=== PATIENT | female | born 1985 | race American Indian/Alaskan Native ===

== ENCOUNTER 2017-05-20 23:56 | Emergency (ER) | payer SELFPAY ==
[2017-05-20] MEDS ORDERED: Lidocaine 1% 20 ML MDV INJECT ONE (23:58)
[2017-05-20] MEDS ORDERED: Bacitracin Oint 1 GM U/D Packet TOP ONE (23:59)
[2017-05-21] MEDS ORDERED: Diphtheria,Pertussis(Acell),Tetanus Vaccine 0.5 ML Syringe IM ONE (00:02)
[2017-05-21 00:08] VITALS: BP 134/100
--- NOTE | 2017-05-21 00:10 | EDM.PDOC ---
ED HPI GENERAL MEDICAL PROBLEM - General Chief Complaint: Laceration Stated Complaint: LACERATION LT FOOT Time Seen by Provider: 05/21/17 00:07 - History of Present Illness INITIAL COMMENTS - FREE TEXT/NARRATIVE: HISTORY AND PHYSICAL: History of present illness: Patient 31-year-old white female presents with a concern of injury to her right foot in form of laceration she states this occurred when it was struck on a metal door frame she denies of a tetanus Review of systems: As per history of present illness and below otherwise all systems reviewed and negative. Past medical history: As per history of present illness and as reviewed below otherwise noncontributory. Surgical history: As per history of present illness and as reviewed below otherwise noncontributory. Social history: No reported history of drug or alcohol abuse. Family history: As per history of present illness and as reviewed below otherwise noncontributory. Physical exam: HEENT: Atraumatic, normocephalic, pupils reactive, negative for conjunctival pallor or scleral icterus, mucous membranes moist, throat clear, neck supple, nontender, trachea midline. Lungs: Clear to auscultation, breath sounds equal bilaterally, chest nontender. Heart: S1S2, regular, negative for clicks, rubs, or JVD. Abdomen: Soft, nondistended, nontender. Negative for masses or hepatosplenomegaly. Negative for costovertebral tenderness. Pelvis: Stable nontender. Genitourinary: Deferred. Rectal: Deferred. Extremities: Patient has approximately a 2.5 cm moderate of laceration over dorsal aspect of the first digit of her right foot there's good hemostasis was noted tendon involvement CMS neurovascular exam is unremarkable Neuro: Awake, alert, oriented. Cranial nerves II through XII unremarkable. Cerebellum unremarkable. Motor and sensory unremarkable throughout. Exam nonfocal. Diagnostics: Refused by patient Therapeutics: Refused by patient Impression: #1 acute injury right foot #2 AMA Definitive disposition and diagnosis as appropriate pending reevaluation and review of above. Right 1-Hallux Pain Score (Numeric/FACES): 6 - Related Data Allergies Allergy/AdvReac Type Severity Reaction Status Date / Time amoxicillin trihydrate Allergy Hives Verified 08/21/16 21:53 [From Augmentin] potassium clavulanate Allergy Hives Verified 08/21/16 21:53 [From Augmentin] Home Meds: Home Meds Budesonide/Formoterol [Symbicort 160-4.5 Mcg Inhaler] 10.2 gm IH DAILY 08/21/16 [History] Past Medical History HEENT History: Reports: None Cardiovascular History: Reports: None Respiratory History: Reports: Pneumothorax Gastrointestinal History: Reports: None Genitourinary History: Reports: None 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 Musculoskeletal History: Reports: None Neurological History: Reports: None Psychiatric History: Reports: Depression Endocrine/Metabolic History: Reports: None Hematologic History: Reports: None Immunologic History: Reports: None Oncologic (Cancer) History: Reports: None Dermatologic History: Reports: None - Infectious Disease History Infectious Disease History: Reports: None - Past Surgical History Head Surgeries/Procedures: Reports: None HEENT Surgical History: Reports: Tonsillectomy GI Surgical History: Reports: None Social & Family History - Tobacco Use Smoking Status *Q: Current Every Day Smoker Years of Tobacco use: 15 Packs/Tins Daily: 0.5 - Alcohol Use Days Per Week of Alcohol Use: 0 - Recreational Drug Use Recreational Drug Use: No Drug Use in Last 12 Months: Yes Recreational Drug Type: Reports: Marijuana/Hashish Recreational Drug Use Frequency: Rarely ED ROS GENERAL - Review of Systems Review Of Systems: ROS reveals no pertinent complaints other than HPI. ED EXAM, SKIN/RASH Exam: See Below (See dictation) Course - Vital Signs Last Recorded V/S: Last Vital Signs Temp 36.7 C 05/21/17 00:04 Pulse 94 05/21/17 00:04 Resp 20 05/21/17 00:04 BP 134/100 H 05/21/17 00:04 Pulse Ox 100 05/21/17 00:04 - Orders/Labs/Meds Meds: Medications Discontinued Medications Generic Name Dose Route Start Last Admin Trade Name Freq PRN Reason Stop Dose Admin Bacitracin 1 dose 05/20/17 23:59 Bacitracin Oint 1 Gm TOP 05/21/17 00:00 ONETIME ONE Lidocaine HCl 20 ml 05/20/17 23:58 Xylocaine 1% INJECT 05/20/17 23:59 ONETIME ONE Departure - Departure Time of Disposition: 00:10 Disposition: Against Medical Advice 07 Condition: Undetermined Clinical Impression: Foot injury - Discharge Information Forms: ED Department Discharge Additional Instructions: The following information is given to patients seen in the emergency department who are being discharged to home. This information is to outline your options for follow-up care. We provide all patients seen in our emergency department with a follow-up referral. The need for follow-up, as well as the timing and circumstances, are variable depending upon the specifics of your emergency department visit. If you don't have a primary care physician on staff, we will provide you with a referral. We always advise you to contact your personal physician following an emergency department visit to inform them of the circumstance of the visit and for follow-up with them and/or the need for any referrals to a consulting specialist. The emergency department will also refer you to a specialist when appropriate. This referral assures that you have the opportunity for followup care with a specialist. All of these measure are taken in an effort to provide you with optimal care, which includes your followup. Under all circumstances we always encourage you to contact your private physician who remains a resource for coordinating your care. When calling for followup care, please make the office aware that this follow-up is from your recent emergency room visit. If for any reason you are refused follow-up, please contact the [facility] emergency department at and asked to speak to the emergency department charge nurse. Return immediately for any change in heart regarding evaluation treatment follow -up primary medical doctor on today's return as needed as discussed
== END 2017-05-21 00:07 | disposition left against medical advice (07) ==
LOC: MW.ED 23:56
DX: S91.111A Laceration without foreign body of right great toe without damage to nail, initial encounter (principal); F17.210 Nicotine dependence, cigarettes, uncomplicated; Z88.1 Allergy status to other antibiotic agents; Z88.8 Allergy status to other drugs, medicaments and biological substances; Z79.899 Other long term (current) drug therapy; Z98.890 Other specified postprocedural states; W22.8XXA Striking against or struck by other objects, initial encounter
CPT/HCPCS: 99282

== ENCOUNTER 2017-05-21 03:52 | Emergency (ER) | payer SELFPAY ==
[2017-05-21] MEDS ORDERED: Lidocaine 1% 20 ML MDV INJECT ONE (03:59)
[2017-05-21] MEDS ORDERED: Diphtheria,Pertussis(Acell),Tetanus Vaccine 0.5 ML Syringe IM ONE (03:59)
[2017-05-21] MEDS ORDERED: Bacitracin Oint 1 GM U/D Packet TOP ONE (04:00)
--- NOTE | 2017-05-21 04:56 | EDM.PDOC ---
ED HPI GENERAL MEDICAL PROBLEM - General Chief Complaint: Laceration Stated Complaint: RETURN Time Seen by Provider: 05/21/17 04:56 - History of Present Illness INITIAL COMMENTS - FREE TEXT/NARRATIVE: HISTORY AND PHYSICAL: History of present illness: Patient 31-year-old female presents with concern of acute injury to first digit right foot that occurred when she struck it on the base doorjamb she denies trauma or concern she denies up-to-date tetanus Review of systems: As per history of present illness and below otherwise all systems reviewed and negative. Past medical history: As per history of present illness and as reviewed below otherwise noncontributory. Surgical history: As per history of present illness and as reviewed below otherwise noncontributory. Social history: No reported history of drug or alcohol abuse. Family history: As per history of present illness and as reviewed below otherwise noncontributory. Physical exam: HEENT: Atraumatic, normocephalic, pupils reactive, negative for conjunctival pallor or scleral icterus, mucous membranes moist, throat clear, neck supple, nontender, trachea midline. Lungs: Clear to auscultation, breath sounds equal bilaterally, chest nontender. Heart: S1S2, regular, negative for clicks, rubs, or JVD. Abdomen: Soft, nondistended, nontender. Negative for masses or hepatosplenomegaly. Negative for costovertebral tenderness. Pelvis: Stable nontender. Genitourinary: Deferred. Rectal: Deferred. Extremities: Patient has approximately 3 cm moderate depth laceration over the dorsal aspect of first digit right foot there's no tendon involvement CMS neurovascular unremarkable Neuro: Awake, alert, oriented. Cranial nerves II through XII unremarkable. Cerebellum unremarkable. Motor and sensory unremarkable throughout. Exam nonfocal. Diagnostics: X-ray right foot Therapeutics: Patient was anesthetized 1% lidocaine without epinephrine irrigated Demetrius-Soft 0.9 normal saline prepped and draped in sterile manner closed with 4-0 nylon interrupted sutures bacitracin was applied Impression: #1 acute injury right foot (laceration) Definitive disposition and diagnosis as appropriate pending reevaluation and review of above. 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 Musculoskeletal History: Reports: None Neurological History: Reports: None Psychiatric History: Reports: Depression Endocrine/Metabolic History: Reports: None Hematologic History: Reports: None Immunologic History: Reports: None Oncologic (Cancer) History: Reports: None Dermatologic History: Reports: None - Infectious Disease History Infectious Disease History: Reports: None - Past Surgical History Head Surgeries/Procedures: Reports: None HEENT Surgical History: Reports: Tonsillectomy GI Surgical History: Reports: None Social & Family History - Tobacco Use Smoking Status *Q: Current Every Day Smoker Years of Tobacco use: 11 Packs/Tins Daily: 0.5 Used Tobacco, but Quit: No - Caffeine Use Caffeine Use: Reports: Coffee, Soda - Alcohol Use Days Per Week of Alcohol Use: 7 Number of Drinks Per Day: 4 Total Drinks Per Week: 28 - Recreational Drug Use Recreational Drug Use: No Drug Use in Last 12 Months: Yes Recreational Drug Type: Reports: Marijuana/Hashish Recreational Drug Use Frequency: Rarely ED ROS GENERAL - Review of Systems Review Of Systems: ROS reveals no pertinent complaints other than HPI. ED EXAM, SKIN/RASH Exam: See Below (See dictation) Course - Vital Signs Last Recorded V/S: Last Vital Signs Temp 35.9 C 05/21/17 04:04 Pulse 86 05/21/17 04:04 Resp 16 05/21/17 04:04 BP 130/97 H 05/21/17 04:04 Pulse Ox 98 05/21/17 04:04 - Orders/Labs/Meds Orders: Active Orders 24 hr Category Date Time Status Vaccines to be Administered [RC] PER UNIT ROUTINE Care 05/21/17 03:59 Active Foot 2V Lt [CR] Stat Exams 05/21/17 04:15 Taken Meds: Medications Discontinued Medications Generic Name Dose Route Start Last Admin Trade Name Freq PRN Reason Stop Dose Admin Bacitracin 1 dose 05/21/17 04:00 05/21/17 04:11 Bacitracin Oint 1 Gm TOP 05/21/17 04:01 1 dose ONETIME ONE Administration Diphtheria/Tetanus/Acell Pertussis 0.5 ml 05/21/17 03:59 05/21/17 04:10 Adacel IM 05/21/17 04:00 0.5 ml .ONCE ONE Administration Lidocaine HCl 20 ml 05/21/17 03:59 05/21/17 04:11 Xylocaine 1% INJECT 05/21/17 04:00 20 ml ONETIME ONE Administration Departure - Departure Time of Disposition: 04:55 Disposition: Home, Self-Care 01 Condition: Good Clinical Impression: Laceration - Discharge Information Instructions: Laceration Care, Adult, [id number] Referrals: PCP,None [Primary Care Provider] - Forms: ED Department Discharge Additional Instructions: The following information is given to patients seen in the emergency department who are being discharged to home. This information is to outline your options for follow-up care. We provide all patients seen in our emergency department with a follow-up referral. The need for follow-up, as well as the timing and circumstances, are variable depending upon the specifics of your emergency department visit. If you don't have a primary care physician on staff, we will provide you with a referral. We always advise you to contact your personal physician following an emergency department visit to inform them of the circumstance of the visit and for follow-up with them and/or the need for any referrals to a consulting specialist. The emergency department will also refer you to a specialist when appropriate. This referral assures that you have the opportunity for followup care with a specialist. All of these measure are taken in an effort to provide you with optimal care, which includes your followup. Under all circumstances we always encourage you to contact your private physician who remains a resource for coordinating your care. When calling for followup care, please make the office aware that this follow-up is from your recent emergency room visit. If for any reason you are refused follow-up, please contact the [facility] emergency department at and asked to speak to the emergency department charge nurse. Wound check PMB follow-up 48 hours suture removal 10-14 days return as needed as discussed - My Orders Last 24 Hours: My Active Orders 05/21/17 03:59 Vaccines to be Administered [RC] PER UNIT ROUTINE 05/21/17 04:15 Foot 2V Lt [CR] Stat - Assessment/Plan Last 24 Hours: My Active Orders 05/21/17 03:59 Vaccines to be Administered [RC] PER UNIT ROUTINE 05/21/17 04:15 Foot 2V Lt [CR] Stat
[2017-05-21 05:31] VITALS: BP 135/74
--- NOTE | 2017-05-21 14:02 | CR ---
EXAM DATE: 05/21/17 PATIENT'S AGE: 31 Patient: DORI CARVAJAL Facility: [place], [place] Site . Site : 1985 Study: XRay Extremity Left [id number]/10/2017 4:30:57 AM Ordering Physician: Scotty Herbert Final Report: INDICATION: INJURY LEFT FOOT No fracture, dislocation, or destructive lesion of bone is seen. No significant arthritic changes or soft tissue abnormalities are identified. IMPRESSION: Negative left foot radiographs. JONO HERNANDES MD [employer] Dictated by: Osmany Hernandes MD @ 05/21/2017 04:47:01 (Electronic Signature) Report Signed by Proxy. [facility]
== END 2017-05-21 05:01 | disposition home or self-care (01) ==
LOC: MW.ED 03:52
DX: S91.112A Laceration without foreign body of left great toe without damage to nail, initial encounter (principal); F17.210 Nicotine dependence, cigarettes, uncomplicated; Z88.1 Allergy status to other antibiotic agents; Z98.890 Other specified postprocedural states; W22.8XXA Striking against or struck by other objects, initial encounter
CPT/HCPCS: 12002; 73620-26-LT; 73620-LT; 90471; 90715; 96372; 99282; 99283-25

== ENCOUNTER 2018-01-10 14:20 | Emergency (ER) | payer SELFPAY | END 2018-01-10 15:13 | disposition left against medical advice (07) | LOC: MW.ED 14:20 | DX: Z53.21 Procedure and treatment not carried out due to patient leaving prior to being seen by health care provider (principal) ==

== ENCOUNTER 2018-01-26 06:55 | Emergency (ER) | payer SELFPAY ==
[2018-01-26] MEDS ORDERED: Albuterol/Ipratropium 3.0-0.5 MG/3 ML Neb Soln NEB ONE (07:11)
--- NOTE | 2018-01-26 07:12 | EDM.PDOC ---
ED HPI GENERAL MEDICAL PROBLEM - General Chief Complaint: General Stated Complaint: FEVER Time Seen by Provider: 01/26/18 07:12 Source of Information: Reports: Patient - History of Present Illness INITIAL COMMENTS - FREE TEXT/NARRATIVE: HISTORY AND PHYSICAL: History of present illness: [Patient has a history of half pack per day smoking and persistent cough is her main complaint She also complains of right flank discomfort and dysuria no current fever nausea vomiting chills sweats ] Review of systems: As per history of present illness and below otherwise all systems reviewed and negative. Past medical history: As per history of present illness and as reviewed below otherwise noncontributory. Surgical history: As per history of present illness and as reviewed below otherwise noncontributory. Social history: No reported history of drug or alcohol abuse. Family history: As per history of present illness and as reviewed below otherwise noncontributory. Physical exam: HEENT: Atraumatic, normocephalic, pupils reactive, negative for conjunctival pallor or scleral icterus, mucous membranes moist, throat clear, neck supple, nontender, trachea midline. Lungs: Clear to auscultation, breath sounds equal bilaterally, chest nontender. Heart: S1S2, regular, negative for clicks, rubs, or JVD. Abdomen: Soft, nondistended, nontender. Negative for masses or hepatosplenomegaly. Negative for costovertebral tenderness. Pelvis: Stable nontender. Genitourinary: Deferred. Rectal: Deferred. Extremities: Atraumatic, negative for cords or calf pain. Neurovascular unremarkable. Neuro: Awake, alert, oriented. Cranial nerves II through XII unremarkable. Cerebellum unremarkable. Motor and sensory unremarkable throughout. Exam nonfocal. Diagnostics: [Chest 2 views Influenza UA hCG ] Therapeutics: [DuoNeb ] Levaquin 500 by mouth now and daily #10 no refill HFA Impression: UTI Bronchitis [Cough] Definitive disposition and diagnosis as appropriate pending reevaluation and review of above. generalized all over Pain Score (Numeric/FACES): 8 - Related Data Allergies Allergy/AdvReac Type Severity Reaction Status Date / Time amoxicillin trihydrate Allergy Hives Verified 01/26/18 07:05 [From Augmentin] potassium clavulanate Allergy Hives Verified 01/26/18 07:05 [From Augmentin] Home Meds: Home Meds . [No Known Home Meds] 01/26/18 [History] Past Medical History HEENT History: Reports: None Cardiovascular History: Reports: None Respiratory History: Reports: COPD, Pneumothorax Gastrointestinal History: Reports: None Genitourinary History: Reports: None MOLDER HAND History: Reports: None Musculoskeletal History: Reports: None Neurological History: Reports: None Psychiatric History: Reports: Depression Endocrine/Metabolic History: Reports: None Hematologic History: Reports: None Immunologic History: Reports: None Oncologic (Cancer) History: Reports: None Dermatologic History: Reports: None - Infectious Disease History Infectious Disease History: Reports: None - Past Surgical History Head Surgeries/Procedures: Reports: None HEENT Surgical History: Reports: Tonsillectomy Respiratory Surgical History: Reports: Other (See Below) Other Respiratory Surgeries/Procedures: Part of R lung removed, GI Surgical History: Reports: None Social & Family History - Family History Family Medical History: Noncontributory - Tobacco Use Smoking Status *Q: Current Every Day Smoker Years of Tobacco use: 12 Packs/Tins Daily: 0.5 Used Tobacco, but Quit: No - Caffeine Use Caffeine Use: Reports: Coffee, Energy Drinks - Alcohol Use Days Per Week of Alcohol Use: 5 Number of Drinks Per Day: 4 Total Drinks Per Week: 20 - Recreational Drug Use Recreational Drug Use: No Drug Use in Last 12 Months: Yes Recreational Drug Type: Reports: Marijuana/Hashish Recreational Drug Use Frequency: Rarely ED ROS GENERAL - Review of Systems Review Of Systems: ROS reveals no pertinent complaints other than HPI. ED EXAM, GENERAL - Physical Exam Exam: See Below Course - Vital Signs Last Recorded V/S: Last Vital Signs Temp 97.8 F 01/26/18 07:02 Pulse 100 01/26/18 07:02 Resp 16 01/26/18 07:02 BP 133/91 H 01/26/18 07:02 Pulse Ox 95 01/26/18 07:02 - Orders/Labs/Meds Orders: Active Orders 24 hr Category Date Time Status RT Aerosol Therapy [RC] ASDIRECTED Care 01/26/18 07:11 Active Chest 2V [CR] Stat Exams 01/26/18 07:11 Taken CULTURE URINE [RM] Stat Lab 01/26/18 07:17 Received Levofloxacin [Levaquin] Med 01/26/18 08:11 Once 500 mg PO ONETIME ONE Labs: Laboratory Tests 01/26/18 01/26/18 Range/Units 07:17 07:17 Urine Color YELLOW Urine Appearance CLEAR Urine pH 6.0 (5.0-8.0) Ur Specific [place] <= 1.005 (1.001-1.035) Urine Protein 30 (NEGATIVE) mg/dL Urine Glucose (UA) NEGATIVE (NEGATIVE) mg/dL Urine Ketones NEGATIVE (NEGATIVE) mg/dL Urine Occult Blood TRACE-INTACT (NEGATIVE) Urine Nitrite NEGATIVE (NEGATIVE) Urine Bilirubin NEGATIVE (NEGATIVE) Urine Urobilinogen 0.2 (<2.0) EU/dL Ur Leukocyte Esterase MODERATE (NEGATIVE) Urine RBC 0-1 (0-2/HPF) Urine WBC 25-30 (0-5/HPF) Ur Epithelial Cells RARE (NONE-FEW) Urine Bacteria RARE (NEGATIVE) Urine HCG, Qual NEGATIVE (NEGATIVE) Meds: Medications Discontinued Medications Generic Name Dose Route Start Last Admin Trade Name Freq PRN Reason Stop Dose Admin Albuterol/Ipratropium 3 ml 01/26/18 07:11 01/26/18 07:18 Duoneb 3.0-0.5 Mg/3 Ml NEB 01/26/18 07:12 3 ml ONETIME ONE Administration Departure - Departure Time of Disposition: 08:12 Disposition: Home, Self-Care 01 Condition: Good Clinical Impression: UTI (urinary tract infection), Bronchitis - Discharge Information Referrals: Huy Duarte MD [Primary Care Provider] - Forms: ED Department Discharge Additional Instructions: Smoking cessation recommended Medication as prescribed Return if symptoms persist or worsen or new concerning symptoms develop Follow-up with primary care in 2 weeks sooner as needed [facility] [address] [place] [id number] The following information is given to patients seen in the emergency department who are being discharged to home. This information is to outline your options for follow-up care. We provide all patients seen in our emergency department with a follow-up referral. The need for follow-up, as well as the timing and circumstances, are variable depending upon the specifics of your emergency department visit. If you don't have a primary care physician on staff, we will provide you with a referral. We always advise you to contact your personal physician following an emergency department visit to inform them of the circumstance of the visit and for follow-up with them and/or the need for any referrals to a consulting specialist. The emergency department will also refer you to a specialist when appropriate. This referral assures that you have the opportunity for follow-up care with a specialist. All of these measure are taken in an effort to provide you with optimal care, which includes your follow-up. Under all circumstances we always encourage you to contact your private physician who remains a resource for coordinating your care. When calling for follow-up care, please make the office aware that this follow-up is from your recent emergency room visit. If for any reason you are refused follow-up, please contact the [facility] emergency department at and asked to speak to the emergency department charge nurse. - My Orders Last 24 Hours: My Active Orders 01/26/18 07:11 RT Aerosol Therapy [RC] ASDIRECTED Chest 2V [CR] Stat 01/26/18 07:17 CULTURE URINE [RM] Stat 01/26/18 08:11 Levofloxacin [Levaquin] 500 mg PO ONETIME ONE - Assessment/Plan Last 24 Hours: My Active Orders 01/26/18 07:11 RT Aerosol Therapy [RC] ASDIRECTED Chest 2V [CR] Stat 01/26/18 07:17 CULTURE URINE [RM] Stat 01/26/18 08:11 Levofloxacin [Levaquin] 500 mg PO ONETIME ONE
[2018-01-26] MEDS ORDERED: Levofloxacin 500 MG Tab PO ONE (08:11)
[2018-01-26 08:30] VITALS: BP 120/89
--- NOTE | 2018-01-28 15:27 | CR ---
EXAM DATE: 01/26/18 PATIENT'S AGE: 32 Patient: DORI CARVAAJL Facility: [place], [place] Site . Site : 1985 Study: XRay Chest [id number]/17/2018 7:33:51 AM Ordering Physician: Doctor Winn Final Report: INDICATION: pain in chest and back/ cough/ copd INDICATION: Chest pain. TECHNIQUE: Chest 2 views. COMPARISON: None FINDINGS: Cardiovascular and mediastinum: Heart size and vasculature are normal in caliber and appearance. Mediastinum is within normal limits. Lungs and pleural spaces: Linear scarring present above the minor fissure, which appears displaced superiorly. No sign of mass. Mild blunting of the right lateral costophrenic sulcus, with pleural thickening favored over fluid. No pneumothorax. Lucencies are present about the left lung apex, without a discrete pneumothorax. This could represent emphysematous changes. Bones and soft tissues: No significant findings. IMPRESSION: No acute airspace disease. Dictated by Amari Hamilton MD @ 01/26/2018 7:37:16 AM Dictated by: Amari Hamilton MD @ 01/26/2018 07:37:29 (Electronic Signature) Report Signed by Proxy. [facility]
== END 2018-01-26 08:25 | disposition home or self-care (01) ==
LOC: MW.ED 06:55
DX: J40 Bronchitis, not specified as acute or chronic (principal); N39.0 Urinary tract infection, site not specified; J44.9 Chronic obstructive pulmonary disease, unspecified; F17.210 Nicotine dependence, cigarettes, uncomplicated; Z88.1 Allergy status to other antibiotic agents; Z88.8 Allergy status to other drugs, medicaments and biological substances
CPT/HCPCS: 71046; 81001; 81025; 87086; 87804; 94640; 99284; A9270; 87088; 87186; 99283

== ENCOUNTER 2018-03-12 22:51 | Emergency (ER) | payer OTHER ==
[2018-03-12] MEDS ORDERED: Sodium Chloride 0.9% 1,000 ML IV ONE (23:12)
--- NOTE | 2018-03-12 23:14 | EDM.PDOC ---
ED HPI GENERAL MEDICAL PROBLEM - General Chief Complaint: General Stated Complaint: MEDICAL CLEARANCE Time Seen by Provider: 03/12/18 23:14 Source of Information: Reports: Patient - History of Present Illness INITIAL COMMENTS - FREE TEXT/NARRATIVE: HISTORY AND PHYSICAL: History of present illness: [Patient presents for medical clearance, she is currently under arrest for alcohol intoxication Patient denies any symptoms such as fever nausea vomiting diarrhea constipation chest pain shortness breath headache dizziness palpitation no bowel or urine symptoms Her initial vitals have elevated blood pressure as well as tachycardia up to 140 however manual exam blood pressure is 130s over 100 versus the automated machine, EKG confirms a heart rate in the low at 114 slides sinus tachycardia Otherwise patient is alert cooperative in no apparent distress ] Review of systems: As per history of present illness and below otherwise all systems reviewed and negative. Past medical history: As per history of present illness and as reviewed below otherwise noncontributory. Surgical history: As per history of present illness and as reviewed below otherwise noncontributory. Social history: No reported history of drug or alcohol abuse. Family history: As per history of present illness and as reviewed below otherwise noncontributory. Physical exam: HEENT: Atraumatic, normocephalic, pupils reactive, negative for conjunctival pallor or scleral icterus, mucous membranes moist, throat clear, neck supple, nontender, trachea midline. Lungs: Clear to auscultation, breath sounds equal bilaterally, chest nontender. Heart: S1S2, regular, negative for clicks, rubs, or JVD. Abdomen: Soft, nondistended, nontender. Negative for masses or hepatosplenomegaly. Negative for costovertebral tenderness. Pelvis: Stable nontender. Genitourinary: Deferred. Rectal: Deferred. Extremities: Atraumatic, negative for cords or calf pain. Neurovascular unremarkable. Neuro: Awake, alert, oriented. Cranial nerves II through XII unremarkable. Cerebellum unremarkable. Motor and sensory unremarkable throughout. Exam nonfocal. Diagnostics: [CBC CMP UA drug screen troponin EKG ] Therapeutics: [1 L normal saline bolus ]KCl 20 mEq by mouth now KCl 20 mEq by mouth daily #3 no rf Impression: [Sinus tachycardia hypertension dehydration Alcohol intoxication Hypokalemia Alcohol use abuse ] Definitive disposition and diagnosis as appropriate pending reevaluation and review of above. denies pain Pain Score (Numeric/FACES): 0 - Related Data Allergies Allergy/AdvReac Type Severity Reaction Status Date / Time amoxicillin trihydrate Allergy Hives Verified 03/12/18 22:58 [From Augmentin] potassium clavulanate Allergy Hives Verified 03/12/18 22:58 [From Augmentin] Home Meds: Home Meds . 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 Musculoskeletal History: Reports: None Neurological History: Reports: None Psychiatric History: Reports: Anxiety, Depression Endocrine/Metabolic History: Reports: None Hematologic History: Reports: None Immunologic History: Reports: None Oncologic (Cancer) History: Reports: None Dermatologic History: Reports: None - Infectious Disease History Infectious Disease History: Reports: None - Past Surgical History Head Surgeries/Procedures: Reports: None HEENT Surgical History: Reports: Tonsillectomy Respiratory Surgical History: Reports: Other (See Below) Other Respiratory Surgeries/Procedures: right lobectomy GI Surgical History: Reports: None Social & Family History - Family History Family Medical History: Noncontributory - Tobacco Use Smoking Status *Q: Current Every Day Smoker Years of Tobacco use: 10 Packs/Tins Daily: 0.5 Used Tobacco, but Quit: No - Caffeine Use Caffeine Use: Reports: Energy Drinks - Alcohol Use Days Per Week of Alcohol Use: 5 Number of Drinks Per Day: 4 Total Drinks Per Week: 20 - Recreational Drug Use Recreational Drug Use: No Drug Use in Last 12 Months: Yes Recreational Drug Type: Reports: Marijuana/Hashish Recreational Drug Use Frequency: Rarely ED ROS GENERAL - Review of Systems Review Of Systems: ROS reveals no pertinent complaints other than HPI. ED EXAM, GENERAL - Physical Exam Exam: See Below Course - Vital Signs Last Recorded V/S: Last Vital Signs Temp 97.6 F 03/12/18 22:58 Pulse 141 H 03/12/18 23:09 Resp 18 03/12/18 22:58 BP 153/116 H 03/12/18 23:09 Pulse Ox 98 03/12/18 22:58 - Orders/Labs/Meds Orders: Active Orders 24 hr Category Date Time Status EKG 12 Lead [EKG Documentation Completion] [RC] STAT Care 03/12/18 23:12 Active DRUG SCREEN, URINE [URCHEM] Stat Lab 03/12/18 23:12 Ordered HCG QUALITATIVE,URINE [URCHEM] Stat Lab 03/12/18 23:41 Ordered UA W/MICROSCOPIC [URIN] Stat Lab 03/12/18 23:12 Ordered Potassium Chloride [Klor-Con M20] Med 03/12/18 23:59 Once 20 meq PO ONETIME ONE Sodium Chloride 0.9% [Normal Saline] 1,000 ml Med 03/12/18 23:12 Active IV STAT Medication Orders Sodium Chloride (Normal Saline) 1,000 mls @ 999 mls/hr IV STAT ONE Stop: 03/13/18 00:12 Last Admin: 03/12/18 23:34 Dose: 999 mls/hr Labs: Laboratory Tests 03/12/18 03/12/18 Range/Units 23:25 23:25 WBC 5.67 (4.0-11.0) K/uL RBC 3.70 L (4.30-5.90) M/uL Hgb 13.7 (12.0-16.0) g/dL Hct 39.7 (36.0-46.0) % MCV 107.3 H (80.0-98.0) fL MCH 37.0 H (27.0-32.0) pg MCHC 34.5 (31.0-37.0) g/dL RDW Std Deviation 61.3 (28.0-62.0) fl RDW Coeff of Mayito 16 H (11.0-15.0) % Plt Count 211 (150-400) K/uL MPV 9.30 (7.40-12.00) fL Neut % (Auto) 60.1 (48.0-80.0) % Lymph % (Auto) 29.5 (16.0-40.0) % Gilchrist % (Auto) 7.4 (0.0-15.0) % Eos % (Auto) 1.9 (0.0-7.0) % Baso % (Auto) 1.1 (0.0-1.5) % Neut # (Auto) 3.4 (1.4-5.7) K/uL Lymph # (Auto) 1.7 (0.6-2.4) K/uL Gilchrist # (Auto) 0.4 (0.0-0.8) K/uL Eos # (Auto) 0.1 (0.0-0.7) K/uL Baso # (Auto) 0.1 (0.0-0.1) K/uL Nucleated RBC % 0.0 /100WBC Nucleated RBCs # 0 K/uL Sodium 144 (136-145) mmol/L Potassium 3.0 L (3.5-5.1) mmol/L Chloride 106 (98-107) mmol/L Carbon Dioxide 25.4 (21.0-32.0) mmol/L BUN 7 (7.0-18.0) mg/dL Creatinine 0.6 (0.6-1.0) mg/dL Est Cr Clr Drug Dosing 101.66 mL/min Estimated GFR (MDRD) > 60.0 ml/min Glucose 120 H (74-106) mg/dL Calcium 8.1 L (8.5-10.1) mg/dL Total Bilirubin 0.6 (0.2-1.0) mg/dL AST 191 H (15-37) IU/L ALT 64 H (14-63) IU/L Alkaline Phosphatase 167 H (46-116) U/L Troponin I < 0.050 (0.000-0.056) ng/mL Total Protein 7.1 (6.4-8.2) g/dL Albumin 3.2 L (3.4-5.0) g/dL Globulin 3.9 H (2.0-3.5) g/dL Albumin/Globulin Ratio 0.8 L (1.3-2.8) Meds: Medications Generic Name Dose Route Start Last Admin Trade Name Freq PRN Reason Stop Dose Admin Sodium Chloride 1,000 mls @ 999 mls/hr 03/12/18 23:12 03/12/18 23:34 Normal Saline IV 03/13/18 00:12 999 mls/hr STAT ONE Administration Departure - Departure Time of Disposition: 00:00 Disposition: Home, Self-Care 01 Condition: Good Clinical Impression: Alcohol intoxication, Sinus tachycardia, Hypokalemia - Discharge Information Referrals: PCP,None [Primary Care Provider] - Forms: ED Department Discharge Additional Instructions: The following information is given to patients seen in the emergency department who are being discharged to home. This information is to outline your options for follow-up care. We provide all patients seen in our emergency department with a follow-up referral. The need for follow-up, as well as the timing and circumstances, are variable depending upon the specifics of your emergency department visit. If you don't have a primary care physician on staff, we will provide you with a referral. We always advise you to contact your personal physician following an emergency department visit to inform them of the circumstance of the visit and for follow-up with them and/or the need for any referrals to a consulting specialist. The emergency department will also refer you to a specialist when appropriate. This referral assures that you have the opportunity for follow-up care with a specialist. All of these measure are taken in an effort to provide you with optimal care, which includes your follow-up. Under all circumstances we always encourage you to contact your private physician who remains a resource for coordinating your care. When calling for follow-up care, please make the office aware that this follow-up is from your recent emergency room visit. If for any reason you are refused follow-up, please contact the [facility] emergency department at and asked to speak to the emergency department charge nurse. - My Orders Last 24 Hours: My Active Orders 03/12/18 23:12 EKG 12 Lead [EKG Documentation Completion] [RC] STAT DRUG SCREEN, URINE [URCHEM] Stat UA W/MICROSCOPIC [URIN] Stat Sodium Chloride 0.9% [Normal Saline] 1,000 ml IV STAT 03/12/18 23:41 HCG QUALITATIVE,URINE [URCHEM] Stat 03/12/18 23:59 Potassium Chloride [Klor-Con M20] 20 meq PO ONETIME ONE - Assessment/Plan Last 24 Hours: My Active Orders 03/12/18 23:12 EKG 12 Lead [EKG Documentation Completion] [RC] STAT DRUG SCREEN, URINE [URCHEM] Stat UA W/MICROSCOPIC [URIN] Stat Sodium Chloride 0.9% [Normal Saline] 1,000 ml IV STAT 03/12/18 23:41 HCG QUALITATIVE,URINE [URCHEM] Stat 03/12/18 23:59 Potassium Chloride [Klor-Con M20] 20 meq PO ONETIME ONE
[2018-03-12 23:56] LABS: CHLORIDE,CL 106 mmol/L (98-107); SODIUM,NA 144 mmol/L (136-145)
[2018-03-12] MEDS ORDERED: Potassium Chloride 20 MEQ Tab.ER PO ONE (23:59)
[2018-03-13 00:35] VITALS: BP 137/102
== END 2018-03-13 00:22 | disposition home or self-care (01) ==
LOC: MW.ED 22:51
DX: F10.129 Alcohol abuse with intoxication, unspecified (principal); R00.0 Tachycardia, unspecified; I10 Essential (primary) hypertension; E86.0 Dehydration; F41.9 Anxiety disorder, unspecified; F32.9 Major depressive disorder, single episode, unspecified; J44.9 Chronic obstructive pulmonary disease, unspecified; F17.210 Nicotine dependence, cigarettes, uncomplicated; E87.6 Hypokalemia; Z88.0 Allergy status to penicillin; Z88.8 Allergy status to other drugs, medicaments and biological substances
CPT/HCPCS: 36415; 80053; 80305; 81001; 81025; 84484; 85025; 93005; 99283; A9270; J7040

== ENCOUNTER 2018-03-13 11:05 | Emergency (ER) | payer SELFPAY ==
[2018-03-13] MEDS ORDERED: Sodium Chloride 0.9% 1,000 ML IV ONE (11:12)
--- NOTE | 2018-03-13 11:12 | EDM.PDOC ---
ED HPI GENERAL MEDICAL PROBLEM - General Stated Complaint: AMBULANCE Time Seen by Provider: 03/13/18 11:07 Source of Information: Reports: Patient History Limitations: Reports: No Limitations - History of Present Illness INITIAL COMMENTS - FREE TEXT/NARRATIVE: HISTORY AND PHYSICAL: History of present illness: Patient is a 32-year-old female who presents to the emergency room from the local shelter with complaints of chest pain hyperventilation and cramping in both hands. Patient was evaluated last night through our emergency room and was released into law enforcement custody. She currently denies any fever, chills, cough, abdominal pain, nausea, vomiting or diarrhea/constipation. States she does have a history of COPD and is a smoker. Review of systems: As per history of present illness and below otherwise all systems reviewed and negative. Past medical history: As per history of present illness and as reviewed below otherwise noncontributory. Surgical history: As per history of present illness and as reviewed below otherwise noncontributory. Social history: No reported history of drug or alcohol abuse. Family history: As per history of present illness and as reviewed below otherwise noncontributory. Physical exam: General: Well-developed and well-nourished 32-year-old female. Alert and oriented. Nontoxic appearing and in no acute distress. HEENT: Atraumatic, normocephalic, pupils equal and reactive bilaterally, negative for conjunctival pallor or scleral icterus, mucous membranes moist, throat clear, neck supple, nontender, trachea midline. No drooling or trismus noted. No meningeal signs Lungs: Clear to auscultation, breath sounds equal bilaterally, chest nontender. Tachypnic Heart: S1S2, regular rate and rhythm, tachycardic without overt murmur Abdomen: Soft, nondistended, nontender. Negative for masses or hepatosplenomegaly. Negative for costovertebral tenderness. Pelvis: Stable nontender. Genitourinary: Deferred. Rectal: Deferred. Skin: Intact, warm, dry. No lesions or rashes noted. Extremities: Atraumatic, negative for cords or calf pain. Neurovascular unremarkable. Neuro: Awake, alert, oriented. Cranial nerves II through XII unremarkable. Cerebellum unremarkable. Motor and sensory unremarkable throughout. Exam nonfocal. Notes: 03/12 -03/13/2018: Patient was seen over midnight last night for medical clearance due to alcohol intoxication. Patient was discharged and released to return with law enforcement. She was diagnosed with hypokalemia, with a potassium of 3.0. AST (191) and ALT (64) are slightly elevated. She had a negative drug screen, urinalysis, and urine . Lab work is unremarkable. Potassium has increased into a normal range. Vital signs have improved. EKG shows normal sinus rhythm with a rate of 80. Patient states she is comfortable and has a ride for discharge to home. Supportive care measures were reviewed. Signs and symptoms that would prompt her to come back to the ER were reviewed. Patient voices understanding and is agreeable to plan of care. Diagnostics: CBC, CMP, troponin, EKG, one view chest Therapeutics: Normal saline, Ativan Impression: Hyperventilation Plan: 1. No driving for the rest of the day, due to the medications he received through the emergency room. 2. Please follow-up with your primary caregiver in the next 1-2 days. Return to the ED as needed and as discussed. Definitive disposition and diagnosis as appropriate pending reevaluation and review of above. Onset: Today Mid-Sternal Chest Pain Score (Numeric/FACES): 6 - Related Data Allergies Allergy/AdvReac Type Severity Reaction Status Date / Time amoxicillin trihydrate Allergy Hives Verified 03/12/18 22:58 [From Augmentin] potassium clavulanate Allergy Hives Verified 03/12/18 22:58 [From Augmentin] Home Meds: Home Meds . 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 Musculoskeletal History: Reports: None Neurological History: Reports: None Psychiatric History: Reports: Anxiety, Depression Endocrine/Metabolic History: Reports: None Hematologic History: Reports: None Immunologic History: Reports: None Oncologic (Cancer) History: Reports: None Dermatologic History: Reports: None - Infectious Disease History Infectious Disease History: Reports: None - Past Surgical History Head Surgeries/Procedures: Reports: None HEENT Surgical History: Reports: Tonsillectomy Respiratory Surgical History: Reports: Other (See Below) Other Respiratory Surgeries/Procedures: right lobectomy GI Surgical History: Reports: None Social & Family History - Family History Family Medical History: Noncontributory - Tobacco Use Smoking Status *Q: Current Every Day Smoker Years of Tobacco use: 10 Packs/Tins Daily: 0.5 Used Tobacco, but Quit: No - Caffeine Use Caffeine Use: Reports: Energy Drinks - Alcohol Use Days Per Week of Alcohol Use: 5 Number of Drinks Per Day: 4 Total Drinks Per Week: 20 - Recreational Drug Use Recreational Drug Use: No Drug Use in Last 12 Months: Yes Recreational Drug Type: Reports: Marijuana/Hashish Recreational Drug Use Frequency: Rarely ED ROS GENERAL - Review of Systems Review Of Systems: ROS reveals no pertinent complaints other than HPI. ED EXAM, GENERAL - Physical Exam Exam: See Below (See dictation) Course - Vital Signs Last Recorded V/S: Last Vital Signs Temp 97.9 F 03/13/18 11:06 Pulse 89 03/13/18 11:06 Resp 24 H 03/13/18 11:06 BP 180/93 H 03/13/18 11:06 Pulse Ox 100 03/13/18 11:06 - Orders/Labs/Meds Orders: Active Orders 24 hr Category Date Time Status EKG Documentation Completion [RC] STAT Care 03/13/18 11:12 Active Labs: Laboratory Tests 03/13/18 03/13/18 Range/Units 11:17 11:17 WBC 4.82 (4.0-11.0) K/uL RBC 3.44 L (4.30-5.90) M/uL Hgb 12.7 (12.0-16.0) g/dL Hct 36.8 (36.0-46.0) % MCV 107.0 H (80.0-98.0) fL MCH 36.9 H (27.0-32.0) pg MCHC 34.5 (31.0-37.0) g/dL RDW Std Deviation 61.6 (28.0-62.0) fl RDW Coeff of Mayito 16 H (11.0-15.0) % Plt Count 206 (150-400) K/uL MPV 9.30 (7.40-12.00) fL Neut % (Auto) 60.3 (48.0-80.0) % Lymph % (Auto) 28.8 (16.0-40.0) % Glades % (Auto) 7.7 (0.0-15.0) % Eos % (Auto) 1.7 (0.0-7.0) % Baso % (Auto) 1.5 (0.0-1.5) % Neut # (Auto) 2.9 (1.4-5.7) K/uL Lymph # (Auto) 1.4 (0.6-2.4) K/uL Glades # (Auto) 0.4 (0.0-0.8) K/uL Eos # (Auto) 0.1 (0.0-0.7) K/uL Baso # (Auto) 0.1 (0.0-0.1) K/uL Nucleated RBC % 0.0 /100WBC Nucleated RBCs # 0 K/uL Sodium 137 (136-145) mmol/L Potassium 3.6 (3.5-5.1) mmol/L Chloride 102 (98-107) mmol/L Carbon Dioxide 18.6 L (21.0-32.0) mmol/L BUN 7 (7.0-18.0) mg/dL Creatinine 0.7 (0.6-1.0) mg/dL Est Cr Clr Drug Dosing 82.55 mL/min Estimated GFR (MDRD) > 60.0 ml/min Glucose 88 (74-106) mg/dL Calcium 8.9 (8.5-10.1) mg/dL Total Bilirubin 0.9 (0.2-1.0) mg/dL AST 199 H (15-37) IU/L ALT 63 (14-63) IU/L Alkaline Phosphatase 165 H (46-116) U/L Troponin I < 0.050 (0.000-0.056) ng/mL Total Protein 7.1 (6.4-8.2) g/dL Albumin 3.6 (3.4-5.0) g/dL Globulin 3.5 (2.0-3.5) g/dL Albumin/Globulin Ratio 1.0 L (1.3-2.8) Meds: Medications Discontinued Medications Generic Name Dose Route Start Last Admin Trade Name Freq PRN Reason Stop Dose Admin Sodium Chloride 1,000 mls @ 999 mls/hr 03/13/18 11:12 03/13/18 11:31 Normal Saline IV 03/13/18 12:12 999 mls/hr STAT ONE Administration Lorazepam 0.5 mg 03/13/18 11:15 03/13/18 11:35 Ativan IVPUSH 03/13/18 11:16 0.5 mg ONETIME ONE Administration Departure - Departure Time of Disposition: 12:26 Disposition: Home, Self-Care 01 Clinical Impression: Nonspecific chest pain, Hyperventilation - Discharge Information Instructions: Hyperventilation, Nonspecific Chest Pain, [id number] Forms: ED Department Discharge Additional Instructions: The following information is given to patients seen in the emergency department who are being discharged to home. This information is to outline your options for follow-up care. We provide all patients seen in our emergency department with a follow-up referral. The need for follow-up, as well as the timing and circumstances, are variable depending upon the specifics of your emergency department visit. If you don't have a primary care physician on staff, we will provide you with a referral. We always advise you to contact your personal physician following an emergency department visit to inform them of the circumstance of the visit and for follow-up with them and/or the need for any referrals to a consulting specialist. The emergency department will also refer you to a specialist when appropriate. This referral assures that you have the opportunity for follow-up care with a specialist. All of these measure are taken in an effort to provide you with optimal care, which includes your follow-up. Under all circumstances we always encourage you to contact your private physician who remains a resource for coordinating your care. When calling for follow-up care, please make the office aware that this follow-up is from your recent emergency room visit. If for any reason you are refused follow-up, please contact the [facility] Emergency Department at and asked to speak to the emergency department charge nurse. [facility] Primary [facility] [address] [place], [place] [id number] 1. No driving for the rest of the day, due to the medications he received through the emergency room. 2. Please follow-up with your primary caregiver in the next 1-2 days. Return to the ED as needed and as discussed. - My Orders Last 24 Hours: My Active Orders 03/13/18 11:12 EKG Documentation Completion [RC] STAT - Assessment/Plan Last 24 Hours: My Active Orders 03/13/18 11:12 EKG Documentation Completion [RC] STAT
[2018-03-13] MEDS ORDERED: LORazepam 2 MG/ML SDV IVPUSH ONE (11:15)
[2018-03-13 12:09] LABS: CHLORIDE,CL 102 mmol/L (98-107); SODIUM,NA 137 mmol/L (136-145)
--- NOTE | 2018-03-13 12:09 | CR ---
EXAMINATION: Portable chest radiograph. HISTORY: Chest pain. Comparison: 01/27/2028, CT dated 12/12/2012. FINDINGS: The trachea is midline. The cardiomediastinal silhouette is within normal limits. There is biapical s carring consistent with bullous emphysema, left greater than right. Postsurgical changes noted within the right apex. No definite pneumothorax. Stable volume loss within the right hemithorax. No pleural effusion or focal consolidation. Osseous structures appear unremarkable. IMPRESSION: 1. No acute cardiopulmonary process. 2. Biapical scarring with bullous emphysema in the left apex.
[2018-03-13 13:15] VITALS: BP 152/104
== END 2018-03-13 12:50 | disposition home or self-care (01) ==
LOC: MW.ED 11:05
DX: R07.9 Chest pain, unspecified (principal); R06.4 Hyperventilation; J44.9 Chronic obstructive pulmonary disease, unspecified; F17.210 Nicotine dependence, cigarettes, uncomplicated; F41.9 Anxiety disorder, unspecified; F32.9 Major depressive disorder, single episode, unspecified; Z88.1 Allergy status to other antibiotic agents
CPT/HCPCS: 36415; 71045; 80053; 84484; 85025; 93005; 96361; 96374; 99285; J2060; J7040

== ENCOUNTER 2018-07-13 03:12 | Emergency (ER) | payer SELFPAY ==
--- NOTE | 2018-07-13 03:23 | EDM.PDOC ---
ED HPI GENERAL MEDICAL PROBLEM - General Chief Complaint: Chest Pain Stated Complaint: AMBULANCE Time Seen by Provider: 07/13/18 03:18 - History of Present Illness INITIAL COMMENTS - FREE TEXT/NARRATIVE: HISTORY AND PHYSICAL: History of present illness: Patient is a 33-year-old female presents with concern chest pain patient states she has had history of spontaneous pneumothorax in the past. She denies trauma fever chills nausea vomiting palpitations diaphoresis or other concern. Review of systems: As per history of present illness and below otherwise all systems reviewed and negative. Past medical history: As per history of present illness and as reviewed below otherwise noncontributory. Surgical history: As per history of present illness and as reviewed below otherwise noncontributory. Social history: No reported history of drug or alcohol abuse. Family history: As per history of present illness and as reviewed below otherwise noncontributory. Physical exam: HEENT: Atraumatic, normocephalic, pupils reactive, negative for conjunctival pallor or scleral icterus, mucous membranes moist, throat clear, neck supple, nontender, trachea midline. Lungs: Clear to auscultation, breath sounds equal bilaterally, chest nontender. Heart: S1S2, regular, negative for clicks, rubs, or JVD. Abdomen: Soft, nondistended, nontender. Negative for masses or hepatosplenomegaly. Negative for costovertebral tenderness. Pelvis: Stable nontender. Genitourinary: Deferred. Rectal: Deferred. Extremities: Atraumatic, negative for cords or calf pain. Neurovascular unremarkable. Neuro: Awake, alert, oriented. Cranial nerves II through XII unremarkable. Cerebellum unremarkable. Motor and sensory unremarkable throughout. Exam nonfocal. Diagnostics: Chest x-ray EKG Therapeutics: None Impression: 1 atypical chest pain Definitive disposition and diagnosis as appropriate pending reevaluation and review of above. - Related Data Allergies Allergy/AdvReac Type Severity Reaction Status Date / Time amoxicillin trihydrate Allergy Hives Verified 03/12/18 22:58 [From Augmentin] potassium clavulanate Allergy Hives Verified 03/12/18 22:58 [From Augmentin] Home Meds: Home Meds . 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 Musculoskeletal History: Reports: None Neurological History: Reports: None Psychiatric History: Reports: Anxiety, Depression Endocrine/Metabolic History: Reports: None Hematologic History: Reports: None Immunologic History: Reports: None Oncologic (Cancer) History: Reports: None Dermatologic History: Reports: None - Infectious Disease History Infectious Disease History: Reports: None - Past Surgical History Head Surgeries/Procedures: Reports: None HEENT Surgical History: Reports: Tonsillectomy Respiratory Surgical History: Reports: Other (See Below) Other Respiratory Surgeries/Procedures: right lobectomy GI Surgical History: Reports: None Social & Family History - Family History Family Medical History: Noncontributory - Caffeine Use Caffeine Use: Reports: Energy Drinks ED ROS GENERAL - Review of Systems Review Of Systems: ROS reveals no pertinent complaints other than HPI. ED EXAM, GENERAL - Physical Exam Exam: See Below (See dictation) Departure - Departure Time of Disposition: 03:22 Disposition: Home, Self-Care 01 Condition: Good Clinical Impression: Atypical chest pain - Discharge Information *PRESCRIPTION DRUG MONITORING PROGRAM REVIEWED*: Not Applicable *COPY OF PRESCRIPTION DRUG MONITORING REPORT IN PATIENT MELODY: Not Applicable Referrals: Huy Duarte MD [Primary Care Provider] - Additional Instructions: The following information is given to patients seen in the emergency department who are being discharged to home. This information is to outline your options for follow-up care. We provide all patients seen in our emergency department with a follow-up referral. The need for follow-up, as well as the timing and circumstances, are variable depending upon the specifics of your emergency department visit. If you don't have a primary care physician on staff, we will provide you with a referral. We always advise you to contact your personal physician following an emergency department visit to inform them of the circumstance of the visit and for follow-up with them and/or the need for any referrals to a consulting specialist. The emergency department will also refer you to a specialist when appropriate. This referral assures that you have the opportunity for followup care with a specialist. All of these measure are taken in an effort to provide you with optimal care, which includes your followup. Under all circumstances we always encourage you to contact your private physician who remains a resource for coordinating your care. When calling for followup care, please make the office aware that this follow-up is from your recent emergency room visit. If for any reason you are refused follow-up, please contact the [facility] emergency department at and asked to speak to the emergency department charge nurse. Follow-up primary medical doctor as needed as discussed Motrin/Tylenol as directed return as needed as discussed
[2018-07-13 03:26] VITALS: BP 144/109
--- NOTE | 2018-07-15 11:06 | CR ---
EXAM DATE: 07/13/18 PATIENT'S AGE: 33 Patient: DORI CARVAJAL Facility: [place], [place] Site . Site : 1985 Study: XRay Chest [id number]/1/2018 3:54:12 AM Ordering Physician: Scotty Herbert Final Report: Indication: Left-sided chest pain. Technique: 2 frontal views of the chest. Comparison: 03/13/2018. Findings/Impression: Cardiovascular and mediastinum: Heart size and vasculature are normal in caliber and appearance. Mediastinum is within normal limits. Lungs and pleural spaces: Bullous changes and scarring again seen in the left apex. Right upper lung scarring again seen. A very subtle ill-defined right lower lung opacity seen on the 1st expiratory image, not identified on the 2nd image, which could be related to mild transient compressive change. Correlate clinically and if indicated, followup. No definite pneumothorax seen. Bones and soft tissues: No significant change. Dictated by Scott Ceja MD @ 07/13/2018 4:27:46 AM Dictated by: Scott Ceja MD @ 07/13/2018 04:27:51 (Electronic Signature) Report Signed by Proxy. GLENROY
== END 2018-07-13 04:36 | disposition home or self-care (01) ==
LOC: MW.ED 03:12
DX: R07.89 Other chest pain (principal); Z88.1 Allergy status to other antibiotic agents
CPT/HCPCS: 36415; 71046; 71046-26; 84703; 93005; 99285-25

== ENCOUNTER 2018-11-22 17:41 | Emergency (ER) | payer SELFPAY ==
[2018-11-22] MEDS ORDERED: Sodium Chloride 0.9% 10 ML Syringe FLUSH PRN (17:53)
[2018-11-22] MEDS ORDERED: Sodium Chloride 0.9% 2.5 ML Syringe FLUSH PRN (17:53)
[2018-11-22] MEDS ORDERED: Ondansetron 4 MG/2 ML SDV IVPUSH ONE (17:53)
[2018-11-22] MEDS ORDERED: Sodium Chloride 0.9% 1,000 ML IV ONE (17:53)
--- NOTE | 2018-11-22 18:17 | EDM.PDOC ---
ED HPI GENERAL MEDICAL PROBLEM - General Chief Complaint: Gastrointestinal Problem Stated Complaint: BEEN THROWING UP FOR A FEW DAY Time Seen by Provider: 11/22/18 18:06 Source of Information: Reports: Patient History Limitations: Reports: No Limitations - History of Present Illness INITIAL COMMENTS - FREE TEXT/NARRATIVE: HISTORY AND PHYSICAL: History of present illness: Patient is a 33-year-old female here with complaint of vomiting x 4-5 days. She stats she is vomiting every 30 minutes and states she can't keep anything down. She states she is having a burning pain from her mid abdomen up her mid chest that started after the vomiting. She denies fevers, chills, chest pain, SOB, dysuria, hematuria, hematemsis, dark or bloody stools. Patient states she is a daily drinking, drinks a "few shots" of vodka daily. Review of systems: As per history of present illness and below otherwise all systems reviewed and negative. Past medical history: As per history of present illness and as reviewed below otherwise noncontributory. Surgical history: As per history of present illness and as reviewed below otherwise noncontributory. Social history: No reported history of drug or alcohol abuse. Family history: As per history of present illness and as reviewed below otherwise noncontributory. Physical exam: General: Patient sitting comfortably in no acute distress and nontoxic appearing HEENT: Atraumatic, normocephalic, pupils reactive, negative for conjunctival pallor or scleral icterus, mucous membranes moist, throat clear, neck supple, nontender, trachea midline. No meningeal signs. Lungs: Clear to auscultation, breath sounds equal bilaterally, chest nontender. Heart: S1S2, regular, negative for clicks, rubs, or overt murmur. Abdomen: Moderate diffuse abdominal tenderness to palpation. No rigidity or guarding. Negative murphys, mcburneys, rovsings. Soft, nondistended. Negative for masses or hepatosplenomegaly. Negative for costovertebral tenderness. Pelvis: Stable nontender. Genitourinary: Deferred. Rectal: Deferred. Extremities: Atraumatic, negative for cords or calf pain. Neurovascular unremarkable. Neuro: Awake, alert, oriented. Cranial nerves II through XII unremarkable. Cerebellum unremarkable. Motor and sensory unremarkable throughout. Exam nonfocal. Notes: Stressed importance of close follow up with her PCP and general surgery. Diagnostics: CBC, CMP, lipase, UA, CT abdomen/pelvis w/ contrast Therapeutics: 1L Normal saline IV 4mg Zofran IV Prescriptions: Prevpac Zofran Impression: UTI, h. pylori gastritis Plan: 1. Take medications as instructed 2. Follow up with general surgery as instructed 3. Return to ED as needed as discussed Definitive disposition and diagnosis as appropriate pending reevaluation and review of above. abdominal Pain Score (Numeric/FACES): 10 - Related Data Allergies Allergy/AdvReac Type Severity Reaction Status Date / Time amoxicillin trihydrate Allergy Hives Verified 11/22/18 17:51 [From Augmentin] potassium clavulanate Allergy Hives Verified 11/22/18 17:51 [From Augmentin] Home Meds: Home Meds Bismuth Subsalicylate [Bismuth] 262 mg PO QID #40 tablet 11/22/18 [Rx] Omeprazole 20 mg PO BID #20 cap.sr 11/22/18 [Rx] Ondansetron [Zofran ODT] 4 mg PO Q6H PRN #10 tab.dis 11/22/18 [Rx] Tetracycline HCl 500 mg PO QID #40 capsule 11/22/18 [Rx] metroNIDAZOLE [Flagyl] 500 mg PO TID #30 tablet 11/22/18 [Rx] Past Medical History HEENT History: Reports: None Cardiovascular History: Reports: Hypertension Respiratory History: Reports: COPD, Pneumothorax Gastrointestinal History: Reports: None Genitourinary History: Reports: None 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 Musculoskeletal History: Reports: None Neurological History: Reports: None Psychiatric History: Reports: Anxiety, Depression, Other (See Below) Other Psychiatric History: Major Depressive disorder Endocrine/Metabolic History: Reports: None Hematologic History: Reports: None Immunologic History: Reports: None Oncologic (Cancer) History: Reports: None Dermatologic History: Reports: None - Infectious Disease History Infectious Disease History: Reports: Chicken Pox, Measles - Past Surgical History Head Surgeries/Procedures: Reports: None HEENT Surgical History: Reports: Tonsillectomy Cardiovascular Surgical History: Reports: None Respiratory Surgical History: Reports: Other (See Below) Other Respiratory Surgeries/Procedures: chest tube to right lung; right lobectomy GI Surgical History: Reports: None Female Surgical History: Reports: None Endocrine Surgical History: Reports: None Neurological Surgical History: Reports: None Musculoskeletal Surgical History: Reports: None Oncologic Surgical History: Reports: None Dermatological Surgical History: Reports: None Social & Family History - Family History Family Medical History: Noncontributory - Tobacco Use Smoking Status *Q: Current Every Day Smoker Years of Tobacco use: 10 Packs/Tins Daily: 0.5 - Caffeine Use Caffeine Use: Reports: None - Recreational Drug Use Recreational Drug Use: No ED ROS GENERAL - Review of Systems Review Of Systems: ROS reveals no pertinent complaints other than HPI. ED EXAM, GI/ABD - Physical Exam Exam: See Below (see dictation) Course - Vital Signs Last Recorded V/S: Last Vital Signs Temp 97.1 F 11/22/18 17:50 Pulse 115 H 11/22/18 17:50 Resp 18 11/22/18 17:50 BP 124/94 H 11/22/18 17:50 Pulse Ox 96 11/22/18 17:50 - Orders/Labs/Meds Orders: Active Orders 24 hr Category Date Time Status Abdomen Pelvis w Cont [CT] Stat Exams 11/22/18 18:46 Taken Sodium Chloride 0.9% [Saline Flush] Med 11/22/18 17:53 Active 10 ml FLUSH ASDIRECTED PRN Sodium Chloride 0.9% [Saline Flush] Med 11/22/18 17:53 Active 2.5 ml FLUSH ASDIRECTED PRN Saline Lock Insert [OM.PC] Stat Oth 11/22/18 17:53 Ordered Medication Orders Sodium Chloride (Saline Flush) 10 ml FLUSH ASDIRECTED PRN PRN Reason: Keep Vein Open Last Admin: 11/22/18 18:05 Dose: 10 ml Sodium Chloride (Saline Flush) 2.5 ml FLUSH ASDIRECTED PRN PRN Reason: Keep Vein Open Last Admin: 11/22/18 18:05 Dose: 2.5 ml Labs: Laboratory Tests 11/22/18 11/22/18 11/22/18 Range/Units 17:58 17:58 17:58 WBC 9.20 (4.0-11.0) K/uL RBC 3.90 L (4.30-5.90) M/uL Hgb 14.0 (12.0-16.0) g/dL Hct 40.7 (36.0-46.0) % MCV 104.4 H (80.0-98.0) fL MCH 35.9 H (27.0-32.0) pg MCHC 34.4 (31.0-37.0) g/dL RDW Std Deviation 73.4 H (28.0-62.0) fl RDW Coeff of [place] 19 H (11.0-15.0) % Plt Count 243 (150-400) K/uL MPV 10.60 (7.40-12.00) fL Neut % (Auto) 68.3 (48.0-80.0) % Lymph % (Auto) 22.8 (16.0-40.0) % [place] % (Auto) 6.8 (0.0-15.0) % Eos % (Auto) 1.4 (0.0-7.0) % Baso % (Auto) 0.7 (0.0-1.5) % Neut # (Auto) 6.3 H (1.4-5.7) K/uL Lymph # (Auto) 2.1 (0.6-2.4) K/uL [place] # (Auto) 0.6 (0.0-0.8) K/uL Eos # (Auto) 0.1 (0.0-0.7) K/uL Baso # (Auto) 0.1 (0.0-0.1) K/uL Nucleated RBC % 0.0 /100WBC Nucleated RBCs # 0 K/uL Sodium 135 L (136-145) mmol/L Potassium 3.1 L (3.5-5.1) mmol/L Chloride 94 L (98-107) mmol/L Carbon Dioxide 27.7 (21.0-32.0) mmol/L BUN 5 L (7.0-18.0) mg/dL Creatinine 0.7 (0.6-1.0) mg/dL Est Cr Clr Drug Dosing 81.24 mL/min Estimated GFR (MDRD) > 60.0 ml/min Glucose 93 (74-106) mg/dL Calcium 9.9 (8.5-10.1) mg/dL Total Bilirubin 1.7 H (0.2-1.0) mg/dL AST 141 H (15-37) IU/L ALT 70 H (14-63) IU/L Alkaline Phosphatase 314 H (46-116) U/L Total Protein 7.8 (6.4-8.2) g/dL Albumin 3.1 L (3.4-5.0) g/dL Globulin 4.7 H (2.6-4.0) g/dL Albumin/Globulin Ratio 0.7 L (0.9-1.6) Lipase 160 (73-393) U/L Urine Color Urine Appearance Urine pH (5.0-8.0) Ur Specific [place] (1.001-1.035) Urine Protein (NEGATIVE) mg/dL Urine Glucose (UA) (NEGATIVE) mg/dL Urine Ketones (NEGATIVE) mg/dL Urine Occult Blood (NEGATIVE) Urine Nitrite (NEGATIVE) Urine Bilirubin (NEGATIVE) Urine Urobilinogen (<2.0) EU/dL Ur Leukocyte Esterase (NEGATIVE) Urine RBC (0-2/HPF) Urine WBC (0-5/HPF) Ur Epithelial Cells (NONE-FEW) Urine Bacteria (NEGATIVE) Urine HCG, Qual (NEGATIVE) H. pylori IgG Antibody POSITIVE H (NEG) 11/22/18 11/22/18 Range/Units 18:56 18:56 WBC (4.0-11.0) K/uL RBC (4.30-5.90) M/uL Hgb (12.0-16.0) g/dL Hct (36.0-46.0) % MCV (80.0-98.0) fL MCH (27.0-32.0) pg MCHC (31.0-37.0) g/dL RDW Std Deviation (28.0-62.0) fl RDW Coeff of [place] (11.0-15.0) % Plt Count (150-400) K/uL MPV (7.40-12.00) fL Neut % (Auto) (48.0-80.0) % Lymph % (Auto) (16.0-40.0) % [place] % (Auto) (0.0-15.0) % Eos % (Auto) (0.0-7.0) % Baso % (Auto) (0.0-1.5) % Neut # (Auto) (1.4-5.7) K/uL Lymph # (Auto) (0.6-2.4) K/uL [place] # (Auto) (0.0-0.8) K/uL Eos # (Auto) (0.0-0.7) K/uL Baso # (Auto) (0.0-0.1) K/uL Nucleated RBC % /100WBC Nucleated RBCs # K/uL Sodium (136-145) mmol/L Potassium (3.5-5.1) mmol/L Chloride (98-107) mmol/L Carbon Dioxide (21.0-32.0) mmol/L BUN (7.0-18.0) mg/dL Creatinine (0.6-1.0) mg/dL Est Cr Clr Drug Dosing mL/min Estimated GFR (MDRD) ml/min Glucose (74-106) mg/dL Calcium (8.5-10.1) mg/dL Total Bilirubin (0.2-1.0) mg/dL AST (15-37) IU/L ALT (14-63) IU/L Alkaline Phosphatase (46-116) U/L Total Protein (6.4-8.2) g/dL Albumin (3.4-5.0) g/dL Globulin (2.6-4.0) g/dL Albumin/Globulin Ratio (0.9-1.6) Lipase (73-393) U/L Urine Color YELLOW Urine Appearance CLEAR Urine pH 6.5 (5.0-8.0) Ur Specific [place] <= 1.005 (1.001-1.035) Urine Protein NEGATIVE (NEGATIVE) mg/dL Urine Glucose (UA) NEGATIVE (NEGATIVE) mg/dL Urine Ketones NEGATIVE (NEGATIVE) mg/dL Urine Occult Blood NEGATIVE (NEGATIVE) Urine Nitrite NEGATIVE (NEGATIVE) Urine Bilirubin NEGATIVE (NEGATIVE) Urine Urobilinogen 1.0 (<2.0) EU/dL Ur Leukocyte Esterase NEGATIVE (NEGATIVE) Urine RBC 0-2 (0-2/HPF) Urine WBC 0-4 (0-5/HPF) Ur Epithelial Cells FEW (NONE-FEW) Urine Bacteria 4+ H (NEGATIVE) Urine HCG, Qual NEGATIVE (NEGATIVE) H. pylori IgG Antibody (NEG) Meds: Medications Generic Name Dose Route Start Last Admin Trade Name Freq PRN Reason Stop Dose Admin Sodium Chloride 10 ml 11/22/18 17:53 11/22/18 18:05 Saline Flush FLUSH 10 ml ASDIRECTED PRN Administration Keep Vein Open Sodium Chloride 2.5 ml 11/22/18 17:53 11/22/18 18:05 Saline Flush FLUSH 2.5 ml ASDIRECTED PRN Administration Keep Vein Open Discontinued Medications Generic Name Dose Route Start Last Admin Trade Name Segundo PRN Reason Stop Dose Admin Sodium Chloride 1,000 mls @ 999 mls/hr 11/22/18 17:53 11/22/18 18:05 Normal Saline IV 11/22/18 18:53 999 mls/hr STAT ONE Administration Iopamidol 51 ml 11/22/18 19:32 11/22/18 19:33 Isovue Multipack-370 (76%) IVPUSH 11/22/18 19:33 51 ml ONETIME STA Administration Ondansetron HCl 4 mg 11/22/18 17:53 11/22/18 18:05 Zofran IVPUSH 11/22/18 17:54 4 mg ONETIME ONE Administration Potassium Chloride 40 meq 11/22/18 18:46 11/22/18 18:57 Klor-Con M20 PO 11/22/18 18:47 40 meq ONETIME ONE Administration Departure - Departure Time of Disposition: 20:23 Disposition: Home, Self-Care 01 Condition: Good Clinical Impression: H. pylori infection, UTI (urinary tract infection) - Discharge Information Referrals: PCP,None [Primary Care Provider] - Forms: ED Department Discharge Additional Instructions: The following information is given to patients seen in the emergency department who are being discharged to home. This information is to outline your options for follow-up care. We provide all patients seen in our emergency department with a follow-up referral. The need for follow-up, as well as the timing and circumstances, are variable depending upon the specifics of your emergency department visit. If you don't have a primary care physician on staff, we will provide you with a referral. We always advise you to contact your personal physician following an emergency department visit to inform them of the circumstance of the visit and for follow-up with them and/or the need for any referrals to a consulting specialist. The emergency department will also refer you to a specialist when appropriate. This referral assures that you have the opportunity for follow-up care with a specialist. All of these measure are taken in an effort to provide you with optimal care, which includes your follow-up. Under all circumstances we always encourage you to contact your private physician who remains a resource for coordinating your care. When calling for follow-up care, please make the office aware that this follow-up is from your recent emergency room visit. If for any reason you are refused follow-up, please contact the [facility] Emergency Department at and asked to speak to the emergency department charge nurse. [facility] - General Surgery Professional Building [address] [place] [address], [address] [place] [address] [address] 1. Take medications as instructed 2. Follow up with general surgery as instructed 3. Return to ED as needed as discussed - My Orders Last 24 Hours: My Active Orders 11/22/18 17:53 Sodium Chloride 0.9% [Saline Flush] 10 ml FLUSH ASDIRECTED PRN Sodium Chloride 0.9% [Saline Flush] 2.5 ml FLUSH ASDIRECTED PRN Saline Lock Insert [OM.PC] Stat 11/22/18 18:46 Abdomen Pelvis w Cont [CT] Stat - Assessment/Plan Last 24 Hours: My Active Orders 11/22/18 17:53 Sodium Chloride 0.9% [Saline Flush] 10 ml FLUSH ASDIRECTED PRN Sodium Chloride 0.9% [Saline Flush] 2.5 ml FLUSH ASDIRECTED PRN Saline Lock Insert [OM.PC] Stat 11/22/18 18:46 Abdomen Pelvis w Cont [CT] Stat
[2018-11-22 18:31] LABS: CHLORIDE,CL 94 mmol/L (98-107); SODIUM,NA 135 mmol/L (136-145)
[2018-11-22] MEDS ORDERED: Potassium Chloride 20 MEQ Tab.ER PO ONE (18:46)
[2018-11-22] MEDS ORDERED: Iopamidol 755 MG/ML 500 ML Multipack Bottle IVPUSH STA (19:32)
[2018-11-22 20:57] VITALS: BP 126/76
--- NOTE | 2018-11-25 14:40 | CT ---
EXAM DATE: 11/22/18 PATIENT'S AGE: 33 Patient: DORI CARVAJAL Facility: [place], [place] Site . Site : 1985 Study: CT Abdomen/Pelvis [id number]/11/2019 7:30:54 PM Ordering Physician: Doctor Winn Final Report: INDICATION: Abdominal pain TECHNIQUE: CT abdomen and pelvis with 51 cc Isovue 370 contrast. COMPARISON: None FINDINGS: Lower chest: Linear atelectasis or scarring in the right lower lobe. Liver: Severe hepatic steatosis. The liver measures 23 cm in length. Spleen: Unremarkable. Pancreas: Unremarkable. Gallbladder and bile ducts: Cholelithiasis. Adrenal glands: Unremarkable. Kidneys: Unremarkable. GI tract: Unremarkable. Appendix is normal. Vascular structures: Unremarkable. Lymph nodes: Unremarkable. Miscellaneous: Unremarkable. No free air or significant free fluid. Pelvic Organs: Unremarkable. Bones: Unremarkable for age. IMPRESSION: Severe hepatic steatosis and significant hepatomegaly. Correlate with clinical history and LFTs. Cholelithiasis. Please note that all CT scans at this facility use dose modulation, iterative reconstruction, and/or weight-based dosing when appropriate to reduce radiation dose to as low as reasonably achievable. Dictated by Makenna Davidson MD @ Nov 22 2018 8:06PM (Electronic Signature) Report Signed by Proxy. MTDD
== END 2018-11-22 20:57 | disposition home or self-care (01) ==
LOC: MW.ED 17:41
DX: K29.70 Gastritis, unspecified, without bleeding (principal); B96.81 Helicobacter pylori [H. pylori] as the cause of diseases classified elsewhere; N39.0 Urinary tract infection, site not specified; I10 Essential (primary) hypertension; F17.210 Nicotine dependence, cigarettes, uncomplicated; Z79.899 Other long term (current) drug therapy; Z88.1 Allergy status to other antibiotic agents
CPT/HCPCS: 74177; 80053; 81001; 81025; 83690; 85025; 86677; 96361; 96374; 99284; A9270; J2405; J7040; Q9967

== ENCOUNTER 2019-04-01 12:20 | Inpatient (IN) | payer MEDICAID ==
[2019-04-01] MEDS ORDERED: Ondansetron 4 MG/2 ML SDV IVPUSH ONE (12:27)
[2019-04-01] MEDS ORDERED: Sodium Chloride 0.9% 1,000 ML IV ONE (12:27)
[2019-04-01] MEDS ORDERED: LORazepam 2 MG/ML SDV IVPUSH ONE (12:27)
--- NOTE | 2019-04-01 12:29 | EDM.PDOC ---
ED HPI GENERAL MEDICAL PROBLEM - General Chief Complaint: Gastrointestinal Problem Stated Complaint: NUMBNESS IN ARMS Time Seen by Provider: 04/01/19 12:28 Source of Information: Reports: Patient - History of Present Illness INITIAL COMMENTS - FREE TEXT/NARRATIVE: HISTORY AND PHYSICAL: History of present illness: [Patient with history of alcohol abuse Z vomiting diarrhea over the last 2 days , last drink last night fever chills sweats no chest pain shortness breath headache dizziness palpitation no bowel or urine symptoms she does appear on over does smell of alcohol ] Review of systems: As per history of present illness and below otherwise all systems reviewed and negative. Past medical history: As per history of present illness and as reviewed below otherwise noncontributory. Surgical history: As per history of present illness and as reviewed below otherwise noncontributory. Social history: No reported history of drug or alcohol abuse. Family history: As per history of present illness and as reviewed below otherwise noncontributory. Physical exam: HEENT: Atraumatic, normocephalic, pupils reactive, negative for conjunctival pallor or scleral icterus, mucous membranes moist, throat clear, neck supple, nontender, trachea midline. Lungs: Clear to auscultation, breath sounds equal bilaterally, chest nontender. Heart: S1S2, regular, negative for clicks, rubs, or JVD. Abdomen: Soft, nondistended, nontender. Negative for masses or hepatosplenomegaly. Negative for costovertebral tenderness. Pelvis: Stable nontender. Genitourinary: Deferred. Rectal: Deferred. Extremities: Atraumatic, negative for cords or calf pain. Neurovascular unremarkable. Neuro: Awake, alert, oriented. Cranial nerves II through XII unremarkable. Cerebellum unremarkable. Motor and sensory unremarkable throughout. Exam nonfocal. Diagnostics: [CBC CMP UA hCG troponin alcohol level EKG Chest 1 view Right upper quadrant limited abdomen ultrasound ] Therapeutics: Normal saline Zofran Ativan ] baNana bag proton X D50 Levaquin 750 mg IV Patient admitted inpatient Dr. vick Impression: Systemic inflammatory response syndrome Alcohol use abuse and dependence Sinus tachycardia, episodic hypotension UTI Dehydration Hypokalemia/hypoglycemia Cholelithiasis Anxiety ] Nausea vomiting diarrhea Definitive disposition and diagnosis as appropriate pending reevaluation and review of above. Generalized Pain Score (Numeric/FACES): 9 - Related Data Allergies Allergy/AdvReac Type Severity Reaction Status Date / Time amoxicillin trihydrate Allergy Hives Verified 04/01/19 12:30 [From Augmentin] potassium clavulanate Allergy Hives Verified 04/01/19 12:30 [From Augmentin] Home Meds: Home Meds Esomeprazole Magnesium 40 mg PO DAILY 04/01/19 [History] Folic Acid 1 mg PO DAILY 04/01/19 [History] Past Medical History HEENT History: Reports: None Cardiovascular History: Reports: Hypertension Respiratory History: Reports: COPD, Pneumothorax Gastrointestinal History: Reports: None Genitourinary History: Reports: None HEEL PADDER History: Reports: None Musculoskeletal History: Reports: None Neurological History: Reports: None Psychiatric History: Reports: Anxiety, Depression, Other (See Below) Other Psychiatric History: Major Depressive disorder Endocrine/Metabolic History: Reports: None Hematologic History: Reports: None Immunologic History: Reports: None Oncologic (Cancer) History: Reports: None Dermatologic History: Reports: None - Infectious Disease History Infectious Disease History: Reports: Chicken Pox, Measles - Past Surgical History Head Surgeries/Procedures: Reports: None HEENT Surgical History: Reports: Tonsillectomy Cardiovascular Surgical History: Reports: None Respiratory Surgical History: Reports: Other (See Below) Other Respiratory Surgeries/Procedures: chest tube to right lung; right lobectomy GI Surgical History: Reports: None Female Surgical History: Reports: None Endocrine Surgical History: Reports: None Neurological Surgical History: Reports: None Musculoskeletal Surgical History: Reports: None Oncologic Surgical History: Reports: None Dermatological Surgical History: Reports: None Social & Family History - Family History Family Medical History: Noncontributory - Caffeine Use Caffeine Use: Reports: None ED ROS GENERAL - Review of Systems Review Of Systems: See Below ED EXAM, GENERAL - Physical Exam Exam: See Below Course - Vital Signs Last Recorded V/S: Last Vital Signs Temp 97.7 F 04/01/19 12:27 Pulse 118 H 04/01/19 15:05 Resp 18 04/01/19 15:05 BP 118/86 04/01/19 15:05 Pulse Ox 97 04/01/19 15:05 - Orders/Labs/Meds Orders: Active Orders 24 hr Category Date Time Status EKG Documentation Completion [RC] STAT Care 04/01/19 12:29 Active CULTURE BLOOD [BC] Stat Lab 04/01/19 14:25 Received CULTURE BLOOD [BC] Stat Lab 04/01/19 14:35 Received CULTURE URINE [RM] Stat Lab 04/01/19 14:45 Received Levofloxacin/Dextrose 5%-Water [Levaquin in D5W 750 MG/ Med 04/01/19 15:18 Active 150 ML] 750 mg Premix Bag 1 bag IV ONETIME Potassium Chloride [Klor-Con M20] Med 04/01/19 13:30 Active 40 meq PO DAILY Sodium Chloride 0.9% [Normal Saline] 1,000 ml Med 04/01/19 15:00 Active IV ASDIRECTED Blood Culture x2 Reflex Set [OM.PC] Stat Oth 04/01/19 14:04 Ordered Medication Orders Sodium Chloride (Normal Saline) 1,000 mls @ 125 mls/hr IV ASDIRECTED CHRISTIE Last Admin: 04/01/19 15:04 Dose: 125 mls/hr Levofloxacin/Dextrose 750 mg/ (Premix) 150 mls @ 100 mls/hr IV ONETIME ONE Stop: 04/01/19 16:47 Potassium Chloride (Klor-Con M20) 40 meq PO DAILY [facility] Last Admin: 04/01/19 14:00 Dose: 40 meq Labs: Laboratory Tests 04/01/19 04/01/19 04/01/19 Range/Units 12:35 12:35 12:35 WBC 9.60 (4.0-11.0) K/uL RBC 3.74 L (4.30-5.90) M/uL Hgb 12.9 (12.0-16.0) g/dL Hct 38.2 (36.0-46.0) % MCV 102.1 H (80.0-98.0) fL MCH 34.5 H (27.0-32.0) pg MCHC 33.8 (31.0-37.0) g/dL RDW Std Deviation 56.6 (28.0-62.0) fl RDW Coeff of Mayito 15 (11.0-15.0) % Plt Count 173 (150-400) K/uL MPV 10.80 (7.40-12.00) fL Add Manual Diff YES Neutrophils % (Manual) 61 (48.0-80.0) % Band Neutrophils % 1 % Lymphocytes % (Manual) 24 (16.0-40.0) % Monocytes % (Manual) 9 (0.0-15.0) % Eosinophils % (Manual) 3 (0.0-7.0) % Basophils % (Manual) 1 (0.0-1.5) % Metamyelocytes % 1 % Nucleated RBC % 0.0 /100WBC Absolute Seg Neuts 5.9 H (1.4-5.7) Band Neutrophils # 0.1 Lymphocytes # (Manual) 2.3 (0.6-2.4) Monocytes # (Manual) 0.9 H (0.0-0.8) Eosinophils # (Manual) 0.3 (0.0-0.7) Basophils # (Manual) 0.1 (0.0-0.1) Absolute Metamyelocyte 0.1 Nucleated RBCs # 0 K/uL Lactate (0.20-2.00) mmol/L Sodium 138 (136-145) mmol/L Potassium 2.4 L* (3.5-5.1) mmol/L Chloride 94 L (98-107) mmol/L Carbon Dioxide 17.1 L (21.0-32.0) mmol/L BUN 6 L (7.0-18.0) mg/dL Creatinine 0.8 (0.6-1.0) mg/dL Est Cr Clr Drug Dosing TNP Estimated GFR (MDRD) > 60.0 ml/min Glucose 53 L (74-106) mg/dL POC Glucose (60-110) mg/dL Calcium 9.0 (8.5-10.1) mg/dL Magnesium (1.8-2.4) mg/dL Total Bilirubin 2.3 H (0.2-1.0) mg/dL AST 191 H (15-37) IU/L ALT 57 (14-63) IU/L Alkaline Phosphatase 292 H (46-116) U/L Creatine Kinase 33 (26-308) U/L Troponin I < 0.050 (0.000-0.056) ng/mL Total Protein 7.7 (6.4-8.2) g/dL Albumin 3.1 L (3.4-5.0) g/dL Globulin 4.6 H (2.6-4.0) g/dL Albumin/Globulin Ratio 0.7 L (0.9-1.6) Urine Color Urine Appearance Urine pH (5.0-8.0) Ur Specific Lima (1.001-1.035) Urine Protein (NEGATIVE) mg/dL Urine Glucose (UA) (NEGATIVE) mg/dL Urine Ketones (NEGATIVE) mg/dL Urine Occult Blood (NEGATIVE) Urine Nitrite (NEGATIVE) Urine Bilirubin (NEGATIVE) Urine Urobilinogen (<2.0) EU/dL Ur Leukocyte Esterase (NEGATIVE) Urine RBC (0-2/HPF) Urine WBC (0-5/HPF) Ur Epithelial Cells (NONE-FEW) Amorphous Sediment (NEGATIVE) Urine Bacteria (NEGATIVE) Urine Mucus (NONE-MOD) Urine HCG, Qual (NEGATIVE) Ethyl Alcohol 177 mg/dL 04/01/19 04/01/19 04/01/19 Range/Units 12:35 13:35 13:56 WBC (4.0-11.0) K/uL RBC (4.30-5.90) M/uL Hgb (12.0-16.0) g/dL Hct (36.0-46.0) % MCV (80.0-98.0) fL MCH (27.0-32.0) pg MCHC (31.0-37.0) g/dL RDW Std Deviation (28.0-62.0) fl RDW Coeff of Mayito (11.0-15.0) % Plt Count (150-400) K/uL MPV (7.40-12.00) fL Add Manual Diff Neutrophils % (Manual) (48.0-80.0) % Band Neutrophils % % Lymphocytes % (Manual) (16.0-40.0) % Monocytes % (Manual) (0.0-15.0) % Eosinophils % (Manual) (0.0-7.0) % Basophils % (Manual) (0.0-1.5) % Metamyelocytes % % Nucleated RBC % /100WBC Absolute Seg Neuts (1.4-5.7) Band Neutrophils # Lymphocytes # (Manual) (0.6-2.4) Monocytes # (Manual) (0.0-0.8) Eosinophils # (Manual) (0.0-0.7) Basophils # (Manual) (0.0-0.1) Absolute Metamyelocyte Nucleated RBCs # K/uL Lactate (0.20-2.00) mmol/L Sodium (136-145) mmol/L Potassium (3.5-5.1) mmol/L Chloride (98-107) mmol/L Carbon Dioxide (21.0-32.0) mmol/L BUN (7.0-18.0) mg/dL Creatinine (0.6-1.0) mg/dL Est Cr Clr Drug Dosing Estimated GFR (MDRD) ml/min Glucose (74-106) mg/dL POC Glucose 36 L 166 H (60-110) mg/dL Calcium (8.5-10.1) mg/dL Magnesium 2.0 (1.8-2.4) mg/dL Total Bilirubin (0.2-1.0) mg/dL AST (15-37) IU/L ALT (14-63) IU/L Alkaline Phosphatase (46-116) U/L Creatine Kinase (26-308) U/L Troponin I (0.000-0.056) ng/mL Total Protein (6.4-8.2) g/dL Albumin (3.4-5.0) g/dL Globulin (2.6-4.0) g/dL Albumin/Globulin Ratio (0.9-1.6) Urine Color Urine Appearance Urine pH (5.0-8.0) Ur Specific Lima (1.001-1.035) Urine Protein (NEGATIVE) mg/dL Urine Glucose (UA) (NEGATIVE) mg/dL Urine Ketones (NEGATIVE) mg/dL Urine Occult Blood (NEGATIVE) Urine Nitrite (NEGATIVE) Urine Bilirubin (NEGATIVE) Urine Urobilinogen (<2.0) EU/dL Ur Leukocyte Esterase (NEGATIVE) Urine RBC (0-2/HPF) Urine WBC (0-5/HPF) Ur Epithelial Cells (NONE-FEW) Amorphous Sediment (NEGATIVE) Urine Bacteria (NEGATIVE) Urine Mucus (NONE-MOD) Urine HCG, Qual (NEGATIVE) Ethyl Alcohol mg/dL 04/01/19 04/01/19 04/01/19 Range/Units 14:35 14:45 14:45 WBC (4.0-11.0) K/uL RBC (4.30-5.90) M/uL Hgb (12.0-16.0) g/dL Hct (36.0-46.0) % MCV (80.0-98.0) fL MCH (27.0-32.0) pg MCHC (31.0-37.0) g/dL RDW Std Deviation (28.0-62.0) fl RDW Coeff of Mayito (11.0-15.0) % Plt Count (150-400) K/uL MPV (7.40-12.00) fL Add Manual Diff Neutrophils % (Manual) (48.0-80.0) % Band Neutrophils % % Lymphocytes % (Manual) (16.0-40.0) % Monocytes % (Manual) (0.0-15.0) % Eosinophils % (Manual) (0.0-7.0) % Basophils % (Manual) (0.0-1.5) % Metamyelocytes % % Nucleated RBC % /100WBC Absolute Seg Neuts (1.4-5.7) Band Neutrophils # Lymphocytes # (Manual) (0.6-2.4) Monocytes # (Manual) (0.0-0.8) Eosinophils # (Manual) (0.0-0.7) Basophils # (Manual) (0.0-0.1) Absolute Metamyelocyte Nucleated RBCs # K/uL Lactate 9.4 H (0.20-2.00) mmol/L Sodium (136-145) mmol/L Potassium (3.5-5.1) mmol/L Chloride (98-107) mmol/L Carbon Dioxide (21.0-32.0) mmol/L BUN (7.0-18.0) mg/dL Creatinine (0.6-1.0) mg/dL Est Cr Clr Drug Dosing Estimated GFR (MDRD) ml/min Glucose (74-106) mg/dL POC Glucose (60-110) mg/dL Calcium (8.5-10.1) mg/dL Magnesium (1.8-2.4) mg/dL Total Bilirubin (0.2-1.0) mg/dL AST (15-37) IU/L ALT (14-63) IU/L Alkaline Phosphatase (46-116) U/L Creatine Kinase (26-308) U/L Troponin I (0.000-0.056) ng/mL Total Protein (6.4-8.2) g/dL Albumin (3.4-5.0) g/dL Globulin (2.6-4.0) g/dL Albumin/Globulin Ratio (0.9-1.6) Urine Color YELLOW Urine Appearance CLEAR Urine pH 6.0 (5.0-8.0) Ur Specific Lima 1.020 (1.001-1.035) Urine Protein NEGATIVE (NEGATIVE) mg/dL Urine Glucose (UA) NEGATIVE (NEGATIVE) mg/dL Urine Ketones 15 H (NEGATIVE) mg/dL Urine Occult Blood TRACE-LYSED H (NEGATIVE) Urine Nitrite POSITIVE H (NEGATIVE) Urine Bilirubin NEGATIVE (NEGATIVE) Urine Urobilinogen 1.0 (<2.0) EU/dL Ur Leukocyte Esterase NEGATIVE (NEGATIVE) Urine RBC 0-2 (0-2/HPF) Urine WBC 1-3 (0-5/HPF) Ur Epithelial Cells OCCASIONAL (NONE-FEW) Amorphous Sediment FEW (NEGATIVE) Urine Bacteria 2+ H (NEGATIVE) Urine Mucus FEW (NONE-MOD) Urine HCG, Qual NEGATIVE (NEGATIVE) Ethyl Alcohol mg/dL 04/01/19 Range/Units 14:49 WBC (4.0-11.0) K/uL RBC (4.30-5.90) M/uL Hgb (12.0-16.0) g/dL Hct (36.0-46.0) % MCV (80.0-98.0) fL MCH (27.0-32.0) pg MCHC (31.0-37.0) g/dL RDW Std Deviation (28.0-62.0) fl RDW Coeff of Mayito (11.0-15.0) % Plt Count (150-400) K/uL MPV (7.40-12.00) fL Add Manual Diff Neutrophils % (Manual) (48.0-80.0) % Band Neutrophils % % Lymphocytes % (Manual) (16.0-40.0) % Monocytes % (Manual) (0.0-15.0) % Eosinophils % (Manual) (0.0-7.0) % Basophils % (Manual) (0.0-1.5) % Metamyelocytes % % Nucleated RBC % /100WBC Absolute Seg Neuts (1.4-5.7) Band Neutrophils # Lymphocytes # (Manual) (0.6-2.4) Monocytes # (Manual) (0.0-0.8) Eosinophils # (Manual) (0.0-0.7) Basophils # (Manual) (0.0-0.1) Absolute Metamyelocyte Nucleated RBCs # K/uL Lactate (0.20-2.00) mmol/L Sodium (136-145) mmol/L Potassium (3.5-5.1) mmol/L Chloride (98-107) mmol/L Carbon Dioxide (21.0-32.0) mmol/L BUN (7.0-18.0) mg/dL Creatinine (0.6-1.0) mg/dL Est Cr Clr Drug Dosing Estimated GFR (MDRD) ml/min Glucose (74-106) mg/dL POC Glucose 157 H (60-110) mg/dL Calcium (8.5-10.1) mg/dL Magnesium (1.8-2.4) mg/dL Total Bilirubin (0.2-1.0) mg/dL AST (15-37) IU/L ALT (14-63) IU/L Alkaline Phosphatase (46-116) U/L Creatine Kinase (26-308) U/L Troponin I (0.000-0.056) ng/mL Total Protein (6.4-8.2) g/dL Albumin (3.4-5.0) g/dL Globulin (2.6-4.0) g/dL Albumin/Globulin Ratio (0.9-1.6) Urine Color Urine Appearance Urine pH (5.0-8.0) Ur Specific Lima (1.001-1.035) Urine Protein (NEGATIVE) mg/dL Urine Glucose (UA) (NEGATIVE) mg/dL Urine Ketones (NEGATIVE) mg/dL Urine Occult Blood (NEGATIVE) Urine Nitrite (NEGATIVE) Urine Bilirubin (NEGATIVE) Urine Urobilinogen (<2.0) EU/dL Ur Leukocyte Esterase (NEGATIVE) Urine RBC (0-2/HPF) Urine WBC (0-5/HPF) Ur Epithelial Cells (NONE-FEW) Amorphous Sediment (NEGATIVE) Urine Bacteria (NEGATIVE) Urine Mucus (NONE-MOD) Urine HCG, Qual (NEGATIVE) Ethyl Alcohol mg/dL Meds: Medications Generic Name Dose Route Start Last Admin Trade Name Freq PRN Reason Stop Dose Admin Sodium Chloride 1,000 mls @ 125 mls/hr 04/01/19 15:00 04/01/19 15:04 Normal Saline IV 125 mls/hr ASDIRECTED CHRISTIE Administration Levofloxacin/Dextrose 750 mg/ 150 mls @ 100 mls/hr 04/01/19 15:18 Premix IV 04/01/19 16:47 ONETIME ONE Potassium Chloride 40 meq 04/01/19 13:30 04/01/19 14:00 Klor-Con M20 PO 40 meq DAILY CHRISTIE Administration Discontinued Medications Generic Name Dose Route Start Last Admin Trade Name Segundo PRN Reason Stop Dose Admin Dextrose/Water Confirm 04/01/19 13:37 Dextrose 50% In Water Administered 04/01/19 13:38 Dose 50 ml .ROUTE .STK-MED ONE Dextrose/Water 50 ml 04/01/19 13:43 04/01/19 13:44 Dextrose 50% In Water IVPUSH 04/01/19 13:44 50 ml ONETIME ONE Administration Sodium Chloride 1,000 mls @ 999 mls/hr 04/01/19 12:27 04/01/19 12:47 Normal Saline IV 04/01/19 13:27 999 mls/hr STAT ONE Administration Multivitamins/Minerals 10 ml/ 1,011.2 mls @ 999 mls/hr 04/01/19 12:33 12:48 Thiamine HCl 100 mg/ Folic IV 04/01/19 13:33 999 mls/hr Acid 1 mg/ Sodium Chloride ONETIME ONE Administration Sodium Chloride Confirm 04/01/19 12:40 Normal Saline Administered 04/01/19 12:41 Dose 20 mls @ as directed .ROUTE .STK-MED ONE Lorazepam 1 mg 04/01/19 12:27 04/01/19 12:48 Ativan IVPUSH 04/01/19 12:28 1 mg ONETIME ONE Administration Ondansetron HCl 8 mg 04/01/19 12:27 04/01/19 12:47 Zofran IVPUSH 04/01/19 12:28 8 mg ONETIME ONE Administration Pantoprazole Sodium 80 mg 04/01/19 12:34 04/01/19 12:48 Protonix Iv IVPUSH 04/01/19 12:35 80 mg .BOLUS ONE Administration Departure - Departure Time of Disposition: 15:21 Disposition: Admitted As Inpatient 67 Condition: Fair Clinical Impression: Systemic inflammatory response syndrome, Electrolyte abnormality, Dehydration - Discharge Information Referrals: PCP,Unknown [Primary Care Provider] - Forms: ED Department Discharge - My Orders Last 24 Hours: My Active Orders 04/01/19 12:29 EKG Documentation Completion [RC] STAT 04/01/19 13:30 Potassium Chloride [Klor-Con M20] 40 meq PO DAILY 04/01/19 14:04 Blood Culture x2 Reflex Set [OM.PC] Stat 04/01/19 14:25 CULTURE BLOOD [BC] Stat 04/01/19 14:35 CULTURE BLOOD [BC] Stat 04/01/19 14:45 CULTURE URINE [RM] Stat 04/01/19 15:00 Sodium Chloride 0.9% [Normal Saline] 1,000 ml IV ASDIRECTED 04/01/19 15:18 Levofloxacin/Dextrose 5%-Water [Levaquin in D5W 750 MG/150 ML] 750 mg Premix Bag 1 bag IV ONETIME - Assessment/Plan Last 24 Hours: My Active Orders 04/01/19 12:29 EKG Documentation Completion [RC] STAT 04/01/19 13:30 Potassium Chloride [Klor-Con M20] 40 meq PO DAILY 04/01/19 14:04 Blood Culture x2 Reflex Set [OM.PC] Stat 04/01/19 14:25 CULTURE BLOOD [BC] Stat 04/01/19 14:35 CULTURE BLOOD [BC] Stat 04/01/19 14:45 CULTURE URINE [RM] Stat 04/01/19 15:00 Sodium Chloride 0.9% [Normal Saline] 1,000 ml IV ASDIRECTED 04/01/19 15:18 Levofloxacin/Dextrose 5%-Water [Levaquin in D5W 750 MG/150 ML] 750 mg Premix Bag 1 bag IV ONETIME
[2019-04-01] MEDS ORDERED: MVI, Adult with Vitamin K 10 ML, Thiamine 100 MG, Folic Acid 1 MG in Sodium Chloride 0.... IV ONE ×4 (12:33)
[2019-04-01] MEDS ORDERED: Pantoprazole 40 MG Vial IVPUSH ONE (12:34)
[2019-04-01] MEDS ORDERED: Sodium Chloride 0.9% 20 ML ONE (12:40)
[2019-04-01 13:21] LABS: CHLORIDE,CL 94 mmol/L (98-107); SODIUM,NA 138 mmol/L (136-145)
[2019-04-01] MEDS ORDERED: 50% Dextrose in Water 50 ML Syringe ONE (13:37)
[2019-04-01] MEDS ORDERED: 50% Dextrose in Water 50 ML Syringe IVPUSH ONE (13:43)
[2019-04-01] MEDS: Potassium Chloride 20 MEQ Tab.ER PO SCH (14:00)
--- NOTE | 2019-04-01 14:50 | US ---
EXAMINATION: Right upper quadrant ultrasound HISTORY: Pain COMPARISON: None TECHNIQUE: Grayscale and color Doppler imaging obtained of the right upper quadrant. FINDINGS: The visualized pancreas appears normal. The liver is increased in generalized echotexture without a focal hepatic mass. Liver margin is slightly nodular. Gallbladder wall thickness is normal. No pericholecystic fluid. Multiple shadowing gallstones are noted. Common bile duct measures 3 mm. Right kidney measures 10.2 cm [id number] without evidence of hydronephrosis. IMPRESSION: 1. The liver appears slightly nodular and increased in echotexture. This may represent early hepatocellular disease/cirrhosis. The degree of a underlying fatty infiltration is likely as well. 2. Cholelithiasis without evidence of cholecystitis.
[2019-04-01] MEDS: Sodium Chloride 0.9% 1,000 ML IV SCH ×2 (15:04→23:34)
--- NOTE | 2019-04-01 15:08 | CR ---
EXAMINATION: Portable chest radiograph. HISTORY: Shortness of breath. Comparison: 07/13/2018. FINDINGS: The trachea is midline. The cardiomediastinal silhouette is within normal limits. No pulmonary infiltrates, effusions or pneumothorax. There are left apical bulla noted. Osseous structures appear unremarkable. IMPRESSION: 1. Left apical bulla without acute cardiopulmonary finding.
[2019-04-01] MEDS ORDERED: Levofloxacin/Dextrose 5%-Water 750 MG in Premix Bag 1 BAG IV ONE (15:18)
[2019-04-01] MEDS ORDERED: Acetaminophen 325 MG Tab PO PRN (17:09)
[2019-04-01] MEDS ORDERED: LORazepam 2 MG/ML SDV IM PRN (17:09)
[2019-04-01] MEDS ORDERED: Docusate Sodium 100 MG Cap PO PRN (17:09)
[2019-04-01] MEDS ORDERED: Temazepam 15 MG Cap PO PRN (17:09)
[2019-04-01] MEDS ORDERED: Sodium Chloride 0.9% 1,000 ML IV SCH (17:15)
--- NOTE | 2019-04-01 17:21 | PCM.HP ---
H&P History of Present Illness - General Date of Service: 04/01/19 Admit Problem/Dx: Admission Diagnosis/Problem Admission Diagnosis/Problem Systemic inflammatory response syndrome (SIRS) Source of Information: Patient, Family History Limitations: Reports: No Limitations - History of Present Illness Initial Comments - Free Text/Narative: The patient is a 39-year-old lady who is presented to the emergency department complaining of nausea and vomiting with diarrhea over the past several days. The patient has a history of chronic alcohol abuse and she says that she was heavily drinking last night. The patient has denied any hematochezia or hematemesis. No melena. The patient also said that she had some fever and chills before this. The patient has had abdominal pain in the right upper quadrant to mid gastric area this does not seem to radiate. The patient is also been noted to have multiple emergency room visits over the past year. The patient is also scheduled at the beginning of April to have her gallbladder removed. The patient also reports that she sometimes shake and she doesn't have access to alcohol. The patient does not take any medication chronically although she had most recently had a prescription for esomeprazole and folic acid. Onset of Symptoms: Reports: Gradual Duration of Symptoms: Reports: Day(s):, Getting Worse Location: Reports: Abdomen Quality: Reports: Ache, Stabbing, Throbbing Severity: Moderate Improves with: Reports: Medication, Rest Worsens with: Reports: None Context: Denies: Sick Contact Associated Symptoms: Reports: Diaphoresis, Fever/Chills, Loss of Appetite, Nausea/Vomiting Generalized Pain Score (Numeric/FACES): 9 - Related Data Allergies/Adverse Reactions: Allergies Allergy/AdvReac Type Severity Reaction Status Date / Time amoxicillin trihydrate Allergy Hives Verified 04/01/19 12:30 [From Augmentin] potassium clavulanate Allergy Hives Verified 04/01/19 12:30 [From Augmentin] Home Medications: Home Meds Bismuth Subsalicylate [Pepto-Bismol] 262 mg CHEW ASDIRECTED PRN 04/01/19 [ History] Doxycycline [Vibramycin] 100 mg .ROUTE BID 04/01/19 [History] Esomeprazole Magnesium 40 mg PO DAILY 04/01/19 [History] Folic Acid 1 mg PO DAILY 04/01/19 [History] Omeprazole 20 mg PO BIDAC 04/01/19 [History] Ondansetron [Zofran ODT] 4 mg BUCCAL Q6HR PRN 04/01/19 [History] Promethazine [Phenergan] 25 mg PO Q8H PRN 04/01/19 [History] metroNIDAZOLE [Flagyl] 500 mg PO TIDMEALS 04/01/19 [History] Past Medical History HEENT History: Reports: None Cardiovascular History: Reports: Hypertension Respiratory History: Reports: COPD, Pneumothorax Gastrointestinal History: Reports: Cholelithiasis Genitourinary History: Reports: None [employer]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 Musculoskeletal History: Reports: None Neurological History: Reports: None Psychiatric History: Reports: Anxiety, Depression, Other (See Below) Other Psychiatric History: Major Depressive disorder Endocrine/Metabolic History: Reports: None Hematologic History: Reports: None Immunologic History: Reports: None Oncologic (Cancer) History: Reports: None Dermatologic History: Reports: None - Infectious Disease History Infectious Disease History: Reports: Chicken Pox, Measles, Mumps - Past Surgical History Head Surgeries/Procedures: Reports: None HEENT Surgical History: Reports: Tonsillectomy Cardiovascular Surgical History: Reports: None Respiratory Surgical History: Reports: Other (See Below) Other Respiratory Surgeries/Procedures: chest tube to right lung; right lobectomy GI Surgical History: Reports: None Female Surgical History: Reports: None Endocrine Surgical History: Reports: None Neurological Surgical History: Reports: None Musculoskeletal Surgical History: Reports: None Oncologic Surgical History: Reports: None Dermatological Surgical History: Reports: None Social & Family History - Family History Family Medical History: Noncontributory - Tobacco Use Smoking Status *Q: Current Every Day Smoker Years of Tobacco use: 16 Packs/Tins Daily: 0 Second Hand Smoke Exposure: No - Caffeine Use Caffeine Use: Reports: None - Alcohol Use Alcohol Use History: Yes Number of Drinks Per Day: 8 Date of Last Drink: 03/31/19 Alcohol Use in Last Twelve Months: Yes Alcohol Use Frequency: Daily - Recreational Drug Use Recreational Drug Use: Yes Drug Use in Last 12 Months: Yes Recreational Drug Type: Reports: Marijuana/Hashish Recreational Drug Use Frequency: Weekly Recreational Drug Last Use: yesterday - Living Situation & Occupation Living situation: Reports: with Family Occupation: Unemployed H&P Review of Systems - Review of Systems: Review Of Systems: See Below General: Reports: Fever, Chills HEENT: Reports: Vertigo Pulmonary: Reports: No Symptoms Cardiovascular: Reports: No Symptoms Gastrointestinal: Reports: Constipation, Diarrhea, Nausea, Vomiting. Denies: Hematemesis, Hematochezia, Melena Genitourinary: Reports: No Symptoms Musculoskeletal: Reports: Back Pain Skin: Reports: No Symptoms Psychiatric: Reports: Confusion Neurological: Reports: No Symptoms Hematologic/Lymphatic: Reports: No Symptoms Immunologic: Reports: No Symptoms Exam - Exam Exam: See Below - Vital Signs Vital Signs: Last Vital Signs Temp 37.6 C 04/01/19 16:37 Pulse 126 H 04/01/19 16:37 Resp 14 04/01/19 16:37 BP 121/79 04/01/19 16:37 Pulse Ox 98 04/01/19 16:37 Weight: 43.817 kg - Exam Quality Assessment: No: Supplemental Oxygen General: Alert, Oriented, Cooperative, Mild Distress HEENT: Conjunctiva Clear, EACs Clear, EOMI, Nares Patent, Pupils Equal, PERRLA. No: Mucosa Moist & [place] (Dry) Neck: Supple, Trachea Midline Lungs: Clear to Auscultation, Normal Respiratory Effort Cardiovascular: Regular Rhythm, Tachycardia (112 on monitor) GI/Abdominal Exam: Normal Bowel Sounds, Soft, Non-Tender, No Distention Back Exam: Normal Inspection, Full Range of Motion Extremities: Normal Inspection, No Pedal Edema Skin: Warm, Dry, Intact Neurological: Cranial Nerves Intact Neuro Extensive - Mental Status: Alert Neuro Extensive - Motor, Sensory, Reflexes: CN II-XII Intact Psychiatric: Alert. No: Normal Affect (Flat) - Patient Data Lab Results Last 24 hrs: Laboratory Results - last 24 hr 04/01/19 04/01/19 04/01/19 Range/Units 12:35 12:35 12:35 WBC 9.60 (4.0-11.0) K/uL RBC 3.74 L (4.30-5.90) M/uL Hgb 12.9 (12.0-16.0) g/dL Hct 38.2 (36.0-46.0) % MCV 102.1 H (80.0-98.0) fL MCH 34.5 H (27.0-32.0) pg MCHC 33.8 (31.0-37.0) g/dL RDW Std Deviation 56.6 (28.0-62.0) fl RDW Coeff of [place] 15 (11.0-15.0) % Plt Count 173 (150-400) K/uL MPV 10.80 (7.40-12.00) fL Add Manual Diff YES Neutrophils % (Manual) 61 (48.0-80.0) % Band Neutrophils % 1 % Lymphocytes % (Manual) 24 (16.0-40.0) % Monocytes % (Manual) 9 (0.0-15.0) % Eosinophils % (Manual) 3 (0.0-7.0) % Basophils % (Manual) 1 (0.0-1.5) % Metamyelocytes % 1 % Nucleated RBC % 0.0 /100WBC Absolute Seg Neuts 5.9 H (1.4-5.7) Band Neutrophils # 0.1 Lymphocytes # (Manual) 2.3 (0.6-2.4) Monocytes # (Manual) 0.9 H (0.0-0.8) Eosinophils # (Manual) 0.3 (0.0-0.7) Basophils # (Manual) 0.1 (0.0-0.1) Absolute Metamyelocyte 0.1 Nucleated RBCs # 0 K/uL Lactate (0.20-2.00) mmol/L Sodium 138 (136-145) mmol/L Potassium 2.4 L* (3.5-5.1) mmol/L Chloride 94 L (98-107) mmol/L Carbon Dioxide 17.1 L (21.0-32.0) mmol/L BUN 6 L (7.0-18.0) mg/dL Creatinine 0.8 (0.6-1.0) mg/dL Est Cr Clr Drug Dosing TNP Estimated GFR (MDRD) > 60.0 ml/min Glucose 53 L (74-106) mg/dL POC Glucose (60-110) mg/dL Calcium 9.0 (8.5-10.1) mg/dL Magnesium (1.8-2.4) mg/dL Total Bilirubin 2.3 H (0.2-1.0) mg/dL AST 191 H (15-37) IU/L ALT 57 (14-63) IU/L Alkaline Phosphatase 292 H (46-116) U/L Creatine Kinase 33 (26-308) U/L Troponin I < 0.050 (0.000-0.056) ng/mL Total Protein 7.7 (6.4-8.2) g/dL Albumin 3.1 L (3.4-5.0) g/dL Globulin 4.6 H (2.6-4.0) g/dL Albumin/Globulin Ratio 0.7 L (0.9-1.6) Urine Color Urine Appearance Urine pH (5.0-8.0) Ur Specific [place] (1.001-1.035) Urine Protein (NEGATIVE) mg/dL Urine Glucose (UA) (NEGATIVE) mg/dL Urine Ketones (NEGATIVE) mg/dL Urine Occult Blood (NEGATIVE) Urine Nitrite (NEGATIVE) Urine Bilirubin (NEGATIVE) Urine Urobilinogen (<2.0) EU/dL Ur Leukocyte Esterase (NEGATIVE) Urine RBC (0-2/HPF) Urine WBC (0-5/HPF) Ur Epithelial Cells (NONE-FEW) Amorphous Sediment (NEGATIVE) Urine Bacteria (NEGATIVE) Urine Mucus (NONE-MOD) Urine HCG, Qual (NEGATIVE) Ethyl Alcohol 177 mg/dL 04/01/19 04/01/19 04/01/19 Range/Units 12:35 13:35 13:56 WBC (4.0-11.0) K/uL RBC (4.30-5.90) M/uL Hgb (12.0-16.0) g/dL Hct (36.0-46.0) % MCV (80.0-98.0) fL MCH (27.0-32.0) pg MCHC (31.0-37.0) g/dL RDW Std Deviation (28.0-62.0) fl RDW Coeff of [place] (11.0-15.0) % Plt Count (150-400) K/uL MPV (7.40-12.00) fL Add Manual Diff Neutrophils % (Manual) (48.0-80.0) % Band Neutrophils % % Lymphocytes % (Manual) (16.0-40.0) % Monocytes % (Manual) (0.0-15.0) % Eosinophils % (Manual) (0.0-7.0) % Basophils % (Manual) (0.0-1.5) % Metamyelocytes % % Nucleated RBC % /100WBC Absolute Seg Neuts (1.4-5.7) Band Neutrophils # Lymphocytes # (Manual) (0.6-2.4) Monocytes # (Manual) (0.0-0.8) Eosinophils # (Manual) (0.0-0.7) Basophils # (Manual) (0.0-0.1) Absolute Metamyelocyte Nucleated RBCs # K/uL Lactate (0.20-2.00) mmol/L Sodium (136-145) mmol/L Potassium (3.5-5.1) mmol/L Chloride (98-107) mmol/L Carbon Dioxide (21.0-32.0) mmol/L BUN (7.0-18.0) mg/dL Creatinine (0.6-1.0) mg/dL Est Cr Clr Drug Dosing Estimated GFR (MDRD) ml/min Glucose (74-106) mg/dL POC Glucose 36 L 166 H (60-110) mg/dL Calcium (8.5-10.1) mg/dL Magnesium 2.0 (1.8-2.4) mg/dL Total Bilirubin (0.2-1.0) mg/dL AST (15-37) IU/L ALT (14-63) IU/L Alkaline Phosphatase (46-116) U/L Creatine Kinase (26-308) U/L Troponin I (0.000-0.056) ng/mL Total Protein (6.4-8.2) g/dL Albumin (3.4-5.0) g/dL Globulin (2.6-4.0) g/dL Albumin/Globulin Ratio (0.9-1.6) Urine Color Urine Appearance Urine pH (5.0-8.0) Ur Specific [place] (1.001-1.035) Urine Protein (NEGATIVE) mg/dL Urine Glucose (UA) (NEGATIVE) mg/dL Urine Ketones (NEGATIVE) mg/dL Urine Occult Blood (NEGATIVE) Urine Nitrite (NEGATIVE) Urine Bilirubin (NEGATIVE) Urine Urobilinogen (<2.0) EU/dL Ur Leukocyte Esterase (NEGATIVE) Urine RBC (0-2/HPF) Urine WBC (0-5/HPF) Ur Epithelial Cells (NONE-FEW) Amorphous Sediment (NEGATIVE) Urine Bacteria (NEGATIVE) Urine Mucus (NONE-MOD) Urine HCG, Qual (NEGATIVE) Ethyl Alcohol mg/dL 04/01/19 04/01/19 04/01/19 Range/Units 14:35 14:45 14:45 WBC (4.0-11.0) K/uL RBC (4.30-5.90) M/uL Hgb (12.0-16.0) g/dL Hct (36.0-46.0) % MCV (80.0-98.0) fL MCH (27.0-32.0) pg MCHC (31.0-37.0) g/dL RDW Std Deviation (28.0-62.0) fl RDW Coeff of [place] (11.0-15.0) % Plt Count (150-400) K/uL MPV (7.40-12.00) fL Add Manual Diff Neutrophils % (Manual) (48.0-80.0) % Band Neutrophils % % Lymphocytes % (Manual) (16.0-40.0) % Monocytes % (Manual) (0.0-15.0) % Eosinophils % (Manual) (0.0-7.0) % Basophils % (Manual) (0.0-1.5) % Metamyelocytes % % Nucleated RBC % /100WBC Absolute Seg Neuts (1.4-5.7) Band Neutrophils # Lymphocytes # (Manual) (0.6-2.4) Monocytes # (Manual) (0.0-0.8) Eosinophils # (Manual) (0.0-0.7) Basophils # (Manual) (0.0-0.1) Absolute Metamyelocyte Nucleated RBCs # K/uL Lactate 9.4 H (0.20-2.00) mmol/L Sodium (136-145) mmol/L Potassium (3.5-5.1) mmol/L Chloride (98-107) mmol/L Carbon Dioxide (21.0-32.0) mmol/L BUN (7.0-18.0) mg/dL Creatinine (0.6-1.0) mg/dL Est Cr Clr Drug Dosing Estimated GFR (MDRD) ml/min Glucose (74-106) mg/dL POC Glucose (60-110) mg/dL Calcium (8.5-10.1) mg/dL Magnesium (1.8-2.4) mg/dL Total Bilirubin (0.2-1.0) mg/dL AST (15-37) IU/L ALT (14-63) IU/L Alkaline Phosphatase (46-116) U/L Creatine Kinase (26-308) U/L Troponin I (0.000-0.056) ng/mL Total Protein (6.4-8.2) g/dL Albumin (3.4-5.0) g/dL Globulin (2.6-4.0) g/dL Albumin/Globulin Ratio (0.9-1.6) Urine Color YELLOW Urine Appearance CLEAR Urine pH 6.0 (5.0-8.0) Ur Specific [place] 1.020 (1.001-1.035) Urine Protein NEGATIVE (NEGATIVE) mg/dL Urine Glucose (UA) NEGATIVE (NEGATIVE) mg/dL Urine Ketones 15 H (NEGATIVE) mg/dL Urine Occult Blood TRACE-LYSED H (NEGATIVE) Urine Nitrite POSITIVE H (NEGATIVE) Urine Bilirubin NEGATIVE (NEGATIVE) Urine Urobilinogen 1.0 (<2.0) EU/dL Ur Leukocyte Esterase NEGATIVE (NEGATIVE) Urine RBC 0-2 (0-2/HPF) Urine WBC 1-3 (0-5/HPF) Ur Epithelial Cells OCCASIONAL (NONE-FEW) Amorphous Sediment FEW (NEGATIVE) Urine Bacteria 2+ H (NEGATIVE) Urine Mucus FEW (NONE-MOD) Urine HCG, Qual NEGATIVE (NEGATIVE) Ethyl Alcohol mg/dL 04/01/19 04/01/19 Range/Units 14:49 16:07 WBC (4.0-11.0) K/uL RBC (4.30-5.90) M/uL Hgb (12.0-16.0) g/dL Hct (36.0-46.0) % MCV (80.0-98.0) fL MCH (27.0-32.0) pg MCHC (31.0-37.0) g/dL RDW Std Deviation (28.0-62.0) fl RDW Coeff of [place] (11.0-15.0) % Plt Count (150-400) K/uL MPV (7.40-12.00) fL Add Manual Diff Neutrophils % (Manual) (48.0-80.0) % Band Neutrophils % % Lymphocytes % (Manual) (16.0-40.0) % Monocytes % (Manual) (0.0-15.0) % Eosinophils % (Manual) (0.0-7.0) % Basophils % (Manual) (0.0-1.5) % Metamyelocytes % % Nucleated RBC % /100WBC Absolute Seg Neuts (1.4-5.7) Band Neutrophils # Lymphocytes # (Manual) (0.6-2.4) Monocytes # (Manual) (0.0-0.8) Eosinophils # (Manual) (0.0-0.7) Basophils # (Manual) (0.0-0.1) Absolute Metamyelocyte Nucleated RBCs # K/uL Lactate (0.20-2.00) mmol/L Sodium (136-145) mmol/L Potassium (3.5-5.1) mmol/L Chloride (98-107) mmol/L Carbon Dioxide (21.0-32.0) mmol/L BUN (7.0-18.0) mg/dL Creatinine (0.6-1.0) mg/dL Est Cr Clr Drug Dosing Estimated GFR (MDRD) ml/min Glucose (74-106) mg/dL POC Glucose 157 H 82 (60-110) mg/dL Calcium (8.5-10.1) mg/dL Magnesium (1.8-2.4) mg/dL Total Bilirubin (0.2-1.0) mg/dL AST (15-37) IU/L ALT (14-63) IU/L Alkaline Phosphatase (46-116) U/L Creatine Kinase (26-308) U/L Troponin I (0.000-0.056) ng/mL Total Protein (6.4-8.2) g/dL Albumin (3.4-5.0) g/dL Globulin (2.6-4.0) g/dL Albumin/Globulin Ratio (0.9-1.6) Urine Color Urine Appearance Urine pH (5.0-8.0) Ur Specific [place] (1.001-1.035) Urine Protein (NEGATIVE) mg/dL Urine Glucose (UA) (NEGATIVE) mg/dL Urine Ketones (NEGATIVE) mg/dL Urine Occult Blood (NEGATIVE) Urine Nitrite (NEGATIVE) Urine Bilirubin (NEGATIVE) Urine Urobilinogen (<2.0) EU/dL Ur Leukocyte Esterase (NEGATIVE) Urine RBC (0-2/HPF) Urine WBC (0-5/HPF) Ur Epithelial Cells (NONE-FEW) Amorphous Sediment (NEGATIVE) Urine Bacteria (NEGATIVE) Urine Mucus (NONE-MOD) Urine HCG, Qual (NEGATIVE) Ethyl Alcohol mg/dL Result Diagrams: 04/01/19 12:35 04/01/19 12:35 - Problem List (1) Systemic inflammatory response syndrome SNOMED Code(s): 045131720 ICD Code: R65.10 - SIRS OF NON-INFECTIOUS ORIGIN W/O ACUTE ORGAN DYSFUNCTION Status: Acute Priority: High Current Visit: Yes (2) UTI (urinary tract infection) SNOMED Code(s): 52324124 ICD Code: N39.0 - URINARY TRACT INFECTION, SITE NOT SPECIFIED Status: Acute Priority: High Current Visit: Yes Qualifiers: Urinary tract infection type: acute cystitis Hematuria presence: without hematuria Qualified Code(s): N30.00 - Acute cystitis without hematuria (3) Electrolyte abnormality SNOMED Code(s): 226777778 ICD Code: E87.8 - OTH DISORDERS OF ELECTROLYTE AND FLUID BALANCE, NEC Status: Acute Priority: High Current Visit: Yes (4) Alcohol intoxication SNOMED Code(s): 48092408 ICD Code: F10.929 - ALCOHOL USE, UNSPECIFIED WITH INTOXICATION, UNSPECIFIED Status: Chronic Priority: High Current Visit: Yes Qualifiers: Complication of substance-induced condition: uncomplicated Qualified Code(s ): F10.920 - Alcohol use, unspecified with intoxication, uncomplicated (5) Hypokalemia SNOMED Code(s): 86373416 ICD Code: E87.6 - HYPOKALEMIA Status: Acute Priority: High Current Visit: Yes Problem List Initiated/Reviewed/Updated: Yes Orders Last 24hrs: Active Orders 24 hr Category Date Time Status Admission Status [Patient Status] [ADT] Stat ADT 04/01/19 15:22 Active CIWAA Assessment [RC] Q4H Care 04/01/19 17:09 Ordered EKG Documentation Completion [RC] STAT Care 04/01/19 12:29 Active Oxygen Therapy [RC] PRN Care 04/01/19 17:08 Ordered Oxygen Therapy [RC] PRN Care 04/01/19 17:16 Ordered Telemetry Monitoring [Cardiac Monitoring] [RC] . Care 04/01/19 16:03 Active DIRECTED Up ad [place] [RC] ASDIRECTED Care 04/01/19 17:09 Ordered VTE/DVT Education [RC] PER UNIT ROUTINE Care 04/01/19 17:08 Ordered VTE/DVT Education [RC] PER UNIT ROUTINE Care 04/01/19 17:16 Ordered Vital Signs [RC] Q4H Care 04/01/19 17:08 Ordered Vital Signs [RC] Q4H Care 04/01/19 17:16 Ordered Regular Diet [DIET] Diet 04/01/19 Breakfast Ordered CBC WITH AUTO DIFF [HEME] AM Lab 04/02/19 05:11 Ordered COMPREHENSIVE METABOLIC PN,CMP [CHEM] AM Lab 04/02/19 05:11 Ordered CULTURE BLOOD [BC] Stat Lab 04/01/19 14:25 Received CULTURE BLOOD [BC] Stat Lab 04/01/19 14:35 Received CULTURE URINE [RM] Stat Lab 04/01/19 14:45 Received Acetaminophen [Tylenol] Med 04/01/19 17:09 Ordered 650 mg PO Q4H PRN Docusate Sodium [Colace] Med 04/01/19 17:09 Ordered 100 mg PO BID PRN Enoxaparin [Lovenox] Med 04/01/19 17:15 Ordered 40 mg SUBCUT Q24H Folic Acid Med 04/01/19 21:00 Ordered 1 mg PO BEDTIME LORazepam [Ativan] Med 04/01/19 17:09 Ordered 1 mg IM Q4H PRN Levofloxacin/Dextrose 5%-Water [Levaquin in D5W 500 MG/ Med 04/02/19 09:00 Ordered 100 ML] 500 mg Premix Bag 1 bag IV Q24H Nicotine [Habitrol] Med 04/02/19 09:00 Ordered 14 mg TRDERM DAILY Pantoprazole [ProTONIX IV] Med 04/01/19 21:00 Ordered 40 mg IV Q12HR Potassium Chloride [Klor-Con M20] Med 04/01/19 13:30 Active 40 meq PO DAILY Sodium Chloride 0.9% @ 125 MLS/HR (1000ml) Med 04/01/19 17:15 Ordered Sodium Chloride 0.9% [Normal Saline] 1,000 ml IV ASDIRECTED Sodium Chloride 0.9% [Normal Saline] 1,000 ml Med 04/01/19 15:00 Active IV ASDIRECTED Temazepam [Restoril] Med 04/01/19 17:09 Ordered 15 mg PO BEDTIME PRN Thiamine [Vitamin B-1] Med 04/01/19 21:00 Ordered 100 mg PO BEDTIME oxyCODONE Med 04/01/19 17:09 Ordered 5 mg PO Q4H PRN Blood Culture x2 Reflex Set [OM.PC] Stat Oth 04/01/19 14:04 Ordered Resuscitation Status Routine Resus Stat 04/01/19 17:08 Ordered Medication Orders Sodium Chloride (Normal Saline) 1,000 mls @ 125 mls/hr IV ASDIRECTED [facility] Last Admin: 04/01/19 15:04 Dose: 125 mls/hr Potassium Chloride (Klor-Con M20) 40 meq PO DAILY [facility] Last Admin: 04/01/19 14:00 Dose: 40 meq Assessment/Plan Comment:: The patient is a 33-year-old lady who has been admitted to inpatient due to systemic inflammatory disease. The patient's systemic inflammatory response syndrome was thought to be due to a urinary tract infection. She was a been obtained. The patient had been started on Levaquin 500 mg in the emergency room and this will be continued starting tomorrow. The patient will also be aggressively hydrated as the patient is showing a lactate level of 9.4 mmol per liter. I've ordered repeat lactate levels until the patient's lactate is normalize. The patient has been noted to have severe hypokalemia as well and this will be replaced and I've ordered a repeat basic metabolic panel. The patient also has history of chronic alcohol abuse and she will also be kept on thiamine 100 mg by mouth daily as well as folate 1 mg by mouth daily. The patient will also be kept on CIWAA protocol with Ativan 1 mg IV every 4 hours as needed for agitation. The patient also be kept on a regular diet as tolerated. I've ordered repeat laboratory studies for the morning. The patient has been encouraged to ambulate. She'll also have Lovenox for DVT prophylaxis 30 mg subcutaneous daily. The patient should be appropriate for discharge in 1- 2 days. I'm concerned about the patient's prospects for continued sobriety. Given her history I suspect that the patient's sobriety prospects are poor.
[2019-04-01] MEDS ORDERED: LORazepam 2 MG/ML SDV IVPUSH PRN (17:49)
[2019-04-01] MEDS: Enoxaparin 40 MG/0.4 ML Syringe SUBCUT SCH (18:06)
[2019-04-01] MEDS: Folic Acid 1 MG Tab PO SCH (20:00)
[2019-04-01] MEDS: Pantoprazole 40 MG Vial IV SCH (20:00)
[2019-04-01] MEDS: Thiamine 100 MG Tab PO SCH (20:00)
[2019-04-02 06:11] LABS: CHLORIDE,CL 104 mmol/L (98-107); SODIUM,NA 138 mmol/L (136-145)
[2019-04-02] MEDS: Sodium Chloride 0.9% 1,000 ML IV SCH ×2 (07:53→17:35)
--- NOTE | 2019-04-02 09:05 | PCM.PN ---
- General Info Date of Service: 04/02/19 Admission Dx/Problem (Free Text): Admission Diagnosis/Problem Admission Diagnosis/Problem Systemic inflammatory response syndrome (SIRS) Subjective Update: The patient was a 33-year-old lady who had been admitted to acute inpatient hospitalization secondary to systemic inflammatory response from her urinary tract infection. The patient had been noted yesterday to have a CIWAA score for alcohol withdrawal of 14. She also been given Ativan for agitation. The patient today has denied any pain. She also has had fever or chills. Functional Status: Reports: Pain Controlled - Review of Systems General: Reports: Fever, Fatigue, Chills HEENT: Reports: No Symptoms Pulmonary: Reports: No Symptoms Cardiovascular: Reports: No Symptoms Gastrointestinal: Reports: No Symptoms Genitourinary: Reports: No Symptoms Musculoskeletal: Reports: Back Pain Skin: Reports: No Symptoms Neurological: Reports: No Symptoms Psychiatric: Reports: No Symptoms - Patient Data Vitals - Most Recent: Last Vital Signs Temp 37.1 C 04/02/19 03:48 Pulse 91 04/02/19 03:48 Resp 16 04/02/19 03:48 BP 157/87 H 04/02/19 03:48 Pulse Ox 98 04/02/19 03:48 Weight - Most Recent: 43.817 kg I&O - Last 24 Hours: Intake & Output 04/01/19 04/02/19 04/02/19 22:59 06:59 14:59 Intake Total 1400 Output Total 500 Balance 900 Lab Results Last 24 Hours: Laboratory Results - last 24 hr 04/01/19 04/01/19 04/01/19 Range/Units 12:35 12:35 12:35 WBC 9.60 (4.0-11.0) K/uL RBC 3.74 L (4.30-5.90) M/uL Hgb 12.9 (12.0-16.0) g/dL Hct 38.2 (36.0-46.0) % MCV 102.1 H (80.0-98.0) fL MCH 34.5 H (27.0-32.0) pg MCHC 33.8 (31.0-37.0) g/dL RDW Std Deviation 56.6 (28.0-62.0) fl RDW Coeff of Mayito 15 (11.0-15.0) % Plt Count 173 (150-400) K/uL MPV 10.80 (7.40-12.00) fL Neut % (Auto) (48.0-80.0) % Lymph % (Auto) (16.0-40.0) % [place] % (Auto) (0.0-15.0) % Eos % (Auto) (0.0-7.0) % Baso % (Auto) (0.0-1.5) % Neut # (Auto) (1.4-5.7) K/uL Lymph # (Auto) (0.6-2.4) K/uL [place] # (Auto) (0.0-0.8) K/uL Eos # (Auto) (0.0-0.7) K/uL Baso # (Auto) (0.0-0.1) K/uL Add Manual Diff YES Neutrophils % (Manual) 61 (48.0-80.0) % Band Neutrophils % 1 % Lymphocytes % (Manual) 24 (16.0-40.0) % Monocytes % (Manual) 9 (0.0-15.0) % Eosinophils % (Manual) 3 (0.0-7.0) % Basophils % (Manual) 1 (0.0-1.5) % Metamyelocytes % 1 % Nucleated RBC % 0.0 /100WBC Absolute Seg Neuts 5.9 H (1.4-5.7) Band Neutrophils # 0.1 Lymphocytes # (Manual) 2.3 (0.6-2.4) Monocytes # (Manual) 0.9 H (0.0-0.8) Eosinophils # (Manual) 0.3 (0.0-0.7) Basophils # (Manual) 0.1 (0.0-0.1) Absolute Metamyelocyte 0.1 Nucleated RBCs # 0 K/uL Lactate (0.20-2.00) mmol/L Sodium 138 (136-145) mmol/L Potassium 2.4 L* (3.5-5.1) mmol/L Chloride 94 L (98-107) mmol/L Carbon Dioxide 17.1 L (21.0-32.0) mmol/L BUN 6 L (7.0-18.0) mg/dL Creatinine 0.8 (0.6-1.0) mg/dL Est Cr Clr Drug Dosing TNP Estimated GFR (MDRD) > 60.0 ml/min Glucose 53 L (74-106) mg/dL POC Glucose (60-110) mg/dL Calcium 9.0 (8.5-10.1) mg/dL Magnesium (1.8-2.4) mg/dL Total Bilirubin 2.3 H (0.2-1.0) mg/dL AST 191 H (15-37) IU/L ALT 57 (14-63) IU/L Alkaline Phosphatase 292 H (46-116) U/L Creatine Kinase 33 (26-308) U/L Troponin I < 0.050 (0.000-0.056) ng/mL Total Protein 7.7 (6.4-8.2) g/dL Albumin 3.1 L (3.4-5.0) g/dL Globulin 4.6 H (2.6-4.0) g/dL Albumin/Globulin Ratio 0.7 L (0.9-1.6) Urine Color Urine Appearance Urine pH (5.0-8.0) Ur Specific Ragan (1.001-1.035) Urine Protein (NEGATIVE) mg/dL Urine Glucose (UA) (NEGATIVE) mg/dL Urine Ketones (NEGATIVE) mg/dL Urine Occult Blood (NEGATIVE) Urine Nitrite (NEGATIVE) Urine Bilirubin (NEGATIVE) Urine Urobilinogen (<2.0) EU/dL Ur Leukocyte Esterase (NEGATIVE) Urine RBC (0-2/HPF) Urine WBC (0-5/HPF) Ur Epithelial Cells (NONE-FEW) Amorphous Sediment (NEGATIVE) Urine Bacteria (NEGATIVE) Urine Mucus (NONE-MOD) Urine HCG, Qual (NEGATIVE) Ethyl Alcohol 177 mg/dL 04/01/19 04/01/19 04/01/19 Range/Units 12:35 13:35 13:56 WBC (4.0-11.0) K/uL RBC (4.30-5.90) M/uL Hgb (12.0-16.0) g/dL Hct (36.0-46.0) % MCV (80.0-98.0) fL MCH (27.0-32.0) pg MCHC (31.0-37.0) g/dL RDW Std Deviation (28.0-62.0) fl RDW Coeff of Mayito (11.0-15.0) % Plt Count (150-400) K/uL MPV (7.40-12.00) fL Neut % (Auto) (48.0-80.0) % Lymph % (Auto) (16.0-40.0) % [place] % (Auto) (0.0-15.0) % Eos % (Auto) (0.0-7.0) % Baso % (Auto) (0.0-1.5) % Neut # (Auto) (1.4-5.7) K/uL Lymph # (Auto) (0.6-2.4) K/uL [place] # (Auto) (0.0-0.8) K/uL Eos # (Auto) (0.0-0.7) K/uL Baso # (Auto) (0.0-0.1) K/uL Add Manual Diff Neutrophils % (Manual) (48.0-80.0) % Band Neutrophils % % Lymphocytes % (Manual) (16.0-40.0) % Monocytes % (Manual) (0.0-15.0) % Eosinophils % (Manual) (0.0-7.0) % Basophils % (Manual) (0.0-1.5) % Metamyelocytes % % Nucleated RBC % /100WBC Absolute Seg Neuts (1.4-5.7) Band Neutrophils # Lymphocytes # (Manual) (0.6-2.4) Monocytes # (Manual) (0.0-0.8) Eosinophils # (Manual) (0.0-0.7) Basophils # (Manual) (0.0-0.1) Absolute Metamyelocyte Nucleated RBCs # K/uL Lactate (0.20-2.00) mmol/L Sodium (136-145) mmol/L Potassium (3.5-5.1) mmol/L Chloride (98-107) mmol/L Carbon Dioxide (21.0-32.0) mmol/L BUN (7.0-18.0) mg/dL Creatinine (0.6-1.0) mg/dL Est Cr Clr Drug Dosing Estimated GFR (MDRD) ml/min Glucose (74-106) mg/dL POC Glucose 36 L 166 H (60-110) mg/dL Calcium (8.5-10.1) mg/dL Magnesium 2.0 (1.8-2.4) mg/dL Total Bilirubin (0.2-1.0) mg/dL AST (15-37) IU/L ALT (14-63) IU/L Alkaline Phosphatase (46-116) U/L Creatine Kinase (26-308) U/L Troponin I (0.000-0.056) ng/mL Total Protein (6.4-8.2) g/dL Albumin (3.4-5.0) g/dL Globulin (2.6-4.0) g/dL Albumin/Globulin Ratio (0.9-1.6) Urine Color Urine Appearance Urine pH (5.0-8.0) Ur Specific Ragan (1.001-1.035) Urine Protein (NEGATIVE) mg/dL Urine Glucose (UA) (NEGATIVE) mg/dL Urine Ketones (NEGATIVE) mg/dL Urine Occult Blood (NEGATIVE) Urine Nitrite (NEGATIVE) Urine Bilirubin (NEGATIVE) Urine Urobilinogen (<2.0) EU/dL Ur Leukocyte Esterase (NEGATIVE) Urine RBC (0-2/HPF) Urine WBC (0-5/HPF) Ur Epithelial Cells (NONE-FEW) Amorphous Sediment (NEGATIVE) Urine Bacteria (NEGATIVE) Urine Mucus (NONE-MOD) Urine HCG, Qual (NEGATIVE) Ethyl Alcohol mg/dL 04/01/19 04/01/19 04/01/19 Range/Units 14:35 14:45 14:45 WBC (4.0-11.0) K/uL RBC (4.30-5.90) M/uL Hgb (12.0-16.0) g/dL Hct (36.0-46.0) % MCV (80.0-98.0) fL MCH (27.0-32.0) pg MCHC (31.0-37.0) g/dL RDW Std Deviation (28.0-62.0) fl RDW Coeff of Mayito (11.0-15.0) % Plt Count (150-400) K/uL MPV (7.40-12.00) fL Neut % (Auto) (48.0-80.0) % Lymph % (Auto) (16.0-40.0) % [place] % (Auto) (0.0-15.0) % Eos % (Auto) (0.0-7.0) % Baso % (Auto) (0.0-1.5) % Neut # (Auto) (1.4-5.7) K/uL Lymph # (Auto) (0.6-2.4) K/uL [place] # (Auto) (0.0-0.8) K/uL Eos # (Auto) (0.0-0.7) K/uL Baso # (Auto) (0.0-0.1) K/uL Add Manual Diff Neutrophils % (Manual) (48.0-80.0) % Band Neutrophils % % Lymphocytes % (Manual) (16.0-40.0) % Monocytes % (Manual) (0.0-15.0) % Eosinophils % (Manual) (0.0-7.0) % Basophils % (Manual) (0.0-1.5) % Metamyelocytes % % Nucleated RBC % /100WBC Absolute Seg Neuts (1.4-5.7) Band Neutrophils # Lymphocytes # (Manual) (0.6-2.4) Monocytes # (Manual) (0.0-0.8) Eosinophils # (Manual) (0.0-0.7) Basophils # (Manual) (0.0-0.1) Absolute Metamyelocyte Nucleated RBCs # K/uL Lactate 9.4 H (0.20-2.00) mmol/L Sodium (136-145) mmol/L Potassium (3.5-5.1) mmol/L Chloride (98-107) mmol/L Carbon Dioxide (21.0-32.0) mmol/L BUN (7.0-18.0) mg/dL Creatinine (0.6-1.0) mg/dL Est Cr Clr Drug Dosing Estimated GFR (MDRD) ml/min Glucose (74-106) mg/dL POC Glucose (60-110) mg/dL Calcium (8.5-10.1) mg/dL Magnesium (1.8-2.4) mg/dL Total Bilirubin (0.2-1.0) mg/dL AST (15-37) IU/L ALT (14-63) IU/L Alkaline Phosphatase (46-116) U/L Creatine Kinase (26-308) U/L Troponin I (0.000-0.056) ng/mL Total Protein (6.4-8.2) g/dL Albumin (3.4-5.0) g/dL Globulin (2.6-4.0) g/dL Albumin/Globulin Ratio (0.9-1.6) Urine Color YELLOW Urine Appearance CLEAR Urine pH 6.0 (5.0-8.0) Ur Specific [place] 1.020 (1.001-1.035) Urine Protein NEGATIVE (NEGATIVE) mg/dL Urine Glucose (UA) NEGATIVE (NEGATIVE) mg/dL Urine Ketones 15 H (NEGATIVE) mg/dL Urine Occult Blood TRACE-LYSED H (NEGATIVE) Urine Nitrite POSITIVE H (NEGATIVE) Urine Bilirubin NEGATIVE (NEGATIVE) Urine Urobilinogen 1.0 (<2.0) EU/dL Ur Leukocyte Esterase NEGATIVE (NEGATIVE) Urine RBC 0-2 (0-2/HPF) Urine WBC 1-3 (0-5/HPF) Ur Epithelial Cells OCCASIONAL (NONE-FEW) Amorphous Sediment FEW (NEGATIVE) Urine Bacteria 2+ H (NEGATIVE) Urine Mucus FEW (NONE-MOD) Urine HCG, Qual NEGATIVE (NEGATIVE) Ethyl Alcohol mg/dL 04/01/19 04/01/19 04/01/19 Range/Units 14:49 16:07 18:03 WBC (4.0-11.0) K/uL RBC (4.30-5.90) M/uL Hgb (12.0-16.0) g/dL Hct (36.0-46.0) % MCV (80.0-98.0) fL MCH (27.0-32.0) pg MCHC (31.0-37.0) g/dL RDW Std Deviation (28.0-62.0) fl RDW Coeff of May[place] (11.0-15.0) % Plt Count (150-400) K/uL MPV (7.40-12.00) fL Neut % (Auto) (48.0-80.0) % Lymph % (Auto) (16.0-40.0) % [place] % (Auto) (0.0-15.0) % Eos % (Auto) (0.0-7.0) % Baso % (Auto) (0.0-1.5) % Neut # (Auto) (1.4-5.7) K/uL Lymph # (Auto) (0.6-2.4) K/uL [place] # (Auto) (0.0-0.8) K/uL Eos # (Auto) (0.0-0.7) K/uL Baso # (Auto) (0.0-0.1) K/uL Add Manual Diff Neutrophils % (Manual) (48.0-80.0) % Band Neutrophils % % Lymphocytes % (Manual) (16.0-40.0) % Monocytes % (Manual) (0.0-15.0) % Eosinophils % (Manual) (0.0-7.0) % Basophils % (Manual) (0.0-1.5) % Metamyelocytes % % Nucleated RBC % /100WBC Absolute Seg Neuts (1.4-5.7) Band Neutrophils # Lymphocytes # (Manual) (0.6-2.4) Monocytes # (Manual) (0.0-0.8) Eosinophils # (Manual) (0.0-0.7) Basophils # (Manual) (0.0-0.1) Absolute Metamyelocyte Nucleated RBCs # K/uL Lactate 6.6 H (0.20-2.00) mmol/L Sodium (136-145) mmol/L Potassium (3.5-5.1) mmol/L Chloride (98-107) mmol/L Carbon Dioxide (21.0-32.0) mmol/L BUN (7.0-18.0) mg/dL Creatinine (0.6-1.0) mg/dL Est Cr Clr Drug Dosing Estimated GFR (MDRD) ml/min Glucose (74-106) mg/dL POC Glucose 157 H 82 (60-110) mg/dL Calcium (8.5-10.1) mg/dL Magnesium (1.8-2.4) mg/dL Total Bilirubin (0.2-1.0) mg/dL AST (15-37) IU/L ALT (14-63) IU/L Alkaline Phosphatase (46-116) U/L Creatine Kinase (26-308) U/L Troponin I (0.000-0.056) ng/mL Total Protein (6.4-8.2) g/dL Albumin (3.4-5.0) g/dL Globulin (2.6-4.0) g/dL Albumin/Globulin Ratio (0.9-1.6) Urine Color Urine Appearance Urine pH (5.0-8.0) Ur Specific [place] (1.001-1.035) Urine Protein (NEGATIVE) mg/dL Urine Glucose (UA) (NEGATIVE) mg/dL Urine Ketones (NEGATIVE) mg/dL Urine Occult Blood (NEGATIVE) Urine Nitrite (NEGATIVE) Urine Bilirubin (NEGATIVE) Urine Urobilinogen (<2.0) EU/dL Ur Leukocyte Esterase (NEGATIVE) Urine RBC (0-2/HPF) Urine WBC (0-5/HPF) Ur Epithelial Cells (NONE-FEW) Amorphous Sediment (NEGATIVE) Urine Bacteria (NEGATIVE) Urine Mucus (NONE-MOD) Urine HCG, Qual (NEGATIVE) Ethyl Alcohol mg/dL 04/01/19 04/02/19 04/02/19 Range/Units 23:53 05:45 05:45 WBC 4.80 (4.0-11.0) K/uL RBC 3.19 L (4.30-5.90) M/uL Hgb 10.6 L (12.0-16.0) g/dL Hct 32.4 L (36.0-46.0) % MCV 101.6 H (80.0-98.0) fL MCH 33.2 H (27.0-32.0) pg MCHC 32.7 (31.0-37.0) g/dL RDW Std Deviation 54.9 (28.0-62.0) fl RDW Coeff of [place] 15 (11.0-15.0) % Plt Count 112 L (150-400) K/uL MPV 10.90 (7.40-12.00) fL Neut % (Auto) 58.3 (48.0-80.0) % Lymph % (Auto) 28.8 (16.0-40.0) % [place] % (Auto) 10.0 (0.0-15.0) % Eos % (Auto) 2.1 (0.0-7.0) % Baso % (Auto) 0.8 (0.0-1.5) % Neut # (Auto) 2.8 (1.4-5.7) K/uL Lymph # (Auto) 1.4 (0.6-2.4) K/uL [place] # (Auto) 0.5 (0.0-0.8) K/uL Eos # (Auto) 0.1 (0.0-0.7) K/uL Baso # (Auto) 0.0 (0.0-0.1) K/uL Add Manual Diff Neutrophils % (Manual) (48.0-80.0) % Band Neutrophils % % Lymphocytes % (Manual) (16.0-40.0) % Monocytes % (Manual) (0.0-15.0) % Eosinophils % (Manual) (0.0-7.0) % Basophils % (Manual) (0.0-1.5) % Metamyelocytes % % Nucleated RBC % 0.0 /100WBC Absolute Seg Neuts (1.4-5.7) Band Neutrophils # Lymphocytes # (Manual) (0.6-2.4) Monocytes # (Manual) (0.0-0.8) Eosinophils # (Manual) (0.0-0.7) Basophils # (Manual) (0.0-0.1) Absolute Metamyelocyte Nucleated RBCs # 0 K/uL Lactate 2.1 H (0.20-2.00) mmol/L Sodium 138 (136-145) mmol/L Potassium 3.5 (3.5-5.1) mmol/L Chloride 104 (98-107) mmol/L Carbon Dioxide 23.0 (21.0-32.0) mmol/L BUN 4 L (7.0-18.0) mg/dL Creatinine 0.6 (0.6-1.0) mg/dL Est Cr Clr Drug Dosing 93.11 Estimated GFR (MDRD) > 60.0 ml/min Glucose 72 L (74-106) mg/dL POC Glucose (60-110) mg/dL Calcium 7.8 L (8.5-10.1) mg/dL Magnesium (1.8-2.4) mg/dL Total Bilirubin 3.4 H (0.2-1.0) mg/dL AST 120 H (15-37) IU/L ALT 39 (14-63) IU/L Alkaline Phosphatase 201 H (46-116) U/L Creatine Kinase (26-308) U/L Troponin I (0.000-0.056) ng/mL Total Protein 5.7 L (6.4-8.2) g/dL Albumin 2.2 L (3.4-5.0) g/dL Globulin 3.5 (2.6-4.0) g/dL Albumin/Globulin Ratio 0.6 L (0.9-1.6) Urine Color Urine Appearance Urine pH (5.0-8.0) Ur Specific [place] (1.001-1.035) Urine Protein (NEGATIVE) mg/dL Urine Glucose (UA) (NEGATIVE) mg/dL Urine Ketones (NEGATIVE) mg/dL Urine Occult Blood (NEGATIVE) Urine Nitrite (NEGATIVE) Urine Bilirubin (NEGATIVE) Urine Urobilinogen (<2.0) EU/dL Ur Leukocyte Esterase (NEGATIVE) Urine RBC (0-2/HPF) Urine WBC (0-5/HPF) Ur Epithelial Cells (NONE-FEW) Amorphous Sediment (NEGATIVE) Urine Bacteria (NEGATIVE) Urine Mucus (NONE-MOD) Urine HCG, Qual (NEGATIVE) Ethyl Alcohol mg/dL 04/02/19 Range/Units 05:45 WBC (4.0-11.0) K/uL RBC (4.30-5.90) M/uL Hgb (12.0-16.0) g/dL Hct (36.0-46.0) % MCV (80.0-98.0) fL MCH (27.0-32.0) pg MCHC (31.0-37.0) g/dL RDW Std Deviation (28.0-62.0) fl RDW Coeff of [place] (11.0-15.0) % Plt Count (150-400) K/uL MPV (7.40-12.00) fL Neut % (Auto) (48.0-80.0) % Lymph % (Auto) (16.0-40.0) % [place] % (Auto) (0.0-15.0) % Eos % (Auto) (0.0-7.0) % Baso % (Auto) (0.0-1.5) % Neut # (Auto) (1.4-5.7) K/uL Lymph # (Auto) (0.6-2.4) K/uL [place] # (Auto) (0.0-0.8) K/uL Eos # (Auto) (0.0-0.7) K/uL Baso # (Auto) (0.0-0.1) K/uL Add Manual Diff Neutrophils % (Manual) (48.0-80.0) % Band Neutrophils % % Lymphocytes % (Manual) (16.0-40.0) % Monocytes % (Manual) (0.0-15.0) % Eosinophils % (Manual) (0.0-7.0) % Basophils % (Manual) (0.0-1.5) % Metamyelocytes % % Nucleated RBC % /100WBC Absolute Seg Neuts (1.4-5.7) Band Neutrophils # Lymphocytes # (Manual) (0.6-2.4) Monocytes # (Manual) (0.0-0.8) Eosinophils # (Manual) (0.0-0.7) Basophils # (Manual) (0.0-0.1) Absolute Metamyelocyte Nucleated RBCs # K/uL Lactate 0.9 (0.20-2.00) mmol/L Sodium (136-145) mmol/L Potassium (3.5-5.1) mmol/L Chloride (98-107) mmol/L Carbon Dioxide (21.0-32.0) mmol/L BUN (7.0-18.0) mg/dL Creatinine (0.6-1.0) mg/dL Est Cr Clr Drug Dosing Estimated GFR (MDRD) ml/min Glucose (74-106) mg/dL POC Glucose (60-110) mg/dL Calcium (8.5-10.1) mg/dL Magnesium (1.8-2.4) mg/dL Total Bilirubin (0.2-1.0) mg/dL AST (15-37) IU/L ALT (14-63) IU/L Alkaline Phosphatase (46-116) U/L Creatine Kinase (26-308) U/L Troponin I (0.000-0.056) ng/mL Total Protein (6.4-8.2) g/dL Albumin (3.4-5.0) g/dL Globulin (2.6-4.0) g/dL Albumin/Globulin Ratio (0.9-1.6) Urine Color Urine Appearance Urine pH (5.0-8.0) Ur Specific Ragan (1.001-1.035) Urine Protein (NEGATIVE) mg/dL Urine Glucose (UA) (NEGATIVE) mg/dL Urine Ketones (NEGATIVE) mg/dL Urine Occult Blood (NEGATIVE) Urine Nitrite (NEGATIVE) Urine Bilirubin (NEGATIVE) Urine Urobilinogen (<2.0) EU/dL Ur Leukocyte Esterase (NEGATIVE) Urine RBC (0-2/HPF) Urine WBC (0-5/HPF) Ur Epithelial Cells (NONE-FEW) Amorphous Sediment (NEGATIVE) Urine Bacteria (NEGATIVE) Urine Mucus (NONE-MOD) Urine HCG, Qual (NEGATIVE) Ethyl Alcohol mg/dL Med Orders - Current: Current Medications Acetaminophen (Tylenol) 650 mg PO Q4H PRN PRN Reason: Pain (Mild 1-3)/fever Last Admin: 04/01/19 19:59 Dose: 650 mg Docusate Sodium (Colace) 100 mg PO BID PRN PRN Reason: Constipation Enoxaparin Sodium (Lovenox) 40 mg SUBCUT Q24H [facility] Last Admin: 04/01/19 18:06 Dose: 40 mg Folic Acid (Folic Acid) 1 mg PO BEDTIME [facility] Last Admin: 04/01/19 20:00 Dose: 1 mg Sodium Chloride (Normal Saline) 1,000 mls @ 125 mls/hr IV ASDIRECTED [facility] Last Admin: 04/02/19 07:53 Dose: 125 mls/hr Levofloxacin/Dextrose 500 mg/ (Premix) 100 mls @ 100 mls/hr IV Q24H [facility] Sodium Chloride (Normal Saline) 1,000 mls @ 125 mls/hr IV ASDIRECTED [facility] Lorazepam (Ativan) 1 mg IVPUSH Q4H PRN PRN Reason: Agitation Last Admin: 04/01/19 18:20 Dose: 1 mg Nicotine (Habitrol) 14 mg TRDERM DAILY [facility] Oxycodone HCl (Oxycodone) 5 mg PO Q4H PRN PRN Reason: Pain (moderate 4-6) Pantoprazole Sodium (Protonix Iv) 40 mg IV Q12HR [facility] Last Admin: 04/01/19 20:00 Dose: 40 mg Potassium Chloride (Klor-Con M20) 40 meq PO DAILY [facility] Last Admin: 04/01/19 14:00 Dose: 40 meq Temazepam (Restoril) 15 mg PO BEDTIME PRN PRN Reason: Sleep Thiamine HCl (Vitamin B-1) 100 mg PO BEDTIME [facility] Last Admin: 04/01/19 20:00 Dose: 100 mg Discontinued Medications Dextrose/Water (Dextrose 50% In Water) Confirm Administered Dose 50 ml .ROUTE .STK-MED ONE Stop: 04/01/19 13:38 Last Admin: 04/01/19 15:36 Dose: Not Given Dextrose/Water (Dextrose 50% In Water) 50 ml IVPUSH ONETIME ONE Stop: 04/01/19 13:44 Last Admin: 04/01/19 13:44 Dose: 50 ml Sodium Chloride (Normal Saline) 1,000 mls @ 999 mls/hr IV STAT ONE Stop: 04/01/19 13:27 Last Admin: 04/01/19 12:47 Dose: 999 mls/hr Multivitamins/Minerals 10 ml/Thiamine HCl 100 mg/ Folic Acid 1 mg/ Sodium Chloride 1,011.2 mls @ 999 mls/hr IV ONETIME ONE Stop: 04/01/19 13:33 Last Admin: 04/01/19 12:48 Dose: 999 mls/hr Sodium Chloride (Normal Saline) Confirm Administered Dose 20 mls @ as directed .ROUTE .STK-MED ONE Stop: 04/01/19 12:41 Last Admin: 04/01/19 18:14 Dose: Not Given Levofloxacin/Dextrose 750 mg/ (Premix) 150 mls @ 100 mls/hr IV ONETIME ONE Stop: 04/01/19 16:47 Last Admin: 04/01/19 15:34 Dose: 100 mls/hr Lorazepam (Ativan) 1 mg IVPUSH ONETIME ONE Stop: 04/01/19 12:28 Last Admin: 04/01/19 12:48 Dose: 1 mg Lorazepam (Ativan) 1 mg IM Q4H PRN PRN Reason: Agitation Ondansetron HCl (Zofran) 8 mg IVPUSH ONETIME ONE Stop: 04/01/19 12:28 Last Admin: 04/01/19 12:47 Dose: 8 mg Pantoprazole Sodium (Protonix Iv) 80 mg IVPUSH .BOLUS ONE Stop: 04/01/19 12:35 Last Admin: 04/01/19 12:48 Dose: 80 mg - Exam Quality Assessment: No: Supplemental Oxygen General: Alert (Underweight), Oriented, Cooperative, No Acute Distress HEENT: Pupils Equal, Pupils Reactive, EOMI. No: Mucous Membr. Moist/[place] (Dry) Neck: Supple, Trachea Midline Lungs: Clear to Auscultation, Normal Respiratory Effort Cardiovascular: Regular Rhythm, Tachycardia (114 on monitor) GI/Abdominal Exam: Normal Bowel Sounds, Soft, Non-Tender, No Distention Back Exam: Normal Inspection Extremities: Normal Inspection, No Pedal Edema Skin: Warm, Dry, Intact Neurological: No New Focal Deficit Psy/Mental Status: Alert. No: Normal Affect (Flat) - Problem List & Annotations (1) Systemic inflammatory response syndrome SNOMED Code(s): 331970166 Code(s): R65.10 - SIRS OF NON-INFECTIOUS ORIGIN W/O ACUTE ORGAN DYSFUNCTION Status: Acute Priority: High Current Visit: Yes (2) Protein-calorie malnutrition, severe SNOMED Code(s): 741575656, 083876497, 923508208 Code(s): E43 - UNSPECIFIED SEVERE PROTEIN-CALORIE MALNUTRITION Status: Chronic Priority: High Current Visit: Yes (3) UTI (urinary tract infection) SNOMED Code(s): 88400680 Code(s): N39.0 - URINARY TRACT INFECTION, SITE NOT SPECIFIED Status: Acute Priority: High Current Visit: Yes Qualifiers: Urinary tract infection type: acute cystitis Hematuria presence: without hematuria Qualified Code(s): N30.00 - Acute cystitis without hematuria (4) Electrolyte abnormality SNOMED Code(s): 708059182 Code(s): E87.8 - OTH DISORDERS OF ELECTROLYTE AND FLUID BALANCE, NEC Status : Resolved Priority: High Current Visit: Yes (5) Alcohol intoxication SNOMED Code(s): 62828217 Code(s): F10.929 - ALCOHOL USE, UNSPECIFIED WITH INTOXICATION, UNSPECIFIED Status: Chronic Priority: High Current Visit: Yes Qualifiers: Complication of substance-induced condition: uncomplicated Qualified Code(s ): F10.920 - Alcohol use, unspecified with intoxication, uncomplicated (6) Hypokalemia SNOMED Code(s): 19201233 Code(s): E87.6 - HYPOKALEMIA Status: Resolved Priority: High Current Visit: Yes - Problem List Review Problem List Initiated/Reviewed/Updated: Yes - My Orders Last 24 Hours: My Active Orders 04/01/19 16:03 Telemetry Monitoring [Cardiac Monitoring] [RC] Q8H 04/01/19 17:08 Vital Signs [RC] Q4H Resuscitation Status Routine 04/01/19 17:09 CIWAA Assessment [RC] Q4H Up ad [place] [RC] ASDIRECTED Acetaminophen [Tylenol] 650 mg PO Q4H PRN Docusate Sodium [Colace] 100 mg PO BID PRN Temazepam [Restoril] 15 mg PO BEDTIME PRN oxyCODONE 5 mg PO Q4H PRN 04/01/19 17:15 Enoxaparin [Lovenox] 40 mg SUBCUT Q24H Sodium Chloride 0.9% [Normal Saline] 1,000 ml IV ASDIRECTED 04/01/19 17:16 Oxygen Therapy [RC] PRN VTE/DVT Education [RC] PER UNIT ROUTINE 04/01/19 17:49 LORazepam [Ativan] 1 mg IVPUSH Q4H PRN 04/01/19 21:00 Folic Acid 1 mg PO BEDTIME Pantoprazole [ProTONIX IV] 40 mg IV Q12HR Thiamine [Vitamin B-1] 100 mg PO BEDTIME 04/02/19 09:00 Levofloxacin/Dextrose 5%-Water [Levaquin in D5W 500 MG/100 ML] 500 mg Premix Bag 1 bag IV Q24H Nicotine [Habitrol] 14 mg TRDERM DAILY - Plan Plan:: The patient is a 33-year-old lady who had been admitted as an inpatient due to systemic inflammatory response syndrome due to her urinary tract infection. She has been on Levaquin and this will be continued for now. Blood and urine cultures are currently pending. The patient is also continuing to be aggressively hydrated with the use of IV of normal saline at 125 mL per hour. The patient's previous lactic acidosis has resolved fluid hydration and antibiotics. I've ordered repeat laboratory studies to continue to evaluate the patient for acidosis including a metabolic panel. The patient also has a history of chronic alcohol abuse and she had a elevated CIWAA score and has had Ativan to help with her agitation. I suspect at this time of the patient's prospects for continued sobriety are poor. This will be continued. Patient also has been encouraged to ambulate. Also the patient's body habitus as well as her current BMI of 16.6 kg/m as well as her hypoalbuminemia with indicate severe protein calorie malnutrition. The patient has had very little appetite and she has been encouraged to keep on the regular diet as tolerated. Repeat laboratory studies have been ordered. The patient will also be continued on DVT prophylaxis at 30 mg subcutaneous daily.
[2019-04-02] MEDS: Pantoprazole 40 MG Vial IV SCH ×2 (09:23→21:30)
[2019-04-02] MEDS: Potassium Chloride 20 MEQ Tab.ER PO SCH (09:25)
[2019-04-02] MEDS: Levofloxacin/Dextrose 5%-Water 500 MG in Premix Bag 1 BAG IV SCH (09:28)
[2019-04-02] MEDS: oxyCODONE 5 MG Tab PO PRN ×3 (09:36→18:45)
[2019-04-02] MEDS: Nicotine 14 MG/24 Hr Patch TRDERM SCH ×2 (09:39→16:14)
[2019-04-02] MEDS: Enoxaparin 40 MG/0.4 ML Syringe SUBCUT SCH (17:36)
[2019-04-02] MEDS: Thiamine 100 MG Tab PO SCH (21:30)
[2019-04-02] MEDS: Folic Acid 1 MG Tab PO SCH (21:30)
[2019-04-03] MEDS: oxyCODONE 5 MG Tab PO PRN ×3 (00:08→10:27)
[2019-04-03] MEDS: Sodium Chloride 0.9% 1,000 ML IV SCH ×2 (00:26→09:20)
[2019-04-03 07:54] LABS: CHLORIDE,CL 103 mmol/L (98-107); SODIUM,NA 137 mmol/L (136-145)
[2019-04-03] MEDS: Potassium Chloride 20 MEQ Tab.ER PO SCH (08:23)
[2019-04-03] MEDS: Nicotine 14 MG/24 Hr Patch TRDERM SCH (08:24)
[2019-04-03] MEDS: Pantoprazole 40 MG Vial IV SCH (09:20)
[2019-04-03] MEDS: Levofloxacin/Dextrose 5%-Water 500 MG in Premix Bag 1 BAG IV SCH (09:20)
--- NOTE | 2019-04-03 09:41 | PCM.DCSUM1 ---
Discharge Summary - Hospital Course Diagnosis: Stroke: No - Discharge Data Discharge Date: 04/03/19 Discharge Disposition: Home, Self-Care 01 Condition: Good - Discharge Diagnosis/Problem(s) (1) Systemic inflammatory response syndrome SNOMED Code(s): 808768815 ICD Code: R65.10 - SIRS OF NON-INFECTIOUS ORIGIN W/O ACUTE ORGAN DYSFUNCTION Status: Resolved Priority: High Current Visit: Yes (2) Protein-calorie malnutrition, severe SNOMED Code(s): 907949105, 942730161, 136516045 ICD Code: E43 - UNSPECIFIED SEVERE PROTEIN-CALORIE MALNUTRITION Status: Chronic Priority: High Current Visit: Yes (3) UTI (urinary tract infection) SNOMED Code(s): 94400879 ICD Code: N39.0 - URINARY TRACT INFECTION, SITE NOT SPECIFIED Status: Resolved Priority: High Current Visit: Yes Qualifiers: Urinary tract infection type: acute cystitis Hematuria presence: without hematuria Qualified Code(s): N30.00 - Acute cystitis without hematuria (4) Electrolyte abnormality SNOMED Code(s): 735057594 ICD Code: E87.8 - OTH DISORDERS OF ELECTROLYTE AND FLUID BALANCE, NEC Status: Resolved Priority: High Current Visit: Yes (5) Alcohol intoxication SNOMED Code(s): 55819210 ICD Code: F10.929 - ALCOHOL USE, UNSPECIFIED WITH INTOXICATION, UNSPECIFIED Status: Chronic Priority: High Current Visit: Yes Qualifiers: Complication of substance-induced condition: uncomplicated Qualified Code(s ): F10.920 - Alcohol use, unspecified with intoxication, uncomplicated (6) Hypokalemia SNOMED Code(s): 00057417 ICD Code: E87.6 - HYPOKALEMIA Status: Resolved Priority: High Current Visit: Yes - Patient Summary/Data Hospital Course: The patient is a 39-year-old lady who is presented to the emergency department complaining of nausea and vomiting. The patient has a history of chronic alcohol abuse and she says that she was heavily drinking last night. Her blood alcohol level was 177. The patient has denied any hematochezia or hematemesis. No melena. The patient also said that she had some fever and chills before this. The patient was diagnosed with SIRS due to UTI. The patient is also continuing to be aggressively hydrated with the use of IV of normal saline at 125 mL per hour. The patient's previous lactic acidosis has resolved fluid hydration and antibiotics. I've ordered repeat laboratory studies to continue to evaluate the patient for acidosis including a metabolic panel. The patient has had abdominal pain in the right upper quadrant to mid gastric area this does not seem to radiate. The patient is also been noted to have multiple emergency room visits over the past year. The patient also has a history of chronic alcohol abuse and she had a elevated CIWAA score and has had Ativan to help with her agitation. I suspect at this time of the patient's prospects for continued sobriety are poor. This will be continued. Patient also has been encouraged to ambulate. Also the patient's body habitus as well as her current BMI of 16.6 kg/m as well as her hypoalbuminemia with indicate severe protein calorie malnutrition. The patient has had very little appetite and she has been encouraged to keep on the regular diet as tolerated. Repeat laboratory studies have been ordered. The patient will also be continued on DVT prophylaxis at 30 mg subcutaneous daily. The patient had urinary cultures which were obtained and subsequently grew Escherichia coli which was sensitive to ciprofloxacin. The patient had been given a prescription for ciprofloxacin 500 mg by mouth twice a day for 5 days. Because of the patient's use of alcohol she has also been given prescription for folate 1 mg by mouth daily and thiamine 100 mg by mouth daily. By day of discharge the patient had remained afebrile and hemodynamically stable. Her previously noted leukocytosis as well as systemic inflammatory response syndrome had resolved. The patient has been recommended to continue with her diet as tolerated to include nutritional supplements such as boost or ensure 3 times a day. The patient is to have activity as tolerated. She has been recommended to abstain from alcohol completely. The patient has been recommended to follow-up with Alcoholics Anonymous. She is to have activity as tolerated. The patient is hemodynamically stable and she has been discharged from acute hospitalization with recommendations above. - Patient Instructions Diet: Regular Diet as Tolerated Diet, Other: Boost or Ensure three times a day, abstain from alcohol Activity: As Tolerated Notify Provider of: Fever, Increased Pain - Discharge Plan *PRESCRIPTION DRUG MONITORING PROGRAM REVIEWED*: No *COPY OF PRESCRIPTION DRUG MONITORING REPORT IN PATIENT MELODY: No Prescriptions/Med Rec: Ciprofloxacin HCl [Cipro] 500 mg PO BID #10 tablet Folic Acid 1 mg PO BEDTIME #30 tablet Thiamine [Vitamin B-1] 100 mg PO BEDTIME #30 tablet Home Medications: Home Meds Bismuth Subsalicylate [Pepto-Bismol] 262 mg CHEW ASDIRECTED PRN 04/01/19 [ History] Esomeprazole Magnesium 40 mg PO DAILY 04/01/19 [History] Ciprofloxacin HCl [Cipro] 500 mg PO BID #10 tablet 04/03/19 [Rx] Folic Acid 1 mg PO BEDTIME #30 tablet 04/03/19 [Rx] Thiamine [Vitamin B-1] 100 mg PO BEDTIME #30 tablet 04/03/19 [Rx] Oxygen Therapy Mode: Room Air Patient Handouts: Alcohol Use Disorder, Thiamine, Vitamin B1 tablets, Dehydration, Adult, Lflz-da-Mepz, Ciprofloxacin tablets, Folic Acid, Vitamin B9 tablets Referrals: [facility] [Outside] Huy Duarte MD [Physician] - 04/09/19 10:45 am - Discharge Summary/Plan Comment DC Time >30 min.: Yes - General Info Date of Service: 04/03/19 Admission Dx/Problem (Free Text: Admission Diagnosis/Problem Admission Diagnosis/Problem Systemic inflammatory response syndrome (SIRS) Subjective Update: The patient is feeling better today. She has been tolerating diet. The patient has denied any pain. The patient says that she wants to go home. Functional Status: Reports: Pain Controlled - Review of Systems General: Reports: No Symptoms HEENT: Reports: No Symptoms Pulmonary: Reports: No Symptoms Cardiovascular: Reports: No Symptoms Gastrointestinal: Reports: No Symptoms Genitourinary: Reports: No Symptoms Musculoskeletal: Reports: No Symptoms Skin: Reports: No Symptoms Neurological: Reports: No Symptoms Psychiatric: Reports: No Symptoms - Patient Data Vitals - Most Recent: Last Vital Signs Temp 37.0 C 04/03/19 07:25 Pulse 97 04/03/19 07:25 Resp 16 04/03/19 07:25 BP 119/70 04/03/19 07:25 Pulse Ox 97 04/03/19 07:25 Weight - Most Recent: 43.817 kg I&O - Last 24 hours: Intake & Output 04/02/19 04/03/19 04/03/19 22:59 06:59 14:59 Intake Total 2800 52814 Output Total 0 Balance 2800 54055 Lab Results - Last 24 hrs: Laboratory Results - last 24 hr 04/03/19 04/03/19 Range/Units 07:10 07:10 WBC 3.81 L (4.0-11.0) K/uL RBC 3.28 L (4.30-5.90) M/uL Hgb 11.0 L (12.0-16.0) g/dL Hct 33.6 L (36.0-46.0) % MCV 102.4 H (80.0-98.0) fL MCH 33.5 H (27.0-32.0) pg MCHC 32.7 (31.0-37.0) g/dL RDW Std Deviation 55.6 (28.0-62.0) fl RDW Coeff of Mayito 15 (11.0-15.0) % Plt Count 111 L (150-400) K/uL MPV 11.20 (7.40-12.00) fL Neut % (Auto) 51.7 (48.0-80.0) % Lymph % (Auto) 31.8 (16.0-40.0) % [place] % (Auto) 10.5 (0.0-15.0) % Eos % (Auto) 4.7 (0.0-7.0) % Baso % (Auto) 1.3 (0.0-1.5) % Neut # (Auto) 2.0 (1.4-5.7) K/uL Lymph # (Auto) 1.2 (0.6-2.4) K/uL [place] # (Auto) 0.4 (0.0-0.8) K/uL Eos # (Auto) 0.2 (0.0-0.7) K/uL Baso # (Auto) 0.1 (0.0-0.1) K/uL Nucleated RBC % 0.0 /100WBC Nucleated RBCs # 0 K/uL Sodium 137 (136-145) mmol/L Potassium 3.7 (3.5-5.1) mmol/L Chloride 103 (98-107) mmol/L Carbon Dioxide 21.7 (21.0-32.0) mmol/L BUN 3 L (7.0-18.0) mg/dL Creatinine 0.5 L (0.6-1.0) mg/dL Est Cr Clr Drug Dosing 111.73 mL/min Estimated GFR (MDRD) > 60.0 ml/min Glucose 63 L (74-106) mg/dL Calcium 8.1 L (8.5-10.1) mg/dL Total Bilirubin 3.1 H (0.2-1.0) mg/dL AST 115 H (15-37) IU/L ALT 40 (14-63) IU/L Alkaline Phosphatase 213 H (46-116) U/L Total Protein 5.7 L (6.4-8.2) g/dL Albumin 2.4 L (3.4-5.0) g/dL Globulin 3.3 (2.6-4.0) g/dL Albumin/Globulin Ratio 0.7 L (0.9-1.6) DIMAS Results - Last 24 hrs: Microbiology 04/01/19 14:45 Urine Culture - Final Urine, Clean Catch Escherichia Coli 04/01/19 14:35 Aerobic Blood Culture - Preliminary Blood - Venous - Lab Draw NO GROWTH AFTER 1 DAY Anaerobic Blood Culture - Preliminary 04/01/19 14:25 Aerobic Blood Culture - Preliminary Blood - Venous NO GROWTH AFTER 1 DAY Anaerobic Blood Culture - Preliminary NO GROWTH AFTER 1 DAY Med Orders - Current: Current Medications Acetaminophen (Tylenol) 650 mg PO Q4H PRN PRN Reason: Pain (Mild 1-3)/fever Last Admin: 04/01/19 19:59 Dose: 650 mg Docusate Sodium (Colace) 100 mg PO BID PRN PRN Reason: Constipation Enoxaparin Sodium (Lovenox) 40 mg SUBCUT Q24H [facility] Last Admin: 04/02/19 17:36 Dose: 40 mg Folic Acid (Folic Acid) 1 mg PO BEDTIME [facility] Last Admin: 04/02/19 21:30 Dose: 1 mg Sodium Chloride (Normal Saline) 1,000 mls @ 125 mls/hr IV ASDIRECTED CHRISTIE Last Admin: 04/03/19 09:20 Dose: 125 mls/hr Levofloxacin/Dextrose 500 mg/ (Premix) 100 mls @ 100 mls/hr IV Q24H [facility] Last Admin: 04/03/19 09:20 Dose: 100 mls/hr Sodium Chloride (Normal Saline) 1,000 mls @ 125 mls/hr IV ASDIRECTED [facility] Lorazepam (Ativan) 1 mg IVPUSH Q4H PRN PRN Reason: Agitation Last Admin: 04/01/19 18:20 Dose: 1 mg Nicotine (Habitrol) 14 mg TRDERM DAILY [facility] Last Admin: 04/03/19 08:24 Dose: 14 mg Oxycodone HCl (Oxycodone) 5 mg PO Q4H PRN PRN Reason: Pain (moderate 4-6) Last Admin: 04/03/19 05:57 Dose: 5 mg Pantoprazole Sodium (Protonix Iv) 40 mg IV Q12HR [facility] Last Admin: 04/03/19 09:20 Dose: 40 mg Potassium Chloride (Klor-Con M20) 40 meq PO DAILY [facility] Last Admin: 04/03/19 08:23 Dose: 40 meq Temazepam (Restoril) 15 mg PO BEDTIME PRN PRN Reason: Sleep Thiamine HCl (Vitamin B-1) 100 mg PO BEDTIME [facility] Last Admin: 04/02/19 21:30 Dose: 100 mg Discontinued Medications Dextrose/Water (Dextrose 50% In Water) Confirm Administered Dose 50 ml .ROUTE .STK-MED ONE Stop: 04/01/19 13:38 Last Admin: 04/01/19 15:36 Dose: Not Given Dextrose/Water (Dextrose 50% In Water) 50 ml IVPUSH ONETIME ONE Stop: 04/01/19 13:44 Last Admin: 04/01/19 13:44 Dose: 50 ml Sodium Chloride (Normal Saline) 1,000 mls @ 999 mls/hr IV STAT ONE Stop: 04/01/19 13:27 Last Admin: 04/01/19 12:47 Dose: 999 mls/hr Multivitamins/Minerals 10 ml/Thiamine HCl 100 mg/ Folic Acid 1 mg/ Sodium Chloride 1,011.2 mls @ 999 mls/hr IV ONETIME ONE Stop: 04/01/19 13:33 Last Admin: 04/01/19 12:48 Dose: 999 mls/hr Sodium Chloride (Normal Saline) Confirm Administered Dose 20 mls @ as directed .ROUTE .STK-MED ONE Stop: 04/01/19 12:41 Last Admin: 04/01/19 18:14 Dose: Not Given Levofloxacin/Dextrose 750 mg/ (Premix) 150 mls @ 100 mls/hr IV ONETIME ONE Stop: 04/01/19 16:47 Last Admin: 04/01/19 15:34 Dose: 100 mls/hr Lorazepam (Ativan) 1 mg IVPUSH ONETIME ONE Stop: 04/01/19 12:28 Last Admin: 04/01/19 12:48 Dose: 1 mg Lorazepam (Ativan) 1 mg IM Q4H PRN PRN Reason: Agitation Ondansetron HCl (Zofran) 8 mg IVPUSH ONETIME ONE Stop: 04/01/19 12:28 Last Admin: 04/01/19 12:47 Dose: 8 mg Pantoprazole Sodium (Protonix Iv) 80 mg IVPUSH .BOLUS ONE Stop: 04/01/19 12:35 Last Admin: 04/01/19 12:48 Dose: 80 mg - Exam Quality Assessment: Denies: Supplemental Oxygen General: Reports: Alert (Cachectic), Oriented, Cooperative, No Acute Distress HEENT: Reports: Pupils Equal, Pupils Reactive, EOMI. Denies: Mucous Membr. Moist/[place] (Dry) Neck: Reports: Supple, Trachea Midline Lungs: Reports: Clear to Auscultation, Normal Respiratory Effort Cardiovascular: Reports: Regular Rate, Regular Rhythm, No Murmurs GI/Abdominal Exam: Normal Bowel Sounds, Soft, Non-Tender, No Distention Back Exam: Reports: Normal Inspection, Full Range of Motion Extremities: Normal Inspection, Normal Range of Motion, No Pedal Edema Skin: Reports: Warm, Dry, Intact Neurological: Reports: No New Focal Deficit, Normal Gait Psy/Mental Status: Reports: Alert, Normal Mood. Denies: Normal Affect (Flat)
[2019-04-03 11:36] VITALS: BP 121/81
== END 2019-04-03 11:45 | disposition home or self-care (01) | DRG 689 ==
LOC: MW.ED 12:20 → MW.MS 16:03
PROVIDERS: ADMIT Internal Medicine; ATTEND Internal Medicine
PROC: HZ2ZZZZ Detoxification Services for Substance Abuse Treatment (ICD-10-PCS; principal; 2019-04-01)
DX: N39.0 Urinary tract infection, site not specified (principal); E43 Unspecified severe protein-calorie malnutrition; Z68.1 Body mass index [BMI] 19.9 or less, adult; E87.8 Other disorders of electrolyte and fluid balance, not elsewhere classified; E87.6 Hypokalemia; F10.10 Alcohol abuse, uncomplicated; I10 Essential (primary) hypertension; J44.9 Chronic obstructive pulmonary disease, unspecified; F41.9 Anxiety disorder, unspecified; F32.9 Major depressive disorder, single episode, unspecified; F17.200 Nicotine dependence, unspecified, uncomplicated; E86.0 Dehydration; I95.9 Hypotension, unspecified; E16.2 Hypoglycemia, unspecified; K80.20 Calculus of gallbladder without cholecystitis without obstruction; R11.2 Nausea with vomiting, unspecified; R19.7 Diarrhea, unspecified; Z88.1 Allergy status to other antibiotic agents
CPT/HCPCS: 36415; 71045; 71045-26; 76705; 76705-26; 80053; 81001; 81025; 82550; 82962; 83605; 83735; 84484; 85025; 87040; 87077; 87086; 87088; 87186; 93005; 96361; 96365; 96367; 96375; 99285; 99285-25; A4217; A9270-GY; C9113; G0480; J1650; J1956; J2060; J2405; J3411; J7040; J7060

== ENCOUNTER 2019-04-22 17:06 | Emergency (ER) | payer MEDICAID ==
[2019-04-22] MEDS ORDERED: Sodium Chloride 0.9% 1,000 ML IV ONE (17:16)
[2019-04-22] MEDS ORDERED: Ketorolac 30 MG/ML SDV IVPUSH ONE (17:16)
[2019-04-22] MEDS ORDERED: Sodium Chloride 0.9% 10 ML Syringe FLUSH PRN (17:16)
[2019-04-22] MEDS ORDERED: Sodium Chloride 0.9% 2.5 ML Syringe FLUSH PRN (17:16)
[2019-04-22] MEDS ORDERED: Ondansetron 4 MG/2 ML SDV IVPUSH ONE (17:16)
--- NOTE | 2019-04-22 17:31 | EDM.PDOC ---
ED HPI GENERAL MEDICAL PROBLEM - General Chief Complaint: Gastrointestinal Problem Stated Complaint: STOMACH PAIN Time Seen by Provider: 04/22/19 17:12 Source of Information: Reports: Patient History Limitations: Reports: No Limitations - History of Present Illness INITIAL COMMENTS - FREE TEXT/NARRATIVE: History of present illness: []Patient has had profuse vomiting and diarrhea past 2 days with whole body aches and abdominal pain. Patient states that she has been running fevers but has not measured a temperature. Patient is a chronic alcoholic and states she took 2 shots last night which is a decrease in alcohol intake from her normal. Patient was admitted in March for the same complaints and found to have findings consistent with alcoholic liver disease on CT and ultrasound. Patient has an appointment with Dr. Duarte tomorrow and is scheduled for a cholecystectomy on May 12. Review of systems: As per history of present illness and below otherwise all systems reviewed and negative. Past medical history: As per history of present illness and as reviewed below otherwise noncontributory. Surgical history: As per history of present illness and as reviewed below otherwise noncontributory. Social history: No reported history of drug or alcohol abuse. Family history: As per history of present illness and as reviewed below otherwise noncontributory. Physical exam: General: Well developed, well nourished in NAD HEENT: Atraumatic, normocephalic, pupils reactive, negative for conjunctival pallor or scleral icterus, mucous membranes moist, throat clear, neck supple, nontender, trachea midline. Lungs: Clear to auscultation, breath sounds equal bilaterally, chest nontender. Heart: S1S2, regular, negative for clicks, rubs, or JVD. Abdomen: NABS, Soft, nondistended, nontender. Negative for masses or hepatosplenomegaly. Negative for costovertebral tenderness. Pelvis: Stable nontender. Genitourinary: Deferred. Rectal: Deferred. Extremities: Atraumatic, negative for cords or calf pain. Neurovascular unremarkable. Neuro: Awake, alert, oriented. Cranial nerves II through XII unremarkable. Cerebellum unremarkable. Motor and sensory unremarkable throughout. Exam nonfocal. Skin:warm and dry Diagnostics: CBC, chemistry, lipase, alcohol level, coags Therapeutics: Banana bag IV hydration 2 liters fluid, Zofran, Toradol, Reglan, potassium-80meq ED Course: Mild improvement with hydration Patient vomited after receiving potassium- there were no pills in the emesis discussed case with Dr. Suárez who knows this patient well and has admitted her in the past. He is willing to admit her for observation for continued hydration and potassium replacement, however, the patient is refusing admission. Impression: Chronic alcoholic liver disease, alcohol abuse, mild hypokalemia Prescriptions: Phenergan, Levsin Plan: She is being discharged AMA, Follow-up with Dr. Duarte tomorrow as scheduled Definitive disposition and diagnosis as appropriate pending reevaluation and review of above. Abdomen Pain Score (Numeric/FACES): 10 - Related Data Allergies Allergy/AdvReac Type Severity Reaction Status Date / Time amoxicillin trihydrate Allergy Hives Verified 04/22/19 17:12 [From Augmentin] latex Allergy Rash Verified 04/22/19 17:12 potassium clavulanate Allergy Hives Verified 04/22/19 17:12 [From Augmentin] Home Meds: Home Meds Bismuth Subsalicylate [Pepto-Bismol] 262 mg CHEW ASDIRECTED PRN 04/01/19 [ History] Esomeprazole Magnesium 40 mg PO DAILY 04/01/19 [History] Ciprofloxacin HCl [Cipro] 500 mg PO BID #10 tablet 04/03/19 [Rx] Folic Acid 1 mg PO BEDTIME #30 tablet 04/03/19 [Rx] Thiamine [Vitamin B-1] 100 mg PO BEDTIME #30 tablet 04/03/19 [Rx] Hyoscyamine [Hyomax-SL] 0.125 mg SL Q4H PRN #20 tab.sl 04/22/19 [Rx] Promethazine [Phenergan] 25 mg PO Q8H PRN #6 tab 04/22/19 [Rx] Past Medical History HEENT History: Reports: None Cardiovascular History: Reports: Hypertension Respiratory History: Reports: COPD, Pneumothorax Gastrointestinal History: Reports: Cholelithiasis Genitourinary History: Reports: None 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 Musculoskeletal History: Reports: None Neurological History: Reports: None Psychiatric History: Reports: Anxiety, Depression, Other (See Below) Other Psychiatric History: Major Depressive disorder Endocrine/Metabolic History: Reports: None Hematologic History: Reports: None Immunologic History: Reports: None Oncologic (Cancer) History: Reports: None Dermatologic History: Reports: None - Infectious Disease History Infectious Disease History: Reports: Chicken Pox, Measles, Mumps - Past Surgical History Head Surgeries/Procedures: Reports: None HEENT Surgical History: Reports: Tonsillectomy Cardiovascular Surgical History: Reports: None Respiratory Surgical History: Reports: Other (See Below) Other Respiratory Surgeries/Procedures: chest tube to right lung; right lobectomy GI Surgical History: Reports: None Female Surgical History: Reports: None Endocrine Surgical History: Reports: None Neurological Surgical History: Reports: None Musculoskeletal Surgical History: Reports: None Oncologic Surgical History: Reports: None Dermatological Surgical History: Reports: None Social & Family History - Family History Family Medical History: Noncontributory - Tobacco Use Smoking Status *Q: Current Every Day Smoker Years of Tobacco use: 33 Packs/Tins Daily: 0.5 - Caffeine Use Caffeine Use: Reports: None - Alcohol Use Days Per Week of Alcohol Use: 3 Number of Drinks Per Day: 3 Total Drinks Per Week: 9 - Recreational Drug Use Recreational Drug Use: No - Living Situation & Occupation Living situation: Reports: with Family Occupation: Unemployed ED ROS GENERAL - Review of Systems Review Of Systems: ROS reveals no pertinent complaints other than HPI. ED EXAM, GI/ABD - Physical Exam Exam: See Below Course - Vital Signs Last Recorded V/S: Last Vital Signs Temp 97.1 F 04/22/19 19:16 Pulse 87 04/22/19 19:16 Resp 17 04/22/19 19:16 BP 110/75 04/22/19 19:16 Pulse Ox 96 04/22/19 19:16 - Orders/Labs/Meds Orders: Active Orders 24 hr Category Date Time Status Saline Lock Insert [OM.PC] Stat Oth 04/22/19 17:16 Ordered Labs: Laboratory Tests 04/22/19 04/22/19 04/22/19 Range/Units 17:20 17:20 17:20 WBC 10.17 (4.0-11.0) K/uL RBC 3.69 L (4.30-5.90) M/uL Hgb 12.2 (12.0-16.0) g/dL Hct 35.5 L (36.0-46.0) % MCV 96.2 (80.0-98.0) fL MCH 33.1 H (27.0-32.0) pg MCHC 34.4 (31.0-37.0) g/dL RDW Std Deviation 62.8 H (28.0-62.0) fl RDW Coeff of Mayito 18 H (11.0-15.0) % Plt Count 144 L (150-400) K/uL MPV 10.40 (7.40-12.00) fL Neut % (Auto) 64.1 (48.0-80.0) % Lymph % (Auto) 27.6 (16.0-40.0) % [place] % (Auto) 6.3 (0.0-15.0) % Eos % (Auto) 1.3 (0.0-7.0) % Baso % (Auto) 0.7 (0.0-1.5) % Neut # (Auto) 6.5 H (1.4-5.7) K/uL Lymph # (Auto) 2.8 H (0.6-2.4) K/uL [place] # (Auto) 0.6 (0.0-0.8) K/uL Eos # (Auto) 0.1 (0.0-0.7) K/uL Baso # (Auto) 0.1 (0.0-0.1) K/uL Nucleated RBC % 0.0 /100WBC Nucleated RBCs # 0 K/uL INR 1.37 APTT 31.1 (18.6-31.3) SEC Sodium 136 (136-145) mmol/L Potassium 2.9 L (3.5-5.1) mmol/L Chloride 94 L (98-107) mmol/L Carbon Dioxide 32.0 (21.0-32.0) mmol/L BUN 3 L (7.0-18.0) mg/dL Creatinine 0.6 (0.6-1.0) mg/dL Est Cr Clr Drug Dosing 88.40 mL/min Estimated GFR (MDRD) > 60.0 ml/min Glucose 87 (74-106) mg/dL Calcium 8.5 (8.5-10.1) mg/dL Total Bilirubin 5.2 H (0.2-1.0) mg/dL AST 325 H (15-37) IU/L ALT 70 H (14-63) IU/L Alkaline Phosphatase 409 H (46-116) U/L Total Protein 7.6 (6.4-8.2) g/dL Albumin 2.6 L (3.4-5.0) g/dL Globulin 5.0 H (2.6-4.0) g/dL Albumin/Globulin Ratio 0.5 L (0.9-1.6) Lipase 185 (73-393) U/L Ethyl Alcohol 221 mg/dL Meds: Medications Discontinued Medications Generic Name Dose Route Start Last Admin Trade Name Freq PRN Reason Stop Dose Admin Sodium Chloride 1,000 mls @ 999 mls/hr 04/22/19 17:16 04/22/19 17:27 Normal Saline IV 04/22/19 18:16 999 mls/hr .Bolus ONE Administration Multivitamins/Minerals 10 ml/ 1,011.2 mls @ 999 mls/hr 04/22/19 17:32 17:56 Thiamine HCl 100 mg/ Folic IV 04/22/19 18:32 999 mls/hr Acid 1 mg/ Sodium Chloride ONETIME ONE Administration Ketorolac Tromethamine 30 mg 04/22/19 17:16 04/22/19 17:29 Toradol IVPUSH 04/22/19 17:17 30 mg ONETIME ONE Administration Metoclopramide HCl 10 mg 04/22/19 18:07 04/22/19 18:16 Reglan IV 04/22/19 18:08 10 mg ONETIME ONE Administration Ondansetron HCl 4 mg 04/22/19 17:16 04/22/19 17:28 Zofran IVPUSH 04/22/19 17:17 4 mg ONETIME ONE Administration Potassium Chloride 40 meq 04/22/19 18:08 04/22/19 18:14 Klor-Con M20 PO 04/22/19 18:09 40 meq ONETIME ONE Administration Promethazine HCl 25 mg 04/22/19 18:40 04/22/19 18:47 Phenergan IM 04/22/19 18:41 25 mg ONETIME ONE Administration Sodium Chloride 10 ml 04/22/19 17:16 Saline Flush FLUSH ASDIRECTED PRN Keep Vein Open Sodium Chloride 2.5 ml 04/22/19 17:16 Saline Flush FLUSH ASDIRECTED PRN Keep Vein Open Departure - Departure Time of Disposition: 19:15 Disposition: Against Medical Advice 07 Condition: Good, Fair Clinical Impression: Alcoholic liver disease, Hypokalemia, Alcoholism /alcohol abuse, Vomiting and diarrhea Cholelithiasis Qualifiers: Cholelithiasis location: other site - Discharge Information *PRESCRIPTION DRUG MONITORING PROGRAM REVIEWED*: No *COPY OF PRESCRIPTION DRUG MONITORING REPORT IN PATIENT MELODY: No Prescriptions: Hyoscyamine [Hyomax-SL] 0.125 mg SL Q4H PRN #20 tab.sl PRN Reason: Pain Promethazine [Phenergan] 25 mg PO Q8H PRN #6 tab PRN Reason: Nausea Instructions: Alcoholic Liver Disease, Hypokalemia, Cholelithiasis, Easy-to- Read Referrals: PCP,Unknown [Primary Care Provider] - Forms: ED Department Discharge Additional Instructions: The following information is given to patients seen in the emergency department who are being discharged to home. This information is to outline your options for follow-up care. We provide all patients seen in our emergency department with a follow-up referral. The need for follow-up, as well as the timing and circumstances, are variable depending upon the specifics of your emergency department visit. If you don't have a primary care physician on staff, we will provide you with a referral. We always advise you to contact your personal physician following an emergency department visit to inform them of the circumstance of the visit and for follow-up with them and/or the need for any referrals to a consulting specialist. The emergency department will also refer you to a specialist when appropriate. This referral assures that you have the opportunity for follow-up care with a specialist. All of these measure are taken in an effort to provide you with optimal care, which includes your follow-up. Under all circumstances we always encourage you to contact your private physician who remains a resource for coordinating your care. When calling for follow-up care, please make the office aware that this follow-up is from your recent emergency room visit. If for any reason you are refused follow-up, please contact the [facility] at and asked to speak to the emergency department charge nurse. Take meds as directed, follow up with your primary care physician, return to ER if symptoms worsen or change. [facility] [address] [place] [id number] - My Orders Last 24 Hours: My Active Orders 04/22/19 17:16 Saline Lock Insert [OM.PC] Stat - Assessment/Plan Last 24 Hours: My Active Orders 04/22/19 17:16 Saline Lock Insert [OM.PC] Stat
[2019-04-22] MEDS ORDERED: MVI, Adult with Vitamin K 10 ML, Thiamine 100 MG, Folic Acid 1 MG in Sodium Chloride 0.... IV ONE ×4 (17:32)
[2019-04-22 17:52] LABS: CHLORIDE,CL 94 mmol/L (98-107); SODIUM,NA 136 mmol/L (136-145)
[2019-04-22] MEDS ORDERED: Metoclopramide 10 MG/2 ML SDV IV ONE (18:07)
[2019-04-22] MEDS ORDERED: Potassium Chloride 20 MEQ Tab.ER PO ONE (18:08)
[2019-04-22] MEDS ORDERED: Promethazine 25 MG/ML SDV IM ONE (18:40)
[2019-04-22 19:20] VITALS: BP 110/75
== END 2019-04-22 19:17 | disposition left against medical advice (07) ==
LOC: MW.ED 17:06
DX: K70.9 Alcoholic liver disease, unspecified (principal); F10.20 Alcohol dependence, uncomplicated; K80.20 Calculus of gallbladder without cholecystitis without obstruction; E87.6 Hypokalemia; I10 Essential (primary) hypertension; J44.9 Chronic obstructive pulmonary disease, unspecified; F41.9 Anxiety disorder, unspecified; F32.9 Major depressive disorder, single episode, unspecified; F17.210 Nicotine dependence, cigarettes, uncomplicated; Z88.1 Allergy status to other antibiotic agents; Z88.8 Allergy status to other drugs, medicaments and biological substances; Z91.040 Latex allergy status; Z79.899 Other long term (current) drug therapy; Y90.7 Blood alcohol level of 200-239 mg/100 ml
CPT/HCPCS: 80053; 83690; 85025; 85610; 85730; 96365; 96372; 96375; 99284; A9270; G0480; J1885; J2405; J2550; J2765; J3411; J7040

== ENCOUNTER 2019-04-27 20:33 | Inpatient (IN) | payer MEDICAID ==
[2019-04-27] MEDS ORDERED: Ondansetron 4 MG/2 ML SDV IVPUSH ONE (20:44)
[2019-04-27] MEDS ORDERED: Sodium Chloride 0.9% 1,000 ML IV ONE (20:44)
[2019-04-27 21:33] LABS: CHLORIDE,CL 86 mmol/L (98-107); SODIUM,NA 124 mmol/L (136-145)
[2019-04-27] MEDS ORDERED: Iopamidol 755 Mg/ML 100 ML Bottle IVPUSH ONE (22:52)
--- NOTE | 2019-04-27 23:28 | CT ---
HISTORY: Abdominal pain. TECHNIQUE: Intravenous contrast enhanced CT of the abdomen and pelvis. 100 mL of Isovue-370 intravenous contrast administered. COMPARISON: 11/22/2018. FINDINGS: The liver is profoundly abnormal with areas of markedly decreased attenuation which may relate to profound fatty infiltration or severe hepatitis. Liver is enlarged. Given the severely abnormal appearance of liver, it is difficult to evaluate for mass. No biliary ductal dilatation. Gallbladder is mildly distended. There are gallstones within its lumen. Spleen size within limits. Adrenal glands are normal. No pancreatic mass or pancreatic ductal dilatation. Symmetric nephrograms. No renal mass or hydronephrosis. Urinary bladder does not appear excessively distended. - There is moderate volume abdominal and pelvic ascites. No localized collection seen. No free intraperitoneal air. - Stomach is nondistended which exaggerates its wall thickness. There is no small bowel obstruction. There appears to be focal thickening involving multiple small bowel loops. The proximal colonic wall may also be thickened though it is nondistended. These findings could relate to edema and portal hypertension. No abdominal aortic aneurysm. Periumbilical collateral lateral vessels are noted, a finding seen with portal hypertension. - Mild atelectasis or scarring within the lung bases. IMPRESSION: 1. Profoundly abnormal liver with markedly decreased attenuation which may relate to severe fatty infiltration or hepatitis. Liver is enlarged with findings of portal hypertension present. 2. Moderate volume abdominal and pelvic ascites. 3. Though not optimally distended, there does appear to be wall thickening involving the proximal colon and some small bowel loops. This may relate to edema from portal hypertension. Inflammatory changes are somewhat less likely. 4. Small gallstones within the gallbladder lumen. Dictated by Prosper Jaimes MD @ 04/27/2019 11:26:22 PM Please note that all CT scans at this facility use dose modulation, iterative reconstruction, and/or weight-based dosing when appropriate to reduce radiation dose to as low as reasonably achievable. Dictated by: Prosper Jaimes MD @ 04/27/2019 23:26:27 (Electronically Signed)
--- NOTE | 2019-04-28 01:10 | EDM.PDOC ---
ED HPI GENERAL MEDICAL PROBLEM - General Chief Complaint: Abdominal Pain Stated Complaint: BLOATED, STOMACH PAIN Time Seen by Provider: 04/28/19 01:09 Source of Information: Reports: Patient - History of Present Illness INITIAL COMMENTS - FREE TEXT/NARRATIVE: HISTORY AND PHYSICAL: History of present illness: [Patient with alcohol liver disease presents with abdominal bloating No fever nausea vomiting chills sweats] Review of systems: As per history of present illness and below otherwise all systems reviewed and negative. Past medical history: As per history of present illness and as reviewed below otherwise noncontributory. Surgical history: As per history of present illness and as reviewed below otherwise noncontributory. Social history: No reported history of drug or alcohol abuse. Family history: As per history of present illness and as reviewed below otherwise noncontributory. Physical exam: HEENT: Atraumatic, normocephalic, pupils reactive, negative for conjunctival pallor or scleral icterus, mucous membranes moist, throat clear, neck supple, nontender, trachea midline. Lungs: Clear to auscultation, breath sounds equal bilaterally, chest nontender. Heart: S1S2, regular, negative for clicks, rubs, or JVD. Abdomen: Soft, nondistended, nontender. Negative for masses or hepatosplenomegaly. Negative for costovertebral tenderness. Pelvis: Stable nontender. Genitourinary: Deferred. Rectal: Deferred. Extremities: Atraumatic, negative for cords or calf pain. Neurovascular unremarkable. Neuro: Awake, alert, oriented. Cranial nerves II through XII unremarkable. Cerebellum unremarkable. Motor and sensory unremarkable throughout. Exam nonfocal. Diagnostics: [CBC CMP UA troponin CT abdomen pelvis with contrast Ultrasound right upper quadrant limited ] Therapeutics: [Normal saline Patient admitted for observation ] Impression: hyponatremia [Acute on chronic liver failure Chronic history of baseline ] Definitive disposition and diagnosis as appropriate pending reevaluation and review of above. abdominal Pain Score (Numeric/FACES): 7 - Related Data Allergies Allergy/AdvReac Type Severity Reaction Status Date / Time amoxicillin trihydrate Allergy Hives Verified 04/27/19 20:48 [From Augmentin] latex Allergy Rash Verified 04/27/19 20:48 potassium clavulanate Allergy Hives Verified 04/27/19 20:48 [From Augmentin] Home Meds: Home Meds Bismuth Subsalicylate [Pepto-Bismol] 262 mg CHEW ASDIRECTED PRN 04/01/19 [ History] Esomeprazole Magnesium 40 mg PO DAILY 04/01/19 [History] Ciprofloxacin HCl [Cipro] 500 mg PO BID #10 tablet 04/03/19 [Rx] Folic Acid 1 mg PO BEDTIME #30 tablet 04/03/19 [Rx] Thiamine [Vitamin B-1] 100 mg PO BEDTIME #30 tablet 04/03/19 [Rx] Hyoscyamine [Hyomax-SL] 0.125 mg SL Q4H PRN #20 tab.sl 04/22/19 [Rx] Promethazine [Phenergan] 25 mg PO Q8H PRN #6 tab 04/22/19 [Rx] Past Medical History HEENT History: Reports: None Cardiovascular History: Reports: Hypertension Respiratory History: Reports: COPD, Pneumothorax Gastrointestinal History: Reports: Cholelithiasis, Other (See Below) Other Gastrointestinal History: alcoholic liver dse Genitourinary History: Reports: None 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: Musculoskeletal History: Reports: None Neurological History: Reports: None Psychiatric History: Reports: Anxiety, Depression, Other (See Below) Other Psychiatric History: Major Depressive disorder Endocrine/Metabolic History: Reports: None Hematologic History: Reports: None Immunologic History: Reports: None Oncologic (Cancer) History: Reports: None Dermatologic History: Reports: None - Infectious Disease History Infectious Disease History: Reports: Chicken Pox, Measles, Mumps - Past Surgical History Head Surgeries/Procedures: Reports: None HEENT Surgical History: Reports: Tonsillectomy Cardiovascular Surgical History: Reports: None Respiratory Surgical History: Reports: None, Other (See Below) Other Respiratory Surgeries/Procedures: chest tube to right lung; right lobectomy GI Surgical History: Reports: None Female Surgical History: Reports: None Endocrine Surgical History: Reports: None Neurological Surgical History: Reports: None Musculoskeletal Surgical History: Reports: None Oncologic Surgical History: Reports: None Dermatological Surgical History: Reports: None Social & Family History - Family History Family Medical History: Noncontributory - Tobacco Use Smoking Status *Q: Current Every Day Smoker Years of Tobacco use: 13 Packs/Tins Daily: 0.5 - Caffeine Use Caffeine Use: Reports: Coffee - Alcohol Use Days Per Week of Alcohol Use: 7 Number of Drinks Per Day: 5 Total Drinks Per Week: 35 - Recreational Drug Use Recreational Drug Use: Yes Recreational Drug Type: Reports: Marijuana/Hashish Recreational Drug Use Frequency: Weekly Recreational Drug Last Use: "yesterday" - Living Situation & Occupation Living situation: Reports: with Family Occupation: Unemployed ED ROS GENERAL - Review of Systems Review Of Systems: See Below ED EXAM, GENERAL - Physical Exam Exam: See Below Course - Vital Signs Last Recorded V/S: Last Vital Signs Temp 97.5 F 04/28/19 01:32 Pulse 106 H 04/28/19 01:32 Resp 16 04/28/19 01:32 BP 100/61 04/28/19 01:32 Pulse Ox 95 04/28/19 01:32 - Orders/Labs/Meds Orders: Active Orders 24 hr Category Date Time Status Sodium Chloride 0.9% [Normal Saline] 1,000 ml Med 04/28/19 01:15 Active IV STAT Medication Orders Sodium Chloride (Normal Saline) 1,000 mls @ 125 mls/hr IV STAT CHRISTIE Last Admin: 04/28/19 01:47 Dose: 125 mls/hr Labs: Laboratory Tests 04/27/19 04/27/19 04/27/19 Range/Units 20:49 20:49 21:00 WBC (4.0-11.0) K/uL RBC (4.30-5.90) M/uL Hgb (12.0-16.0) g/dL Hct (36.0-46.0) % MCV (80.0-98.0) fL MCH (27.0-32.0) pg MCHC (31.0-37.0) g/dL RDW Std Deviation (28.0-62.0) fl RDW Coeff of Mayito (11.0-15.0) % Plt Count (150-400) K/uL MPV (7.40-12.00) fL Neut % (Auto) (48.0-80.0) % Lymph % (Auto) (16.0-40.0) % Young % (Auto) (0.0-15.0) % Eos % (Auto) (0.0-7.0) % Baso % (Auto) (0.0-1.5) % Neut # (Auto) (1.4-5.7) K/uL Lymph # (Auto) (0.6-2.4) K/uL Young # (Auto) (0.0-0.8) K/uL Eos # (Auto) (0.0-0.7) K/uL Baso # (Auto) (0.0-0.1) K/uL Nucleated RBC % /100WBC Nucleated RBCs # K/uL Sodium 124 L (136-145) mmol/L Potassium 4.2 (3.5-5.1) mmol/L Chloride 86 L (98-107) mmol/L Carbon Dioxide 29.8 (21.0-32.0) mmol/L BUN 6 L (7.0-18.0) mg/dL Creatinine 0.4 L (0.6-1.0) mg/dL Est Cr Clr Drug Dosing 146.63 mL/min Estimated GFR (MDRD) > 60.0 ml/min Glucose 83 (74-106) mg/dL Calcium 8.1 L (8.5-10.1) mg/dL Total Bilirubin 10.7 H (0.2-1.0) mg/dL AST 475 H (15-37) IU/L ALT 89 H (14-63) IU/L Alkaline Phosphatase 276 H (46-116) U/L Total Protein 7.1 (6.4-8.2) g/dL Albumin 2.3 L (3.4-5.0) g/dL Globulin 4.8 H (2.6-4.0) g/dL Albumin/Globulin Ratio 0.5 L (0.9-1.6) Lipase 235 (73-393) U/L Urine Color YELLOW Urine Appearance HAZY Urine pH 7.0 (5.0-8.0) Ur Specific [place] <= 1.005 (1.001-1.035) Urine Protein NEGATIVE (NEGATIVE) mg/dL Urine Glucose (UA) NEGATIVE (NEGATIVE) mg/dL Urine Ketones NEGATIVE (NEGATIVE) mg/dL Urine Occult Blood TRACE-INTACT H (NEGATIVE) Urine Nitrite NEGATIVE (NEGATIVE) Urine Bilirubin SMALL H (NEGATIVE) Urine Ictotest NEGATIVE Urine Urobilinogen 0.2 (<2.0) EU/dL Ur Leukocyte Esterase NEGATIVE (NEGATIVE) Urine RBC 0-3 (0-2/HPF) Urine WBC 0-2 (0-5/HPF) Ur Epithelial Cells OCCASIONAL (NONE-FEW) Urine Bacteria FEW (NEGATIVE) Urine Mucus LIGHT (NONE-MOD) Urine HCG, Qual NEGATIVE (NEGATIVE) 04/27/19 Range/Units 21:00 WBC 11.71 H (4.0-11.0) K/uL RBC 3.10 L (4.30-5.90) M/uL Hgb 10.4 L (12.0-16.0) g/dL Hct 29.7 L (36.0-46.0) % MCV 95.8 (80.0-98.0) fL MCH 33.5 H (27.0-32.0) pg MCHC 35.0 (31.0-37.0) g/dL RDW Std Deviation 65.7 H (28.0-62.0) fl RDW Coeff of Mayito 20 H (11.0-15.0) % Plt Count 191 (150-400) K/uL MPV 12.10 H (7.40-12.00) fL Neut % (Auto) 68.2 (48.0-80.0) % Lymph % (Auto) 19.2 (16.0-40.0) % Young % (Auto) 10.8 (0.0-15.0) % Eos % (Auto) 1.3 (0.0-7.0) % Baso % (Auto) 0.5 (0.0-1.5) % Neut # (Auto) 8.0 H (1.4-5.7) K/uL Lymph # (Auto) 2.3 (0.6-2.4) K/uL Young # (Auto) 1.3 H (0.0-0.8) K/uL Eos # (Auto) 0.2 (0.0-0.7) K/uL Baso # (Auto) 0.1 (0.0-0.1) K/uL Nucleated RBC % 0.0 /100WBC Nucleated RBCs # 0 K/uL Sodium (136-145) mmol/L Potassium (3.5-5.1) mmol/L Chloride (98-107) mmol/L Carbon Dioxide (21.0-32.0) mmol/L BUN (7.0-18.0) mg/dL Creatinine (0.6-1.0) mg/dL Est Cr Clr Drug Dosing mL/min Estimated GFR (MDRD) ml/min Glucose (74-106) mg/dL Calcium (8.5-10.1) mg/dL Total Bilirubin (0.2-1.0) mg/dL AST (15-37) IU/L ALT (14-63) IU/L Alkaline Phosphatase (46-116) U/L Total Protein (6.4-8.2) g/dL Albumin (3.4-5.0) g/dL Globulin (2.6-4.0) g/dL Albumin/Globulin Ratio (0.9-1.6) Lipase (73-393) U/L Urine Color Urine Appearance Urine pH (5.0-8.0) Ur Specific [place] (1.001-1.035) Urine Protein (NEGATIVE) mg/dL Urine Glucose (UA) (NEGATIVE) mg/dL Urine Ketones (NEGATIVE) mg/dL Urine Occult Blood (NEGATIVE) Urine Nitrite (NEGATIVE) Urine Bilirubin (NEGATIVE) Urine Ictotest Urine Urobilinogen (<2.0) EU/dL Ur Leukocyte Esterase (NEGATIVE) Urine RBC (0-2/HPF) Urine WBC (0-5/HPF) Ur Epithelial Cells (NONE-FEW) Urine Bacteria (NEGATIVE) Urine Mucus (NONE-MOD) Urine HCG, Qual (NEGATIVE) Meds: Medications Generic Name Dose Route Start Last Admin Trade Name Freq PRN Reason Stop Dose Admin Sodium Chloride 1,000 mls @ 125 mls/hr 04/28/19 01:15 04/28/19 01:47 Normal Saline IV 125 mls/hr STAT CHRISTIE Administration Discontinued Medications Generic Name Dose Route Start Last Admin Trade Name Luisq PRN Reason Stop Dose Admin Sodium Chloride 1,000 mls @ 999 mls/hr 04/27/19 20:44 04/27/19 21:04 Normal Saline IV 04/27/19 21:44 999 mls/hr STAT ONE Administration Iopamidol 100 ml 04/27/19 22:52 04/27/19 23:10 Isovue-370 (76%) IVPUSH 04/27/19 22:53 100 ml ONETIME ONE Administration Ondansetron HCl 4 mg 04/27/19 20:44 04/27/19 21:05 Zofran IVPUSH 04/27/19 20:45 4 mg ONETIME ONE Administration Departure - Departure Time of Disposition: 02:07 Disposition: Refer to Observation Condition: Poor Clinical Impression: Liver failure, Hyponatremia - Discharge Information Referrals: Huy Duarte MD [Primary Care Provider] - Forms: ED Department Discharge - My Orders Last 24 Hours: My Active Orders 04/28/19 01:15 Sodium Chloride 0.9% [Normal Saline] 1,000 ml IV STAT - Assessment/Plan Last 24 Hours: My Active Orders 04/28/19 01:15 Sodium Chloride 0.9% [Normal Saline] 1,000 ml IV STAT
[2019-04-28] MEDS ORDERED: Sodium Chloride 0.9% 1,000 ML IV SCH (01:15)
--- NOTE | 2019-04-28 01:53 | US ---
INDICATION: Right upper quadrant pain TECHNIQUE: Ultrasound abdomen limited, gallbladder. Sonographic images of the gallbladder were obtained using hubbard-scale and color Doppler images. COMPARISON: [CT abdomen and pelvis 04/27/2019] FINDINGS: Liver: Limited assessment due to pain and fluid. Gallbladder: The gallbladder is nondistended. Multiple gallstones are seen. Negative for gallbladder wall thickening or pericholecystic fluid. Common bile duct: [Not visualized Pancreas: [Not visualized. Right kidney: [8.5] cm. [Normal echotexture and cortex.] [No masses, stones, or hydronephrosis.] moderate abdominal ascites. Vasculature: [Proximal abdominal aorta and IVC are not well assessed.] IMPRESSION: 1. Limited exam with essentially nondiagnostic evaluation of the liver and pancreas. 2. Cholelithiasis without sonographic evidence of acute cholecystitis. 3. Nonvisualization of the common bile duct. 4. Abdominal ascites. Dictated by: Joie Peters MD @ 04/28/2019 01:51:20 (Electronically Signed)
[2019-04-28] MEDS ORDERED: Morphine 2 MG/ML Syringe IVPUSH PRN (03:24)
[2019-04-28] MEDS ORDERED: Sodium Chloride 0.9% 2.5 ML Syringe FLUSH PRN (03:25)
[2019-04-28] MEDS ORDERED: Sodium Chloride 0.9% 10 ML Syringe FLUSH PRN (03:25)
[2019-04-28] MEDS ORDERED: Promethazine 25 MG Tab PO PRN (06:39)
[2019-04-28] MEDS ORDERED: Hyoscyamine 0.125 MG Tab.SL SL PRN (06:39)
[2019-04-28] MEDS ORDERED: Morphine 10 MG/ML Syringe IVPUSH PRN (06:46)
[2019-04-28 08:01] LABS: BILIRUBIN INDIRECT 3.09
[2019-04-28] MEDS: Heparin Sodium 5,000 Units/ML Vial SUBCUT SCH ×2 (08:14→16:13)
[2019-04-28] MEDS: Omeprazole 20 MG Cap.CR PO SCH (08:15)
[2019-04-28] MEDS: Morphine 2 MG/ML Syringe IVPUSH PRN ×3 (08:15→20:54)
[2019-04-28] MEDS ORDERED: LORazepam 2 MG/ML SDV IVPUSH PRN (08:43)
--- NOTE | 2019-04-28 09:01 | PCM.HP ---
<Praneeth Rose - Last Filed: 04/28/19 10:49> H&P History of Present Illness - General Date of Service: 04/28/19 Admit Problem/Dx: Admission Diagnosis/Problem Admission Diagnosis/Problem Liver failure - History of Present Illness Initial Comments - Free Text/Narative: 33 y/o female with history of alcohol abuse who presented to the ER complaining of abdominal pain, nausea and vomiting. States that her last drink was 2-3 days ago. She usually drinks half pint of vodka on a daily basis. Denies any IV drug use. No hematemesis or blood in her stool. Denies any fevers. Has noticed yellowing skin and distended abdomen. Smokes 1 ppd. In the ER, abdominal U/S showed some gallstones without signs of acute cholecystitis. T. bili 10.0. abdominal Pain Score (Numeric/FACES): 7 - Related Data Allergies/Adverse Reactions: Allergies Allergy/AdvReac Type Severity Reaction Status Date / Time amoxicillin trihydrate Allergy Hives Verified 04/28/19 08:22 [From Augmentin] latex Allergy Rash Verified 04/28/19 08:22 potassium clavulanate Allergy Hives Verified 04/28/19 08:22 [From Augmentin] Home Medications: Home Meds Esomeprazole Magnesium 40 mg PO DAILY 04/01/19 [History] Folic Acid 1 mg PO BEDTIME #30 tablet 04/03/19 [Rx] Thiamine [Vitamin B-1] 100 mg PO BEDTIME #30 tablet 04/03/19 [Rx] Hyoscyamine [Hyomax-SL] 0.125 mg SL Q4H PRN #20 tab.sl 04/22/19 [Rx] Promethazine [Phenergan] 25 mg PO Q8H PRN #6 tab 04/22/19 [Rx] Past Medical History HEENT History: Reports: None Cardiovascular History: Reports: Hypertension Respiratory History: Reports: COPD, Pneumothorax Gastrointestinal History: Reports: Cholelithiasis, Other (See Below) Other Gastrointestinal History: alcoholic liver dse Genitourinary History: Reports: None [employer] History: Reports: Musculoskeletal History: Reports: None Neurological History: Reports: None Psychiatric History: Reports: Anxiety, Depression, Other (See Below) Other Psychiatric History: Major Depressive disorder Endocrine/Metabolic History: Reports: None Hematologic History: Reports: None Immunologic History: Reports: None Oncologic (Cancer) History: Reports: None Dermatologic History: Reports: None - Infectious Disease History Infectious Disease History: Reports: Chicken Pox, Measles, Mumps - Past Surgical History Head Surgeries/Procedures: Reports: None HEENT Surgical History: Reports: Tonsillectomy Cardiovascular Surgical History: Reports: None Respiratory Surgical History: Reports: None, Other (See Below) Other Respiratory Surgeries/Procedures: chest tube to right lung; right lobectomy GI Surgical History: Reports: None Female Surgical History: Reports: None Endocrine Surgical History: Reports: None Neurological Surgical History: Reports: None Musculoskeletal Surgical History: Reports: None Oncologic Surgical History: Reports: None Dermatological Surgical History: Reports: None Social & Family History - Family History Family Medical History: Noncontributory - Tobacco Use Smoking Status *Q: Current Every Day Smoker Years of Tobacco use: 13 Packs/Tins Daily: 0.5 - Caffeine Use Caffeine Use: Reports: Coffee - Alcohol Use Days Per Week of Alcohol Use: 7 Number of Drinks Per Day: 5 Total Drinks Per Week: 35 - Recreational Drug Use Recreational Drug Use: Yes Recreational Drug Type: Reports: Marijuana/Hashish Recreational Drug Use Frequency: Weekly Recreational Drug Last Use: "yesterday" - Living Situation & Occupation Living situation: Reports: with Family Occupation: Unemployed H&P Review of Systems - Review of Systems: Review Of Systems: ROS reveals no pertinent complaints other than HPI. Exam - Exam Exam: See Below - Vital Signs Vital Signs: Last Vital Signs Temp 37.5 C 04/28/19 07:42 Pulse 95 04/28/19 07:42 Resp 14 04/28/19 07:42 BP 105/63 04/28/19 07:42 Pulse Ox 92 L 04/28/19 07:42 Weight: 46.13 kg - Exam General: Alert, Oriented, Cooperative HEENT: Scleral Icterus Lungs: Clear to Auscultation, Normal Respiratory Effort. No: Crackles, Wheezing Cardiovascular: Regular Rate, Regular Rhythm GI/Abdominal Exam: Soft, Non-Tender, Distended, Tender Extremities: Normal Inspection, No Pedal Edema Skin: Warm, Dry - Patient Data Lab Results Last 24 hrs: Laboratory Results - last 24 hr 04/27/19 04/27/19 04/27/19 Range/Units 20:49 20:49 21:00 WBC (4.0-11.0) K/uL RBC (4.30-5.90) M/uL Hgb (12.0-16.0) g/dL Hct (36.0-46.0) % MCV (80.0-98.0) fL MCH (27.0-32.0) pg MCHC (31.0-37.0) g/dL RDW Std Deviation (28.0-62.0) fl RDW Coeff of Mayito (11.0-15.0) % Plt Count (150-400) K/uL MPV (7.40-12.00) fL Neut % (Auto) (48.0-80.0) % Lymph % (Auto) (16.0-40.0) % [place] % (Auto) (0.0-15.0) % Eos % (Auto) (0.0-7.0) % Baso % (Auto) (0.0-1.5) % Neut # (Auto) (1.4-5.7) K/uL Lymph # (Auto) (0.6-2.4) K/uL [place] # (Auto) (0.0-0.8) K/uL Eos # (Auto) (0.0-0.7) K/uL Baso # (Auto) (0.0-0.1) K/uL Nucleated RBC % /100WBC Nucleated RBCs # K/uL Sodium 124 L (136-145) mmol/L Potassium 4.2 (3.5-5.1) mmol/L Chloride 86 L (98-107) mmol/L Carbon Dioxide 29.8 (21.0-32.0) mmol/L BUN 6 L (7.0-18.0) mg/dL Creatinine 0.4 L (0.6-1.0) mg/dL Est Cr Clr Drug Dosing 146.63 mL/min Estimated GFR (MDRD) > 60.0 ml/min Glucose 83 (74-106) mg/dL Calcium 8.1 L (8.5-10.1) mg/dL Total Bilirubin 10.7 H (0.2-1.0) mg/dL Direct Bilirubin (0.0-0.5) mg/dL Indirect Bilirubin AST 475 H (15-37) IU/L ALT 89 H (14-63) IU/L Alkaline Phosphatase 276 H (46-116) U/L Total Protein 7.1 (6.4-8.2) g/dL Albumin 2.3 L (3.4-5.0) g/dL Globulin 4.8 H (2.6-4.0) g/dL Albumin/Globulin Ratio 0.5 L (0.9-1.6) Lipase 235 (73-393) U/L Urine Color YELLOW Urine Appearance HAZY Urine pH 7.0 (5.0-8.0) Ur Specific [place] <= 1.005 (1.001-1.035) Urine Protein NEGATIVE (NEGATIVE) mg/dL Urine Glucose (UA) NEGATIVE (NEGATIVE) mg/dL Urine Ketones NEGATIVE (NEGATIVE) mg/dL Urine Occult Blood TRACE-INTACT H (NEGATIVE) Urine Nitrite NEGATIVE (NEGATIVE) Urine Bilirubin SMALL H (NEGATIVE) Urine Ictotest NEGATIVE Urine Urobilinogen 0.2 (<2.0) EU/dL Ur Leukocyte Esterase NEGATIVE (NEGATIVE) Urine RBC 0-3 (0-2/HPF) Urine WBC 0-2 (0-5/HPF) Ur Epithelial Cells OCCASIONAL (NONE-FEW) Urine Bacteria FEW (NEGATIVE) Urine Mucus LIGHT (NONE-MOD) Urine HCG, Qual NEGATIVE (NEGATIVE) 04/27/19 04/28/19 Range/Units 21:00 07:25 WBC 11.71 H (4.0-11.0) K/uL RBC 3.10 L (4.30-5.90) M/uL Hgb 10.4 L (12.0-16.0) g/dL Hct 29.7 L (36.0-46.0) % MCV 95.8 (80.0-98.0) fL MCH 33.5 H (27.0-32.0) pg MCHC 35.0 (31.0-37.0) g/dL RDW Std Deviation 65.7 H (28.0-62.0) fl RDW Coeff of Mayito 20 H (11.0-15.0) % Plt Count 191 (150-400) K/uL MPV 12.10 H (7.40-12.00) fL Neut % (Auto) 68.2 (48.0-80.0) % Lymph % (Auto) 19.2 (16.0-40.0) % [place] % (Auto) 10.8 (0.0-15.0) % Eos % (Auto) 1.3 (0.0-7.0) % Baso % (Auto) 0.5 (0.0-1.5) % Neut # (Auto) 8.0 H (1.4-5.7) K/uL Lymph # (Auto) 2.3 (0.6-2.4) K/uL [place] # (Auto) 1.3 H (0.0-0.8) K/uL Eos # (Auto) 0.2 (0.0-0.7) K/uL Baso # (Auto) 0.1 (0.0-0.1) K/uL Nucleated RBC % 0.0 /100WBC Nucleated RBCs # 0 K/uL Sodium (136-145) mmol/L Potassium (3.5-5.1) mmol/L Chloride (98-107) mmol/L Carbon Dioxide (21.0-32.0) mmol/L BUN (7.0-18.0) mg/dL Creatinine (0.6-1.0) mg/dL Est Cr Clr Drug Dosing mL/min Estimated GFR (MDRD) ml/min Glucose (74-106) mg/dL Calcium (8.5-10.1) mg/dL Total Bilirubin 10.8 H (0.2-1.0) mg/dL Direct Bilirubin 7.71 H (0.0-0.5) mg/dL Indirect Bilirubin 3.09 AST (15-37) IU/L ALT (14-63) IU/L Alkaline Phosphatase (46-116) U/L Total Protein (6.4-8.2) g/dL Albumin (3.4-5.0) g/dL Globulin (2.6-4.0) g/dL Albumin/Globulin Ratio (0.9-1.6) Lipase (73-393) U/L Urine Color Urine Appearance Urine pH (5.0-8.0) Ur Specific [place] (1.001-1.035) Urine Protein (NEGATIVE) mg/dL Urine Glucose (UA) (NEGATIVE) mg/dL Urine Ketones (NEGATIVE) mg/dL Urine Occult Blood (NEGATIVE) Urine Nitrite (NEGATIVE) Urine Bilirubin (NEGATIVE) Urine Ictotest Urine Urobilinogen (<2.0) EU/dL Ur Leukocyte Esterase (NEGATIVE) Urine RBC (0-2/HPF) Urine WBC (0-5/HPF) Ur Epithelial Cells (NONE-FEW) Urine Bacteria (NEGATIVE) Urine Mucus (NONE-MOD) Urine HCG, Qual (NEGATIVE) Result Diagrams: 04/27/19 21:00 04/27/19 21:00 Problem List Initiated/Reviewed/Updated: Yes Orders Last 24hrs: Active Orders 24 hr Category Date Time Status Admission Status [Patient Status] [ADT] Stat ADT 04/28/19 02:08 Active CIWAA Assessment [RC] Q4H Care 04/28/19 08:46 Active Oxygen Therapy [RC] PRN Care 04/28/19 06:46 Active Up ad Beverly [RC] ASDIRECTED Care 04/28/19 06:46 Active VTE/DVT Education [RC] PER UNIT ROUTINE Care 04/28/19 06:46 Active Vital Signs [RC] Q4H Care 04/28/19 06:46 Active High Protein Diet [DIET] Diet 04/28/19 Lunch Active Abdomen w Cont [MR] Routine Exams 04/28/19 08:48 Ordered Blood Alcohol [ETHANOL BLOOD MEDICAL] [CHEM] Routine Lab 04/28/19 07:25 Received INR,PT,PROTHROMBIN TIME [COAG] Routine Lab 04/28/19 08:52 Ordered Folic Acid Med 04/28/19 21:00 Active 1 mg PO BEDTIME Heparin Sodium Med 04/28/19 07:00 Active 5,000 units SUBCUT Q8H Hyoscyamine [Hyomax-SL] Med 04/28/19 06:39 Active 0.125 mg SL Q4H PRN Ibuprofen [Motrin] Med 04/28/19 06:46 Active 400 mg PO Q6H PRN LORazepam [Ativan] Med 04/28/19 08:43 Active See Protocol IVPUSH Q4H PRN Morphine Med 04/28/19 06:57 Active 2 mg IVPUSH Q2H PRN Omeprazole Med 04/28/19 07:30 Active 20 mg PO ACBREAKFAST Promethazine [Phenergan] Med 04/28/19 06:39 Active 25 mg PO Q8H PRN Sodium Chloride 0.9% [Saline Flush] Med 04/28/19 03:25 Active 10 ml FLUSH ASDIRECTED PRN Sodium Chloride 0.9% [Saline Flush] Med 04/28/19 03:25 Active 2.5 ml FLUSH ASDIRECTED PRN Thiamine [Vitamin B-1] Med 04/28/19 21:00 Active 100 mg PO BEDTIME Saline Lock Insert [OM.PC] Routine Oth 04/28/19 03:25 Ordered Resuscitation Status Routine Resus Stat 04/28/19 06:46 Ordered Medication Orders Folic Acid (Folic Acid) 1 mg PO BEDTIME CHRISTIE Heparin Sodium (Porcine) (Heparin Sodium) 5,000 units SUBCUT Q8H [facility] Last Admin: 04/28/19 08:14 Dose: 5,000 units Hyoscyamine (Hyomax-Sl) 0.125 mg SL Q4H PRN PRN Reason: Pain Ibuprofen (Motrin) 400 mg PO Q6H PRN PRN Reason: Pain (mild 1-3) Lorazepam (Ativan) 0 mg IVPUSH Q4H PRN; Protocol PRN Reason: Withdrawal Symptoms Morphine Sulfate (Morphine) 2 mg IVPUSH Q2H PRN PRN Reason: Pain (severe 7-10) Last Admin: 04/28/19 08:15 Dose: 2 mg Omeprazole (Omeprazole) 20 mg PO ACBREAKFAST [facility] Last Admin: 04/28/19 08:15 Dose: 20 mg Promethazine HCl (Phenergan) 25 mg PO Q8H PRN PRN Reason: Nausea Sodium Chloride (Saline Flush) 10 ml FLUSH ASDIRECTED PRN PRN Reason: Keep Vein Open Sodium Chloride (Saline Flush) 2.5 ml FLUSH ASDIRECTED PRN PRN Reason: Keep Vein Open Thiamine HCl (Vitamin B-1) 100 mg PO BEDTIME [facility] Assessment/Plan Comment:: A: 1. Acute alcoholic hepatitis 2. Hyperbilirubinemia 3. Elevated liver enzymes 4. Hyponatremia 5. Normocytic anemia 6. Alcohol abuse 7. Ascites P: 1. Acute alcoholic hepatitis- will trend liver enzymes. Will get MRCP to r/u biliary obstruction and therapeutic, diagnostic paracentesis. 2. Hyperbilirubinemia- continue to trend, pending MRCP later today. 3. Hyponatremia, 2/2 third spacing. Will hold IV fluids for now and monitor. 4. Normocytic anemia- will get iron studies and stool occult. 5. Alcohol abuse- CIWA monitoring, lorazepam PRN. Dispo: 2-3 days. <Raphael Suárez - Last Filed: 04/28/19 11:58> H&P History of Present Illness - General Admit Problem/Dx: Admission Diagnosis/Problem Admission Diagnosis/Problem Liver failure I have seen and examined to patient independently of medical operations supervisor, Praneeth Araujo MD. I have discussed the case for care of this patient with him. I have reviewed and approve of the plan of care as outlined by medical operations supervisor. Please see orders. Exam - Vital Signs Vital Signs: Last Vital Signs Temp 37.5 C 04/28/19 07:42 Pulse 95 04/28/19 07:42 Resp 14 04/28/19 07:42 BP 105/63 04/28/19 07:42 Pulse Ox 92 L 04/28/19 07:42 - Patient Data Lab Results Last 24 hrs: Laboratory Results - last 24 hr 04/27/19 04/27/19 04/27/19 Range/Units 20:49 20:49 21:00 WBC (4.0-11.0) K/uL RBC (4.30-5.90) M/uL Hgb (12.0-16.0) g/dL Hct (36.0-46.0) % MCV (80.0-98.0) fL MCH (27.0-32.0) pg MCHC (31.0-37.0) g/dL RDW Std Deviation (28.0-62.0) fl RDW Coeff of Mayito (11.0-15.0) % Plt Count (150-400) K/uL MPV (7.40-12.00) fL Neut % (Auto) (48.0-80.0) % Lymph % (Auto) (16.0-40.0) % [place] % (Auto) (0.0-15.0) % Eos % (Auto) (0.0-7.0) % Baso % (Auto) (0.0-1.5) % Neut # (Auto) (1.4-5.7) K/uL Lymph # (Auto) (0.6-2.4) K/uL [place] # (Auto) (0.0-0.8) K/uL Eos # (Auto) (0.0-0.7) K/uL Baso # (Auto) (0.0-0.1) K/uL Nucleated RBC % /100WBC Nucleated RBCs # K/uL INR APTT (18.6-31.3) SEC Sodium 124 L (136-145) mmol/L Potassium 4.2 (3.5-5.1) mmol/L Chloride 86 L (98-107) mmol/L Carbon Dioxide 29.8 (21.0-32.0) mmol/L BUN 6 L (7.0-18.0) mg/dL Creatinine 0.4 L (0.6-1.0) mg/dL Est Cr Clr Drug Dosing 146.63 mL/min Estimated GFR (MDRD) > 60.0 ml/min Glucose 83 (74-106) mg/dL Calcium 8.1 L (8.5-10.1) mg/dL Iron (50-175) ug/dL TIBC (250-450) ug/dL % Saturation (20-55) % Ferritin (8-252) ng/mL Total Bilirubin 10.7 H (0.2-1.0) mg/dL Direct Bilirubin (0.0-0.5) mg/dL Indirect Bilirubin AST 475 H (15-37) IU/L ALT 89 H (14-63) IU/L Alkaline Phosphatase 276 H (46-116) U/L Total Protein 7.1 (6.4-8.2) g/dL Albumin 2.3 L (3.4-5.0) g/dL Globulin 4.8 H (2.6-4.0) g/dL Albumin/Globulin Ratio 0.5 L (0.9-1.6) Lipase 235 (73-393) U/L Urine Color YELLOW Urine Appearance HAZY Urine pH 7.0 (5.0-8.0) Ur Specific [place] <= 1.005 (1.001-1.035) Urine Protein NEGATIVE (NEGATIVE) mg/dL Urine Glucose (UA) NEGATIVE (NEGATIVE) mg/dL Urine Ketones NEGATIVE (NEGATIVE) mg/dL Urine Occult Blood TRACE-INTACT H (NEGATIVE) Urine Nitrite NEGATIVE (NEGATIVE) Urine Bilirubin SMALL H (NEGATIVE) Urine Ictotest NEGATIVE Urine Urobilinogen 0.2 (<2.0) EU/dL Ur Leukocyte Esterase NEGATIVE (NEGATIVE) Urine RBC 0-3 (0-2/HPF) Urine WBC 0-2 (0-5/HPF) Ur Epithelial Cells OCCASIONAL (NONE-FEW) Urine Bacteria FEW (NEGATIVE) Urine Mucus LIGHT (NONE-MOD) Urine HCG, Qual NEGATIVE (NEGATIVE) Ethyl Alcohol mg/dL 04/27/19 04/28/19 04/28/19 Range/Units 21:00 07:25 07:25 WBC 11.71 H (4.0-11.0) K/uL RBC 3.10 L (4.30-5.90) M/uL Hgb 10.4 L (12.0-16.0) g/dL Hct 29.7 L (36.0-46.0) % MCV 95.8 (80.0-98.0) fL MCH 33.5 H (27.0-32.0) pg MCHC 35.0 (31.0-37.0) g/dL RDW Std Deviation 65.7 H (28.0-62.0) fl RDW Coeff of May[place] 20 H (11.0-15.0) % Plt Count 191 (150-400) K/uL MPV 12.10 H (7.40-12.00) fL Neut % (Auto) 68.2 (48.0-80.0) % Lymph % (Auto) 19.2 (16.0-40.0) % [place] % (Auto) 10.8 (0.0-15.0) % Eos % (Auto) 1.3 (0.0-7.0) % Baso % (Auto) 0.5 (0.0-1.5) % Neut # (Auto) 8.0 H (1.4-5.7) K/uL Lymph # (Auto) 2.3 (0.6-2.4) K/uL [place] # (Auto) 1.3 H (0.0-0.8) K/uL Eos # (Auto) 0.2 (0.0-0.7) K/uL Baso # (Auto) 0.1 (0.0-0.1) K/uL Nucleated RBC % 0.0 /100WBC Nucleated RBCs # 0 K/uL INR APTT (18.6-31.3) SEC Sodium (136-145) mmol/L Potassium (3.5-5.1) mmol/L Chloride (98-107) mmol/L Carbon Dioxide (21.0-32.0) mmol/L BUN (7.0-18.0) mg/dL Creatinine (0.6-1.0) mg/dL Est Cr Clr Drug Dosing mL/min Estimated GFR (MDRD) ml/min Glucose (74-106) mg/dL Calcium (8.5-10.1) mg/dL Iron (50-175) ug/dL TIBC (250-450) ug/dL % Saturation (20-55) % Ferritin (8-252) ng/mL Total Bilirubin 10.8 H (0.2-1.0) mg/dL Direct Bilirubin 7.71 H (0.0-0.5) mg/dL Indirect Bilirubin 3.09 AST (15-37) IU/L ALT (14-63) IU/L Alkaline Phosphatase (46-116) U/L Total Protein (6.4-8.2) g/dL Albumin (3.4-5.0) g/dL Globulin (2.6-4.0) g/dL Albumin/Globulin Ratio (0.9-1.6) Lipase (73-393) U/L Urine Color Urine Appearance Urine pH (5.0-8.0) Ur Specific [place] (1.001-1.035) Urine Protein (NEGATIVE) mg/dL Urine Glucose (UA) (NEGATIVE) mg/dL Urine Ketones (NEGATIVE) mg/dL Urine Occult Blood (NEGATIVE) Urine Nitrite (NEGATIVE) Urine Bilirubin (NEGATIVE) Urine Ictotest Urine Urobilinogen (<2.0) EU/dL Ur Leukocyte Esterase (NEGATIVE) Urine RBC (0-2/HPF) Urine WBC (0-5/HPF) Ur Epithelial Cells (NONE-FEW) Urine Bacteria (NEGATIVE) Urine Mucus (NONE-MOD) Urine HCG, Qual (NEGATIVE) Ethyl Alcohol <3 mg/dL 04/28/19 04/28/19 04/28/19 Range/Units 07:25 09:15 09:15 WBC (4.0-11.0) K/uL RBC (4.30-5.90) M/uL Hgb (12.0-16.0) g/dL Hct (36.0-46.0) % MCV (80.0-98.0) fL MCH (27.0-32.0) pg MCHC (31.0-37.0) g/dL RDW Std Deviation (28.0-62.0) fl RDW Coeff of Mayito (11.0-15.0) % Plt Count (150-400) K/uL MPV (7.40-12.00) fL Neut % (Auto) (48.0-80.0) % Lymph % (Auto) (16.0-40.0) % [place] % (Auto) (0.0-15.0) % Eos % (Auto) (0.0-7.0) % Baso % (Auto) (0.0-1.5) % Neut # (Auto) (1.4-5.7) K/uL Lymph # (Auto) (0.6-2.4) K/uL [place] # (Auto) (0.0-0.8) K/uL Eos # (Auto) (0.0-0.7) K/uL Baso # (Auto) (0.0-0.1) K/uL Nucleated RBC % /100WBC Nucleated RBCs # K/uL INR 1.79 APTT 37.4 H (18.6-31.3) SEC Sodium (136-145) mmol/L Potassium (3.5-5.1) mmol/L Chloride (98-107) mmol/L Carbon Dioxide (21.0-32.0) mmol/L BUN (7.0-18.0) mg/dL Creatinine (0.6-1.0) mg/dL Est Cr Clr Drug Dosing mL/min Estimated GFR (MDRD) ml/min Glucose (74-106) mg/dL Calcium (8.5-10.1) mg/dL Iron 149 (50-175) ug/dL TIBC 151 L (250-450) ug/dL % Saturation 98.68 H (20-55) % Ferritin 232 (8-252) ng/mL Total Bilirubin (0.2-1.0) mg/dL Direct Bilirubin (0.0-0.5) mg/dL Indirect Bilirubin AST (15-37) IU/L ALT (14-63) IU/L Alkaline Phosphatase (46-116) U/L Total Protein (6.4-8.2) g/dL Albumin (3.4-5.0) g/dL Globulin (2.6-4.0) g/dL Albumin/Globulin Ratio (0.9-1.6) Lipase (73-393) U/L Urine Color Urine Appearance Urine pH (5.0-8.0) Ur Specific [place] (1.001-1.035) Urine Protein (NEGATIVE) mg/dL Urine Glucose (UA) (NEGATIVE) mg/dL Urine Ketones (NEGATIVE) mg/dL Urine Occult Blood (NEGATIVE) Urine Nitrite (NEGATIVE) Urine Bilirubin (NEGATIVE) Urine Ictotest Urine Urobilinogen (<2.0) EU/dL Ur Leukocyte Esterase (NEGATIVE) Urine RBC (0-2/HPF) Urine WBC (0-5/HPF) Ur Epithelial Cells (NONE-FEW) Urine Bacteria (NEGATIVE) Urine Mucus (NONE-MOD) Urine HCG, Qual (NEGATIVE) Ethyl Alcohol mg/dL Result Diagrams: 04/27/19 21:00 04/27/19 21:00 Orders Last 24hrs: Active Orders 24 hr Category Date Time Status Admission Status [Patient Status] [ADT] Stat ADT 04/28/19 02:08 Active CIWAA Assessment [RC] Q4H Care 04/28/19 08:46 Active Oxygen Therapy [RC] PRN Care 04/28/19 06:46 Active Up ad Beverly [RC] ASDIRECTED Care 04/28/19 06:46 Active VTE/DVT Education [RC] PER UNIT ROUTINE Care 04/28/19 06:46 Active Vital Signs [RC] Q4H Care 04/28/19 06:46 Active High Protein Diet [DIET] Diet 04/28/19 Lunch Active Abdomen w Cont [MR] Routine Exams 04/28/19 08:48 Ordered Echo Comp wo Cont [US] Routine Exams 04/28/19 11:03 Ordered Guidance Paracentesis [US] Routine Exams 04/28/19 Ordered ALBUMIN,BODY FLUID [BF] Routine Lab 04/28/19 10:24 Ordered CBC W/O DIFF,HEMOGRAM [HEME] AM Lab 04/29/19 05:11 Ordered CELL COUNT,BODY FLUID [BF] Routine Lab 04/28/19 10:24 Ordered COMPREHENSIVE METABOLIC PN,CMP [CHEM] AM Lab 04/29/19 05:11 Ordered CULTURE BODY FLUID + SMEAR [RM] Routine Lab 04/28/19 10:24 Ordered HEPATITIS PANEL (4) [REF] Routine Lab 04/29/19 05:11 Ordered INR,PT,PROTHROMBIN TIME [COAG] AM Lab 04/29/19 05:11 Ordered OCCULT BLOOD DIAGNOSTIC [OP] Routine Lab 04/28/19 10:54 Ordered PROTEIN,BODY FLUID [BF] Routine Lab 04/28/19 10:24 Ordered Folic Acid Med 04/28/19 21:00 Active 1 mg PO BEDTIME Heparin Sodium Med 04/28/19 07:00 Active 5,000 units SUBCUT Q8H Hyoscyamine [Hyomax-SL] Med 04/28/19 06:39 Active 0.125 mg SL Q4H PRN Ibuprofen [Motrin] Med 04/28/19 06:46 Active 400 mg PO Q6H PRN LORazepam [Ativan] Med 04/28/19 08:43 Active See Protocol IVPUSH Q4H PRN Morphine Med 04/28/19 06:57 Active 2 mg IVPUSH Q2H PRN Omeprazole Med 04/28/19 07:30 Active 20 mg PO ACBREAKFAST Promethazine [Phenergan] Med 04/28/19 06:39 Active 25 mg PO Q8H PRN Sodium Chloride 0.9% [Saline Flush] Med 04/28/19 03:25 Active 10 ml FLUSH ASDIRECTED PRN Sodium Chloride 0.9% [Saline Flush] Med 04/28/19 03:25 Active 2.5 ml FLUSH ASDIRECTED PRN Thiamine [Vitamin B-1] Med 04/28/19 21:00 Active 100 mg PO BEDTIME Saline Lock Insert [OM.PC] Routine Oth 04/28/19 03:25 Ordered Resuscitation Status Routine Resus Stat 04/28/19 06:46 Ordered Medication Orders Folic Acid (Folic Acid) 1 mg PO BEDTIME CHRISTIE Heparin Sodium (Porcine) (Heparin Sodium) 5,000 units SUBCUT Q8H CHRISTIE Last Admin: 04/28/19 08:14 Dose: 5,000 units Hyoscyamine (Hyomax-Sl) 0.125 mg SL Q4H PRN PRN Reason: Pain Ibuprofen (Motrin) 400 mg PO Q6H PRN PRN Reason: Pain (mild 1-3) Lorazepam (Ativan) 0 mg IVPUSH Q4H PRN; Protocol PRN Reason: Withdrawal Symptoms Morphine Sulfate (Morphine) 2 mg IVPUSH Q2H PRN PRN Reason: Pain (severe 7-10) Last Admin: 04/28/19 08:15 Dose: 2 mg Omeprazole (Omeprazole) 20 mg PO ACBREAKFAST CHRISTIE Last Admin: 04/28/19 08:15 Dose: 20 mg Promethazine HCl (Phenergan) 25 mg PO Q8H PRN PRN Reason: Nausea Sodium Chloride (Saline Flush) 10 ml FLUSH ASDIRECTED PRN PRN Reason: Keep Vein Open Sodium Chloride (Saline Flush) 2.5 ml FLUSH ASDIRECTED PRN PRN Reason: Keep Vein Open Thiamine HCl (Vitamin B-1) 100 mg PO BEDTIME CHRISTIE
[2019-04-28] MEDS ORDERED: Gadobenate Dimeglumine 529 MG/ML 20 ML SDV IVPUSH STA (12:25)
--- NOTE | 2019-04-28 16:22 | US ---
EXAMINATION: Ultrasound guided paracentesis. HISTORY: Ascites. FINDINGS/TECHNIQUE: The procedure, risks, and benefits were discussed with the patient. Written informed consent was obtained. The left lower quadrant was sterilely prepped and draped. 1% lidocaine was administered for local anesthesia. Using ultrasound guidance a 5 [place] one-step needle was advanced. The catheter was left in place. 1.5 L of yellow fluid was collected. The patient tolerated the procedure well. IMPRESSION: Successful US guided paracentesis.
--- NOTE | 2019-04-28 16:56 | MR ---
EXAMINATION: MRI abdomen with and without contrast HISTORY: Pain COMPARISON: CT dated 04/27/2019 TECHNIQUE: Multiplanar and multisequence imaging obtained through the abdomen before and following the administration of unspecified amount of both hands. FINDINGS: The liver is notably heterogeneous in signal and nodular in contour with heterogeneous however extensive signal dropout on out of phase imaging. There is no defined hepatic mass or nodule. No focally abnormal enhancement. The spleen and adrenal glands appear normal. No bulky retroperitoneal lymphadenopathy. Abdominal ascites and pericholecystic fluid is noted. A few cholelithiasis are noted. The common bile duct is not dilated and no choledocholithiasis noted. The kidneys enhance and function symmetrically without evidence of obstructive uropathy. Visualized bone marrow signal is normal. IMPRESSION: 1. Heterogeneous hepatic parenchyma consistent with cirrhosis and fatty infiltration, given the CT appearance acute steatohepatitis is not excluded. 2. Cholelithiasis without evidence of choledocholithiasis. 3. Moderate abdominal ascites.
[2019-04-28] MEDS: Ibuprofen 400 MG Tab PO PRN (17:18)
[2019-04-28] MEDS: Folic Acid 1 MG Tab PO SCH (20:54)
[2019-04-28] MEDS: Thiamine 100 MG Tab PO SCH (20:54)
[2019-04-28] MEDS ORDERED: Enoxaparin 40 MG/0.4 ML Syringe SUBCUT SCH (21:00)
[2019-04-29 06:26] LABS: CHLORIDE,CL 93 mmol/L (98-107); SODIUM,NA 130 mmol/L (136-145)
[2019-04-29] MEDS: Omeprazole 20 MG Cap.CR PO SCH (06:44)
[2019-04-29] MEDS: Morphine 2 MG/ML Syringe IVPUSH PRN ×2 (06:47→16:23)
[2019-04-29] MEDS ORDERED: Furosemide 20 MG Tab PO ONE (08:25)
--- NOTE | 2019-04-29 08:55 | PCM.PN ---
<Praneeth Rose - Last Filed: 04/29/19 08:49> - General Info Date of Service: 04/29/19 Subjective Update: s/p therapeutic and diagnostic paracentesis with 1.5 L peritoneal fluid out. This morning patient states she feels better, abdominal pain is better. No chest pain, dyspnea, nausea, vomiting, dysuria or blood in stool. - Patient Data Vitals - Most Recent: Last Vital Signs Temp 36.8 C 04/29/19 04:00 Pulse 81 04/29/19 04:00 Resp 16 04/29/19 04:00 BP 97/56 L 04/29/19 04:00 Pulse Ox 93 L 04/29/19 04:00 Weight - Most Recent: 45.586 kg I&O - Last 24 Hours: Intake & Output 04/28/19 04/29/19 04/29/19 22:59 06:59 14:59 Intake Total 640 700 Output Total 250 300 Balance 390 400 Lab Results Last 24 Hours: Laboratory Results - last 24 hr 04/28/19 04/28/19 04/28/19 Range/Units 07:25 07:25 09:15 WBC (4.0-11.0) K/uL RBC (4.30-5.90) M/uL Hgb (12.0-16.0) g/dL Hct (36.0-46.0) % MCV (80.0-98.0) fL MCH (27.0-32.0) pg MCHC (31.0-37.0) g/dL RDW Std Deviation (28.0-62.0) fl RDW Coeff of Mayito (11.0-15.0) % Plt Count (150-400) K/uL MPV (7.40-12.00) fL Nucleated RBC % /100WBC Nucleated RBCs # K/uL INR 1.79 APTT (18.6-31.3) SEC Sodium (136-145) mmol/L Potassium (3.5-5.1) mmol/L Chloride (98-107) mmol/L Carbon Dioxide (21.0-32.0) mmol/L BUN (7.0-18.0) mg/dL Creatinine (0.6-1.0) mg/dL Est Cr Clr Drug Dosing mL/min Estimated GFR (MDRD) ml/min Glucose (74-106) mg/dL Calcium (8.5-10.1) mg/dL Iron 149 (50-175) ug/dL TIBC 151 L (250-450) ug/dL % Saturation 98.68 H (20-55) % Ferritin 232 (8-252) ng/mL Total Bilirubin (0.2-1.0) mg/dL AST (15-37) IU/L ALT (14-63) IU/L Alkaline Phosphatase (46-116) U/L Total Protein (6.4-8.2) g/dL Albumin (3.4-5.0) g/dL Globulin (2.6-4.0) g/dL Albumin/Globulin Ratio (0.9-1.6) Fluid Type Fluid Color Fluid Appearance Fluid WBC K/uL Fluid RBC M/uL Fluid Mononuclear Cell % Fl Polymorphonucl Cell % Fluid Total Protein g/dL Fluid Albumin g/dL Ethyl Alcohol <3 mg/dL 04/28/19 04/28/19 04/29/19 Range/Units 09:15 15:27 05:03 WBC 6.77 (4.0-11.0) K/uL RBC 2.57 L (4.30-5.90) M/uL Hgb 8.7 L (12.0-16.0) g/dL Hct 25.5 L (36.0-46.0) % MCV 99.2 H (80.0-98.0) fL MCH 33.9 H (27.0-32.0) pg MCHC 34.1 (31.0-37.0) g/dL RDW Std Deviation 70.3 H (28.0-62.0) fl RDW Coeff of Mayito 20 H (11.0-15.0) % Plt Count 126 L (150-400) K/uL MPV 10.80 (7.40-12.00) fL Nucleated RBC % 0.0 /100WBC Nucleated RBCs # 0 K/uL INR APTT 37.4 H (18.6-31.3) SEC Sodium (136-145) mmol/L Potassium (3.5-5.1) mmol/L Chloride (98-107) mmol/L Carbon Dioxide (21.0-32.0) mmol/L BUN (7.0-18.0) mg/dL Creatinine (0.6-1.0) mg/dL Est Cr Clr Drug Dosing mL/min Estimated GFR (MDRD) ml/min Glucose (74-106) mg/dL Calcium (8.5-10.1) mg/dL Iron (50-175) ug/dL TIBC (250-450) ug/dL % Saturation (20-55) % Ferritin (8-252) ng/mL Total Bilirubin (0.2-1.0) mg/dL AST (15-37) IU/L ALT (14-63) IU/L Alkaline Phosphatase (46-116) U/L Total Protein (6.4-8.2) g/dL Albumin (3.4-5.0) g/dL Globulin (2.6-4.0) g/dL Albumin/Globulin Ratio (0.9-1.6) Fluid Type PER Fluid Color YELLOW Fluid Appearance CLEAR Fluid WBC 0.06 K/uL Fluid RBC 0.00 M/uL Fluid Mononuclear Cell 82.1 % Fl Polymorphonucl Cell 17.9 % Fluid Total Protein 0.4 g/dL Fluid Albumin 0.0 g/dL Ethyl Alcohol mg/dL 04/29/19 04/29/19 Range/Units 05:03 05:03 WBC (4.0-11.0) K/uL RBC (4.30-5.90) M/uL Hgb (12.0-16.0) g/dL Hct (36.0-46.0) % MCV (80.0-98.0) fL MCH (27.0-32.0) pg MCHC (31.0-37.0) g/dL RDW Std Deviation (28.0-62.0) fl RDW Coeff of Mayito (11.0-15.0) % Plt Count (150-400) K/uL MPV (7.40-12.00) fL Nucleated RBC % /100WBC Nucleated RBCs # K/uL INR 1.95 APTT (18.6-31.3) SEC Sodium 130 L (136-145) mmol/L Potassium 3.0 L (3.5-5.1) mmol/L Chloride 93 L (98-107) mmol/L Carbon Dioxide 29.5 (21.0-32.0) mmol/L BUN 8 (7.0-18.0) mg/dL Creatinine 0.6 (0.6-1.0) mg/dL Est Cr Clr Drug Dosing 98.03 mL/min Estimated GFR (MDRD) > 60.0 ml/min Glucose 66 L (74-106) mg/dL Calcium 7.6 L (8.5-10.1) mg/dL Iron (50-175) ug/dL TIBC (250-450) ug/dL % Saturation (20-55) % Ferritin (8-252) ng/mL Total Bilirubin 10.5 H (0.2-1.0) mg/dL AST 303 H (15-37) IU/L ALT 71 H (14-63) IU/L Alkaline Phosphatase 227 H (46-116) U/L Total Protein 5.9 L (6.4-8.2) g/dL Albumin 1.9 L (3.4-5.0) g/dL Globulin 4.0 (2.6-4.0) g/dL Albumin/Globulin Ratio 0.5 L (0.9-1.6) Fluid Type Fluid Color Fluid Appearance Fluid WBC K/uL Fluid RBC M/uL Fluid Mononuclear Cell % Fl Polymorphonucl Cell % Fluid Total Protein g/dL Fluid Albumin g/dL Ethyl Alcohol mg/dL Peng Results Last 24 Hours: Microbiology 04/28/19 15:27 Gram Stain - Preliminary Ascities Fluid Med Orders - Current: Current Medications Enoxaparin Sodium (Lovenox) 40 mg SUBCUT Q24H REPLACED BY [facility] Last Admin: 04/28/19 20:54 Dose: 40 mg Folic Acid (Folic Acid) 1 mg PO BEDTIME REPLACED BY [facility] Last Admin: 04/28/19 20:54 Dose: 1 mg Hyoscyamine (Hyomax-Sl) 0.125 mg SL Q4H PRN PRN Reason: Pain Ibuprofen (Motrin) 400 mg PO Q6H PRN PRN Reason: Pain (mild 1-3) Last Admin: 04/28/19 17:18 Dose: 400 mg Lorazepam (Ativan) 0 mg IVPUSH Q4H PRN; Protocol PRN Reason: Withdrawal Symptoms Morphine Sulfate (Morphine) 2 mg IVPUSH Q2H PRN PRN Reason: Pain (severe 7-10) Last Admin: 04/29/19 06:47 Dose: 2 mg Omeprazole (Omeprazole) 20 mg PO ACBREAKFAST REPLACED BY [facility] Last Admin: 04/29/19 06:44 Dose: 20 mg Potassium Chloride (Klor-Con M20) 40 meq PO BID REPLACED BY [facility] Stop: 04/29/19 21:01 Promethazine HCl (Phenergan) 25 mg PO Q8H PRN PRN Reason: Nausea Sodium Chloride (Saline Flush) 10 ml FLUSH ASDIRECTED PRN PRN Reason: Keep Vein Open Sodium Chloride (Saline Flush) 2.5 ml FLUSH ASDIRECTED PRN PRN Reason: Keep Vein Open Thiamine HCl (Vitamin B-1) 100 mg PO BEDTIME REPLACED BY [facility] Last Admin: 04/28/19 20:54 Dose: 100 mg Discontinued Medications Furosemide (Lasix) 20 mg PO ONETIME ONE Stop: 04/29/19 08:26 Gadobenate Dimeglumine (Multihance) 8 ml IVPUSH ONETIME STA Stop: 04/28/19 12:26 Last Admin: 04/28/19 12:28 Dose: 8 ml Heparin Sodium (Porcine) (Heparin Sodium) 5,000 units SUBCUT Q8H REPLACED BY [facility] Last Admin: 04/28/19 16:13 Dose: Not Given Sodium Chloride (Normal Saline) 1,000 mls @ 999 mls/hr IV STAT ONE Stop: 04/27/19 21:44 Last Admin: 04/27/19 21:04 Dose: 999 mls/hr Sodium Chloride (Normal Saline) 1,000 mls @ 125 mls/hr IV STAT REPLACED BY [facility] Last Admin: 04/28/19 01:47 Dose: 125 mls/hr Iopamidol (Isovue-370 (76%)) 100 ml IVPUSH ONETIME ONE Stop: 04/27/19 22:53 Last Admin: 04/27/19 23:10 Dose: 100 ml Morphine Sulfate (Morphine) 2 mg IVPUSH Q4H PRN PRN Reason: Pain Last Admin: 04/28/19 03:41 Dose: 2 mg Ondansetron HCl (Zofran) 4 mg IVPUSH ONETIME ONE Stop: 04/27/19 20:45 Last Admin: 04/27/19 21:05 Dose: 4 mg - Exam General: Alert, Oriented, Cooperative, No Acute Distress HEENT: Scleral Icterus Lungs: Clear to Auscultation, Normal Respiratory Effort. No: Crackles, Wheezing Cardiovascular: Regular Rate, Regular Rhythm GI/Abdominal Exam: Distended, Tender. No: Rebound Extremities: Normal Inspection, Non-Tender Skin: Warm, Dry - Problem List Review Problem List Initiated/Reviewed/Updated: Yes - My Orders Last 24 Hours: My Active Orders 04/28/19 08:43 LORazepam [Ativan] See Protocol IVPUSH Q4H PRN 04/28/19 08:46 CIWAA Assessment [RC] Q4H 04/28/19 11:03 Echo Comp wo Cont [US] Routine 04/28/19 12:00 Height and Weight [RC] DAILY Intake and Output Strict [RC] Q12H 04/28/19 15:27 CULTURE BODY FLUID + SMEAR [RM] Routine 04/28/19 21:00 Enoxaparin [Lovenox] 40 mg SUBCUT Q24H 04/28/19 Dinner Fluid Restriction [DIET] 04/28/19 Lunch High Protein Diet [DIET] 04/29/19 05:03 HEPATITIS PANEL (4) [REF] Routine 04/29/19 08:20 OCCULT BLOOD DIAGNOSTIC [OP] Routine 04/29/19 09:00 Potassium Chloride [Klor-Con M20] 40 meq PO BID - Plan Plan:: A: 1. Acute alcoholic hepatitis 2. Hyperbilirubinemia, improving 3. Elevated liver enzymes, improving 4. Hyponatremia, improving 5. Normocytic anemia 6. Alcohol abuse 7. Ascites s/p paracentesis with 1.5 L removed. P: 1. Acute alcoholic hepatitis, stable. MRCP did not show any biliary obstruction. Continue to monitor liver enzymes. 2. Ascites- will give lasix 20 mg PO once and monitor output. 3. Hyperbilirubinemia, improving. Continue to monitor. 4. Hyponatremia, improving. Continue to monitor. Fluid restriction 2 L/day. 5. Alcohol abuse- CIWA monitoring, lorazepam PRN. Dispo: 1-2 days. <Raphael Suárez - Last Filed: 04/29/19 12:42> - General Info Admission Dx/Problem (Free Text): I have seen and examined to patient independently of medical staff director, Praneeth Araujo MD. I have discussed the case for care of this patient with him. I have reviewed and approve of the plan of care as outlined by medical staff director. Please see orders. - Patient Data Vitals - Most Recent: Last Vital Signs Temp 36 C 04/29/19 08:00 Pulse 85 04/29/19 08:00 Resp 14 04/29/19 08:00 BP 99/54 L 04/29/19 08:00 Pulse Ox 95 04/29/19 08:00 I&O - Last 24 Hours: Intake & Output 04/28/19 04/29/19 04/29/19 22:59 06:59 14:59 Intake Total 640 700 Output Total 250 300 Balance 390 400 Lab Results Last 24 Hours: Laboratory Results - last 24 hr 04/28/19 04/29/19 04/29/19 Range/Units 15:27 05:03 05:03 WBC 6.77 (4.0-11.0) K/uL RBC 2.57 L (4.30-5.90) M/uL Hgb 8.7 L (12.0-16.0) g/dL Hct 25.5 L (36.0-46.0) % MCV 99.2 H (80.0-98.0) fL MCH 33.9 H (27.0-32.0) pg MCHC 34.1 (31.0-37.0) g/dL RDW Std Deviation 70.3 H (28.0-62.0) fl RDW Coeff of Mayito 20 H (11.0-15.0) % Plt Count 126 L (150-400) K/uL MPV 10.80 (7.40-12.00) fL Nucleated RBC % 0.0 /100WBC Nucleated RBCs # 0 K/uL INR 1.95 Sodium (136-145) mmol/L Potassium (3.5-5.1) mmol/L Chloride (98-107) mmol/L Carbon Dioxide (21.0-32.0) mmol/L BUN (7.0-18.0) mg/dL Creatinine (0.6-1.0) mg/dL Est Cr Clr Drug Dosing mL/min Estimated GFR (MDRD) ml/min Glucose (74-106) mg/dL Calcium (8.5-10.1) mg/dL Total Bilirubin (0.2-1.0) mg/dL AST (15-37) IU/L ALT (14-63) IU/L Alkaline Phosphatase (46-116) U/L Total Protein (6.4-8.2) g/dL Albumin (3.4-5.0) g/dL Globulin (2.6-4.0) g/dL Albumin/Globulin Ratio (0.9-1.6) Fluid Type PER Fluid Color YELLOW Fluid Appearance CLEAR Fluid WBC 0.06 K/uL Fluid RBC 0.00 M/uL Fluid Mononuclear Cell 82.1 % Fl Polymorphonucl Cell 17.9 % Fluid Total Protein 0.4 g/dL Fluid Albumin 0.0 g/dL 04/29/19 Range/Units 05:03 WBC (4.0-11.0) K/uL RBC (4.30-5.90) M/uL Hgb (12.0-16.0) g/dL Hct (36.0-46.0) % MCV (80.0-98.0) fL MCH (27.0-32.0) pg MCHC (31.0-37.0) g/dL RDW Std Deviation (28.0-62.0) fl RDW Coeff of Mayito (11.0-15.0) % Plt Count (150-400) K/uL MPV (7.40-12.00) fL Nucleated RBC % /100WBC Nucleated RBCs # K/uL INR Sodium 130 L (136-145) mmol/L Potassium 3.0 L (3.5-5.1) mmol/L Chloride 93 L (98-107) mmol/L Carbon Dioxide 29.5 (21.0-32.0) mmol/L BUN 8 (7.0-18.0) mg/dL Creatinine 0.6 (0.6-1.0) mg/dL Est Cr Clr Drug Dosing 98.03 mL/min Estimated GFR (MDRD) > 60.0 ml/min Glucose 66 L (74-106) mg/dL Calcium 7.6 L (8.5-10.1) mg/dL Total Bilirubin 10.5 H (0.2-1.0) mg/dL AST 303 H (15-37) IU/L ALT 71 H (14-63) IU/L Alkaline Phosphatase 227 H (46-116) U/L Total Protein 5.9 L (6.4-8.2) g/dL Albumin 1.9 L (3.4-5.0) g/dL Globulin 4.0 (2.6-4.0) g/dL Albumin/Globulin Ratio 0.5 L (0.9-1.6) Fluid Type Fluid Color Fluid Appearance Fluid WBC K/uL Fluid RBC M/uL Fluid Mononuclear Cell % Fl Polymorphonucl Cell % Fluid Total Protein g/dL Fluid Albumin g/dL Peng Results Last 24 Hours: Microbiology 04/28/19 15:27 Gram Stain - Preliminary Ascities Fluid Med Orders - Current: Current Medications Enoxaparin Sodium (Lovenox) 40 mg SUBCUT Q24H REPLACED BY [facility] Last Admin: 04/28/19 20:54 Dose: 40 mg Folic Acid (Folic Acid) 1 mg PO BEDTIME [facility]STIE Last Admin: 04/28/19 20:54 Dose: 1 mg Hyoscyamine (Hyomax-Sl) 0.125 mg SL Q4H PRN PRN Reason: Pain Ibuprofen (Motrin) 400 mg PO Q6H PRN PRN Reason: Pain (mild 1-3) Last Admin: 04/28/19 17:18 Dose: 400 mg Lorazepam (Ativan) 0 mg IVPUSH Q4H PRN; Protocol PRN Reason: Withdrawal Symptoms Morphine Sulfate (Morphine) 2 mg IVPUSH Q2H PRN PRN Reason: Pain (severe 7-10) Last Admin: 04/29/19 06:47 Dose: 2 mg Omeprazole (Omeprazole) 20 mg PO ACBREAKFAST REPLACED BY [facility] Last Admin: 04/29/19 06:44 Dose: 20 mg Potassium Chloride (Klor-Con M20) 40 meq PO BID REPLACED BY [facility] Stop: 04/29/19 21:01 Last Admin: 04/29/19 10:09 Dose: 40 meq Promethazine HCl (Phenergan) 25 mg PO Q8H PRN PRN Reason: Nausea Sodium Chloride (Saline Flush) 10 ml FLUSH ASDIRECTED PRN PRN Reason: Keep Vein Open Sodium Chloride (Saline Flush) 2.5 ml FLUSH ASDIRECTED PRN PRN Reason: Keep Vein Open Thiamine HCl (Vitamin B-1) 100 mg PO BEDTIME REPLACED BY [facility] Last Admin: 04/28/19 20:54 Dose: 100 mg Discontinued Medications Furosemide (Lasix) 20 mg PO ONETIME ONE Stop: 04/29/19 08:26 Last Admin: 04/29/19 10:08 Dose: 20 mg Gadobenate Dimeglumine (Multihance) 8 ml IVPUSH ONETIME STA Stop: 04/28/19 12:26 Last Admin: 04/28/19 12:28 Dose: 8 ml Heparin Sodium (Porcine) (Heparin Sodium) 5,000 units SUBCUT Q8H [facility]ST[facility] Last Admin: 04/28/19 16:13 Dose: Not Given Sodium Chloride (Normal Saline) 1,000 mls @ 999 mls/hr IV STAT ONE Stop: 04/27/19 21:44 Last Admin: 04/27/19 21:04 Dose: 999 mls/hr Sodium Chloride (Normal Saline) 1,000 mls @ 125 mls/hr IV STAT [facility]STIE Last Admin: 04/28/19 01:47 Dose: 125 mls/hr Iopamidol (Isovue-370 (76%)) 100 ml IVPUSH ONETIME ONE Stop: 04/27/19 22:53 Last Admin: 04/27/19 23:10 Dose: 100 ml Morphine Sulfate (Morphine) 2 mg IVPUSH Q4H PRN PRN Reason: Pain Last Admin: 04/28/19 03:41 Dose: 2 mg Ondansetron HCl (Zofran) 4 mg IVPUSH ONETIME ONE Stop: 04/27/19 20:45 Last Admin: 04/27/19 21:05 Dose: 4 mg - My Orders Last 24 Hours: My Active Orders 04/28/19 21:00 Folic Acid 1 mg PO BEDTIME Thiamine [Vitamin B-1] 100 mg PO BEDTIME 04/29/19 07:26 Admission Status [Patient Status] [ADT] Routine
[2019-04-29] MEDS: Potassium Chloride 20 MEQ Tab.ER PO SCH ×2 (10:09→20:52)
[2019-04-29] MEDS: Ibuprofen 400 MG Tab PO PRN (14:27)
[2019-04-29] MEDS ORDERED: Pantoprazole 40 MG Vial IVPUSH ONE (17:05)
[2019-04-29] MEDS: Thiamine 100 MG Tab PO SCH (20:52)
[2019-04-29] MEDS: Folic Acid 1 MG Tab PO SCH (20:52)
[2019-04-29] MEDS: oxyCODONE 5 MG Tab PO PRN (22:10)
[2019-04-30] MEDS: Morphine 2 MG/ML Syringe IVPUSH PRN ×2 (03:27→22:34)
[2019-04-30] MEDS: Pantoprazole 40 MG Vial IV SCH ×2 (04:32→17:30)
[2019-04-30] MEDS: Omeprazole 20 MG Cap.CR PO SCH (06:34)
[2019-04-30] MEDS: oxyCODONE 5 MG Tab PO PRN ×3 (07:58→21:21)
[2019-04-30] MEDS ORDERED: Sodium Chloride 0.9% 1,000 ML IV ONE ×2 (08:13)
[2019-04-30] MEDS ORDERED: Pantoprazole 40 MG in Sodium Chloride 0.9% 100 ML IVPUSH SCH (09:00)
--- NOTE | 2019-04-30 10:27 | PCM.PN ---
<Praneeth Rose - Last Filed: 04/30/19 10:20> - General Info Date of Service: 04/30/19 Subjective Update: No acute events overnight. Diuresed 1 L overnight. Has been feeling better. No chest pain, dyspnea. Some mild diffuse abdominal pain. Denies hematemesis or blood in stool. - Patient Data Vitals - Most Recent: Last Vital Signs Temp 36.6 C 04/30/19 04:00 Pulse 82 04/30/19 04:00 Resp 15 04/30/19 04:00 BP 92/54 L 04/30/19 04:00 Pulse Ox 95 04/30/19 04:00 Weight - Most Recent: 46.085 kg I&O - Last 24 Hours: Intake & Output 04/29/19 04/30/19 04/30/19 22:59 06:59 14:59 Intake Total 800 600 Output Total 900 100 Balance -100 500 Lab Results Last 24 Hours: Laboratory Results - last 24 hr 04/29/19 04/30/19 04/30/19 Range/Units 17:20 04:30 04:30 WBC 6.69 (4.0-11.0) K/uL RBC 2.59 L (4.30-5.90) M/uL Hgb 8.7 L (12.0-16.0) g/dL Hct 25.9 L (36.0-46.0) % MCV 100.0 H (80.0-98.0) fL MCH 33.6 H (27.0-32.0) pg MCHC 33.6 (31.0-37.0) g/dL RDW Std Deviation 72.9 H (28.0-62.0) fl RDW Coeff of Mayito 21 H (11.0-15.0) % Plt Count 125 L (150-400) K/uL MPV 10.60 (7.40-12.00) fL Nucleated RBC % 0.0 /100WBC Nucleated RBCs # 0 K/uL INR 1.75 Sodium (136-145) mmol/L Potassium (3.5-5.1) mmol/L Chloride (98-107) mmol/L Carbon Dioxide (21.0-32.0) mmol/L BUN (7.0-18.0) mg/dL Creatinine (0.6-1.0) mg/dL Est Cr Clr Drug Dosing mL/min Estimated GFR (MDRD) ml/min Glucose (74-106) mg/dL Calcium (8.5-10.1) mg/dL Total Bilirubin (0.2-1.0) mg/dL AST (15-37) IU/L ALT (14-63) IU/L Alkaline Phosphatase (46-116) U/L Total Protein (6.4-8.2) g/dL Albumin (3.4-5.0) g/dL Globulin (2.6-4.0) g/dL Albumin/Globulin Ratio (0.9-1.6) Blood Type A NEGATIVE Antibody Screen NEGATIVE 04/30/19 Range/Units 04:30 WBC (4.0-11.0) K/uL RBC (4.30-5.90) M/uL Hgb (12.0-16.0) g/dL Hct (36.0-46.0) % MCV (80.0-98.0) fL MCH (27.0-32.0) pg MCHC (31.0-37.0) g/dL RDW Std Deviation (28.0-62.0) fl RDW Coeff of Mayito (11.0-15.0) % Plt Count (150-400) K/uL MPV (7.40-12.00) fL Nucleated RBC % /100WBC Nucleated RBCs # K/uL INR Sodium 128 L (136-145) mmol/L Potassium 4.0 (3.5-5.1) mmol/L Chloride 92 L (98-107) mmol/L Carbon Dioxide 30.1 (21.0-32.0) mmol/L BUN 10 (7.0-18.0) mg/dL Creatinine 1.2 H (0.6-1.0) mg/dL Est Cr Clr Drug Dosing 48.97 mL/min Estimated GFR (MDRD) 52.1 ml/min Glucose 85 (74-106) mg/dL Calcium 7.3 L (8.5-10.1) mg/dL Total Bilirubin 9.3 H (0.2-1.0) mg/dL AST 246 H (15-37) IU/L ALT 69 H (14-63) IU/L Alkaline Phosphatase 214 H (46-116) U/L Total Protein 5.9 L (6.4-8.2) g/dL Albumin 1.9 L (3.4-5.0) g/dL Globulin 4.0 (2.6-4.0) g/dL Albumin/Globulin Ratio 0.5 L (0.9-1.6) Blood Type Antibody Screen Peng Results Last 24 Hours: Microbiology 04/28/19 15:27 Gram Stain - Final Ascities Fluid 04/29/19 12:18 Stool Occult Blood (PENG) - Final Stool / Feces POSITIVE OCCULT BLOOD REFERENCE RANGE: NEGATIVE Med Orders - Current: Current Medications Folic Acid (Folic Acid) 1 mg PO BEDTIME [facility] Last Admin: 04/29/19 20:52 Dose: 1 mg Hyoscyamine (Hyomax-Sl) 0.125 mg SL Q4H PRN PRN Reason: Pain Sodium Chloride (Normal Saline) 1,000 mls @ 75 mls/hr IV ONETIME ONE Stop: 04/30/19 21:32 Last Admin: 04/30/19 09:11 Dose: 75 mls/hr Lorazepam (Ativan) 0 mg IVPUSH Q4H PRN; Protocol PRN Reason: Withdrawal Symptoms Morphine Sulfate (Morphine) 2 mg IVPUSH Q2H PRN PRN Reason: Pain (severe 7-10) Last Admin: 04/30/19 03:27 Dose: 2 mg Omeprazole (Omeprazole) 20 mg PO ACBREAKFAST [facility] Last Admin: 04/30/19 06:34 Dose: 20 mg Oxycodone HCl (Oxycodone) 5 mg PO Q6H PRN PRN Reason: Pain Last Admin: 04/30/19 07:58 Dose: 5 mg Pantoprazole Sodium (Protonix Iv) 40 mg IV Q12H [facility] Last Admin: 04/30/19 04:32 Dose: 40 mg Promethazine HCl (Phenergan) 25 mg PO Q8H PRN PRN Reason: Nausea Sodium Chloride (Saline Flush) 10 ml FLUSH ASDIRECTED PRN PRN Reason: Keep Vein Open Sodium Chloride (Saline Flush) 2.5 ml FLUSH ASDIRECTED PRN PRN Reason: Keep Vein Open Thiamine HCl (Vitamin B-1) 100 mg PO BEDTIME [facility] Last Admin: 04/29/19 20:52 Dose: 100 mg Discontinued Medications Enoxaparin Sodium (Lovenox) 40 mg SUBCUT Q24H [facility] Last Admin: 04/28/19 20:54 Dose: 40 mg Furosemide (Lasix) 20 mg PO ONETIME ONE Stop: 04/29/19 08:26 Last Admin: 04/29/19 10:08 Dose: 20 mg Gadobenate Dimeglumine (Multihance) 8 ml IVPUSH ONETIME STA Stop: 04/28/19 12:26 Last Admin: 04/28/19 12:28 Dose: 8 ml Heparin Sodium (Porcine) (Heparin Sodium) 5,000 units SUBCUT Q8H [facility] Last Admin: 04/28/19 16:13 Dose: Not Given Sodium Chloride (Normal Saline) 1,000 mls @ 999 mls/hr IV STAT ONE Stop: 04/27/19 21:44 Last Admin: 04/27/19 21:04 Dose: 999 mls/hr Sodium Chloride (Normal Saline) 1,000 mls @ 125 mls/hr IV STAT CHRISTIE Last Admin: 04/28/19 01:47 Dose: 125 mls/hr Sodium Chloride (Normal Saline) 1,000 mls @ 999 mls/hr IV STAT ONE Stop: 04/30/19 09:13 Last Admin: 04/30/19 09:44 Dose: Not Given Ibuprofen (Motrin) 400 mg PO Q6H PRN PRN Reason: Pain (mild 1-3) Last Admin: 04/29/19 14:27 Dose: 400 mg Iopamidol (Isovue-370 (76%)) 100 ml IVPUSH ONETIME ONE Stop: 04/27/19 22:53 Last Admin: 04/27/19 23:10 Dose: 100 ml Morphine Sulfate (Morphine) 2 mg IVPUSH Q4H PRN PRN Reason: Pain Last Admin: 04/28/19 03:41 Dose: 2 mg Ondansetron HCl (Zofran) 4 mg IVPUSH ONETIME ONE Stop: 04/27/19 20:45 Last Admin: 04/27/19 21:05 Dose: 4 mg Pantoprazole Sodium (Protonix Iv) 80 mg IVPUSH .BOLUS ONE Stop: 04/29/19 17:06 Last Admin: 04/29/19 18:03 Dose: 80 mg Potassium Chloride (Klor-Con M20) 40 meq PO BID CHRISTIE Stop: 04/29/19 21:01 Last Admin: 04/29/19 20:52 Dose: 40 meq - Exam General: Alert, Oriented, Cooperative, No Acute Distress HEENT: Scleral Icterus Lungs: Clear to Auscultation, Normal Respiratory Effort. No: Crackles, Wheezing Cardiovascular: Regular Rate, Regular Rhythm GI/Abdominal Exam: Other (distended, positive fluid wave. mild diffuse tenderness all throught out.) Extremities: Normal Inspection, No Pedal Edema Skin: Warm, Dry - Problem List Review Problem List Initiated/Reviewed/Updated: Yes - My Orders Last 24 Hours: My Active Orders 04/29/19 17:11 Antiembolic Devices [RC] PER UNIT ROUTINE SCD [Sequential Compression Device] [OM.PC] Routine 04/29/19 18:13 oxyCODONE 5 mg PO Q6H PRN 04/30/19 05:00 Pantoprazole [ProTONIX IV] 40 mg IV Q12H 04/30/19 08:13 Sodium Chloride 0.9% [Normal Saline] 1,000 ml IV ONETIME 05/01/19 05:11 CBC W/O DIFF,HEMOGRAM [HEME] AM COMPREHENSIVE METABOLIC PN,CMP [CHEM] AM INR,PT,PROTHROMBIN TIME [COAG] AM 05/02/19 05:11 CBC W/O DIFF,HEMOGRAM [HEME] AM COMPREHENSIVE METABOLIC PN,CMP [CHEM] AM INR,PT,PROTHROMBIN TIME [COAG] AM - Plan Plan:: A: 1. Acute alcoholic hepatitis 2. Acute kidney injury 3. Positive stool occult 4. Hyperbilirubinemia, improving 5. Elevated liver enzymes, improving 6. Hyponatremia, stable 7. Normocytic anemia 8. Alcohol abuse 9. Ascites s/p paracentesis with 1.5 L removed. P: 1. Acute alcoholic hepatitis, improving. T. bili and LFTs trending down. 2. Acute kidney injury. Started NS at 75 ml/hr for 1 liter. Will monitor. 3. Positive stool occult- Hg has remained stable. Will continue with Protonix 40 mg IV Q12H. Will recheck Hg tomorrow. 4. Alcohol abuse- CIWA monitoring, lorazepam PRN. Dispo: likely dc tomorrow. <Raphael Suárez - Last Filed: 04/30/19 10:32> - General Info Admission Dx/Problem (Free Text): I have seen and examined to patient independently of remote medical coder, Praneeth Araujo MD. I have discussed the case for care of this patient with him. I have reviewed and approve of the plan of care as outlined by remote medical coder. Please see orders. - Patient Data Vitals - Most Recent: Last Vital Signs Temp 36.6 C 04/30/19 04:00 Pulse 82 04/30/19 04:00 Resp 15 04/30/19 04:00 BP 92/54 L 04/30/19 04:00 Pulse Ox 95 04/30/19 04:00 I&O - Last 24 Hours: Intake & Output 04/29/19 04/30/19 04/30/19 22:59 06:59 14:59 Intake Total 800 600 Output Total 900 100 Balance -100 500 Lab Results Last 24 Hours: Laboratory Results - last 24 hr 04/29/19 04/30/19 04/30/19 Range/Units 17:20 04:30 04:30 WBC 6.69 (4.0-11.0) K/uL RBC 2.59 L (4.30-5.90) M/uL Hgb 8.7 L (12.0-16.0) g/dL Hct 25.9 L (36.0-46.0) % MCV 100.0 H (80.0-98.0) fL MCH 33.6 H (27.0-32.0) pg MCHC 33.6 (31.0-37.0) g/dL RDW Std Deviation 72.9 H (28.0-62.0) fl RDW Coeff of Mayito 21 H (11.0-15.0) % Plt Count 125 L (150-400) K/uL MPV 10.60 (7.40-12.00) fL Nucleated RBC % 0.0 /100WBC Nucleated RBCs # 0 K/uL INR 1.75 Sodium (136-145) mmol/L Potassium (3.5-5.1) mmol/L Chloride (98-107) mmol/L Carbon Dioxide (21.0-32.0) mmol/L BUN (7.0-18.0) mg/dL Creatinine (0.6-1.0) mg/dL Est Cr Clr Drug Dosing mL/min Estimated GFR (MDRD) ml/min Glucose (74-106) mg/dL Calcium (8.5-10.1) mg/dL Total Bilirubin (0.2-1.0) mg/dL AST (15-37) IU/L ALT (14-63) IU/L Alkaline Phosphatase (46-116) U/L Total Protein (6.4-8.2) g/dL Albumin (3.4-5.0) g/dL Globulin (2.6-4.0) g/dL Albumin/Globulin Ratio (0.9-1.6) Blood Type A NEGATIVE Antibody Screen NEGATIVE 04/30/19 Range/Units 04:30 WBC (4.0-11.0) K/uL RBC (4.30-5.90) M/uL Hgb (12.0-16.0) g/dL Hct (36.0-46.0) % MCV (80.0-98.0) fL MCH (27.0-32.0) pg MCHC (31.0-37.0) g/dL RDW Std Deviation (28.0-62.0) fl RDW Coeff of Mayito (11.0-15.0) % Plt Count (150-400) K/uL MPV (7.40-12.00) fL Nucleated RBC % /100WBC Nucleated RBCs # K/uL INR Sodium 128 L (136-145) mmol/L Potassium 4.0 (3.5-5.1) mmol/L Chloride 92 L (98-107) mmol/L Carbon Dioxide 30.1 (21.0-32.0) mmol/L BUN 10 (7.0-18.0) mg/dL Creatinine 1.2 H (0.6-1.0) mg/dL Est Cr Clr Drug Dosing 48.97 mL/min Estimated GFR (MDRD) 52.1 ml/min Glucose 85 (74-106) mg/dL Calcium 7.3 L (8.5-10.1) mg/dL Total Bilirubin 9.3 H (0.2-1.0) mg/dL AST 246 H (15-37) IU/L ALT 69 H (14-63) IU/L Alkaline Phosphatase 214 H (46-116) U/L Total Protein 5.9 L (6.4-8.2) g/dL Albumin 1.9 L (3.4-5.0) g/dL Globulin 4.0 (2.6-4.0) g/dL Albumin/Globulin Ratio 0.5 L (0.9-1.6) Blood Type Antibody Screen Peng Results Last 24 Hours: Microbiology 04/28/19 15:27 Gram Stain - Final Ascities Fluid 04/29/19 12:18 Stool Occult Blood (PENG) - Final Stool / Feces POSITIVE OCCULT BLOOD REFERENCE RANGE: NEGATIVE Med Orders - Current: Current Medications Folic Acid (Folic Acid) 1 mg PO BEDTIME [facility] Last Admin: 04/29/19 20:52 Dose: 1 mg Hyoscyamine (Hyomax-Sl) 0.125 mg SL Q4H PRN PRN Reason: Pain Sodium Chloride (Normal Saline) 1,000 mls @ 75 mls/hr IV ONETIME ONE Stop: 04/30/19 21:32 Last Admin: 04/30/19 09:11 Dose: 75 mls/hr Lorazepam (Ativan) 0 mg IVPUSH Q4H PRN; Protocol PRN Reason: Withdrawal Symptoms Morphine Sulfate (Morphine) 2 mg IVPUSH Q2H PRN PRN Reason: Pain (severe 7-10) Last Admin: 04/30/19 03:27 Dose: 2 mg Omeprazole (Omeprazole) 20 mg PO ACBREAKFAST [facility] Last Admin: 04/30/19 06:34 Dose: 20 mg Oxycodone HCl (Oxycodone) 5 mg PO Q6H PRN PRN Reason: Pain Last Admin: 04/30/19 07:58 Dose: 5 mg Pantoprazole Sodium (Protonix Iv) 40 mg IV Q12H [facility] Last Admin: 04/30/19 04:32 Dose: 40 mg Promethazine HCl (Phenergan) 25 mg PO Q8H PRN PRN Reason: Nausea Sodium Chloride (Saline Flush) 10 ml FLUSH ASDIRECTED PRN PRN Reason: Keep Vein Open Sodium Chloride (Saline Flush) 2.5 ml FLUSH ASDIRECTED PRN PRN Reason: Keep Vein Open Thiamine HCl (Vitamin B-1) 100 mg PO BEDTIME [facility] Last Admin: 04/29/19 20:52 Dose: 100 mg Discontinued Medications Enoxaparin Sodium (Lovenox) 40 mg SUBCUT Q24H [facility] Last Admin: 04/28/19 20:54 Dose: 40 mg Furosemide (Lasix) 20 mg PO ONETIME ONE Stop: 04/29/19 08:26 Last Admin: 04/29/19 10:08 Dose: 20 mg Gadobenate Dimeglumine (Multihance) 8 ml IVPUSH ONETIME STA Stop: 04/28/19 12:26 Last Admin: 04/28/19 12:28 Dose: 8 ml Heparin Sodium (Porcine) (Heparin Sodium) 5,000 units SUBCUT Q8H [facility] Last Admin: 04/28/19 16:13 Dose: Not Given Sodium Chloride (Normal Saline) 1,000 mls @ 999 mls/hr IV STAT ONE Stop: 04/27/19 21:44 Last Admin: 04/27/19 21:04 Dose: 999 mls/hr Sodium Chloride (Normal Saline) 1,000 mls @ 125 mls/hr IV STAT [facility]RISTIE Last Admin: 04/28/19 01:47 Dose: 125 mls/hr Sodium Chloride (Normal Saline) 1,000 mls @ 999 mls/hr IV STAT ONE Stop: 04/30/19 09:13 Last Admin: 04/30/19 09:44 Dose: Not Given Ibuprofen (Motrin) 400 mg PO Q6H PRN PRN Reason: Pain (mild 1-3) Last Admin: 04/29/19 14:27 Dose: 400 mg Iopamidol (Isovue-370 (76%)) 100 ml IVPUSH ONETIME ONE Stop: 04/27/19 22:53 Last Admin: 04/27/19 23:10 Dose: 100 ml Morphine Sulfate (Morphine) 2 mg IVPUSH Q4H PRN PRN Reason: Pain Last Admin: 04/28/19 03:41 Dose: 2 mg Ondansetron HCl (Zofran) 4 mg IVPUSH ONETIME ONE Stop: 04/27/19 20:45 Last Admin: 04/27/19 21:05 Dose: 4 mg Pantoprazole Sodium (Protonix Iv) 80 mg IVPUSH .BOLUS ONE Stop: 04/29/19 17:06 Last Admin: 04/29/19 18:03 Dose: 80 mg Potassium Chloride (Klor-Con M20) 40 meq PO BID CHRISTIE Stop: 04/29/19 21:01 Last Admin: 04/29/19 20:52 Dose: 40 meq
[2019-04-30] MEDS ORDERED: Albumin 25% 12.5 GM/50 ML BAG IV ONE (15:51)
[2019-04-30] MEDS ORDERED: Furosemide 20 MG/2 ML VIAL IVPUSH SCH (17:00)
[2019-04-30] MEDS: Thiamine 100 MG Tab PO SCH (21:21)
[2019-04-30] MEDS: Folic Acid 1 MG Tab PO SCH (21:21)
[2019-05-01] MEDS: Morphine 2 MG/ML Syringe IVPUSH PRN ×3 (01:25→08:59)
[2019-05-01] MEDS: Pantoprazole 40 MG Vial IV SCH (04:55)
[2019-05-01 06:26] LABS: CHLORIDE,CL 93 mmol/L (98-107); SODIUM,NA 129 mmol/L (136-145)
[2019-05-01] MEDS: Omeprazole 20 MG Cap.CR PO SCH (06:59)
[2019-05-01] MEDS: oxyCODONE 5 MG Tab PO PRN ×2 (07:02→13:19)
[2019-05-01] MEDS ORDERED: Potassium Chloride 20 MEQ Tab.ER PO SCH (09:00)
[2019-05-01] MEDS ORDERED: Furosemide 20 MG Tab PO SCH (09:00)
--- NOTE | 2019-05-01 11:28 | US ---
INDICATION: Evaluate ascites. TECHNIQUE: Sonographic images were obtained of all 4 quadrants. There is moderate ascites. The largest pocket is in the right lower quadrant and measures 5.4 cm in depth. IMPRESSION: Moderate ascites. Dictated by Harley Lopez MD @ May 01 2019 11:23AM Signed by Dr. Harley Lopez @ May 01 2019 11:27AM
--- NOTE | 2019-05-01 11:48 | PCM.DCSUM1 ---
<Praneeth Rose - Last Filed: 05/01/19 11:59> Discharge Summary - Hospital Course Free Text/Narrative:: 33 y/o female with history of alcohol abuse who presented with abdominal distention and pain. She was admitted for acute alcoholic hepatitis with T bili 10.8, elevated liver enzymes and hyponatremia. RUQ ultrasound showed suspected liver cirrhosis. A diagnostic and therapeutic paracentesis was done which removed 1.5 L ascitic fluid. Fluid analysis was consistent with portal hypertension. No infection. Occult stool was positive for blood and she was started on protonix and her Hg was monitored. Her Hg remained stable and she did not have any bleeding episodes. A repeat abdominal ultrasound showed recurrent ascites. An outpatient order for a therapeutic paracentesis was made prior to discharge. At time of discharge her bilirubin was trending down at 9 and other LFTs were trending down. She was discharged home on Lasix 20 mg PO daily and potassium 20 mEq PO daily while on Lasix. Patient will need outpatient follow-up with GI for an upper and lower endoscopy to assess for varices and GI bleed. Patient was strongly advised to abstain from alcohol and any mood altering substances. - Discharge Data Discharge Date: 05/01/19 Discharge Disposition: Home, Self-Care 01 Condition: Fair - Patient Instructions Diet: Regular Diet as Tolerated, No Alcoholic Beverages, Fluid Restriction Diet, Other: High protein diet Fluid Restriction: 2000 mL Activity: As Tolerated Notify Provider of: Fever, Increased Pain, Swelling and Redness, Nausea and/or Vomiting Other/Special Instructions: Follow-up with outpatient paracentesis. Please abstain from alcohol and any mind altering substances. - Discharge Plan *PRESCRIPTION DRUG MONITORING PROGRAM REVIEWED*: Not Applicable *COPY OF PRESCRIPTION DRUG MONITORING REPORT IN PATIENT MELODY: Not Applicable Prescriptions/Med Rec: Furosemide [Lasix] 20 mg PO DAILY 30 Days #30 tablet oxyCODONE 5 mg PO Q6H PRN #10 tab PRN Reason: Pain Potassium Chloride [Klor-Con M20] 20 meq PO DAILY 30 Days #30 tab.er Home Medications: Home Meds Esomeprazole Magnesium 40 mg PO DAILY 04/01/19 [History] Folic Acid 1 mg PO BEDTIME #30 tablet 04/03/19 [Rx] Thiamine [Vitamin B-1] 100 mg PO BEDTIME #30 tablet 04/03/19 [Rx] Hyoscyamine [Hyomax-SL] 0.125 mg SL Q4H PRN #20 tab.sl 04/22/19 [Rx] Promethazine [Phenergan] 25 mg PO Q8H PRN #6 tab 04/22/19 [Rx] Furosemide [Lasix] 20 mg PO DAILY 30 Days #30 tablet 05/01/19 [Rx] Potassium Chloride [Klor-Con M20] 20 meq PO DAILY 30 Days #30 tab.er 05/01/19 [ Rx] oxyCODONE 5 mg PO Q6H PRN #10 tab 05/01/19 [Rx] Patient Handouts: Furosemide tablets, Potassium chloride tablets, extended- release tablets or capsules, Oxycodone tablets or capsules, Liver Failure Referrals: [facility] [Outside] Huy Duarte MD [Primary Care Provider] - 05/06/19 12:30 pm - Discharge Summary/Plan Comment DC Time >30 min.: No - Patient Data Vitals - Most Recent: Last Vital Signs Temp 36.4 C 05/01/19 08:00 Pulse 89 05/01/19 08:00 Resp 16 05/01/19 08:00 BP 109/73 05/01/19 08:00 Pulse Ox 96 05/01/19 08:00 Weight - Most Recent: 50.984 kg I&O - Last 24 hours: Intake & Output 04/30/19 05/01/19 05/01/19 22:59 06:59 14:59 Intake Total 1360 750 Output Total 450 Balance 910 750 Lab Results - Last 24 hrs: Laboratory Results - last 24 hr 05/01/19 05/01/19 05/01/19 Range/Units 05:37 05:37 05:37 WBC 7.50 (4.0-11.0) K/uL RBC 2.64 L (4.30-5.90) M/uL Hgb 9.0 L (12.0-16.0) g/dL Hct 26.9 L (36.0-46.0) % MCV 101.9 H (80.0-98.0) fL MCH 34.1 H (27.0-32.0) pg MCHC 33.5 (31.0-37.0) g/dL RDW Std Deviation 79.5 H (28.0-62.0) fl RDW Coeff of Mayito 22 H (11.0-15.0) % Plt Count 117 L (150-400) K/uL MPV 10.40 (7.40-12.00) fL Nucleated RBC % 0.0 /100WBC Nucleated RBCs # 0 K/uL INR 1.55 Sodium 129 L (136-145) mmol/L Potassium 3.4 L (3.5-5.1) mmol/L Chloride 93 L (98-107) mmol/L Carbon Dioxide 32.0 (21.0-32.0) mmol/L BUN 9 (7.0-18.0) mg/dL Creatinine 0.7 (0.6-1.0) mg/dL Est Cr Clr Drug Dosing 83.94 mL/min Estimated GFR (MDRD) > 60.0 ml/min Glucose 80 (74-106) mg/dL Calcium 7.6 L (8.5-10.1) mg/dL Total Bilirubin 9.3 H (0.2-1.0) mg/dL AST 197 H (15-37) IU/L ALT 62 (14-63) IU/L Alkaline Phosphatase 218 H (46-116) U/L Total Protein 6.3 L (6.4-8.2) g/dL Albumin 2.2 L (3.4-5.0) g/dL Globulin 4.1 H (2.6-4.0) g/dL Albumin/Globulin Ratio 0.5 L (0.9-1.6) DIMAS Results - Last 24 hrs: Microbiology 04/28/19 15:27 Gram Stain - Final Ascities Fluid Body Fluid Culture - Final NO GROWTH AFTER 3 DAYS Med Orders - Current: Current Medications Folic Acid (Folic Acid) 1 mg PO BEDTIME CHRISTIE Last Admin: 04/30/19 21:21 Dose: 1 mg Furosemide (Lasix) 20 mg PO DAILY CHRISTIE Last Admin: 05/01/19 10:01 Dose: 20 mg Hyoscyamine (Hyomax-Sl) 0.125 mg SL Q4H PRN PRN Reason: Pain Lorazepam (Ativan) 0 mg IVPUSH Q4H PRN; Protocol PRN Reason: Withdrawal Symptoms Morphine Sulfate (Morphine) 2 mg IVPUSH Q2H PRN PRN Reason: Pain (severe 7-10) Last Admin: 05/01/19 08:59 Dose: 2 mg Omeprazole (Omeprazole) 20 mg PO ACBREAKFAST [facility] Last Admin: 05/01/19 06:59 Dose: 20 mg Oxycodone HCl (Oxycodone) 5 mg PO Q6H PRN PRN Reason: Pain Last Admin: 05/01/19 07:02 Dose: 5 mg Pantoprazole Sodium (Protonix Iv) 40 mg IV Q12H [facility] Last Admin: 05/01/19 04:55 Dose: 40 mg Potassium Chloride (Klor-Con M20) 20 meq PO DAILY [facility] Last Admin: 05/01/19 10:01 Dose: 20 meq Promethazine HCl (Phenergan) 25 mg PO Q8H PRN PRN Reason: Nausea Sodium Chloride (Saline Flush) 10 ml FLUSH ASDIRECTED PRN PRN Reason: Keep Vein Open Sodium Chloride (Saline Flush) 2.5 ml FLUSH ASDIRECTED PRN PRN Reason: Keep Vein Open Thiamine HCl (Vitamin B-1) 100 mg PO BEDTIME [facility] Last Admin: 04/30/19 21:21 Dose: 100 mg Discontinued Medications Enoxaparin Sodium (Lovenox) 40 mg SUBCUT Q24H [facility] Last Admin: 04/28/19 20:54 Dose: 40 mg Furosemide (Lasix) 20 mg PO ONETIME ONE Stop: 04/29/19 08:26 Last Admin: 04/29/19 10:08 Dose: 20 mg Furosemide (Lasix) 20 mg IVPUSH 04/30/19@1700 CHRISTIE Stop: 04/30/19 17:01 Last Admin: 04/30/19 18:00 Dose: 20 mg Gadobenate Dimeglumine (Multihance) 8 ml IVPUSH ONETIME STA Stop: 04/28/19 12:26 Last Admin: 04/28/19 12:28 Dose: 8 ml Heparin Sodium (Porcine) (Heparin Sodium) 5,000 units SUBCUT Q8H [facility] Last Admin: 04/28/19 16:13 Dose: Not Given Sodium Chloride (Normal Saline) 1,000 mls @ 999 mls/hr IV STAT ONE Stop: 04/27/19 21:44 Last Admin: 04/27/19 21:04 Dose: 999 mls/hr Sodium Chloride (Normal Saline) 1,000 mls @ 125 mls/hr IV STAT [facility] Last Admin: 04/28/19 01:47 Dose: 125 mls/hr Sodium Chloride (Normal Saline) 1,000 mls @ 999 mls/hr IV STAT ONE Stop: 04/30/19 09:13 Last Admin: 04/30/19 09:44 Dose: Not Given Sodium Chloride (Normal Saline) 1,000 mls @ 75 mls/hr IV ONETIME ONE Stop: 04/30/19 21:32 Last Admin: 04/30/19 09:11 Dose: 75 mls/hr Albumin Human (Flexbumin 25%) 12.5 gm in 50 mls @ 100 mls/hr IV ONETIME ONE Stop: 04/30/19 16:20 Last Admin: 04/30/19 16:12 Dose: 100 mls/hr Ibuprofen (Motrin) 400 mg PO Q6H PRN PRN Reason: Pain (mild 1-3) Last Admin: 04/29/19 14:27 Dose: 400 mg Iopamidol (Isovue-370 (76%)) 100 ml IVPUSH ONETIME ONE Stop: 04/27/19 22:53 Last Admin: 04/27/19 23:10 Dose: 100 ml Morphine Sulfate (Morphine) 2 mg IVPUSH Q4H PRN PRN Reason: Pain Last Admin: 04/28/19 03:41 Dose: 2 mg Ondansetron HCl (Zofran) 4 mg IVPUSH ONETIME ONE Stop: 04/27/19 20:45 Last Admin: 04/27/19 21:05 Dose: 4 mg Pantoprazole Sodium (Protonix Iv) 80 mg IVPUSH .BOLUS ONE Stop: 04/29/19 17:06 Last Admin: 04/29/19 18:03 Dose: 80 mg Potassium Chloride (Klor-Con M20) 40 meq PO BID CHRISTIE Stop: 04/29/19 21:01 Last Admin: 04/29/19 20:52 Dose: 40 meq <Raphael Suárez - Last Filed: 05/01/19 12:22> Discharge Summary - Hospital Course HPI Initial Comments: I have seen and examined to patient independently of medical laboratory technologist, Praneeth Araujo MD. I have discussed the case for care of this patient with him. I have reviewed and approve of the plan of care as outlined by medical laboratory technologist. Please see orders. - Patient Data Vitals - Most Recent: Last Vital Signs Temp 36.4 C 05/01/19 12:00 Pulse 93 05/01/19 12:00 Resp 18 05/01/19 12:00 BP 95/63 05/01/19 12:00 Pulse Ox 94 L 05/01/19 12:00 I&O - Last 24 hours: Intake & Output 04/30/19 05/01/19 05/01/19 22:59 06:59 14:59 Intake Total 1360 750 Output Total 450 Balance 910 750 Lab Results - Last 24 hrs: Laboratory Results - last 24 hr 05/01/19 05/01/19 05/01/19 Range/Units 05:37 05:37 05:37 WBC 7.50 (4.0-11.0) K/uL RBC 2.64 L (4.30-5.90) M/uL Hgb 9.0 L (12.0-16.0) g/dL Hct 26.9 L (36.0-46.0) % MCV 101.9 H (80.0-98.0) fL MCH 34.1 H (27.0-32.0) pg MCHC 33.5 (31.0-37.0) g/dL RDW Std Deviation 79.5 H (28.0-62.0) fl RDW Coeff of Mayito 22 H (11.0-15.0) % Plt Count 117 L (150-400) K/uL MPV 10.40 (7.40-12.00) fL Nucleated RBC % 0.0 /100WBC Nucleated RBCs # 0 K/uL INR 1.55 Sodium 129 L (136-145) mmol/L Potassium 3.4 L (3.5-5.1) mmol/L Chloride 93 L (98-107) mmol/L Carbon Dioxide 32.0 (21.0-32.0) mmol/L BUN 9 (7.0-18.0) mg/dL Creatinine 0.7 (0.6-1.0) mg/dL Est Cr Clr Drug Dosing 83.94 mL/min Estimated GFR (MDRD) > 60.0 ml/min Glucose 80 (74-106) mg/dL Calcium 7.6 L (8.5-10.1) mg/dL Total Bilirubin 9.3 H (0.2-1.0) mg/dL AST 197 H (15-37) IU/L ALT 62 (14-63) IU/L Alkaline Phosphatase 218 H (46-116) U/L Total Protein 6.3 L (6.4-8.2) g/dL Albumin 2.2 L (3.4-5.0) g/dL Globulin 4.1 H (2.6-4.0) g/dL Albumin/Globulin Ratio 0.5 L (0.9-1.6) DIMAS Results - Last 24 hrs: Microbiology 04/28/19 15:27 Gram Stain - Final Ascities Fluid Body Fluid Culture - Final NO GROWTH AFTER 3 DAYS Med Orders - Current: Current Medications Folic Acid (Folic Acid) 1 mg PO BEDTIME [facility] Last Admin: 04/30/19 21:21 Dose: 1 mg Furosemide (Lasix) 20 mg PO DAILY [facility] Last Admin: 05/01/19 10:01 Dose: 20 mg Hyoscyamine (Hyomax-Sl) 0.125 mg SL Q4H PRN PRN Reason: Pain Lorazepam (Ativan) 0 mg IVPUSH Q4H PRN; Protocol PRN Reason: Withdrawal Symptoms Morphine Sulfate (Morphine) 2 mg IVPUSH Q2H PRN PRN Reason: Pain (severe 7-10) Last Admin: 05/01/19 08:59 Dose: 2 mg Omeprazole (Omeprazole) 20 mg PO ACBREAKFAST [facility] Last Admin: 05/01/19 06:59 Dose: 20 mg Oxycodone HCl (Oxycodone) 5 mg PO Q6H PRN PRN Reason: Pain Last Admin: 05/01/19 07:02 Dose: 5 mg Pantoprazole Sodium (Protonix Iv) 40 mg IV Q12H [facility] Last Admin: 05/01/19 04:55 Dose: 40 mg Potassium Chloride (Klor-Con M20) 20 meq PO DAILY [facility] Last Admin: 05/01/19 10:01 Dose: 20 meq Promethazine HCl (Phenergan) 25 mg PO Q8H PRN PRN Reason: Nausea Sodium Chloride (Saline Flush) 10 ml FLUSH ASDIRECTED PRN PRN Reason: Keep Vein Open Sodium Chloride (Saline Flush) 2.5 ml FLUSH ASDIRECTED PRN PRN Reason: Keep Vein Open Thiamine HCl (Vitamin B-1) 100 mg PO BEDTIME [facility] Last Admin: 04/30/19 21:21 Dose: 100 mg Discontinued Medications Enoxaparin Sodium (Lovenox) 40 mg SUBCUT Q24H [facility] Last Admin: 04/28/19 20:54 Dose: 40 mg Furosemide (Lasix) 20 mg PO ONETIME ONE Stop: 04/29/19 08:26 Last Admin: 04/29/19 10:08 Dose: 20 mg Furosemide (Lasix) 20 mg IVPUSH 04/30/19@1700 CHRISTIE Stop: 04/30/19 17:01 Last Admin: 04/30/19 18:00 Dose: 20 mg Gadobenate Dimeglumine (Multihance) 8 ml IVPUSH ONETIME STA Stop: 04/28/19 12:26 Last Admin: 04/28/19 12:28 Dose: 8 ml Heparin Sodium (Porcine) (Heparin Sodium) 5,000 units SUBCUT Q8H [facility] Last Admin: 04/28/19 16:13 Dose: Not Given Sodium Chloride (Normal Saline) 1,000 mls @ 999 mls/hr IV STAT ONE Stop: 04/27/19 21:44 Last Admin: 04/27/19 21:04 Dose: 999 mls/hr Sodium Chloride (Normal Saline) 1,000 mls @ 125 mls/hr IV STAT CHRISTIE Last Admin: 04/28/19 01:47 Dose: 125 mls/hr Sodium Chloride (Normal Saline) 1,000 mls @ 999 mls/hr IV STAT ONE Stop: 04/30/19 09:13 Last Admin: 04/30/19 09:44 Dose: Not Given Sodium Chloride (Normal Saline) 1,000 mls @ 75 mls/hr IV ONETIME ONE Stop: 04/30/19 21:32 Last Admin: 04/30/19 09:11 Dose: 75 mls/hr Albumin Human (Flexbumin 25%) 12.5 gm in 50 mls @ 100 mls/hr IV ONETIME ONE Stop: 04/30/19 16:20 Last Admin: 04/30/19 16:12 Dose: 100 mls/hr Ibuprofen (Motrin) 400 mg PO Q6H PRN PRN Reason: Pain (mild 1-3) Last Admin: 04/29/19 14:27 Dose: 400 mg Iopamidol (Isovue-370 (76%)) 100 ml IVPUSH ONETIME ONE Stop: 04/27/19 22:53 Last Admin: 04/27/19 23:10 Dose: 100 ml Morphine Sulfate (Morphine) 2 mg IVPUSH Q4H PRN PRN Reason: Pain Last Admin: 04/28/19 03:41 Dose: 2 mg Ondansetron HCl (Zofran) 4 mg IVPUSH ONETIME ONE Stop: 04/27/19 20:45 Last Admin: 04/27/19 21:05 Dose: 4 mg Pantoprazole Sodium (Protonix Iv) 80 mg IVPUSH .BOLUS ONE Stop: 04/29/19 17:06 Last Admin: 04/29/19 18:03 Dose: 80 mg Potassium Chloride (Klor-Con M20) 40 meq PO BID CHRISTIE Stop: 04/29/19 21:01 Last Admin: 04/29/19 20:52 Dose: 40 meq
[2019-05-01 12:18] VITALS: BP 95/63
--- NOTE | 2019-05-01 14:30 | ECHO ---
EXAM DATE: 04/29/19 PATIENT'S AGE: 33 The echocardiogram report can be seen in this patient's EMR (Electronic Medical Record) in the Reports section. The report has also been scanned into PACs. GLENROY
== END 2019-05-01 13:30 | disposition home or self-care (01) | DRG 433 ==
LOC: MW.ED 20:33 → MW.MS 04-28 02:08 → OBSVTOIN 04-29 07:26
PROVIDERS: ADMIT Internal Medicine; ATTEND Internal Medicine
DX: K70.11 Alcoholic hepatitis with ascites (principal); E87.1 Hypo-osmolality and hyponatremia; N17.9 Acute kidney failure, unspecified; K76.6 Portal hypertension; F17.210 Nicotine dependence, cigarettes, uncomplicated; K70.40 Alcoholic hepatic failure without coma; E80.6 Other disorders of bilirubin metabolism; F41.9 Anxiety disorder, unspecified; F32.9 Major depressive disorder, single episode, unspecified; D64.9 Anemia, unspecified; F10.10 Alcohol abuse, uncomplicated; Y90.9 Presence of alcohol in blood, level not specified; Z88.1 Allergy status to other antibiotic agents; Z91.040 Latex allergy status; Z88.8 Allergy status to other drugs, medicaments and biological substances; Z91.048 Other nonmedicinal substance allergy status; Z79.899 Other long term (current) drug therapy; I10 Essential (primary) hypertension; J44.9 Chronic obstructive pulmonary disease, unspecified; F17.200 Nicotine dependence, unspecified, uncomplicated
CPT/HCPCS: 36415 ×3; 49083; 74177; 74183; 76705; 80053 ×2; 80074; 81001; 81025; 82247; 82248; 82728; 83550; 83690; 84157; 85025; 85027; 85610 ×2; 85730; 87070; 87205; 88104; 89050; 93306; 96361 ×2; 96372; 96374; 96375; 96376 ×2; 99285; A9270 ×5; A9577; C1729; G0378 ×2; G0480; J1644; J1650; J2270 ×5; J2405; J7040 ×2; Q9967; 82272; 86850; 86900; 86901; 99284; C9113; P9047

== ENCOUNTER 2019-05-05 13:25 | Observation (INO) | payer MEDICAID ==
[2019-05-05] MEDS ORDERED: Sodium Chloride 0.9% 1,000 ML IV ONE (13:45)
[2019-05-05] MEDS ORDERED: Ketorolac 30 MG/ML SDV IVPUSH ONE (13:45)
[2019-05-05] MEDS ORDERED: Ondansetron 4 MG/2 ML SDV IVPUSH ONE (13:45)
--- NOTE | 2019-05-05 13:52 | EDM.PDOC ---
ED HPI GENERAL MEDICAL PROBLEM - General Chief Complaint: Abdominal Pain Stated Complaint: STOMACH PAIN Time Seen by Provider: 05/05/19 13:51 Source of Information: Reports: Patient History Limitations: Reports: No Limitations - History of Present Illness INITIAL COMMENTS - FREE TEXT/NARRATIVE: HISTORY AND PHYSICAL: History of present illness: Patient is a 33-year-old female who presents to the emergency room with complaints of abdominal pain, nausea and vomiting. She does have a history of alcoholic liver disease. She was admitted to the hospital on 04/28/2019 for ascites and the abdominal pain. She did have an ultrasound and MRI at that time which did show gallstones without any signs of acute cholecystitis. MRI showed cirrhosis and fatty infiltration with moderate ascites. She did have fluid drained from the abdomen, although cannot recall how much Patient states she hasn't drank alcohol since her previous admission. She does have a appointment with Dr. Duarte tomorrow on 05/06/19. She states that the pain got worse this morning along with swelling of her abdomen. Patient denies any fever, chills, headache, change in vision, syncope or near syncope. Denies any chest pain, back pain, shortness of breath or cough. Denies any diarrhea, constipation or dysuria. Has not noted any blood in urine or stool. Patient has been eating and drinking appropriately. Review of systems: As per history of present illness and below otherwise all systems reviewed and negative. Past medical history: As per history of present illness and as reviewed below otherwise noncontributory. Surgical history: As per history of present illness and as reviewed below otherwise noncontributory. Social history: See social history for further information Family history: As per history of present illness and as reviewed below otherwise noncontributory. Physical exam: General: Chronically ill appearing 33-year-old female. Does appear jaundice and in mild discomfort due to her abdominal pain. She is alert and oriented. Vital signs are stable and have been reviewed by me. HEENT: Atraumatic, normocephalic, pupils equal and reactive bilaterally, negative for conjunctival pallor, bilateral scleral icterus, mucous membranes moist, TMs normal bilaterally, throat clear, neck supple, nontender, trachea midline. No drooling or trismus noted. No meningeal signs. No hot potato voice noted. Lungs: Clear to auscultation, breath sounds equal bilaterally, chest nontender. Heart: S1S2, regular rate and rhythm without overt murmur Abdomen: Firm to palpation, skin is taught due to distended, ascites, and tender with touch. Negative for costovertebral tenderness. Pelvis: Stable nontender. Skin: Jaundice, intact, warm, dry. No lesions or rashes noted. Extremities: Atraumatic, moves all extremities per self without difficulty or deficits, negative for cords or calf pain. Neurovascular unremarkable. Neuro: Awake, alert, oriented. Cranial nerves II through XII unremarkable. Cerebellum unremarkable. Motor and sensory unremarkable throughout. Exam nonfocal. Notes: Patient did recently have imaging of the abdomen, will not order any new imaging and tolerated talked to the hospitalist so she likely will need admission or transfer. We'll give her pain medication. She declines any nausea medication at this time. Patient does have abnormal lab values. Spoke with Dr. Suárez about admission and tapping as the abdomen. He is agreeable to observing this patient. Patient is aware and agreeable to plan of care. She states her pain is under control at this time. Vital signs are stable. Diagnostics: CBC, CMP, UA, lipase, EKG Therapeutics: IV fluids, Zofran (declines), Toradol, Morphine Impression: Alcoholic Liver Disease Ascites Hypokalemia Plan: Observation admission to [facility] Definitive disposition and diagnosis as appropriate pending reevaluation and review of above. abdomen, back Pain Score (Numeric/FACES): 10 - Related Data Allergies Allergy/AdvReac Type Severity Reaction Status Date / Time amoxicillin trihydrate Allergy Hives Verified 05/05/19 13:47 [From Augmentin] latex Allergy Rash Verified 05/05/19 13:47 potassium clavulanate Allergy Hives Verified 05/05/19 13:47 [From Augmentin] Home Meds: Home Meds Esomeprazole Magnesium 40 mg PO DAILY 04/01/19 [History] Folic Acid 1 mg PO BEDTIME #30 tablet 04/03/19 [Rx] Thiamine [Vitamin B-1] 100 mg PO BEDTIME #30 tablet 04/03/19 [Rx] Hyoscyamine [Hyomax-SL] 0.125 mg SL Q4H PRN #20 tab.sl 04/22/19 [Rx] Promethazine [Phenergan] 25 mg PO Q8H PRN #6 tab 04/22/19 [Rx] Furosemide [Lasix] 20 mg PO DAILY 30 Days #30 tablet 05/01/19 [Rx] Potassium Chloride [Klor-Con M20] 20 meq PO DAILY 30 Days #30 tab.er 05/01/19 [ Rx] oxyCODONE 5 mg PO Q6H PRN #10 tab 05/01/19 [Rx] Nystatin [Nyata] 15 gm TP DAILY PRN #1 bottle 05/05/19 [Rx] Past Medical History HEENT History: Reports: None Cardiovascular History: Reports: Hypertension Respiratory History: Reports: COPD, Pneumothorax Gastrointestinal History: Reports: Cholelithiasis, Other (See Below) Other Gastrointestinal History: alcoholic liver dse Genitourinary History: Reports: None 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: Musculoskeletal History: Reports: None Neurological History: Reports: None Psychiatric History: Reports: Anxiety, Depression, Other (See Below) Other Psychiatric History: Major Depressive disorder Endocrine/Metabolic History: Reports: None Hematologic History: Reports: None Immunologic History: Reports: None Oncologic (Cancer) History: Reports: None Dermatologic History: Reports: None - Infectious Disease History Infectious Disease History: Reports: Chicken Pox, Measles, Mumps - Past Surgical History Head Surgeries/Procedures: Reports: None HEENT Surgical History: Reports: Tonsillectomy Cardiovascular Surgical History: Reports: None Respiratory Surgical History: Reports: None, Other (See Below) Other Respiratory Surgeries/Procedures: chest tube to right lung; right lobectomy GI Surgical History: Reports: None Female Surgical History: Reports: None Endocrine Surgical History: Reports: None Neurological Surgical History: Reports: None Musculoskeletal Surgical History: Reports: None Oncologic Surgical History: Reports: None Dermatological Surgical History: Reports: None Social & Family History - Family History Family Medical History: Noncontributory - Caffeine Use Caffeine Use: Reports: Coffee - Living Situation & Occupation Living situation: Reports: with Family Occupation: Unemployed ED ROS GENERAL - Review of Systems Review Of Systems: ROS reveals no pertinent complaints other than HPI. ED EXAM, GI/ABD - Physical Exam Exam: See Below (See dictation) Course - Vital Signs Last Recorded V/S: Last Vital Signs Temp 97.6 F 05/05/19 13:43 Pulse 122 H 05/05/19 13:43 Resp 22 H 05/05/19 13:43 BP 119/83 05/05/19 13:43 Pulse Ox 95 05/05/19 13:43 - Orders/Labs/Meds Orders: Active Orders 24 hr Category Date Time Status Admission Status [Patient Status] [ADT] Stat ADT 05/05/19 15:11 Ordered EKG Documentation Completion [RC] STAT Care 05/05/19 15:11 Ordered UA RFX DIMAS AND CULT IF INDIC [URIN] Stat Lab 05/05/19 13:45 Ordered Morphine Med 05/05/19 15:12 Once 2 mg IVPUSH ONETIME ONE Sodium Chloride 0.9% [Normal Saline] 1,000 ml Med 05/05/19 13:45 Active IV STAT Medication Orders Sodium Chloride (Normal Saline) 1,000 mls @ 100 mls/hr IV STAT ONE Stop: 05/05/19 23:44 Last Admin: 05/05/19 14:22 Dose: 50 mls/hr Labs: Laboratory Tests 05/05/19 05/05/19 Range/Units 14:05 14:05 WBC 6.47 (4.0-11.0) K/uL RBC 3.11 L (4.30-5.90) M/uL Hgb 10.6 L (12.0-16.0) g/dL Hct 31.9 L (36.0-46.0) % MCV 102.6 H (80.0-98.0) fL MCH 34.1 H (27.0-32.0) pg MCHC 33.2 (31.0-37.0) g/dL RDW Std Deviation 79.5 H (28.0-62.0) fl RDW Coeff of Mayito 21 H (11.0-15.0) % Plt Count 200 (150-400) K/uL MPV 10.20 (7.40-12.00) fL Neut % (Auto) 62.3 (48.0-80.0) % Lymph % (Auto) 22.3 (16.0-40.0) % Gordon % (Auto) 12.1 (0.0-15.0) % Eos % (Auto) 1.9 (0.0-7.0) % Baso % (Auto) 1.4 (0.0-1.5) % Neut # (Auto) 4.0 (1.4-5.7) K/uL Lymph # (Auto) 1.4 (0.6-2.4) K/uL Gordon # (Auto) 0.8 (0.0-0.8) K/uL Eos # (Auto) 0.1 (0.0-0.7) K/uL Baso # (Auto) 0.1 (0.0-0.1) K/uL Nucleated RBC % 0.0 /100WBC Nucleated RBCs # 0 K/uL Sodium 133 L (136-145) mmol/L Potassium 2.8 L (3.5-5.1) mmol/L Chloride 93 L (98-107) mmol/L Carbon Dioxide 30.2 (21.0-32.0) mmol/L BUN 7 (7.0-18.0) mg/dL Creatinine 0.6 (0.6-1.0) mg/dL Est Cr Clr Drug Dosing 101.15 mL/min Estimated GFR (MDRD) > 60.0 ml/min Glucose 115 H (74-106) mg/dL Calcium 8.3 L (8.5-10.1) mg/dL Total Bilirubin 10.8 H (0.2-1.0) mg/dL AST 147 H (15-37) IU/L ALT 49 (14-63) IU/L Alkaline Phosphatase 202 H (46-116) U/L Total Protein 7.2 (6.4-8.2) g/dL Albumin 2.3 L (3.4-5.0) g/dL Globulin 4.9 H (2.6-4.0) g/dL Albumin/Globulin Ratio 0.5 L (0.9-1.6) Lipase 247 (73-393) U/L Meds: Medications Generic Name Dose Route Start Last Admin Trade Name Freq PRN Reason Stop Dose Admin Sodium Chloride 1,000 mls @ 100 mls/hr 05/05/19 13:45 05/05/19 14:22 Normal Saline IV 05/05/19 23:44 50 mls/hr STAT ONE Administration Discontinued Medications Generic Name Dose Route Start Last Admin Trade Name Freq PRN Reason Stop Dose Admin Ketorolac Tromethamine 30 mg 05/05/19 13:45 05/05/19 14:22 Toradol IVPUSH 05/05/19 13:46 Not Given ONETIME ONE Morphine Sulfate 2 mg 05/05/19 13:53 05/05/19 14:12 Morphine IVPUSH 05/05/19 13:54 2 mg ONETIME ONE Administration Ondansetron HCl 4 mg 05/05/19 13:45 05/05/19 14:22 Zofran IVPUSH 05/05/19 13:46 Not Given ONETIME ONE Departure - Departure Time of Disposition: 15:13 Disposition: Refer to Observation Clinical Impression: Alcoholic liver disease, Hypokalemia Ascites Qualifiers: Ascites type: due to alcoholic cirrhosis Qualified Code(s): K70.31 - Alcoholic cirrhosis of liver with ascites - Discharge Information Prescriptions: Nystatin [Nyata] 15 gm TP DAILY PRN #1 bottle PRN Reason: Other Referrals: Huy Duarte MD [Primary Care Provider] - Forms: ED Department Discharge - My Orders Last 24 Hours: My Active Orders 05/05/19 13:45 UA RFX DIMAS AND CULT IF INDIC [URIN] Stat Sodium Chloride 0.9% [Normal Saline] 1,000 ml IV STAT 05/05/19 15:11 Admission Status [Patient Status] [ADT] Stat EKG Documentation Completion [RC] STAT 05/05/19 15:12 Morphine 2 mg IVPUSH ONETIME ONE - Assessment/Plan Last 24 Hours: My Active Orders 05/05/19 13:45 UA RFX DIMAS AND CULT IF INDIC [URIN] Stat Sodium Chloride 0.9% [Normal Saline] 1,000 ml IV STAT 05/05/19 15:11 Admission Status [Patient Status] [ADT] Stat EKG Documentation Completion [RC] STAT 05/05/19 15:12 Morphine 2 mg IVPUSH ONETIME ONE
[2019-05-05] MEDS ORDERED: Morphine 2 MG/ML Syringe IVPUSH ONE ×2 (13:53→15:12)
[2019-05-05 15:02] LABS: CHLORIDE,CL 93 mmol/L (98-107); SODIUM,NA 133 mmol/L (136-145)
[2019-05-05] MEDS ORDERED: Ondansetron 4 MG Tab.DIS PO PRN (15:41)
[2019-05-05] MEDS ORDERED: Ondansetron 4 MG/2 ML SDV IVPUSH PRN (15:41)
[2019-05-05] MEDS ORDERED: Ketorolac 30 MG/ML SDV IM PRN (15:41)
[2019-05-05] MEDS ORDERED: Furosemide 40 MG/4 ML VIAL IVPUSH ONE (15:54)
--- NOTE | 2019-05-05 16:12 | PCM.HP ---
H&P History of Present Illness - General Date of Service: 05/05/19 Admit Problem/Dx: Admission Diagnosis/Problem Admission Diagnosis/Problem Ascites due to alcoholic cirrhosis - History of Present Illness Initial Comments - Free Text/Narative: 33 y/o female who was recently hospitalized for acute alcoholic hepatitis s/p 1.5 L paracentesis. Now, presenting with worsening abdominal pain and distention. She states she has been taking her medications as indicated. Denies any alcohol intake. Poor appetite. No vomiting or dark stools. Denies any dyspnea or chest pain. No lower extremity swelling. Rates pain 8/10. No fevers. In the ER, she was found to have elevated liver enzymes and hypokalemia. abdomen, back Pain Score (Numeric/FACES): 10 - Related Data Allergies/Adverse Reactions: Allergies Allergy/AdvReac Type Severity Reaction Status Date / Time amoxicillin trihydrate Allergy Hives Verified 05/05/19 13:47 [From Augmentin] latex Allergy Rash Verified 05/05/19 13:47 potassium clavulanate Allergy Hives Verified 05/05/19 13:47 [From Augmentin] Home Medications: Home Meds Esomeprazole Magnesium 40 mg PO DAILY 04/01/19 [History] Folic Acid 1 mg PO BEDTIME #30 tablet 04/03/19 [Rx] Thiamine [Vitamin B-1] 100 mg PO BEDTIME #30 tablet 04/03/19 [Rx] Hyoscyamine [Hyomax-SL] 0.125 mg SL Q4H PRN #20 tab.sl 04/22/19 [Rx] Promethazine [Phenergan] 25 mg PO Q8H PRN #6 tab 04/22/19 [Rx] Furosemide [Lasix] 20 mg PO DAILY 30 Days #30 tablet 05/01/19 [Rx] Potassium Chloride [Klor-Con M20] 20 meq PO DAILY 30 Days #30 tab.er 05/01/19 [ Rx] oxyCODONE 5 mg PO Q6H PRN #10 tab 05/01/19 [Rx] Nystatin [Nyata] 15 gm TP DAILY PRN #1 bottle 05/05/19 [Rx] Past Medical History HEENT History: Reports: None Cardiovascular History: Reports: Hypertension Respiratory History: Reports: COPD, Pneumothorax Gastrointestinal History: Reports: Cholelithiasis, Other (See Below) Other Gastrointestinal History: alcoholic liver dse Genitourinary History: Reports: None 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: Musculoskeletal History: Reports: None Neurological History: Reports: None Psychiatric History: Reports: Anxiety, Depression, Other (See Below) Other Psychiatric History: Major Depressive disorder Endocrine/Metabolic History: Reports: None Hematologic History: Reports: None Immunologic History: Reports: None Oncologic (Cancer) History: Reports: None Dermatologic History: Reports: None - Infectious Disease History Infectious Disease History: Reports: Chicken Pox, Measles, Mumps - Past Surgical History Head Surgeries/Procedures: Reports: None HEENT Surgical History: Reports: Tonsillectomy Cardiovascular Surgical History: Reports: None Respiratory Surgical History: Reports: None, Other (See Below) Other Respiratory Surgeries/Procedures: chest tube to right lung; right lobectomy GI Surgical History: Reports: None Female Surgical History: Reports: None Endocrine Surgical History: Reports: None Neurological Surgical History: Reports: None Musculoskeletal Surgical History: Reports: None Oncologic Surgical History: Reports: None Dermatological Surgical History: Reports: None Social & Family History - Family History Family Medical History: Noncontributory - Tobacco Use Smoking Status *Q: Current Every Day Smoker Years of Tobacco use: 19 Packs/Tins Daily: 0.5 - Caffeine Use Caffeine Use: Reports: Coffee - Recreational Drug Use Recreational Drug Use: Yes Drug Use in Last 12 Months: Yes Recreational Drug Type: Reports: Marijuana/Hashish Recreational Drug Use Frequency: Weekly - Living Situation & Occupation Living situation: Reports: with Family Occupation: Unemployed H&P Review of Systems - Review of Systems: Review Of Systems: ROS reveals no pertinent complaints other than HPI. Exam - Exam Exam: See Below - Vital Signs Vital Signs: Last Vital Signs Temp 36.4 C 05/05/19 13:43 Pulse 122 H 05/05/19 13:43 Resp 22 H 05/05/19 13:43 BP 120/86 05/05/19 15:00 Pulse Ox 95 05/05/19 13:43 Weight: 47.6 kg - Exam General: Alert, Oriented, Cooperative HEENT: Scleral Icterus Lungs: Clear to Auscultation, Normal Respiratory Effort. No: Crackles, Wheezing Cardiovascular: Regular Rate, Regular Rhythm GI/Abdominal Exam: Distended, Tender, Other (positie fluid wave). No: Rebound Extremities: Normal Inspection, No Pedal Edema Skin: Warm, Dry Neurological: Cranial Nerves Intact Neuro Extensive - Mental Status: Alert, Oriented x3 - Patient Data Lab Results Last 24 hrs: Laboratory Results - last 24 hr 05/05/19 05/05/19 05/05/19 Range/Units 14:05 14:05 14:05 WBC 6.47 (4.0-11.0) K/uL RBC 3.11 L (4.30-5.90) M/uL Hgb 10.6 L (12.0-16.0) g/dL Hct 31.9 L (36.0-46.0) % MCV 102.6 H (80.0-98.0) fL MCH 34.1 H (27.0-32.0) pg MCHC 33.2 (31.0-37.0) g/dL RDW Std Deviation 79.5 H (28.0-62.0) fl RDW Coeff of [place] 21 H (11.0-15.0) % Plt Count 200 (150-400) K/uL MPV 10.20 (7.40-12.00) fL Neut % (Auto) 62.3 (48.0-80.0) % Lymph % (Auto) 22.3 (16.0-40.0) % [place] % (Auto) 12.1 (0.0-15.0) % Eos % (Auto) 1.9 (0.0-7.0) % Baso % (Auto) 1.4 (0.0-1.5) % Neut # (Auto) 4.0 (1.4-5.7) K/uL Lymph # (Auto) 1.4 (0.6-2.4) K/uL [place] # (Auto) 0.8 (0.0-0.8) K/uL Eos # (Auto) 0.1 (0.0-0.7) K/uL Baso # (Auto) 0.1 (0.0-0.1) K/uL Nucleated RBC % 0.0 /100WBC Nucleated RBCs # 0 K/uL Sodium 133 L (136-145) mmol/L Potassium 2.8 L (3.5-5.1) mmol/L Chloride 93 L (98-107) mmol/L Carbon Dioxide 30.2 (21.0-32.0) mmol/L BUN 7 (7.0-18.0) mg/dL Creatinine 0.6 (0.6-1.0) mg/dL Est Cr Clr Drug Dosing 101.15 mL/min Estimated GFR (MDRD) > 60.0 ml/min Glucose 115 H (74-106) mg/dL Calcium 8.3 L (8.5-10.1) mg/dL Magnesium 1.6 L (1.8-2.4) mg/dL Total Bilirubin 10.8 H (0.2-1.0) mg/dL AST 147 H (15-37) IU/L ALT 49 (14-63) IU/L Alkaline Phosphatase 202 H (46-116) U/L Total Protein 7.2 (6.4-8.2) g/dL Albumin 2.3 L (3.4-5.0) g/dL Globulin 4.9 H (2.6-4.0) g/dL Albumin/Globulin Ratio 0.5 L (0.9-1.6) Lipase 247 (73-393) U/L Result Diagrams: 05/05/19 14:05 05/05/19 14:05 Problem List Initiated/Reviewed/Updated: Yes Orders Last 24hrs: Active Orders 24 hr Category Date Time Status Admission Status [Patient Status] [ADT] Stat ADT 05/05/19 15:11 Active Antiembolic Devices [RC] PER UNIT ROUTINE Care 05/05/19 15:44 Active Height and Weight [RC] DAILY Care 05/05/19 15:41 Active Intake and Output Strict [RC] ASDIRECTED Care 05/05/19 15:53 Active Intake and Output [RC] QSHIFT Care 05/05/19 15:42 Inactive Oxygen Therapy [RC] PRN Care 05/05/19 15:41 Active Up With Assistance [RC] ASDIRECTED Care 05/05/19 15:41 Active VTE/DVT Education [RC] PER UNIT ROUTINE Care 05/05/19 15:41 Active Vital Signs [RC] Q4H Care 05/05/19 15:41 Active Fluid Restriction [DIET] Diet 05/05/19 Dinner Active High Protein Diet [DIET] Diet 05/05/19 Dinner Active FOLIC ACID [CHEM] Routine Lab 05/05/19 16:01 Ordered INR,PT,PROTHROMBIN TIME [COAG] Routine Lab 05/05/19 14:05 Received PTT,PARTIAL THROMBOPLSTIN TIME [COAG] Routine Lab 05/05/19 14:05 Received UA RFX DIMAS AND CULT IF INDIC [URIN] Stat Lab 05/05/19 13:45 Ordered VITAMIN B12 [CHEM] Routine Lab 05/05/19 16:01 Ordered Enoxaparin [Lovenox] Med 05/05/19 16:00 Active 30 mg SUBCUT Q24H Folic Acid Med 05/05/19 16:15 Active 1 mg PO DAILY Ketorolac [Toradol] Med 05/05/19 15:41 Active 30 mg IM Q6H PRN Omeprazole Med 05/06/19 07:30 Active 20 mg PO ACBREAKFAST Ondansetron [Zofran ODT] Med 05/05/19 15:41 Active 4 mg PO Q4H PRN Ondansetron [Zofran] Med 05/05/19 15:41 Active 4 mg IVPUSH Q4H PRN Potassium Chloride [Klor-Con M20] Med 05/05/19 16:00 Active 40 meq PO DAILY Sodium Chloride 0.9% [Normal Saline] 1,000 ml Med 05/05/19 13:45 Active IV STAT Thiamine [Vitamin B-1] Med 05/05/19 21:00 Active 100 mg PO BEDTIME oxyCODONE Med 05/05/19 15:41 Active 5 mg PO Q4H PRN Sequential Compression Device [OM.PC] Per Unit Routine Oth 05/05/19 15:42 Ordered Resuscitation Status Routine Resus Stat 05/05/19 15:41 Ordered Medication Orders Enoxaparin Sodium (Lovenox) 30 mg SUBCUT Q24H [facility] Folic Acid (Folic Acid) 1 mg PO DAILY [facility]IE Sodium Chloride (Normal Saline) 1,000 mls @ 100 mls/hr IV STAT ONE Stop: 05/05/19 23:44 Last Admin: 05/05/19 14:22 Dose: 50 mls/hr Ketorolac Tromethamine (Toradol) 30 mg IM Q6H PRN PRN Reason: Pain (moderate 4-6) Omeprazole (Omeprazole) 20 mg PO ACBREAKFAST [facility] Ondansetron HCl (Zofran Odt) 4 mg PO Q4H PRN PRN Reason: nausea, able to take PO Ondansetron HCl (Zofran) 4 mg IVPUSH Q4H PRN PRN Reason: Nausea Oxycodone HCl (Oxycodone) 5 mg PO Q4H PRN PRN Reason: Pain (moderate 4-6) Potassium Chloride (Klor-Con M20) 40 meq PO DAILY [facility]IE Thiamine HCl (Vitamin B-1) 100 mg PO BEDTIME [facility] Assessment/Plan Comment:: A: 1. Acute alcoholic hepatitis 2. Abdominal ascites 3. Hyperbilirubinemia 4. Hypokalemia 5. Hyponatremia 6. Macrocytic anemia P: 1. Acute alcoholic hepatitis- patient with history of alcohol consumption. No recent alcohol since last hospitalization. Will fluid restrict, give lasix 20 mg IV once, strict I/O's, daily weights. Monitor elevated liver enzymes. 2. Abdominal ascites- will need therapeutic paracentesis. She was scheduled for outpatient paracentesis for but she is feeling worse. 3. Hypokalemia- replaced with KCl 40 mEq PO daily. 4. Macrocytic anemia- will check folic acid and B12. Dispo: 1-2 days
[2019-05-05] MEDS ORDERED: Magnesium Sulfate/Water 2 GM in Premix Bag 1 BAG IV ONE (16:41)
[2019-05-05] MEDS: Folic Acid 1 MG Tab PO SCH (16:43)
[2019-05-05] MEDS: Potassium Chloride 20 MEQ Tab.ER PO SCH (16:43)
[2019-05-05] MEDS: Enoxaparin 30 MG/0.3 ML Syringe SUBCUT SCH (16:45)
[2019-05-05] MEDS: Nicotine 14 MG/24 Hr Patch TRDERM SCH (17:43)
[2019-05-05] MEDS: oxyCODONE 5 MG Tab PO PRN (18:25)
[2019-05-05] MEDS: Thiamine 100 MG Tab PO SCH (21:11)
[2019-05-06] MEDS: oxyCODONE 5 MG Tab PO PRN ×5 (00:10→20:02)
[2019-05-06 05:45] LABS: CHLORIDE,CL 95 mmol/L (98-107); SODIUM,NA 131 mmol/L (136-145)
[2019-05-06] MEDS ORDERED: Nicotine 14 MG/24 Hr Patch TRDERM SCH (09:00)
[2019-05-06] MEDS: Folic Acid 1 MG Tab PO SCH (09:47)
[2019-05-06] MEDS: Omeprazole 20 MG Cap.CR PO SCH (09:47)
[2019-05-06] MEDS: Potassium Chloride 20 MEQ Tab.ER PO SCH (09:47)
[2019-05-06] MEDS: Nicotine 14 MG/24 Hr Patch TRDERM SCH (09:49)
--- NOTE | 2019-05-06 10:10 | PCM.PN ---
- General Info Date of Service: 05/06/19 Subjective Update: no acute events overnight. still having some abdominal pain but not getting worse. No nausea, vomiting. Has not had a bowel movement since admission. Denies chest pain, dyspnea. - Patient Data Vitals - Most Recent: Last Vital Signs Temp 36.3 C 05/06/19 04:15 Pulse 100 05/06/19 04:15 Resp 16 05/06/19 04:15 BP 112/74 05/06/19 04:15 Pulse Ox 92 L 05/06/19 04:15 Weight - Most Recent: 48.308 kg I&O - Last 24 Hours: Intake & Output 05/05/19 05/06/19 05/06/19 22:59 06:59 14:59 Intake Total 1000 Output Total 600 Balance 400 Lab Results Last 24 Hours: Laboratory Results - last 24 hr 05/05/19 05/05/19 05/05/19 Range/Units 14:05 14:05 14:05 WBC 6.47 (4.0-11.0) K/uL RBC 3.11 L (4.30-5.90) M/uL Hgb 10.6 L (12.0-16.0) g/dL Hct 31.9 L (36.0-46.0) % MCV 102.6 H (80.0-98.0) fL MCH 34.1 H (27.0-32.0) pg MCHC 33.2 (31.0-37.0) g/dL RDW Std Deviation 79.5 H (28.0-62.0) fl RDW Coeff of [place] 21 H (11.0-15.0) % Plt Count 200 (150-400) K/uL MPV 10.20 (7.40-12.00) fL Neut % (Auto) 62.3 (48.0-80.0) % Lymph % (Auto) 22.3 (16.0-40.0) % [place] % (Auto) 12.1 (0.0-15.0) % Eos % (Auto) 1.9 (0.0-7.0) % Baso % (Auto) 1.4 (0.0-1.5) % Neut # (Auto) 4.0 (1.4-5.7) K/uL Lymph # (Auto) 1.4 (0.6-2.4) K/uL [place] # (Auto) 0.8 (0.0-0.8) K/uL Eos # (Auto) 0.1 (0.0-0.7) K/uL Baso # (Auto) 0.1 (0.0-0.1) K/uL Nucleated RBC % 0.0 /100WBC Nucleated RBCs # 0 K/uL INR APTT (18.6-31.3) SEC Sodium 133 L (136-145) mmol/L Potassium 2.8 L (3.5-5.1) mmol/L Chloride 93 L (98-107) mmol/L Carbon Dioxide 30.2 (21.0-32.0) mmol/L BUN 7 (7.0-18.0) mg/dL Creatinine 0.6 (0.6-1.0) mg/dL Est Cr Clr Drug Dosing 101.15 mL/min Estimated GFR (MDRD) > 60.0 ml/min Glucose 115 H (74-106) mg/dL Calcium 8.3 L (8.5-10.1) mg/dL Magnesium 1.6 L (1.8-2.4) mg/dL Total Bilirubin 10.8 H (0.2-1.0) mg/dL AST 147 H (15-37) IU/L ALT 49 (14-63) IU/L Alkaline Phosphatase 202 H (46-116) U/L Total Protein 7.2 (6.4-8.2) g/dL Albumin 2.3 L (3.4-5.0) g/dL Globulin 4.9 H (2.6-4.0) g/dL Albumin/Globulin Ratio 0.5 L (0.9-1.6) Lipase 247 (73-393) U/L Vitamin B12 (193-986) pg/mL Folate (8.60-58.90) ng/mL Urine Color Urine Appearance Urine pH (5.0-8.0) Ur Specific [place] (1.001-1.035) Urine Protein (NEGATIVE) mg/dL Urine Glucose (UA) (NEGATIVE) mg/dL Urine Ketones (NEGATIVE) mg/dL Urine Occult Blood (NEGATIVE) Urine Nitrite (NEGATIVE) Urine Bilirubin (NEGATIVE) Urine Urobilinogen (<2.0) EU/dL Ur Leukocyte Esterase (NEGATIVE) 06/24/19 06/24/19 06/24/19 Range/Units 14:05 14:05 17:25 WBC (4.0-11.0) K/uL RBC (4.30-5.90) M/uL Hgb (12.0-16.0) g/dL Hct (36.0-46.0) % MCV (80.0-98.0) fL MCH (27.0-32.0) pg MCHC (31.0-37.0) g/dL RDW Std Deviation (28.0-62.0) fl RDW Coeff of [place] (11.0-15.0) % Plt Count (150-400) K/uL MPV (7.40-12.00) fL Neut % (Auto) (48.0-80.0) % Lymph % (Auto) (16.0-40.0) % [place] % (Auto) (0.0-15.0) % Eos % (Auto) (0.0-7.0) % Baso % (Auto) (0.0-1.5) % Neut # (Auto) (1.4-5.7) K/uL Lymph # (Auto) (0.6-2.4) K/uL [place] # (Auto) (0.0-0.8) K/uL Eos # (Auto) (0.0-0.7) K/uL Baso # (Auto) (0.0-0.1) K/uL Nucleated RBC % /100WBC Nucleated RBCs # K/uL INR 1.44 APTT 29.5 (18.6-31.3) SEC Sodium (136-145) mmol/L Potassium (3.5-5.1) mmol/L Chloride (98-107) mmol/L Carbon Dioxide (21.0-32.0) mmol/L BUN (7.0-18.0) mg/dL Creatinine (0.6-1.0) mg/dL Est Cr Clr Drug Dosing mL/min Estimated GFR (MDRD) ml/min Glucose (74-106) mg/dL Calcium (8.5-10.1) mg/dL Magnesium (1.8-2.4) mg/dL Total Bilirubin (0.2-1.0) mg/dL AST (15-37) IU/L ALT (14-63) IU/L Alkaline Phosphatase (46-116) U/L Total Protein (6.4-8.2) g/dL Albumin (3.4-5.0) g/dL Globulin (2.6-4.0) g/dL Albumin/Globulin Ratio (0.9-1.6) Lipase (73-393) U/L Vitamin B12 3438 H (193-986) pg/mL Folate 13.40 (8.60-58.90) ng/mL Urine Color YELLOW Urine Appearance CLEAR Urine pH 5.5 (5.0-8.0) Ur Specific [place] 1.010 (1.001-1.035) Urine Protein NEGATIVE (NEGATIVE) mg/dL Urine Glucose (UA) NEGATIVE (NEGATIVE) mg/dL Urine Ketones NEGATIVE (NEGATIVE) mg/dL Urine Occult Blood NEGATIVE (NEGATIVE) Urine Nitrite NEGATIVE (NEGATIVE) Urine Bilirubin MODERATE H (NEGATIVE) Urine Urobilinogen 0.2 (<2.0) EU/dL Ur Leukocyte Esterase NEGATIVE (NEGATIVE) 05/06/19 05/06/19 05/06/19 Range/Units 05:00 05:00 05:00 WBC 7.66 (4.0-11.0) K/uL RBC 2.68 L (4.30-5.90) M/uL Hgb 9.1 L (12.0-16.0) g/dL Hct 27.6 L (36.0-46.0) % MCV 103.0 H (80.0-98.0) fL MCH 34.0 H (27.0-32.0) pg MCHC 33.0 (31.0-37.0) g/dL RDW Std Deviation 78.1 H (28.0-62.0) fl RDW Coeff of [place] 21 H (11.0-15.0) % Plt Count 207 (150-400) K/uL MPV 10.30 (7.40-12.00) fL Neut % (Auto) 58.4 (48.0-80.0) % Lymph % (Auto) 22.6 (16.0-40.0) % [place] % (Auto) 14.9 (0.0-15.0) % Eos % (Auto) 2.3 (0.0-7.0) % Baso % (Auto) 1.8 H (0.0-1.5) % Neut # (Auto) 4.5 (1.4-5.7) K/uL Lymph # (Auto) 1.7 (0.6-2.4) K/uL [place] # (Auto) 1.1 H (0.0-0.8) K/uL Eos # (Auto) 0.2 (0.0-0.7) K/uL Baso # (Auto) 0.1 (0.0-0.1) K/uL Nucleated RBC % 0.0 /100WBC Nucleated RBCs # 0 K/uL INR 1.40 APTT (18.6-31.3) SEC Sodium 131 L (136-145) mmol/L Potassium 3.4 L (3.5-5.1) mmol/L Chloride 95 L (98-107) mmol/L Carbon Dioxide 31.2 (21.0-32.0) mmol/L BUN 9 (7.0-18.0) mg/dL Creatinine 1.0 (0.6-1.0) mg/dL Est Cr Clr Drug Dosing 61.59 mL/min Estimated GFR (MDRD) > 60.0 ml/min Glucose 106 (74-106) mg/dL Calcium 7.7 L (8.5-10.1) mg/dL Magnesium 2.1 (1.8-2.4) mg/dL Total Bilirubin 8.1 H (0.2-1.0) mg/dL AST 118 H (15-37) IU/L ALT 42 (14-63) IU/L Alkaline Phosphatase 203 H (46-116) U/L Total Protein 6.2 L (6.4-8.2) g/dL Albumin 1.9 L (3.4-5.0) g/dL Globulin 4.3 H (2.6-4.0) g/dL Albumin/Globulin Ratio 0.4 L (0.9-1.6) Lipase (73-393) U/L Vitamin B12 (193-986) pg/mL Folate (8.60-58.90) ng/mL Urine Color Urine Appearance Urine pH (5.0-8.0) Ur Specific [place] (1.001-1.035) Urine Protein (NEGATIVE) mg/dL Urine Glucose (UA) (NEGATIVE) mg/dL Urine Ketones (NEGATIVE) mg/dL Urine Occult Blood (NEGATIVE) Urine Nitrite (NEGATIVE) Urine Bilirubin (NEGATIVE) Urine Urobilinogen (<2.0) EU/dL Ur Leukocyte Esterase (NEGATIVE) Med Orders - Current: Current Medications Enoxaparin Sodium (Lovenox) 30 mg SUBCUT Q24H [facility] Last Admin: 05/05/19 16:45 Dose: 30 mg Folic Acid (Folic Acid) 1 mg PO DAILY [facility] Last Admin: 05/06/19 09:47 Dose: 1 mg Furosemide (Lasix) 20 mg PO BIDDIURETIC [facility] Ketorolac Tromethamine (Toradol) 30 mg IM Q6H PRN PRN Reason: Pain (moderate 4-6) Last Admin: 05/05/19 21:37 Dose: 30 mg Nicotine (Habitrol) 14 mg TRDERM DAILY [facility] Last Admin: 05/06/19 09:49 Dose: 14 mg Omeprazole (Omeprazole) 20 mg PO ACBREAKFAST [facility] Last Admin: 05/06/19 09:47 Dose: Not Given Ondansetron HCl (Zofran Odt) 4 mg PO Q4H PRN PRN Reason: nausea, able to take PO Ondansetron HCl (Zofran) 4 mg IVPUSH Q4H PRN PRN Reason: Nausea Oxycodone HCl (Oxycodone) 5 mg PO Q4H PRN PRN Reason: Pain (moderate 4-6) Last Admin: 05/06/19 09:48 Dose: 5 mg Potassium Chloride (Klor-Con M20) 40 meq PO DAILY [facility] Last Admin: 05/06/19 09:47 Dose: 40 meq Spironolactone (Aldactone) 12.5 mg PO BID [facility] Thiamine HCl (Vitamin B-1) 100 mg PO BEDTIME [facility] Last Admin: 05/05/19 21:11 Dose: 100 mg Discontinued Medications Furosemide (Lasix) 20 mg IVPUSH NOW ONE Stop: 05/05/19 15:55 Last Admin: 05/05/19 16:44 Dose: 20 mg Sodium Chloride (Normal Saline) 1,000 mls @ 100 mls/hr IV STAT ONE Stop: 05/05/19 23:44 Last Admin: 05/05/19 14:22 Dose: 50 mls/hr Magnesium Sulfate 2 gm/ Premix 50 mls @ 25 mls/hr IV ONETIME ONE Stop: 05/05/19 18:40 Last Admin: 05/05/19 16:53 Dose: 25 mls/hr Ketorolac Tromethamine (Toradol) 30 mg IVPUSH ONETIME ONE Stop: 05/05/19 13:46 Last Admin: 05/05/19 14:22 Dose: Not Given Morphine Sulfate (Morphine) 2 mg IVPUSH ONETIME ONE Stop: 05/05/19 13:54 Last Admin: 05/05/19 14:12 Dose: 2 mg Morphine Sulfate (Morphine) 2 mg IVPUSH ONETIME ONE Stop: 05/05/19 15:13 Last Admin: 05/05/19 15:31 Dose: 2 mg Nicotine (Habitrol) 14 mg TRDERM DAILY [facility] Ondansetron HCl (Zofran) 4 mg IVPUSH ONETIME ONE Stop: 05/05/19 13:46 Last Admin: 05/05/19 14:22 Dose: Not Given - Exam General: Alert, Oriented, Cooperative, No Acute Distress HEENT: Scleral Icterus Lungs: Clear to Auscultation, Normal Respiratory Effort. No: Crackles, Wheezing Cardiovascular: Regular Rate, Regular Rhythm GI/Abdominal Exam: Distended, Other (positive fluid wave). No: Guarding, Rebound Extremities: Normal Inspection, No Pedal Edema Skin: Warm, Dry - Problem List Review Problem List Initiated/Reviewed/Updated: Yes - My Orders Last 24 Hours: My Active Orders 05/05/19 15:41 Height and Weight [RC] DAILY Oxygen Therapy [RC] PRN Up With Assistance [RC] ASDIRECTED VTE/DVT Education [RC] PER UNIT ROUTINE Vital Signs [RC] Q4H Ketorolac [Toradol] 30 mg IM Q6H PRN Ondansetron [Zofran ODT] 4 mg PO Q4H PRN Ondansetron [Zofran] 4 mg IVPUSH Q4H PRN oxyCODONE 5 mg PO Q4H PRN Resuscitation Status Routine 05/05/19 15:42 Intake and Output [RC] QSHIFT Sequential Compression Device [OM.PC] Per Unit Routine 05/05/19 15:44 Antiembolic Devices [RC] PER UNIT ROUTINE 05/05/19 15:53 Intake and Output Strict [RC] Q12H 05/05/19 16:00 Enoxaparin [Lovenox] 30 mg SUBCUT Q24H Potassium Chloride [Klor-Con M20] 40 meq PO DAILY 05/05/19 16:15 Folic Acid 1 mg PO DAILY 05/05/19 17:30 Nicotine [Habitrol] 14 mg TRDERM DAILY 05/05/19 21:00 Thiamine [Vitamin B-1] 100 mg PO BEDTIME 05/05/19 Dinner Fluid Restriction [DIET] High Protein Diet [DIET] 05/06/19 07:30 Omeprazole 20 mg PO ACBREAKFAST 05/06/19 09:57 Abdomen Ltd [US] Routine 05/06/19 10:00 Furosemide [Lasix] 20 mg PO BIDDIURETIC Spironolactone [Aldactone] 12.5 mg PO BID - Plan Plan:: A: 1. Acute alcoholic hepatitis, improving 2. Abdominal ascites 3. Hyperbilirubinemia, improving 4. Hypokalemia 5. Hyponatremia 6. Macrocytic anemia, stable 7. Elevated liver enzymes P: 1. Acute alcoholic hepatitis, improving. Bili trending down. Will order U/S to assess ascites and possible paracentesis. Ordered lasix 20 mg PO BID and spirinolactone 12.5 mg PO BID. Dispo: likely dc tomorrow
[2019-05-06] MEDS: Spironolactone 25 MG Tab PO SCH ×2 (11:23→20:02)
[2019-05-06] MEDS: Furosemide 20 MG Tab PO SCH ×2 (11:23→14:32)
--- NOTE | 2019-05-06 16:04 | US ---
EXAMINATION: Limited abdominal ultrasound HISTORY: Ascites COMPARISON: 05/01/2019 TECHNIQUE: Grayscale imaging obtained. FINDINGS/IMPRESSION: Sonographic imaging of the abdomen again demonstrates a small to moderate amount of abdominal ascites compared to the previous ultrasound.
[2019-05-06] MEDS: Enoxaparin 30 MG/0.3 ML Syringe SUBCUT SCH (16:18)
[2019-05-06] MEDS ORDERED: Ketorolac 30 MG/ML SDV IVPUSH PRN (16:42)
[2019-05-06] MEDS: Thiamine 100 MG Tab PO SCH (20:02)
[2019-05-07] MEDS: oxyCODONE 5 MG Tab PO PRN ×2 (04:43→10:46)
[2019-05-07 05:56] LABS: CHLORIDE,CL 95 mmol/L (98-107); SODIUM,NA 131 mmol/L (136-145)
[2019-05-07] MEDS: Omeprazole 20 MG Cap.CR PO SCH (06:36)
[2019-05-07 07:18] VITALS: BP 104/60
[2019-05-07] MEDS: Furosemide 20 MG Tab PO SCH (07:26)
[2019-05-07] MEDS: Spironolactone 25 MG Tab PO SCH (08:09)
[2019-05-07] MEDS: Potassium Chloride 20 MEQ Tab.ER PO SCH (08:09)
[2019-05-07] MEDS: Folic Acid 1 MG Tab PO SCH (08:09)
[2019-05-07] MEDS: Nicotine 14 MG/24 Hr Patch TRDERM SCH (08:10)
--- NOTE | 2019-05-07 11:02 | PCM.DCSUM1 ---
Discharge Summary - Hospital Course Free Text/Narrative:: 33 y/o female admitted for alcoholic hepatitis. She was fluid restricted and started on lasix 20 mg PO BID and spironolactone 12.5 mg PO BID. Abdominal ultrasound showed mild/moderate ascites. Total bilirubin remained stable at 9 and ALT/AST and INR continued to decrease. She has a scheduled outpatient paracentesis for 05/08/19 at 2pm. She was discharged home on lasix 20 mg PO BID, spironolactone 12.5mg PO BID. She was advised to make her outpatient paracentesis appointment and abstain from alcohol. - Discharge Data Discharge Date: 05/07/19 Discharge Disposition: Home, Self-Care 01 Condition: Stable - Patient Instructions Diet: Regular Diet as Tolerated Diet, Other: High protein, drink protein shakes. Fluid Restriction: 2000 mL Activity: As Tolerated Notify Provider of: Fever, Increased Pain, Swelling and Redness, Nausea and/or Vomiting - Discharge Plan *PRESCRIPTION DRUG MONITORING PROGRAM REVIEWED*: Not Applicable *COPY OF PRESCRIPTION DRUG MONITORING REPORT IN PATIENT MELODY: Not Applicable Prescriptions/Med Rec: Cyclobenzaprine [Flexeril] 5 mg PO BID PRN #30 tab PRN Reason: Pain Furosemide [Lasix] 20 mg PO BIDDIURETIC #60 tablet Potassium Chloride [Klor-Con M20] 40 meq PO DAILY #60 tab.er Spironolactone [Aldactone] 12.5 mg PO BID 30 Days #30 tab Home Medications: Home Meds Esomeprazole Magnesium 40 mg PO DAILY 04/01/19 [History] Folic Acid 1 mg PO BEDTIME #30 tablet 04/03/19 [Rx] Thiamine [Vitamin B-1] 100 mg PO BEDTIME #30 tablet 04/03/19 [Rx] Hyoscyamine [Hyomax-SL] 0.125 mg SL Q4H PRN #20 tab.sl 04/22/19 [Rx] Promethazine [Phenergan] 25 mg PO Q8H PRN #6 tab 04/22/19 [Rx] oxyCODONE 5 mg PO Q6H PRN #10 tab 05/01/19 [Rx] Cyclobenzaprine [Flexeril] 5 mg PO BID PRN #30 tab 05/07/19 [Rx] Furosemide [Lasix] 20 mg PO BIDDIURETIC #60 tablet 05/07/19 [Rx] Potassium Chloride [Klor-Con M20] 40 meq PO DAILY #60 tab.er 05/07/19 [Rx] Spironolactone [Aldactone] 12.5 mg PO BID 30 Days #30 tab 05/07/19 [Rx] Patient Handouts: Furosemide tablets, Cyclobenzaprine tablets, Potassium chloride tablets, extended-release tablets or capsules, Spironolactone tablets, Ascites Referrals: [facility] [Outside] Huy Duarte MD [Primary Care Provider] - 05/14/19 2:00 pm - Discharge Summary/Plan Comment DC Time >30 min.: No - Patient Data Vitals - Most Recent: Last Vital Signs Temp 36.3 C 05/07/19 07:17 Pulse 86 05/07/19 07:17 Resp 16 05/07/19 07:17 BP 104/60 05/07/19 07:17 Pulse Ox 92 L 05/07/19 07:17 Weight - Most Recent: 49.45 kg I&O - Last 24 hours: Intake & Output 05/06/19 05/07/19 05/07/19 22:59 06:59 14:59 Intake Total 600 650 Output Total 100 250 Balance 500 400 Lab Results - Last 24 hrs: Laboratory Results - last 24 hr 05/07/19 05/07/19 05/07/19 Range/Units 05:20 05:20 05:20 WBC 8.29 (4.0-11.0) K/uL RBC 2.57 L (4.30-5.90) M/uL Hgb 8.8 L (12.0-16.0) g/dL Hct 26.7 L (36.0-46.0) % MCV 103.9 H (80.0-98.0) fL MCH 34.2 H (27.0-32.0) pg MCHC 33.0 (31.0-37.0) g/dL RDW Std Deviation 77.0 H (28.0-62.0) fl RDW Coeff of Mayito 21 H (11.0-15.0) % Plt Count 221 (150-400) K/uL MPV 10.20 (7.40-12.00) fL Nucleated RBC % 0.0 /100WBC Nucleated RBCs # 0 K/uL INR 1.37 Sodium 131 L (136-145) mmol/L Potassium 3.3 L (3.5-5.1) mmol/L Chloride 95 L (98-107) mmol/L Carbon Dioxide 30.3 (21.0-32.0) mmol/L BUN 12 (7.0-18.0) mg/dL Creatinine 0.9 (0.6-1.0) mg/dL Est Cr Clr Drug Dosing 70.05 mL/min Estimated GFR (MDRD) > 60.0 ml/min Glucose 100 (74-106) mg/dL Calcium 7.7 L (8.5-10.1) mg/dL Total Bilirubin 9.1 H (0.2-1.0) mg/dL AST 115 H (15-37) IU/L ALT 39 (14-63) IU/L Alkaline Phosphatase 164 H (46-116) U/L Total Protein 5.9 L (6.4-8.2) g/dL Albumin 1.8 L (3.4-5.0) g/dL Globulin 4.1 H (2.6-4.0) g/dL Albumin/Globulin Ratio 0.4 L (0.9-1.6) DIMAS Results - Last 24 hrs: Microbiology 05/06/19 11:10 Stool Occult Blood (DIMAS) - Final Stool / Feces NEGATIVE OCCULT BLOOD REFERENCE RANGE: NEGATIVE Med Orders - Current: Current Medications Enoxaparin Sodium (Lovenox) 30 mg SUBCUT Q24H [facility] Last Admin: 05/06/19 16:18 Dose: 30 mg Folic Acid (Folic Acid) 1 mg PO DAILY [facility] Last Admin: 05/07/19 08:09 Dose: 1 mg Furosemide (Lasix) 20 mg PO BIDDIURETIC [facility] Last Admin: 05/07/19 07:26 Dose: 20 mg Ketorolac Tromethamine (Toradol) 30 mg IVPUSH Q6H PRN PRN Reason: Pain (moderate 4-6) Last Admin: 05/06/19 23:06 Dose: 30 mg Nicotine (Habitrol) 14 mg TRDERM DAILY [facility] Last Admin: 05/07/19 08:10 Dose: 14 mg Omeprazole (Omeprazole) 20 mg PO ACBREAKFAST [facility] Last Admin: 05/07/19 06:36 Dose: 20 mg Ondansetron HCl (Zofran Odt) 4 mg PO Q4H PRN PRN Reason: nausea, able to take PO Ondansetron HCl (Zofran) 4 mg IVPUSH Q4H PRN PRN Reason: Nausea Oxycodone HCl (Oxycodone) 5 mg PO Q4H PRN PRN Reason: Pain (moderate 4-6) Last Admin: 05/07/19 10:46 Dose: 5 mg Potassium Chloride (Klor-Con M20) 40 meq PO DAILY [facility] Last Admin: 05/07/19 08:09 Dose: 40 meq Spironolactone (Aldactone) 12.5 mg PO BID [facility] Last Admin: 05/07/19 08:09 Dose: 12.5 mg Thiamine HCl (Vitamin B-1) 100 mg PO BEDTIME [facility] Last Admin: 05/06/19 20:02 Dose: 100 mg Discontinued Medications Furosemide (Lasix) 20 mg IVPUSH NOW ONE Stop: 05/05/19 15:55 Last Admin: 05/05/19 16:44 Dose: 20 mg Sodium Chloride (Normal Saline) 1,000 mls @ 100 mls/hr IV STAT ONE Stop: 05/05/19 23:44 Last Admin: 05/05/19 14:22 Dose: 50 mls/hr Magnesium Sulfate 2 gm/ Premix 50 mls @ 25 mls/hr IV ONETIME ONE Stop: 05/05/19 18:40 Last Admin: 05/05/19 16:53 Dose: 25 mls/hr Ketorolac Tromethamine (Toradol) 30 mg IVPUSH ONETIME ONE Stop: 05/05/19 13:46 Last Admin: 05/05/19 14:22 Dose: Not Given Ketorolac Tromethamine (Toradol) 30 mg IM Q6H PRN PRN Reason: Pain (moderate 4-6) Last Admin: 05/05/19 21:37 Dose: 30 mg Morphine Sulfate (Morphine) 2 mg IVPUSH ONETIME ONE Stop: 05/05/19 13:54 Last Admin: 05/05/19 14:12 Dose: 2 mg Morphine Sulfate (Morphine) 2 mg IVPUSH ONETIME ONE Stop: 05/05/19 15:13 Last Admin: 05/05/19 15:31 Dose: 2 mg Nicotine (Habitrol) 14 mg TRDERM DAILY [facility] Ondansetron HCl (Zofran) 4 mg IVPUSH ONETIME ONE Stop: 05/05/19 13:46 Last Admin: 05/05/19 14:22 Dose: Not Given
== END 2019-05-07 12:16 | disposition home or self-care (01) ==
LOC: MW.ED 13:25 → MW.MS 15:15
PROVIDERS: ADMIT Internal Medicine; ATTEND Internal Medicine
DX: K70.31 Alcoholic cirrhosis of liver with ascites (principal); E80.6 Other disorders of bilirubin metabolism; E87.6 Hypokalemia; E87.1 Hypo-osmolality and hyponatremia; E43 Unspecified severe protein-calorie malnutrition; J44.9 Chronic obstructive pulmonary disease, unspecified; I10 Essential (primary) hypertension; F17.210 Nicotine dependence, cigarettes, uncomplicated; D53.9 Nutritional anemia, unspecified; Z88.8 Allergy status to other drugs, medicaments and biological substances; Z79.899 Other long term (current) drug therapy; Z88.0 Allergy status to penicillin
CPT/HCPCS: 36415; 76705; 76705-26; 80053; 81003; 82272; 82607; 82746; 83690; 83735; 85025; 85027; 85610; 85730; 93005; 96365; 96366; 96372; 96374; 96375; 96376; 99285; 99285-25; A4217; A9270-GY; G0378; J1650; J1885; J1940; J2270; J3475; J7040

== ENCOUNTER 2019-05-08 00:14 | Emergency (ER) | payer MEDICAID ==
[2019-05-08] MEDS ORDERED: LORazepam 2 MG/ML SDV IVPUSH ONE (00:46)
[2019-05-08 00:48] VITALS: BP 102/66
--- NOTE | 2019-05-08 01:17 | EDM.PDOC ---
ED HPI GENERAL MEDICAL PROBLEM - General Chief Complaint: Abdominal Pain Stated Complaint: ABDOMINAL PAIN Time Seen by Provider: 05/08/19 00:42 - History of Present Illness INITIAL COMMENTS - FREE TEXT/NARRATIVE: HISTORY AND PHYSICAL: History of present illness: Patient is a 33-year-old white female was just discharged today with history of alcoholic liver disease and ascites is scheduled for paracentesis today she was unable to fill her prescriptions is here now for reevaluation. No fever chills vomiting or other complaints Review of systems: As per history of present illness and below otherwise all systems reviewed and negative. Past medical history: As per history of present illness and as reviewed below otherwise noncontributory. Surgical history: As per history of present illness and as reviewed below otherwise noncontributory. Social history: No reported history of drug or alcohol abuse. Family history: As per history of present illness and as reviewed below otherwise noncontributory. Physical exam: HEENT: Atraumatic, normocephalic, pupils reactive, negative for conjunctival pallor or scleral icterus, mucous membranes moist, throat clear, neck supple, nontender, trachea midline. Lungs: Clear to auscultation, breath sounds equal bilaterally, chest nontender. Heart: S1S2, regular, negative for clicks, rubs, or JVD. Abdomen: Soft, protuberant with ascites noted shifting dullness and positive fluid wave Negative for masses or hepatosplenomegaly. Negative for costovertebral tenderness. Pelvis: Stable nontender. Genitourinary: Deferred. Rectal: Deferred. Extremities: Atraumatic, negative for cords or calf pain. Neurovascular unremarkable. Neuro: Awake, alert, oriented. Cranial nerves II through XII unremarkable. Cerebellum unremarkable. Motor and sensory unremarkable throughout. Exam nonfocal. Diagnostics: CBC CMP Therapeutics: Ativan 1 mg IV Impression: #1 alcoholic liver disease #2 ascites Definitive disposition and diagnosis as appropriate pending reevaluation and review of above. stomach Pain Score (Numeric/FACES): 10 - Related Data Allergies Allergy/AdvReac Type Severity Reaction Status Date / Time amoxicillin trihydrate Allergy Hives Verified 05/05/19 16:28 [From Augmentin] latex Allergy Rash Verified 05/05/19 16:28 potassium clavulanate Allergy Hives Verified 05/05/19 16:28 [From Augmentin] Home Meds: Home Meds Esomeprazole Magnesium 40 mg PO DAILY 04/01/19 [History] Folic Acid 1 mg PO BEDTIME #30 tablet 04/03/19 [Rx] Thiamine [Vitamin B-1] 100 mg PO BEDTIME #30 tablet 04/03/19 [Rx] Hyoscyamine [Hyomax-SL] 0.125 mg SL Q4H PRN #20 tab.sl 04/22/19 [Rx] Promethazine [Phenergan] 25 mg PO Q8H PRN #6 tab 04/22/19 [Rx] oxyCODONE 5 mg PO Q6H PRN #10 tab 05/01/19 [Rx] Cyclobenzaprine [Flexeril] 5 mg PO BID PRN #30 tab 05/07/19 [Rx] Furosemide [Lasix] 20 mg PO BIDDIURETIC #60 tablet 05/07/19 [Rx] Potassium Chloride [Klor-Con M20] 40 meq PO DAILY #60 tab.er 05/07/19 [Rx] Spironolactone [Aldactone] 12.5 mg PO BID 30 Days #30 tab 05/07/19 [Rx] Past Medical History HEENT History: Reports: None Cardiovascular History: Reports: Hypertension Respiratory History: Reports: COPD, Pneumothorax Gastrointestinal History: Reports: Cholelithiasis, Other (See Below) Other Gastrointestinal History: alcoholic liver dse Genitourinary History: Reports: None C[employer]ER History: Reports: Musculoskeletal History: Reports: None Neurological History: Reports: None Psychiatric History: Reports: Anxiety, Depression, Other (See Below) Other Psychiatric History: Major Depressive disorder Endocrine/Metabolic History: Reports: None Hematologic History: Reports: None Immunologic History: Reports: None Oncologic (Cancer) History: Reports: None Dermatologic History: Reports: None - Infectious Disease History Infectious Disease History: Reports: Chicken Pox, Measles, Mumps - Past Surgical History Head Surgeries/Procedures: Reports: None HEENT Surgical History: Reports: Tonsillectomy Cardiovascular Surgical History: Reports: None Respiratory Surgical History: Reports: None, Other (See Below) Other Respiratory Surgeries/Procedures: chest tube to right lung; right lobectomy GI Surgical History: Reports: None Female Surgical History: Reports: None Endocrine Surgical History: Reports: None Neurological Surgical History: Reports: None Musculoskeletal Surgical History: Reports: None Oncologic Surgical History: Reports: None Dermatological Surgical History: Reports: None Social & Family History - Family History Family Medical History: Noncontributory Cardiac: Reports: Heart Failure, Hypertension Respiratory: Reports: COPD - Tobacco Use Smoking Status *Q: Current Every Day Smoker Years of Tobacco use: 10 Packs/Tins Daily: 0.5 Used Tobacco, but Quit: No - Caffeine Use Caffeine Use: Reports: Coffee Caffeine Use Comment: occasional - Recreational Drug Use Recreational Drug Use: No - Living Situation & Occupation Living situation: Reports: with Family Occupation: Unemployed ED ROS GENERAL - Review of Systems Review Of Systems: ROS reveals no pertinent complaints other than HPI. ED EXAM, GENERAL - Physical Exam Exam: See Below (See dictation) Course - Vital Signs Last Recorded V/S: Last Vital Signs Temp 36.6 C 05/08/19 00:35 Pulse 113 H 05/08/19 00:35 Resp 20 05/08/19 00:35 BP 102/66 05/08/19 00:35 Pulse Ox 94 L 05/08/19 00:35 - Orders/Labs/Meds Labs: Laboratory Tests 05/08/19 05/08/19 Range/Units 00:56 00:56 WBC 8.01 (4.0-11.0) K/uL RBC 2.72 L (4.30-5.90) M/uL Hgb 9.3 L (12.0-16.0) g/dL Hct 27.9 L (36.0-46.0) % MCV 102.6 H (80.0-98.0) fL MCH 34.2 H (27.0-32.0) pg MCHC 33.3 (31.0-37.0) g/dL RDW Std Deviation 76.1 H (28.0-62.0) fl RDW Coeff of Mayito 20 H (11.0-15.0) % Plt Count 249 (150-400) K/uL MPV 10.10 (7.40-12.00) fL Neut % (Auto) 67.7 (48.0-80.0) % Lymph % (Auto) 19.6 (16.0-40.0) % [place] % (Auto) 9.6 (0.0-15.0) % Eos % (Auto) 1.9 (0.0-7.0) % Baso % (Auto) 1.2 (0.0-1.5) % Neut # (Auto) 5.4 (1.4-5.7) K/uL Lymph # (Auto) 1.6 (0.6-2.4) K/uL [place] # (Auto) 0.8 (0.0-0.8) K/uL Eos # (Auto) 0.2 (0.0-0.7) K/uL Baso # (Auto) 0.1 (0.0-0.1) K/uL Nucleated RBC % 0.0 /100WBC Nucleated RBCs # 0 K/uL Sodium 126 L (136-145) mmol/L Potassium 3.3 L (3.5-5.1) mmol/L Chloride 93 L (98-107) mmol/L Carbon Dioxide 29.0 (21.0-32.0) mmol/L BUN 12 (7.0-18.0) mg/dL Creatinine 0.8 (0.6-1.0) mg/dL Est Cr Clr Drug Dosing TNP Estimated GFR (MDRD) > 60.0 ml/min Glucose 111 H (74-106) mg/dL Calcium 7.8 L (8.5-10.1) mg/dL Total Bilirubin 9.2 H (0.2-1.0) mg/dL AST 130 H (15-37) IU/L ALT 38 (14-63) IU/L Alkaline Phosphatase 178 H (46-116) U/L Total Protein 6.5 (6.4-8.2) g/dL Albumin 2.0 L (3.4-5.0) g/dL Globulin 4.5 H (2.6-4.0) g/dL Albumin/Globulin Ratio 0.4 L (0.9-1.6) Meds: Medications Discontinued Medications Generic Name Dose Route Start Last Admin Trade Name Freq PRN Reason Stop Dose Admin Lorazepam 1 mg 05/08/19 00:46 05/08/19 00:51 Ativan IVPUSH 05/08/19 00:47 1 mg ONETIME ONE Administration Departure - Departure Time of Disposition: 01:45 Disposition: Home, Self-Care 01 Condition: Good Clinical Impression: Alcoholic liver disease Ascites Qualifiers: Ascites type: due to alcoholic cirrhosis Qualified Code(s): K70.31 - Alcoholic cirrhosis of liver with ascites - Discharge Information Referrals: Huy Duarte MD [Primary Care Provider] - Forms: ED Department Discharge Additional Instructions: The following information is given to patients seen in the emergency department who are being discharged to home. This information is to outline your options for follow-up care. We provide all patients seen in our emergency department with a follow-up referral. The need for follow-up, as well as the timing and circumstances, are variable depending upon the specifics of your emergency department visit. If you don't have a primary care physician on staff, we will provide you with a referral. We always advise you to contact your personal physician following an emergency department visit to inform them of the circumstance of the visit and for follow-up with them and/or the need for any referrals to a consulting specialist. The emergency department will also refer you to a specialist when appropriate. This referral assures that you have the opportunity for followup care with a specialist. All of these measure are taken in an effort to provide you with optimal care, which includes your followup. Under all circumstances we always encourage you to contact your private physician who remains a resource for coordinating your care. When calling for followup care, please make the office aware that this follow-up is from your recent emergency room visit. If for any reason you are refused follow-up, please contact the [facility] emergency department at and asked to speak to the emergency department charge nurse. Keep scheduled appointment today for paracentesis continue current medications return as needed as discussed
[2019-05-08 01:23] LABS: CHLORIDE,CL 93 mmol/L (98-107); SODIUM,NA 126 mmol/L (136-145)
== END 2019-05-08 01:59 | disposition home or self-care (01) ==
LOC: MW.ED 00:14
DX: K70.31 Alcoholic cirrhosis of liver with ascites (principal); I10 Essential (primary) hypertension; J44.9 Chronic obstructive pulmonary disease, unspecified; F41.9 Anxiety disorder, unspecified; F32.9 Major depressive disorder, single episode, unspecified; F17.210 Nicotine dependence, cigarettes, uncomplicated; Z79.899 Other long term (current) drug therapy; Z91.040 Latex allergy status; Z88.1 Allergy status to other antibiotic agents
CPT/HCPCS: 36415; 80053; 85025; 96374; 99284; J2060; 99283

== ENCOUNTER 2019-05-28 10:09 | Observation (INO) | payer MEDICAID ==
[2019-05-28] MEDS ORDERED: Sodium Chloride 0.9% 1,000 ML IV ONE (10:15)
[2019-05-28] MEDS ORDERED: Morphine 4 MG/ML Syringe IVPUSH ONE (10:15)
--- NOTE | 2019-05-28 10:15 | EDM.PDOC ---
ED HPI GENERAL MEDICAL PROBLEM - General Chief Complaint: Gastrointestinal Problem Stated Complaint: LIVER PROBLEMS Time Seen by Provider: 05/28/19 10:12 Source of Information: Reports: Patient History Limitations: Reports: No Limitations - History of Present Illness INITIAL COMMENTS - FREE TEXT/NARRATIVE: HISTORY AND PHYSICAL: History of present illness: Patient is a 33-year-old female who presents to the emergency room with abdominal pain and ascites. Patient has a history of alcoholic liver disease, cirrhosis and ascites. She had a paracentesis tap 2 weeks ago. Over the past 1- 2 days feels like her abdomen is "filling up again". States her abdomen is tender to touch and unable to get uncomfortable. States her last alcoholic drink was approximately one month ago. Patient denies any fever, chills, headache, change in vision, syncope or near syncope. Denies any chest pain, back pain, shortness of breath or cough. Denies any nausea, vomiting, diarrhea, constipation or dysuria. Has not noted any blood in urine or stool. Patient has been eating and drinking appropriately. Review of systems: As per history of present illness and below otherwise all systems reviewed and negative. Past medical history: As per history of present illness and as reviewed below otherwise noncontributory. Surgical history: As per history of present illness and as reviewed below otherwise noncontributory. Social history: See social history for further information Family history: As per history of present illness and as reviewed below otherwise noncontributory. Physical exam: General: Chronically ill-appearing 33-year-old female. Alert and oriented. Mild distress due to the abdominal pain/ascites. Vital signs have been reviewed by me. HEENT: Atraumatic, normocephalic, pupils equal and reactive bilaterally, negative for conjunctival pallor or scleral icterus, mucous membranes moist, trachea midline. No drooling or trismus noted. No meningeal signs. No hot potato voice noted. Lungs: Clear to auscultation, breath sounds equal bilaterally, chest nontender. Heart: S1S2, regular rate and rhythm without overt murmur Abdomen: Distended, firm, ascites, tender to touch. Negative for costovertebral tenderness. Pelvis: Stable nontender. Skin: Intact, warm, dry. No lesions or rashes noted. Extremities: Atraumatic, moves all extremities per self without difficulty or deficits. Neurovascular unremarkable. Neuro: Awake, alert, oriented. Cranial nerves II through XII unremarkable. Cerebellum unremarkable. Motor and sensory unremarkable throughout. Exam nonfocal. Notes: Dr Huy Duarte, patient's PCP at [facility], was informed of patient's ER visit. Reports that the patient was supposed to follow-up as a referral at [facility] in [place], but she had been hospitalized during that time and was unable to attend this appointment. She does have an appointment on 05/30/19 at 1530 for follow-up. He was informed of her likely admission for paracentesis. Dr Corrigan was consulted on this case, he is agreeable to keeping her from observation. Patient is aware and agreeable as well. Diagnostics: CBC, CMP, Lipase, UA, INR, ammonia Therapeutics: IV fluids, Morphine Impression: Liver Disease Ascites Plan: Observation to Med/Surg Definitive disposition and diagnosis as appropriate pending reevaluation and review of above. Duration: Chronic Abdominal Pain Score (Numeric/FACES): 9 - Related Data Allergies Allergy/AdvReac Type Severity Reaction Status Date / Time amoxicillin trihydrate Allergy Hives Verified 05/28/19 11:33 [From Augmentin] latex Allergy Rash Verified 05/28/19 11:33 potassium clavulanate Allergy Hives Verified 05/28/19 11:33 [From Augmentin] Home Meds: Home Meds Esomeprazole Magnesium 40 mg PO DAILY 04/01/19 [History] Folic Acid 1 mg PO BEDTIME #30 tablet 04/03/19 [Rx] Thiamine [Vitamin B-1] 100 mg PO BEDTIME #30 tablet 04/03/19 [Rx] Hyoscyamine [Hyomax-SL] 0.125 mg SL Q4H PRN #20 tab.sl 04/22/19 [Rx] Furosemide [Lasix] 20 mg PO BIDDIURETIC #60 tablet 05/07/19 [Rx] Spironolactone [Aldactone] 12.5 mg PO BID 30 Days #30 tab 05/07/19 [Rx] Potassium Chloride 1 tab PO BID 05/28/19 [History] Past Medical History HEENT History: Reports: None Cardiovascular History: Reports: Hypertension Respiratory History: Reports: COPD, Pneumothorax Gastrointestinal History: Reports: Cholelithiasis, Other (See Below) Other Gastrointestinal History: alcoholic liver dse Genitourinary History: Reports: None 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: Musculoskeletal History: Reports: None Neurological History: Reports: None Psychiatric History: Reports: Anxiety, Depression, Other (See Below) Other Psychiatric History: Major Depressive disorder Endocrine/Metabolic History: Reports: None Hematologic History: Reports: None Immunologic History: Reports: None Oncologic (Cancer) History: Reports: None Dermatologic History: Reports: None - Infectious Disease History Infectious Disease History: Reports: Chicken Pox, Measles, Mumps - Past Surgical History Head Surgeries/Procedures: Reports: None HEENT Surgical History: Reports: Tonsillectomy Cardiovascular Surgical History: Reports: None Respiratory Surgical History: Reports: None, Other (See Below) Other Respiratory Surgeries/Procedures: chest tube to right lung; right lobectomy GI Surgical History: Reports: None Female Surgical History: Reports: None Endocrine Surgical History: Reports: None Neurological Surgical History: Reports: None Musculoskeletal Surgical History: Reports: None Oncologic Surgical History: Reports: None Dermatological Surgical History: Reports: None Social & Family History - Family History Family Medical History: Noncontributory Cardiac: Reports: Heart Failure, Hypertension Respiratory: Reports: COPD - Caffeine Use Caffeine Use: Reports: Coffee Caffeine Use Comment: occasional - Living Situation & Occupation Living situation: Reports: with Family Occupation: Unemployed ED ROS GENERAL - Review of Systems Review Of Systems: ROS reveals no pertinent complaints other than HPI. ED EXAM, GI/ABD - Physical Exam Exam: See Below (See dictation) Course - Vital Signs Last Recorded V/S: Last Vital Signs Temp 97.3 F 05/28/19 11:30 Pulse 104 H 05/28/19 11:30 Resp 18 05/28/19 11:30 BP 110/86 05/28/19 11:30 Pulse Ox 99 05/28/19 11:30 - Orders/Labs/Meds Orders: Active Orders 24 hr Category Date Time Status Admission Status [Patient Status] [ADT] Stat ADT 05/28/19 11:00 Active US Guidance Paracentesis NC [CR] Stat Exams 05/28/19 11:12 Ordered Sodium Chloride 0.9% [Normal Saline] 1,000 ml Med 05/28/19 10:15 Active IV STAT Medication Orders Sodium Chloride (Normal Saline) 1,000 mls @ 125 mls/hr IV STAT ONE Stop: 05/28/19 18:14 Last Admin: 05/28/19 10:27 Dose: 125 mls/hr Labs: Laboratory Tests 05/28/19 05/28/19 05/28/19 Range/Units 10:23 10:23 10:23 WBC 5.79 (4.0-11.0) K/uL RBC 3.32 L (4.30-5.90) M/uL Hgb 10.8 L (12.0-16.0) g/dL Hct 33.5 L (36.0-46.0) % MCV 100.9 H (80.0-98.0) fL MCH 32.5 H (27.0-32.0) pg MCHC 32.2 (31.0-37.0) g/dL RDW Std Deviation 60.2 (28.0-62.0) fl RDW Coeff of Mayito 16 H (11.0-15.0) % Plt Count 246 (150-400) K/uL MPV 9.50 (7.40-12.00) fL Neut % (Auto) 66.8 (48.0-80.0) % Lymph % (Auto) 21.9 (16.0-40.0) % [place] % (Auto) 10.2 (0.0-15.0) % Eos % (Auto) 0.2 (0.0-7.0) % Baso % (Auto) 0.9 (0.0-1.5) % Neut # (Auto) 3.9 (1.4-5.7) K/uL Lymph # (Auto) 1.3 (0.6-2.4) K/uL [place] # (Auto) 0.6 (0.0-0.8) K/uL Eos # (Auto) 0.0 (0.0-0.7) K/uL Baso # (Auto) 0.1 (0.0-0.1) K/uL Nucleated RBC % 0.0 /100WBC Nucleated RBCs # 0 K/uL INR 1.24 Sodium 136 (136-145) mmol/L Potassium 3.4 L (3.5-5.1) mmol/L Chloride 101 (98-107) mmol/L Carbon Dioxide 25.2 (21.0-32.0) mmol/L BUN 5 L (7.0-18.0) mg/dL Creatinine 0.6 (0.6-1.0) mg/dL Est Cr Clr Drug Dosing TNP Estimated GFR (MDRD) > 60.0 ml/min Glucose 84 (74-106) mg/dL Calcium 8.2 L (8.5-10.1) mg/dL Total Bilirubin 4.4 H (0.2-1.0) mg/dL AST 106 H (15-37) IU/L ALT 28 (14-63) IU/L Alkaline Phosphatase 193 H (46-116) U/L Ammonia (19-54) ug/dL Total Protein 7.0 (6.4-8.2) g/dL Albumin 1.8 L (3.4-5.0) g/dL Globulin 5.2 H (2.6-4.0) g/dL Albumin/Globulin Ratio 0.4 L (0.9-1.6) Lipase 162 (73-393) U/L 05/28/19 Range/Units 11:16 WBC (4.0-11.0) K/uL RBC (4.30-5.90) M/uL Hgb (12.0-16.0) g/dL Hct (36.0-46.0) % MCV (80.0-98.0) fL MCH (27.0-32.0) pg MCHC (31.0-37.0) g/dL RDW Std Deviation (28.0-62.0) fl RDW Coeff of Mayito (11.0-15.0) % Plt Count (150-400) K/uL MPV (7.40-12.00) fL Neut % (Auto) (48.0-80.0) % Lymph % (Auto) (16.0-40.0) % [place] % (Auto) (0.0-15.0) % Eos % (Auto) (0.0-7.0) % Baso % (Auto) (0.0-1.5) % Neut # (Auto) (1.4-5.7) K/uL Lymph # (Auto) (0.6-2.4) K/uL Henry # (Auto) (0.0-0.8) K/uL Eos # (Auto) (0.0-0.7) K/uL Baso # (Auto) (0.0-0.1) K/uL Nucleated RBC % /100WBC Nucleated RBCs # K/uL INR Sodium (136-145) mmol/L Potassium (3.5-5.1) mmol/L Chloride (98-107) mmol/L Carbon Dioxide (21.0-32.0) mmol/L BUN (7.0-18.0) mg/dL Creatinine (0.6-1.0) mg/dL Est Cr Clr Drug Dosing Estimated GFR (MDRD) ml/min Glucose (74-106) mg/dL Calcium (8.5-10.1) mg/dL Total Bilirubin (0.2-1.0) mg/dL AST (15-37) IU/L ALT (14-63) IU/L Alkaline Phosphatase (46-116) U/L Ammonia 32 (19-54) ug/dL Total Protein (6.4-8.2) g/dL Albumin (3.4-5.0) g/dL Globulin (2.6-4.0) g/dL Albumin/Globulin Ratio (0.9-1.6) Lipase (73-393) U/L Meds: Medications Generic Name Dose Route Start Last Admin Trade Name Freq PRN Reason Stop Dose Admin Sodium Chloride 1,000 mls @ 125 mls/hr 05/28/19 10:15 05/28/19 10:27 Normal Saline IV 05/28/19 18:14 125 mls/hr STAT ONE Administration Discontinued Medications Generic Name Dose Route Start Last Admin Trade Name Freq PRN Reason Stop Dose Admin Morphine Sulfate 4 mg 05/28/19 10:15 05/28/19 10:30 Morphine IVPUSH 05/28/19 10:16 4 mg ONETIME ONE Administration Departure - Departure Time of Disposition: 12:57 Disposition: Refer to Observation Clinical Impression: Alcoholic liver disease Ascites Qualifiers: Ascites type: due to alcoholic cirrhosis Qualified Code(s): K70.31 - Alcoholic cirrhosis of liver with ascites - Discharge Information - My Orders Last 24 Hours: My Active Orders 05/28/19 10:15 Sodium Chloride 0.9% [Normal Saline] 1,000 ml IV STAT 05/28/19 11:00 Admission Status [Patient Status] [ADT] Stat - Assessment/Plan Last 24 Hours: My Active Orders 05/28/19 10:15 Sodium Chloride 0.9% [Normal Saline] 1,000 ml IV STAT 05/28/19 11:00 Admission Status [Patient Status] [ADT] Stat
[2019-05-28 11:03] LABS: CHLORIDE,CL 101 mmol/L (98-107); SODIUM,NA 136 mmol/L (136-145)
[2019-05-28] MEDS ORDERED: Albumin 25% 12.5 GM/50 ML BAG IV ONE ×2 (15:58→16:54)
[2019-05-28] MEDS ORDERED: Potassium Chloride 20 MEQ Tab.ER PO ONE ×2 (16:46)
--- NOTE | 2019-05-28 16:48 | PCM.HP ---
H&P History of Present Illness - General Date of Service: 05/28/19 Admit Problem/Dx: Admission Diagnosis/Problem Admission Diagnosis/Problem Ascites due to alcoholic cirrhosis - History of Present Illness Initial Comments - Free Text/Narative: 33 yo female with pmh of alcoholic liver cirrhosis who presents to the ED with complaints of abdominal distention. Patient reports her last theraputic paracentesis was two weeks ago. She has been taking her Lasix and spironolactone twice a day but is still retaining fluid. Patient reports she has episodes of confusion especially when it comes to medications. She was instructed to start taking Lasix three times a day but has not started doing this as her pharmacy wont fill her TID script until she finishes her current supply of lasix which she thought she should only take BID. Abdominal Pain Score (Numeric/FACES): 9 - Related Data Allergies/Adverse Reactions: Allergies Allergy/AdvReac Type Severity Reaction Status Date / Time amoxicillin trihydrate Allergy Hives Verified 05/28/19 11:33 [From Augmentin] latex Allergy Rash Verified 05/28/19 11:33 potassium clavulanate Allergy Hives Verified 05/28/19 11:33 [From Augmentin] Home Medications: Home Meds Esomeprazole Magnesium 40 mg PO DAILY 04/01/19 [History] Folic Acid 1 mg PO BEDTIME #30 tablet 04/03/19 [Rx] Thiamine [Vitamin B-1] 100 mg PO BEDTIME #30 tablet 04/03/19 [Rx] Hyoscyamine [Hyomax-SL] 0.125 mg SL Q4H PRN #20 tab.sl 04/22/19 [Rx] Furosemide [Lasix] 20 mg PO BIDDIURETIC #60 tablet 05/07/19 [Rx] Spironolactone [Aldactone] 12.5 mg PO BID 30 Days #30 tab 05/07/19 [Rx] Potassium Chloride 10 meq PO BID 05/28/19 [History] Past Medical History HEENT History: Reports: None Cardiovascular History: Reports: Hypertension Respiratory History: Reports: COPD, Pneumothorax Gastrointestinal History: Reports: Cholelithiasis, Other (See Below) Other Gastrointestinal History: alcoholic liver dse Genitourinary History: Reports: 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: Musculoskeletal History: Reports: None Neurological History: Reports: None Psychiatric History: Reports: Anxiety, Depression, Other (See Below) Other Psychiatric History: Major Depressive disorder Endocrine/Metabolic History: Reports: None Hematologic History: Reports: None Immunologic History: Reports: None Oncologic (Cancer) History: Reports: None Dermatologic History: Reports: None - Infectious Disease History Infectious Disease History: Reports: Chicken Pox, Measles, Mumps - Past Surgical History Head Surgeries/Procedures: Reports: None HEENT Surgical History: Reports: Tonsillectomy Cardiovascular Surgical History: Reports: None Respiratory Surgical History: Reports: None, Other (See Below) Other Respiratory Surgeries/Procedures: chest tube to right lung; right lobectomy GI Surgical History: Reports: None Female Surgical History: Reports: None Endocrine Surgical History: Reports: None Neurological Surgical History: Reports: None Musculoskeletal Surgical History: Reports: None Oncologic Surgical History: Reports: None Dermatological Surgical History: Reports: None Social & Family History - Family History Family Medical History: Noncontributory Cardiac: Reports: Heart Failure, Hypertension Respiratory: Reports: COPD - Tobacco Use Smoking Status *Q: Current Every Day Smoker Years of Tobacco use: 14 Packs/Tins Daily: 0.3 Used Tobacco, but Quit: No Second Hand Smoke Exposure: No - Caffeine Use Caffeine Use: Reports: Coffee Caffeine Use Comment: occasional - Recreational Drug Use Recreational Drug Use: Yes Drug Use in Last 12 Months: Yes Recreational Drug Type: Reports: Marijuana/Hashish Recreational Drug Use Frequency: Weekly Recreational Drug Last Use: yesterday - Living Situation & Occupation Living situation: Reports: with Family Occupation: Unemployed H&P Review of Systems - Review of Systems: Review Of Systems: ROS reveals no pertinent complaints other than HPI. Exam - Exam Exam: See Below - Vital Signs Vital Signs: Last Vital Signs Temp 36.9 C 05/28/19 16:00 Pulse 111 H 05/28/19 16:00 Resp 16 05/28/19 16:00 BP 107/72 05/28/19 16:00 Pulse Ox 96 05/28/19 16:00 Weight: 49.623 kg - Exam General: Alert, Oriented HEENT: Mucosa Moist & [place] Lungs: Clear to Auscultation, Normal Respiratory Effort Cardiovascular: Regular Rate, Regular Rhythm GI/Abdominal Exam: Normal Bowel Sounds, Soft, Non-Tender Extremities: Non-Tender, No Pedal Edema Skin: Warm, Dry, Intact Neurological: Cranial Nerves Intact - Patient Data Lab Results Last 24 hrs: Laboratory Results - last 24 hr 07/17/19 07/17/19 07/17/19 Range/Units 10:23 10:23 10:23 WBC 5.79 (4.0-11.0) K/uL RBC 3.32 L (4.30-5.90) M/uL Hgb 10.8 L (12.0-16.0) g/dL Hct 33.5 L (36.0-46.0) % MCV 100.9 H (80.0-98.0) fL MCH 32.5 H (27.0-32.0) pg MCHC 32.2 (31.0-37.0) g/dL RDW Std Deviation 60.2 (28.0-62.0) fl RDW Coeff of Mayito 16 H (11.0-15.0) % Plt Count 246 (150-400) K/uL MPV 9.50 (7.40-12.00) fL Neut % (Auto) 66.8 (48.0-80.0) % Lymph % (Auto) 21.9 (16.0-40.0) % [place] % (Auto) 10.2 (0.0-15.0) % Eos % (Auto) 0.2 (0.0-7.0) % Baso % (Auto) 0.9 (0.0-1.5) % Neut # (Auto) 3.9 (1.4-5.7) K/uL Lymph # (Auto) 1.3 (0.6-2.4) K/uL [place] # (Auto) 0.6 (0.0-0.8) K/uL Eos # (Auto) 0.0 (0.0-0.7) K/uL Baso # (Auto) 0.1 (0.0-0.1) K/uL Nucleated RBC % 0.0 /100WBC Nucleated RBCs # 0 K/uL INR 1.24 Sodium 136 (136-145) mmol/L Potassium 3.4 L (3.5-5.1) mmol/L Chloride 101 (98-107) mmol/L Carbon Dioxide 25.2 (21.0-32.0) mmol/L BUN 5 L (7.0-18.0) mg/dL Creatinine 0.6 (0.6-1.0) mg/dL Est Cr Clr Drug Dosing TNP Estimated GFR (MDRD) > 60.0 ml/min Glucose 84 (74-106) mg/dL Calcium 8.2 L (8.5-10.1) mg/dL Total Bilirubin 4.4 H (0.2-1.0) mg/dL AST 106 H (15-37) IU/L ALT 28 (14-63) IU/L Alkaline Phosphatase 193 H (46-116) U/L Ammonia (19-54) ug/dL Total Protein 7.0 (6.4-8.2) g/dL Albumin 1.8 L (3.4-5.0) g/dL Globulin 5.2 H (2.6-4.0) g/dL Albumin/Globulin Ratio 0.4 L (0.9-1.6) Lipase 162 (73-393) U/L 05/28/19 Range/Units 11:16 WBC (4.0-11.0) K/uL RBC (4.30-5.90) M/uL Hgb (12.0-16.0) g/dL Hct (36.0-46.0) % MCV (80.0-98.0) fL MCH (27.0-32.0) pg MCHC (31.0-37.0) g/dL RDW Std Deviation (28.0-62.0) fl RDW Coeff of Mayito (11.0-15.0) % Plt Count (150-400) K/uL MPV (7.40-12.00) fL Neut % (Auto) (48.0-80.0) % Lymph % (Auto) (16.0-40.0) % [place] % (Auto) (0.0-15.0) % Eos % (Auto) (0.0-7.0) % Baso % (Auto) (0.0-1.5) % Neut # (Auto) (1.4-5.7) K/uL Lymph # (Auto) (0.6-2.4) K/uL [place] # (Auto) (0.0-0.8) K/uL Eos # (Auto) (0.0-0.7) K/uL Baso # (Auto) (0.0-0.1) K/uL Nucleated RBC % /100WBC Nucleated RBCs # K/uL INR Sodium (136-145) mmol/L Potassium (3.5-5.1) mmol/L Chloride (98-107) mmol/L Carbon Dioxide (21.0-32.0) mmol/L BUN (7.0-18.0) mg/dL Creatinine (0.6-1.0) mg/dL Est Cr Clr Drug Dosing Estimated GFR (MDRD) ml/min Glucose (74-106) mg/dL Calcium (8.5-10.1) mg/dL Total Bilirubin (0.2-1.0) mg/dL AST (15-37) IU/L ALT (14-63) IU/L Alkaline Phosphatase (46-116) U/L Ammonia 32 (19-54) ug/dL Total Protein (6.4-8.2) g/dL Albumin (3.4-5.0) g/dL Globulin (2.6-4.0) g/dL Albumin/Globulin Ratio (0.9-1.6) Lipase (73-393) U/L Result Diagrams: 05/28/19 10:23 05/28/19 10:23 Problem List Initiated/Reviewed/Updated: Yes Orders Last 24hrs: Active Orders 24 hr Category Date Time Status Admission Status [Patient Status] [ADT] Stat ADT 05/28/19 11:00 Active Guidance Paracentesis [US] Routine Exams 05/28/19 13:54 Taken US Guidance Paracentesis NC [CR] Stat Exams 05/28/19 11:12 Ordered Esomeprazole Magnesium [Esomeprazole Magnesium] Med 05/29/19 09:00 Ordered 40 mg PO DAILY Furosemide [Lasix] Med 05/28/19 08:00 Ordered 20 mg PO BIDDIURETIC Lactulose [Chronulac] Med 05/28/19 17:00 Ordered 10 gm PO DAILY Potassium Chloride [Klor-Con M20] Med 05/28/19 16:46 Once 40 meq PO ONETIME ONE Potassium Chloride [Klor-Con M20] Med 05/28/19 16:46 Once 40 meq PO ONETIME ONE Potassium Chloride [Potassium Chloride] Med 05/28/19 21:00 Ordered 1 tab PO BID Spironolactone [Aldactone] Med 05/28/19 21:00 Ordered 12.5 mg PO BID Medication Orders Furosemide (Lasix) 20 mg PO BIDDIURETIC CHRISTIE Lactulose (Chronulac) 10 gm PO DAILY CHRISTIE Non-Formulary Medication (Esomeprazole Magnesium [Esomeprazole Magnesium]) 40 mg PO DAILY CHRISTIE Non-Formulary Medication (Potassium Chloride [Potassium Chloride]) 1 tab PO BID CHRISTIE Potassium Chloride (Klor-Con M20) 40 meq PO ONETIME ONE Stop: 05/28/19 16:47 Spironolactone (Aldactone) 12.5 mg PO BID CHRISTIE Assessment/Plan Comment:: 33 yo female with liver cirrhosis and ascites. She likely does have some hepatic encephalopathy. She underwent a therapeutic paracentesis in radiology and removed 6 liters. She received 25 g of albumin. She was discharged home after being watched overnight. She was given a prescription of lactulose to take as needed.
[2019-05-28] MEDS: Furosemide 20 MG Tab PO SCH ×2 (16:52→17:33)
[2019-05-28] MEDS: Lactulose Soln 10 GM/15 ML 15 ML UD Cup PO SCH (17:23)
[2019-05-28] MEDS: Potassium Chloride 10 MEQ Tab.ER PO SCH (17:23)
[2019-05-28] MEDS: oxyCODONE 5 MG Tab PO PRN ×2 (17:23→23:33)
[2019-05-28] MEDS: Spironolactone 25 MG Tab PO SCH (20:52)
[2019-05-29] MEDS: oxyCODONE 5 MG Tab PO PRN (07:17)
[2019-05-29] MEDS ORDERED: Omeprazole 20 MG Cap.CR PO SCH (07:30)
[2019-05-29 07:36] VITALS: BP 98/68
[2019-05-29] MEDS: Potassium Chloride 10 MEQ Tab.ER PO SCH (08:50)
[2019-05-29] MEDS: Furosemide 20 MG Tab PO SCH (08:50)
[2019-05-29] MEDS: Spironolactone 25 MG Tab PO SCH (08:51)
[2019-05-29] MEDS: Lactulose Soln 10 GM/15 ML 15 ML UD Cup PO SCH (08:52)
--- NOTE | 2019-05-29 09:52 | US ---
EXAMINATION: Ultrasound guided paracentesis. HISTORY: Ascites. FINDINGS/TECHNIQUE: The procedure, risks, and benefits were discussed with the patient. Written informed consent was obtained. The left lower quadrant was sterilely prepped and draped. 1% lidocaine was administered for local anesthesia. Using ultrasound guidance a 5 Prydeinig one-step needle was advanced. The catheter was left in place. 5.5 L of yellow fluid was collected. The patient tolerated the procedure well. IMPRESSION: Successful US guided paracentesis.
== END 2019-05-29 11:42 | disposition home or self-care (01) ==
LOC: MW.ED 10:09 → MW.MS 11:26
PROVIDERS: ADMIT Internal Medicine; ATTEND Internal Medicine
DX: K70.31 Alcoholic cirrhosis of liver with ascites (principal); I10 Essential (primary) hypertension; J44.9 Chronic obstructive pulmonary disease, unspecified; F17.200 Nicotine dependence, unspecified, uncomplicated; Z88.0 Allergy status to penicillin; Z91.040 Latex allergy status; Z79.899 Other long term (current) drug therapy
CPT/HCPCS: 36415; 49083; 80053; 82140; 83690; 85025; 85610; 96361; 96365; 96366; 96375; 99284; A9270; C1729; G0378; J2270; J7040; P9047; 96374

== ENCOUNTER 2019-06-30 21:20 | Observation (INO) | payer MEDICAID ==
[2019-06-30] MEDS ORDERED: Sodium Chloride 0.9% 1,000 ML IV SCH (22:00)
--- NOTE | 2019-06-30 22:05 | EDM.PDOC ---
ED HPI GENERAL MEDICAL PROBLEM - General Chief Complaint: General Stated Complaint: MENTAL ISSUE Time Seen by Provider: 06/30/19 22:04 Source of Information: Reports: Patient - History of Present Illness INITIAL COMMENTS - FREE TEXT/NARRATIVE: HISTORY AND PHYSICAL: History of present illness: [Patient presents with clinical alcohol intoxication history of liver failure states she has ingested pills unknown quantity essentially all of her home medication she presents with empty bottles see nursing note for complete details on medication details essentially. She presented with multiple medication bottles that were empty, however she has been hemodynamically stable since No fever nausea vomiting chills sweats no chest pain shortness breath headache dizziness palpitation no bowel or urine symptoms to arrival extended ER stay Reason control recommends overnight observation] Review of systems: As per history of present illness and below otherwise all systems reviewed and negative. Past medical history: As per history of present illness and as reviewed below otherwise noncontributory. Surgical history: As per history of present illness and as reviewed below otherwise noncontributory. Social history: No reported history of drug or alcohol abuse. Family history: As per history of present illness and as reviewed below otherwise noncontributory. Physical exam: HEENT: Atraumatic, normocephalic, pupils reactive, negative for conjunctival pallor or scleral icterus, mucous membranes moist, throat clear, neck supple, nontender, trachea midline. Lungs: Clear to auscultation, breath sounds equal bilaterally, chest nontender. Heart: S1S2, regular, negative for clicks, rubs, or JVD. Abdomen: Soft, nondistended, nontender. Negative for masses or hepatosplenomegaly. Negative for costovertebral tenderness. Pelvis: Stable nontender. Genitourinary: Deferred. Rectal: Deferred. Extremities: Atraumatic, negative for cords or calf pain. Neurovascular unremarkable. Neuro: Awake, alert, oriented. Cranial nerves II through XII unremarkable. Cerebellum unremarkable. Motor and sensory unremarkable throughout. Exam nonfocal. Diagnostics: [3C psych workup EKG] Therapeutics: [Normal saline ] Impression: [Suicide ideation/attempt by ingestion Alcohol intoxication Chronic history of baseline ] Definitive disposition and diagnosis as appropriate pending reevaluation and review of above. - Related Data Allergies Allergy/AdvReac Type Severity Reaction Status Date / Time amoxicillin trihydrate Allergy Hives Verified 06/30/19 21:53 [From Augmentin] latex Allergy Rash Verified 06/30/19 21:53 potassium clavulanate Allergy Hives Verified 06/30/19 21:53 [From Augmentin] Home Meds: Home Meds Esomeprazole Magnesium 40 mg PO DAILY 04/01/19 [History] Folic Acid 1 mg PO BEDTIME #30 tablet 04/03/19 [Rx] Thiamine [Vitamin B-1] 100 mg PO BEDTIME #30 tablet 04/03/19 [Rx] Hyoscyamine [Hyomax-SL] 0.125 mg SL Q4H PRN #20 tab.sl 04/22/19 [Rx] Furosemide [Lasix] 20 mg PO BIDDIURETIC #60 tablet 05/07/19 [Rx] Spironolactone [Aldactone] 12.5 mg PO BID 30 Days #30 tab 05/07/19 [Rx] Potassium Chloride 10 meq PO BID 05/28/19 [History] Lactulose [Chronulac] 10 gm PO DAILY PRN #20 cup 05/29/19 [Rx] Past Medical History HEENT History: Reports: None Cardiovascular History: Reports: Hypertension Respiratory History: Reports: COPD, Pneumothorax Gastrointestinal History: Reports: Cholelithiasis, Other (See Below) Other Gastrointestinal History: alcoholic liver dse Genitourinary History: Reports: None 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: Musculoskeletal History: Reports: None Neurological History: Reports: None Psychiatric History: Reports: Anxiety, Depression, Other (See Below) Other Psychiatric History: Major Depressive disorder Endocrine/Metabolic History: Reports: None Hematologic History: Reports: None Immunologic History: Reports: None Oncologic (Cancer) History: Reports: None Dermatologic History: Reports: None - Infectious Disease History Infectious Disease History: Reports: Chicken Pox, Measles, Mumps - Past Surgical History Head Surgeries/Procedures: Reports: None HEENT Surgical History: Reports: Tonsillectomy Cardiovascular Surgical History: Reports: None Respiratory Surgical History: Reports: None, Other (See Below) Other Respiratory Surgeries/Procedures: chest tube to right lung; right lobectomy GI Surgical History: Reports: None Female Surgical History: Reports: None Endocrine Surgical History: Reports: None Neurological Surgical History: Reports: None Musculoskeletal Surgical History: Reports: None Oncologic Surgical History: Reports: None Dermatological Surgical History: Reports: None Social & Family History - Family History Family Medical History: Noncontributory Cardiac: Reports: Heart Failure, Hypertension Respiratory: Reports: COPD - Caffeine Use Caffeine Use: Reports: Coffee Caffeine Use Comment: occasional - Living Situation & Occupation Living situation: Reports: with Family Occupation: Unemployed ED ROS GENERAL - Review of Systems Review Of Systems: See Below ED EXAM, GENERAL - Physical Exam Exam: See Below Course - Vital Signs Last Recorded V/S: Last Vital Signs Temp 97.8 F 06/30/19 21:47 Pulse 112 H 06/30/19 21:47 Resp 14 06/30/19 21:47 BP 141/103 H 06/30/19 21:47 Pulse Ox 97 06/30/19 21:47 - Orders/Labs/Meds Orders: Active Orders 24 hr Category Date Time Status EKG Documentation Completion [RC] STAT Care 06/30/19 21:24 Active EKG Documentation Completion [RC] STAT Care 06/30/19 21:54 Active HCG QUALITATIVE,URINE [URCHEM] Stat Lab 06/30/19 21:53 Ordered UA RFX DIMAS AND CULT IF INDIC [URIN] Stat Lab 06/30/19 21:53 Ordered Sodium Chloride 0.9% [Normal Saline] 1,000 ml Med 06/30/19 22:00 Active IV STAT Medication Orders Sodium Chloride (Normal Saline) 1,000 mls @ 125 mls/hr IV STAT CHRISTIE Last Admin: 06/30/19 21:54 Dose: 125 mls/hr Labs: Laboratory Tests 06/30/19 06/30/19 Range/Units 21:54 21:54 WBC 5.72 (4.0-11.0) K/uL RBC 3.37 L (4.30-5.90) M/uL Hgb 9.8 L (12.0-16.0) g/dL Hct 29.9 L (36.0-46.0) % MCV 88.7 (80.0-98.0) fL MCH 29.1 (27.0-32.0) pg MCHC 32.8 (31.0-37.0) g/dL RDW Std Deviation 56.3 (28.0-62.0) fl RDW Coeff of Mayito 17 H (11.0-15.0) % Plt Count 157 (150-400) K/uL MPV 8.90 (7.40-12.00) fL Neut % (Auto) 37.8 L (48.0-80.0) % Lymph % (Auto) 47.0 H (16.0-40.0) % [place] % (Auto) 10.5 (0.0-15.0) % Eos % (Auto) 2.8 (0.0-7.0) % Baso % (Auto) 1.9 H (0.0-1.5) % Neut # (Auto) 2.2 (1.4-5.7) K/uL Lymph # (Auto) 2.7 H (0.6-2.4) K/uL [place] # (Auto) 0.6 (0.0-0.8) K/uL Eos # (Auto) 0.2 (0.0-0.7) K/uL Baso # (Auto) 0.1 (0.0-0.1) K/uL Nucleated RBC % 0.0 /100WBC Nucleated RBCs # 0 K/uL Sodium 142 (136-145) mmol/L Potassium 3.3 L (3.5-5.1) mmol/L Chloride 106 (98-107) mmol/L Carbon Dioxide 26.3 (21.0-32.0) mmol/L BUN 8 (7.0-18.0) mg/dL Creatinine 0.6 (0.6-1.0) mg/dL Est Cr Clr Drug Dosing 85.95 mL/min Estimated GFR (MDRD) > 60.0 ml/min Glucose 74 (74-106) mg/dL Calcium 8.3 L (8.5-10.1) mg/dL Total Bilirubin 1.3 H (0.2-1.0) mg/dL AST 91 H (15-37) IU/L ALT 22 (14-63) IU/L Alkaline Phosphatase 256 H (46-116) U/L Total Protein 7.1 (6.4-8.2) g/dL Albumin 2.3 L (3.4-5.0) g/dL Globulin 4.8 H (2.6-4.0) g/dL Albumin/Globulin Ratio 0.5 L (0.9-1.6) TSH 3rd Generation 2.42 (0.36-3.74) uIU/mL Salicylates <0.2 (0-20) mg/dL Acetaminophen <2.0 ug/mL Ethyl Alcohol 313 mg/dL Meds: Medications Generic Name Dose Route Start Last Admin Trade Name Segundo PRN Reason Stop Dose Admin Sodium Chloride 1,000 mls @ 125 mls/hr 06/30/19 22:00 06/30/19 21:54 Normal Saline IV 125 mls/hr STAT CHRISTIE Administration Departure - Departure Time of Disposition: 23:06 Disposition: Home, Self-Care 01 Condition: Good Clinical Impression: Suicide ideation Alcohol intoxication Qualifiers: Complication of substance-induced condition: uncomplicated Qualified Code(s): F10.920 - Alcohol use, unspecified with intoxication, uncomplicated - Discharge Information Forms: ED Department Discharge - My Orders Last 24 Hours: My Active Orders 06/30/19 21:24 EKG Documentation Completion [RC] STAT 06/30/19 21:53 HCG QUALITATIVE,URINE [URCHEM] Stat UA RFX DIMAS AND CULT IF INDIC [URIN] Stat 06/30/19 21:54 EKG Documentation Completion [RC] STAT 06/30/19 22:00 Sodium Chloride 0.9% [Normal Saline] 1,000 ml IV STAT - Assessment/Plan Last 24 Hours: My Active Orders 06/30/19 21:24 EKG Documentation Completion [RC] STAT 06/30/19 21:53 HCG QUALITATIVE,URINE [URCHEM] Stat UA RFX DIMAS AND CULT IF INDIC [URIN] Stat 06/30/19 21:54 EKG Documentation Completion [RC] STAT 06/30/19 22:00 Sodium Chloride 0.9% [Normal Saline] 1,000 ml IV STAT
[2019-06-30 22:42] LABS: ACETAMINOPHEN <2.0 ug/mL
[2019-06-30 22:52] LABS: CHLORIDE,CL 106 mmol/L (98-107); SODIUM,NA 142 mmol/L (136-145)
[2019-07-01] MEDS ORDERED: Sodium Chloride 0.9% 1,000 ML IV SCH ×2 (01:00→06:45)
[2019-07-01] MEDS ORDERED: LORazepam 2 MG/ML SDV IVPUSH PRN (01:02)
[2019-07-01] MEDS ORDERED: LORazepam 1 MG Tab PO PRN (01:06)
[2019-07-01] MEDS ORDERED: MVI, Adult with Vitamin K 10 ML, Thiamine 100 MG, Folic Acid 1 MG in Sodium Chloride 0.... IV ONE ×4 (02:00)
[2019-07-01] MEDS ORDERED: LORazepam 2 MG/ML SDV IVPUSH ONE (02:04)
[2019-07-01] MEDS ORDERED: diphenhydrAMINE 50 MG/ML SDV IVPUSH ONE (02:05)
[2019-07-01] MEDS ORDERED: Haloperidol Lactate 5 MG/ML SDV IM ONE (02:05)
[2019-07-01] MEDS ORDERED: Lactulose Soln 10 GM/15 ML 15 ML UD Cup PO PRN (07:37)
[2019-07-01] MEDS ORDERED: Hyoscyamine 0.125 MG Tab.SL SL PRN (07:37)
[2019-07-01] MEDS ORDERED: Furosemide 20 MG Tab PO SCH (08:00)
[2019-07-01 08:18] LABS: ACETAMINOPHEN < 2.0 ug/mL; CHLORIDE,CL 110 mmol/L (98-107); SODIUM,NA 142 mmol/L (136-145)
[2019-07-01] MEDS ORDERED: Non-Formulary Medication 1 Each (Esomeprazole Magnesium [Esomeprazole Magnesium] 40 MG) PO SCH (09:00)
[2019-07-01] MEDS ORDERED: Spironolactone 25 MG Tab PO SCH (09:00)
--- NOTE | 2019-07-01 09:05 | PCM.HP.2 ---
<Eusebio Becerra M - Last Filed: 07/01/19 10:14> H&P History of Present Illness - General Date of Service: 07/01/19 Admit Problem/Dx: Admission Diagnosis/Problem Admission Diagnosis/Problem Suicide attempt by multiple drug overdose - History of Present Illness Initial Comments - Free Text/Narative: 34-year-old female presented to [facility] after attempting suicide by intentionally ingesting all of her home mediations. Patient reports that she has been having relationship issues with her boyfriend and "just got tired of everything." She then ingested all of her home medications a few hours before coming to the ER. Patient reports vomiting shortly after and states that a lot of her pills in her vomit appeared undigested. She also reports drinking "some vodka" around the same time but does not quantify the amount. She denies every trying to harm herself in the past. As per ER note, patient presented to ER with multiple empty medication bottles. Patient complains of RUQ abdominal pain, left foot pain/numbness and nausea. She denies any fevers, chills, shortness of breath, chest pain, blood in urine or blood in stool. In the ER, patient was found to have a blood alcohol level of 313 mg/dL, was started on IV fluids and admitted for further evaluation and treatment. - Related Data Allergies/Adverse Reactions: Allergies Allergy/AdvReac Type Severity Reaction Status Date / Time amoxicillin trihydrate Allergy Hives Verified 07/01/19 00:51 [From Augmentin] latex Allergy Rash Verified 07/01/19 00:51 potassium clavulanate Allergy Hives Verified 07/01/19 00:51 [From Augmentin] Home Medications: Home Meds Esomeprazole Magnesium 40 mg PO DAILY 04/01/19 [History] Spironolactone [Aldactone] 12.5 mg PO BID 30 Days #30 tab 05/07/19 [Rx] Potassium Chloride 10 meq PO BID 05/28/19 [History] Lactulose [Chronulac] 10 gm PO DAILY PRN #20 cup 05/29/19 [Rx] Furosemide 40 mg PO DAILY 07/01/19 [History] Lansoprazole [Prevacid] 30 mg PO DAILY 07/01/19 [History] oxyCODONE 5 mg PO Q6H 07/01/19 [History] Past Medical History HEENT History: Reports: None Cardiovascular History: Reports: Hypertension Respiratory History: Reports: COPD, Pneumothorax Gastrointestinal History: Reports: Cholelithiasis, Other (See Below) Other Gastrointestinal History: alcoholic liver disease Genitourinary History: Reports: None [employer] History: Reports: Musculoskeletal History: Reports: None Neurological History: Reports: None Psychiatric History: Reports: Anxiety, Depression, Suicidal Ideation, Other ( See Below) Other Psychiatric History: Major Depressive Disorder Endocrine/Metabolic History: Reports: None Hematologic History: Reports: None Immunologic History: Reports: None Oncologic (Cancer) History: Reports: None Dermatologic History: Reports: None - Infectious Disease History Infectious Disease History: Reports: Chicken Pox, Measles, Mumps - Past Surgical History Head Surgeries/Procedures: Reports: None HEENT Surgical History: Reports: Tonsillectomy Cardiovascular Surgical History: Reports: None Respiratory Surgical History: Reports: None, Other (See Below) Other Respiratory Surgeries/Procedures: chest tube to right lung; Partial right lobectomy GI Surgical History: Reports: None Female Surgical History: Reports: None Endocrine Surgical History: Reports: None Neurological Surgical History: Reports: None Musculoskeletal Surgical History: Reports: None Oncologic Surgical History: Reports: None Dermatological Surgical History: Reports: None Social & Family History - Family History Family Medical History: Noncontributory Cardiac: Reports: Heart Failure, Hypertension Respiratory: Reports: COPD - Tobacco Use Smoking Status *Q: Current Every Day Smoker Years of Tobacco use: 15 Packs/Tins Daily: 0.5 - Caffeine Use Caffeine Use: Reports: Coffee Caffeine Use Comment: occasional - Recreational Drug Use Recreational Drug Use: Yes Drug Use in Last 12 Months: Yes Recreational Drug Type: Reports: Marijuana/Hashish Recreational Drug Use Frequency: Socially - Living Situation & Occupation Living situation: Reports: with Family Occupation: Unemployed H&P Review of Systems - Review of Systems: Review Of Systems: ROS reveals no pertinent complaints other than HPI. Exam - Exam Exam: See Below - Vital Signs Vital Signs: Last Vital Signs Temp 97.9 F 07/01/19 04:59 Pulse 100 07/01/19 04:59 Resp 20 07/01/19 04:59 BP 108/69 07/01/19 04:59 Pulse Ox 96 07/01/19 04:59 Weight: 44.679 kg - Exam General: Alert, Oriented, Other (drowsy) HEENT: Conjunctiva Clear, EOMI, Hearing Intact, Posterior Pharynx Clear, Pupils Equal, Pupils Reactive Neck: Supple, Trachea Midline Lungs: Clear to Auscultation, Normal Respiratory Effort Cardiovascular: Regular Rate, Regular Rhythm GI/Abdominal Exam: Normal Bowel Sounds, Soft, No Distention, Other (mild tenderness to palpation in RUQ) Extremities: Normal Inspection, No Pedal Edema, Other (Left leach tank tender to palpation) Peripheral Pulses: 2+: Posterior Tibial (L), Posterior Tibial (R) Skin: Warm, Dry, Intact Neurological: Strength Equal Bilateral, Normal Speech, Sensation Intact. No: Focal Deficit Psychiatric: Alert, Other (Flat affect) - Patient Data Lab Results Last 24 hrs: Laboratory Results - last 24 hr 06/30/19 06/30/19 07/01/19 Range/Units 21:54 21:54 03:30 WBC 5.72 (4.0-11.0) K/uL RBC 3.37 L (4.30-5.90) M/uL Hgb 9.8 L (12.0-16.0) g/dL Hct 29.9 L (36.0-46.0) % MCV 88.7 (80.0-98.0) fL MCH 29.1 (27.0-32.0) pg MCHC 32.8 (31.0-37.0) g/dL RDW Std Deviation 56.3 (28.0-62.0) fl RDW Coeff of Mayito 17 H (11.0-15.0) % Plt Count 157 (150-400) K/uL MPV 8.90 (7.40-12.00) fL Neut % (Auto) 37.8 L (48.0-80.0) % Lymph % (Auto) 47.0 H (16.0-40.0) % [place] % (Auto) 10.5 (0.0-15.0) % Eos % (Auto) 2.8 (0.0-7.0) % Baso % (Auto) 1.9 H (0.0-1.5) % Neut # (Auto) 2.2 (1.4-5.7) K/uL Lymph # (Auto) 2.7 H (0.6-2.4) K/uL [place] # (Auto) 0.6 (0.0-0.8) K/uL Eos # (Auto) 0.2 (0.0-0.7) K/uL Baso # (Auto) 0.1 (0.0-0.1) K/uL Nucleated RBC % 0.0 /100WBC Nucleated RBCs # 0 K/uL INR Sodium 142 (136-145) mmol/L Potassium 3.3 L 3.2 L (3.5-5.1) mmol/L Chloride 106 (98-107) mmol/L Carbon Dioxide 26.3 (21.0-32.0) mmol/L BUN 8 (7.0-18.0) mg/dL Creatinine 0.6 (0.6-1.0) mg/dL Est Cr Clr Drug Dosing 85.95 mL/min Estimated GFR (MDRD) > 60.0 ml/min Glucose 74 (74-106) mg/dL Calcium 8.3 L (8.5-10.1) mg/dL Total Bilirubin 1.3 H (0.2-1.0) mg/dL AST 91 H (15-37) IU/L ALT 22 (14-63) IU/L Alkaline Phosphatase 256 H (46-116) U/L Total Protein 7.1 (6.4-8.2) g/dL Albumin 2.3 L (3.4-5.0) g/dL Globulin 4.8 H (2.6-4.0) g/dL Albumin/Globulin Ratio 0.5 L (0.9-1.6) TSH 3rd Generation 2.42 (0.36-3.74) uIU/mL Salicylates <0.2 (0-20) mg/dL Acetaminophen <2.0 ug/mL Ethyl Alcohol 313 mg/dL 07/01/19 07/01/19 07/01/19 Range/Units 07:48 07:48 07:48 WBC 3.38 L (4.0-11.0) K/uL RBC 2.96 L (4.30-5.90) M/uL Hgb 8.5 L (12.0-16.0) g/dL Hct 26.4 L (36.0-46.0) % MCV 89.2 (80.0-98.0) fL MCH 28.7 (27.0-32.0) pg MCHC 32.2 (31.0-37.0) g/dL RDW Std Deviation 56.3 (28.0-62.0) fl RDW Coeff of Mayito 17 H (11.0-15.0) % Plt Count 115 L (150-400) K/uL MPV 9.20 (7.40-12.00) fL Neut % (Auto) 38.1 L (48.0-80.0) % Lymph % (Auto) 47.3 H (16.0-40.0) % [place] % (Auto) 10.4 (0.0-15.0) % Eos % (Auto) 3.3 (0.0-7.0) % Baso % (Auto) 0.9 (0.0-1.5) % Neut # (Auto) 1.3 L (1.4-5.7) K/uL Lymph # (Auto) 1.6 (0.6-2.4) K/uL [place] # (Auto) 0.4 (0.0-0.8) K/uL Eos # (Auto) 0.1 (0.0-0.7) K/uL Baso # (Auto) 0.0 (0.0-0.1) K/uL Nucleated RBC % 0.0 /100WBC Nucleated RBCs # 0 K/uL INR 1.24 Sodium 142 (136-145) mmol/L Potassium 3.2 L (3.5-5.1) mmol/L Chloride 110 H (98-107) mmol/L Carbon Dioxide 23.9 (21.0-32.0) mmol/L BUN 5 L (7.0-18.0) mg/dL Creatinine 0.5 L (0.6-1.0) mg/dL Est Cr Clr Drug Dosing 112.88 mL/min Estimated GFR (MDRD) > 60.0 ml/min Glucose 71 L (74-106) mg/dL Calcium 7.6 L (8.5-10.1) mg/dL Total Bilirubin 1.2 H (0.2-1.0) mg/dL AST 74 H (15-37) IU/L ALT 15 (14-63) IU/L Alkaline Phosphatase 214 H (46-116) U/L Total Protein 5.7 L (6.4-8.2) g/dL Albumin 1.8 L (3.4-5.0) g/dL Globulin 3.9 (2.6-4.0) g/dL Albumin/Globulin Ratio 0.5 L (0.9-1.6) TSH 3rd Generation (0.36-3.74) uIU/mL Salicylates (0-20) mg/dL Acetaminophen < 2.0 ug/mL Ethyl Alcohol mg/dL Result Diagrams: 07/01/19 07:48 07/01/19 07:48 Problem List Initiated/Reviewed/Updated: Yes Orders Last 24hrs: Active Orders 24 hr Category Date Time Status Admission Status [Patient Status] [ADT] Stat ADT 06/30/19 23:08 Active CIWAA Assessment [RC] Q4H Care 07/01/19 04:00 Active Telemetry Monitoring [Cardiac Monitoring] [RC] Q8H Care 06/30/19 23:46 Active Regular Diet [DIET] Diet 07/01/19 Breakfast Active Blood Alcohol [ETHANOL BLOOD MEDICAL] [CHEM] Urgent Lab 07/01/19 10:00 Ordered HCG QUALITATIVE,URINE [URCHEM] Stat Lab 06/30/19 21:53 Received POTASSIUM,K [CHEM] Q4H Lab 07/01/19 10:00 Ordered UA RFX DIMAS AND CULT IF INDIC [URIN] Stat Lab 06/30/19 21:53 Ordered UA RFX DIMAS AND CULT IF INDIC [URIN] Stat Lab 06/30/19 21:53 Received LORazepam [Ativan] Med 07/01/19 01:02 Active 1 mg IVPUSH Q2H PRN LORazepam [Ativan] Med 07/01/19 01:06 Active 1 mg PO Q2H PRN MVI, Adult with Vitamin K [Infuvite Adult] 10 ml Med 07/01/19 21:00 Active Thiamine [Vitamin B-1] 100 mg Folic Acid 1 mg Sodium Chloride 0.9% [Normal Saline] 1,000 ml IV Q24H Nicotine [Habitrol] Med 07/01/19 09:00 Active 14 mg TRDERM DAILY Sodium Chloride 0.9% [Normal Saline] 1,000 ml Med 07/01/19 06:45 Active IV ASDIRECTED Medication Orders Multivitamins/Minerals 10 ml/Thiamine HCl 100 mg/ Folic Acid 1 mg/ Sodium Chloride 1,011.2 mls @ 999 mls/hr IV Q24H CHRISTIE Sodium Chloride (Normal Saline) 1,000 mls @ 150 mls/hr IV ASDIRECTED [facility] Last Admin: 07/01/19 07:03 Dose: 150 mls/hr Lorazepam (Ativan) 1 mg IVPUSH Q2H PRN; Protocol PRN Reason: Agitation Lorazepam (Ativan) 1 mg PO Q2H PRN; Protocol PRN Reason: Agitation Nicotine (Habitrol) 14 mg TRDERM DAILY [facility] Assessment/Plan Comment:: Assessment: 1. Suicide attempt. 2. Acute alcohol intoxication. 3. Hypokalemia. 4. Hypomagnesemia. 5. PMH of alcoholic liver cirrhosis, HTN, COPD, anxiety and depression. Plan: 1. For suicide attempt, patient will have 1:1 sitter. Patient has remained hemodynamically stable and will continue to monitor vital signs. Will contact psychiatry for possible transfer once medically stabilized. 2. For alcohol intoxication, CIMA assessment is ordered. Patient has lorazepam PRN ordered as per CIWA protocol. 3. For hypokalemia, will replete with 40 mEq PO today. Will recheck with AM labs. 4. For hypomagnesemia, will replete with 800 mg PO magnesium oxide today. Will recheck with AM labs. 5. For past medical history, patient's home medications have been held for now in lieu of recent overdose attempt. Will monitor patient's vitals and resume home medications when appropriate. <Raphael Suárez - Last Filed: 07/01/19 12:28> H&P History of Present Illness - General Admit Problem/Dx: Admission Diagnosis/Problem Admission Diagnosis/Problem Suicide attempt by multiple drug overdose I have examined the patient independently of medical device sales consultant, Dr. Hernan MD. I have discussed the case with him. I have reviewed and agree with the examination and plan as outlined by him. Please see orders. Exam - Vital Signs Vital Signs: Last Vital Signs Temp 37.0 C 07/01/19 11:53 Pulse 110 H 07/01/19 11:53 Resp 20 07/01/19 11:53 BP 125/85 07/01/19 11:53 Pulse Ox 98 07/01/19 11:53 - Patient Data Lab Results Last 24 hrs: Laboratory Results - last 24 hr 06/30/19 06/30/19 06/30/19 Range/Units 21:53 21:53 21:54 WBC 5.72 (4.0-11.0) K/uL RBC 3.37 L (4.30-5.90) M/uL Hgb 9.8 L (12.0-16.0) g/dL Hct 29.9 L (36.0-46.0) % MCV 88.7 (80.0-98.0) fL MCH 29.1 (27.0-32.0) pg MCHC 32.8 (31.0-37.0) g/dL RDW Std Deviation 56.3 (28.0-62.0) fl RDW Coeff of Mayito 17 H (11.0-15.0) % Plt Count 157 (150-400) K/uL MPV 8.90 (7.40-12.00) fL Neut % (Auto) 37.8 L (48.0-80.0) % Lymph % (Auto) 47.0 H (16.0-40.0) % [place] % (Auto) 10.5 (0.0-15.0) % Eos % (Auto) 2.8 (0.0-7.0) % Baso % (Auto) 1.9 H (0.0-1.5) % Neut # (Auto) 2.2 (1.4-5.7) K/uL Lymph # (Auto) 2.7 H (0.6-2.4) K/uL [place] # (Auto) 0.6 (0.0-0.8) K/uL Eos # (Auto) 0.2 (0.0-0.7) K/uL Baso # (Auto) 0.1 (0.0-0.1) K/uL Nucleated RBC % 0.0 /100WBC Nucleated RBCs # 0 K/uL INR Sodium (136-145) mmol/L Potassium (3.5-5.1) mmol/L Chloride (98-107) mmol/L Carbon Dioxide (21.0-32.0) mmol/L BUN (7.0-18.0) mg/dL Creatinine (0.6-1.0) mg/dL Est Cr Clr Drug Dosing mL/min Estimated GFR (MDRD) ml/min Glucose (74-106) mg/dL Calcium (8.5-10.1) mg/dL Magnesium (1.8-2.4) mg/dL Total Bilirubin (0.2-1.0) mg/dL AST (15-37) IU/L ALT (14-63) IU/L Alkaline Phosphatase (46-116) U/L Total Protein (6.4-8.2) g/dL Albumin (3.4-5.0) g/dL Globulin (2.6-4.0) g/dL Albumin/Globulin Ratio (0.9-1.6) Vitamin B12 (193-986) pg/mL Folate (8.60-58.90) ng/mL TSH 3rd Generation (0.36-3.74) uIU/mL Urine Color YELLOW Urine Appearance CLEAR Urine pH 6.0 (5.0-8.0) Ur Specific [place] 1.020 (1.001-1.035) Urine Protein NEGATIVE (NEGATIVE) mg/dL Urine Glucose (UA) NEGATIVE (NEGATIVE) mg/dL Urine Ketones NEGATIVE (NEGATIVE) mg/dL Urine Occult Blood SMALL H (NEGATIVE) Urine Nitrite NEGATIVE (NEGATIVE) Urine Bilirubin NEGATIVE (NEGATIVE) Urine Urobilinogen 1.0 (<2.0) EU/dL Ur Leukocyte Esterase NEGATIVE (NEGATIVE) Urine RBC 0-2 (0-2/HPF) Urine WBC 0-1 (0-5/HPF) Ur Epithelial Cells OCCASIONAL (NONE-FEW) Urine Bacteria FEW (NEGATIVE) Urine Mucus LIGHT (NONE-MOD) Urine HCG, Qual NEGATIVE (NEGATIVE) Salicylates (0-20) mg/dL Acetaminophen ug/mL Ethyl Alcohol mg/dL 06/30/19 07/01/19 07/01/19 Range/Units 21:54 03:30 07:48 WBC 3.38 L (4.0-11.0) K/uL RBC 2.96 L (4.30-5.90) M/uL Hgb 8.5 L (12.0-16.0) g/dL Hct 26.4 L (36.0-46.0) % MCV 89.2 (80.0-98.0) fL MCH 28.7 (27.0-32.0) pg MCHC 32.2 (31.0-37.0) g/dL RDW Std Deviation 56.3 (28.0-62.0) fl RDW Coeff of Mayito 17 H (11.0-15.0) % Plt Count 115 L (150-400) K/uL MPV 9.20 (7.40-12.00) fL Neut % (Auto) 38.1 L (48.0-80.0) % Lymph % (Auto) 47.3 H (16.0-40.0) % [place] % (Auto) 10.4 (0.0-15.0) % Eos % (Auto) 3.3 (0.0-7.0) % Baso % (Auto) 0.9 (0.0-1.5) % Neut # (Auto) 1.3 L (1.4-5.7) K/uL Lymph # (Auto) 1.6 (0.6-2.4) K/uL [place] # (Auto) 0.4 (0.0-0.8) K/uL Eos # (Auto) 0.1 (0.0-0.7) K/uL Baso # (Auto) 0.0 (0.0-0.1) K/uL Nucleated RBC % 0.0 /100WBC Nucleated RBCs # 0 K/uL INR Sodium 142 (136-145) mmol/L Potassium 3.3 L 3.2 L (3.5-5.1) mmol/L Chloride 106 (98-107) mmol/L Carbon Dioxide 26.3 (21.0-32.0) mmol/L BUN 8 (7.0-18.0) mg/dL Creatinine 0.6 (0.6-1.0) mg/dL Est Cr Clr Drug Dosing 85.95 mL/min Estimated GFR (MDRD) > 60.0 ml/min Glucose 74 (74-106) mg/dL Calcium 8.3 L (8.5-10.1) mg/dL Magnesium (1.8-2.4) mg/dL Total Bilirubin 1.3 H (0.2-1.0) mg/dL AST 91 H (15-37) IU/L ALT 22 (14-63) IU/L Alkaline Phosphatase 256 H (46-116) U/L Total Protein 7.1 (6.4-8.2) g/dL Albumin 2.3 L (3.4-5.0) g/dL Globulin 4.8 H (2.6-4.0) g/dL Albumin/Globulin Ratio 0.5 L (0.9-1.6) Vitamin B12 (193-986) pg/mL Folate (8.60-58.90) ng/mL TSH 3rd Generation 2.42 (0.36-3.74) uIU/mL Urine Color Urine Appearance Urine pH (5.0-8.0) Ur Specific [place] (1.001-1.035) Urine Protein (NEGATIVE) mg/dL Urine Glucose (UA) (NEGATIVE) mg/dL Urine Ketones (NEGATIVE) mg/dL Urine Occult Blood (NEGATIVE) Urine Nitrite (NEGATIVE) Urine Bilirubin (NEGATIVE) Urine Urobilinogen (<2.0) EU/dL Ur Leukocyte Esterase (NEGATIVE) Urine RBC (0-2/HPF) Urine WBC (0-5/HPF) Ur Epithelial Cells (NONE-FEW) Urine Bacteria (NEGATIVE) Urine Mucus (NONE-MOD) Urine HCG, Qual (NEGATIVE) Salicylates <0.2 (0-20) mg/dL Acetaminophen <2.0 ug/mL Ethyl Alcohol 313 mg/dL 07/01/19 07/01/19 07/01/19 Range/Units 07:48 07:48 07:48 WBC (4.0-11.0) K/uL RBC (4.30-5.90) M/uL Hgb (12.0-16.0) g/dL Hct (36.0-46.0) % MCV (80.0-98.0) fL MCH (27.0-32.0) pg MCHC (31.0-37.0) g/dL RDW Std Deviation (28.0-62.0) fl RDW Coeff of Mayito (11.0-15.0) % Plt Count (150-400) K/uL MPV (7.40-12.00) fL Neut % (Auto) (48.0-80.0) % Lymph % (Auto) (16.0-40.0) % [place] % (Auto) (0.0-15.0) % Eos % (Auto) (0.0-7.0) % Baso % (Auto) (0.0-1.5) % Neut # (Auto) (1.4-5.7) K/uL Lymph # (Auto) (0.6-2.4) K/uL [place] # (Auto) (0.0-0.8) K/uL Eos # (Auto) (0.0-0.7) K/uL Baso # (Auto) (0.0-0.1) K/uL Nucleated RBC % /100WBC Nucleated RBCs # K/uL INR 1.24 Sodium 142 (136-145) mmol/L Potassium 3.2 L (3.5-5.1) mmol/L Chloride 110 H (98-107) mmol/L Carbon Dioxide 23.9 (21.0-32.0) mmol/L BUN 5 L (7.0-18.0) mg/dL Creatinine 0.5 L (0.6-1.0) mg/dL Est Cr Clr Drug Dosing 112.88 mL/min Estimated GFR (MDRD) > 60.0 ml/min Glucose 71 L (74-106) mg/dL Calcium 7.6 L (8.5-10.1) mg/dL Magnesium 1.6 L (1.8-2.4) mg/dL Total Bilirubin 1.2 H (0.2-1.0) mg/dL AST 74 H (15-37) IU/L ALT 15 (14-63) IU/L Alkaline Phosphatase 214 H (46-116) U/L Total Protein 5.7 L (6.4-8.2) g/dL Albumin 1.8 L (3.4-5.0) g/dL Globulin 3.9 (2.6-4.0) g/dL Albumin/Globulin Ratio 0.5 L (0.9-1.6) Vitamin B12 (193-986) pg/mL Folate (8.60-58.90) ng/mL TSH 3rd Generation (0.36-3.74) uIU/mL Urine Color Urine Appearance Urine pH (5.0-8.0) Ur Specific [place] (1.001-1.035) Urine Protein (NEGATIVE) mg/dL Urine Glucose (UA) (NEGATIVE) mg/dL Urine Ketones (NEGATIVE) mg/dL Urine Occult Blood (NEGATIVE) Urine Nitrite (NEGATIVE) Urine Bilirubin (NEGATIVE) Urine Urobilinogen (<2.0) EU/dL Ur Leukocyte Esterase (NEGATIVE) Urine RBC (0-2/HPF) Urine WBC (0-5/HPF) Ur Epithelial Cells (NONE-FEW) Urine Bacteria (NEGATIVE) Urine Mucus (NONE-MOD) Urine HCG, Qual (NEGATIVE) Salicylates (0-20) mg/dL Acetaminophen < 2.0 ug/mL Ethyl Alcohol mg/dL 07/01/19 07/01/19 Range/Units 10:08 10:08 WBC (4.0-11.0) K/uL RBC (4.30-5.90) M/uL Hgb (12.0-16.0) g/dL Hct (36.0-46.0) % MCV (80.0-98.0) fL MCH (27.0-32.0) pg MCHC (31.0-37.0) g/dL RDW Std Deviation (28.0-62.0) fl RDW Coeff of Mayito (11.0-15.0) % Plt Count (150-400) K/uL MPV (7.40-12.00) fL Neut % (Auto) (48.0-80.0) % Lymph % (Auto) (16.0-40.0) % [place] % (Auto) (0.0-15.0) % Eos % (Auto) (0.0-7.0) % Baso % (Auto) (0.0-1.5) % Neut # (Auto) (1.4-5.7) K/uL Lymph # (Auto) (0.6-2.4) K/uL [place] # (Auto) (0.0-0.8) K/uL Eos # (Auto) (0.0-0.7) K/uL Baso # (Auto) (0.0-0.1) K/uL Nucleated RBC % /100WBC Nucleated RBCs # K/uL INR Sodium (136-145) mmol/L Potassium 3.2 L (3.5-5.1) mmol/L Chloride (98-107) mmol/L Carbon Dioxide (21.0-32.0) mmol/L BUN (7.0-18.0) mg/dL Creatinine (0.6-1.0) mg/dL Est Cr Clr Drug Dosing mL/min Estimated GFR (MDRD) ml/min Glucose (74-106) mg/dL Calcium (8.5-10.1) mg/dL Magnesium (1.8-2.4) mg/dL Total Bilirubin (0.2-1.0) mg/dL AST (15-37) IU/L ALT (14-63) IU/L Alkaline Phosphatase (46-116) U/L Total Protein (6.4-8.2) g/dL Albumin (3.4-5.0) g/dL Globulin (2.6-4.0) g/dL Albumin/Globulin Ratio (0.9-1.6) Vitamin B12 773 (193-986) pg/mL Folate 27.50 (8.60-58.90) ng/mL TSH 3rd Generation (0.36-3.74) uIU/mL Urine Color Urine Appearance Urine pH (5.0-8.0) Ur Specific [place] (1.001-1.035) Urine Protein (NEGATIVE) mg/dL Urine Glucose (UA) (NEGATIVE) mg/dL Urine Ketones (NEGATIVE) mg/dL Urine Occult Blood (NEGATIVE) Urine Nitrite (NEGATIVE) Urine Bilirubin (NEGATIVE) Urine Urobilinogen (<2.0) EU/dL Ur Leukocyte Esterase (NEGATIVE) Urine RBC (0-2/HPF) Urine WBC (0-5/HPF) Ur Epithelial Cells (NONE-FEW) Urine Bacteria (NEGATIVE) Urine Mucus (NONE-MOD) Urine HCG, Qual (NEGATIVE) Salicylates (0-20) mg/dL Acetaminophen ug/mL Ethyl Alcohol 48 mg/dL Result Diagrams: 07/01/19 07:48 07/01/19 10:08 Orders Last 24hrs: Active Orders 24 hr Category Date Time Status Admission Status [Patient Status] [ADT] Stat ADT 06/30/19 23:08 Active CIWAA Assessment [RC] Q4H Care 07/01/19 04:00 Active Communication Order [RC] STAT Care 07/01/19 09:07 Active Telemetry Monitoring [Cardiac Monitoring] [RC] Q8H Care 06/30/19 23:46 Active Fluid Restriction [DIET] Diet 07/01/19 Lunch Active Regular Diet [DIET] Diet 07/01/19 Breakfast Active BASIC METABOLIC PANEL,BMP [CHEM] Routine Lab 07/01/19 12:08 Received CBC WITH AUTO DIFF [HEME] AM Lab 07/02/19 05:11 Ordered COMPREHENSIVE METABOLIC PN,CMP [CHEM] AM Lab 07/02/19 05:11 Ordered MAGNESIUM [CHEM] AM Lab 07/02/19 05:11 Ordered MAGNESIUM [CHEM] Routine Lab 07/01/19 12:08 Received Acetaminophen [Tylenol Extra Strength] Med 07/01/19 10:13 Active 500 mg PO Q6H PRN Folic Acid Med 07/01/19 21:00 Active 1 mg PO BEDTIME Ketorolac [Toradol] Med 07/01/19 10:12 Active 15 mg IVPUSH Q6H PRN LORazepam [Ativan] Med 07/01/19 01:02 Active 1 mg IVPUSH Q2H PRN LORazepam [Ativan] Med 07/01/19 01:06 Active 1 mg PO Q2H PRN Nicotine [Habitrol] Med 07/01/19 09:00 Active 14 mg TRDERM DAILY Thiamine [Vitamin B-1] Med 07/01/19 21:00 Active 100 mg PO BEDTIME Medication Orders Acetaminophen (Tylenol Extra Strength) 500 mg PO Q6H PRN PRN Reason: Pain Folic Acid (Folic Acid) 1 mg PO BEDTIME [facility]RISTIE Ketorolac Tromethamine (Toradol) 15 mg IVPUSH Q6H PRN PRN Reason: Pain Last Admin: 07/01/19 10:28 Dose: 15 mg Lorazepam (Ativan) 1 mg IVPUSH Q2H PRN; Protocol PRN Reason: Agitation Lorazepam (Ativan) 1 mg PO Q2H PRN; Protocol PRN Reason: Agitation Nicotine (Habitrol) 14 mg TRDERM DAILY CHRISTIE Last Admin: 07/01/19 09:35 Dose: 14 mg Thiamine HCl (Vitamin B-1) 100 mg PO BEDTIME [facility]
[2019-07-01] MEDS ORDERED: Potassium Chloride 20 MEQ Tab.ER PO ONE (09:09)
[2019-07-01] MEDS: Nicotine 14 MG/24 Hr Patch TRDERM SCH (09:35)
[2019-07-01] MEDS ORDERED: Magnesium Oxide 400 MG Tab PO ONE (09:51)
[2019-07-01] MEDS: Ketorolac 15 MG/ML SDV IVPUSH PRN ×3 (10:28→22:47)
[2019-07-01] MEDS ORDERED: Sodium Chloride 0.9% 1,000 ML IV ONE (10:28)
[2019-07-01 12:44] LABS: CHLORIDE,CL 106 mmol/L (98-107); SODIUM,NA 138 mmol/L (136-145)
[2019-07-01] MEDS ORDERED: Magnesium Sulfate/Water 2 GM in Premix Bag 1 BAG IV ONE (13:02)
[2019-07-01] MEDS ORDERED: Sodium Chloride 0.9% 250 ML IV SCH (13:15)
[2019-07-01] MEDS: Acetaminophen 500 MG Tab PO PRN (13:36)
[2019-07-01] MEDS ORDERED: Ondansetron 4 MG Tab.DIS PO PRN (13:53)
[2019-07-01] MEDS ORDERED: Ondansetron 4 MG/2 ML SDV IVPUSH PRN (13:53)
[2019-07-01] MEDS ORDERED: Spironolactone 25 MG Tab PO ONE (18:15)
[2019-07-01] MEDS: Furosemide 40 MG Tab PO SCH (18:19)
[2019-07-01] MEDS: Lactulose Soln 10 GM/15 ML 15 ML UD Cup PO SCH (18:20)
[2019-07-01] MEDS: Topiramate 50 MG Tab PO SCH (20:43)
[2019-07-01] MEDS ORDERED: Thiamine 100 MG Tab PO SCH (21:00)
[2019-07-01] MEDS ORDERED: Folic Acid 1 MG Tab PO SCH (21:00)
[2019-07-01] MEDS ORDERED: MVI, Adult with Vitamin K 10 ML, Thiamine 100 MG, Folic Acid 1 MG in Sodium Chloride 0.... IV SCH ×4 (21:00)
[2019-07-02] MEDS: Ketorolac 15 MG/ML SDV IVPUSH PRN ×2 (05:21→11:28)
[2019-07-02 06:37] LABS: CHLORIDE,CL 103 mmol/L (98-107); SODIUM,NA 138 mmol/L (136-145)
--- NOTE | 2019-07-02 07:29 | PCM.PN ---
<Eusebio Becerra M - Last Filed: 07/02/19 08:00> - General Info Date of Service: 07/02/19 Subjective Update: 34-year-old female admitted for suicide attempt and acute alcohol intoxication. At bedside this morning, patient report no fevers or chills, shortness of breath or chest pain. She does report having some sweats overnight. She has been urinating, having bowel movements and tolerating oral diet well. - Patient Data Vitals - Most Recent: Last Vital Signs Temp 97.7 F 07/02/19 03:53 Pulse 85 07/02/19 03:53 Resp 16 07/02/19 03:53 BP 123/88 07/02/19 03:53 Pulse Ox 98 07/02/19 03:53 Weight - Most Recent: 41.594 kg I&O - Last 24 Hours: Intake & Output 07/01/19 07/02/19 07/02/19 22:59 06:59 14:59 Intake Total 2042 1120 Output Total 1300 2650 Balance 742 -1530 Lab Results Last 24 Hours: Laboratory Results - last 24 hr 06/30/19 06/30/19 07/01/19 Range/Units 21:53 21:53 07:48 WBC 3.38 L (4.0-11.0) K/uL RBC 2.96 L (4.30-5.90) M/uL Hgb 8.5 L (12.0-16.0) g/dL Hct 26.4 L (36.0-46.0) % MCV 89.2 (80.0-98.0) fL MCH 28.7 (27.0-32.0) pg MCHC 32.2 (31.0-37.0) g/dL RDW Std Deviation 56.3 (28.0-62.0) fl RDW Coeff of Mayito 17 H (11.0-15.0) % Plt Count 115 L (150-400) K/uL MPV 9.20 (7.40-12.00) fL Neut % (Auto) 38.1 L (48.0-80.0) % Lymph % (Auto) 47.3 H (16.0-40.0) % [place] % (Auto) 10.4 (0.0-15.0) % Eos % (Auto) 3.3 (0.0-7.0) % Baso % (Auto) 0.9 (0.0-1.5) % Neut # (Auto) 1.3 L (1.4-5.7) K/uL Lymph # (Auto) 1.6 (0.6-2.4) K/uL [place] # (Auto) 0.4 (0.0-0.8) K/uL Eos # (Auto) 0.1 (0.0-0.7) K/uL Baso # (Auto) 0.0 (0.0-0.1) K/uL Nucleated RBC % 0.0 /100WBC Nucleated RBCs # 0 K/uL INR Sodium (136-145) mmol/L Potassium (3.5-5.1) mmol/L Chloride (98-107) mmol/L Carbon Dioxide (21.0-32.0) mmol/L BUN (7.0-18.0) mg/dL Creatinine (0.6-1.0) mg/dL Est Cr Clr Drug Dosing mL/min Estimated GFR (MDRD) ml/min Glucose (74-106) mg/dL Calcium (8.5-10.1) mg/dL Magnesium (1.8-2.4) mg/dL Total Bilirubin (0.2-1.0) mg/dL AST (15-37) IU/L ALT (14-63) IU/L Alkaline Phosphatase (46-116) U/L Ammonia (19-54) ug/dL Total Protein (6.4-8.2) g/dL Albumin (3.4-5.0) g/dL Globulin (2.6-4.0) g/dL Albumin/Globulin Ratio (0.9-1.6) Vitamin B12 (193-986) pg/mL Folate (8.60-58.90) ng/mL Urine Color YELLOW Urine Appearance CLEAR Urine pH 6.0 (5.0-8.0) Ur Specific [place] 1.020 (1.001-1.035) Urine Protein NEGATIVE (NEGATIVE) mg/dL Urine Glucose (UA) NEGATIVE (NEGATIVE) mg/dL Urine Ketones NEGATIVE (NEGATIVE) mg/dL Urine Occult Blood SMALL H (NEGATIVE) Urine Nitrite NEGATIVE (NEGATIVE) Urine Bilirubin NEGATIVE (NEGATIVE) Urine Urobilinogen 1.0 (<2.0) EU/dL Ur Leukocyte Esterase NEGATIVE (NEGATIVE) Urine RBC 0-2 (0-2/HPF) Urine WBC 0-1 (0-5/HPF) Ur Epithelial Cells OCCASIONAL (NONE-FEW) Urine Bacteria FEW (NEGATIVE) Urine Mucus LIGHT (NONE-MOD) Urine HCG, Qual NEGATIVE (NEGATIVE) Urine Opiates Screen (NEGATIVE) Ur Oxycodone Screen (NEGATIVE) Urine Methadone Screen (NEGATIVE) Acetaminophen ug/mL Ur Barbiturates Screen (NEGATIVE) Ur Phencyclidine Scrn (NEGATIVE) Ur Amphetamine Screen (NEGATIVE) U Methamphetamines Scrn (NEGATIVE) U Benzodiazepines Scrn (NEGATIVE) U Cocaine Metab Screen (NEGATIVE) U Marijuana (THC) Screen (NEGATIVE) Ethyl Alcohol mg/dL 07/01/19 07/01/19 07/01/19 Range/Units 07:48 07:48 07:48 WBC (4.0-11.0) K/uL RBC (4.30-5.90) M/uL Hgb (12.0-16.0) g/dL Hct (36.0-46.0) % MCV (80.0-98.0) fL MCH (27.0-32.0) pg MCHC (31.0-37.0) g/dL RDW Std Deviation (28.0-62.0) fl RDW Coeff of Mayito (11.0-15.0) % Plt Count (150-400) K/uL MPV (7.40-12.00) fL Neut % (Auto) (48.0-80.0) % Lymph % (Auto) (16.0-40.0) % [place] % (Auto) (0.0-15.0) % Eos % (Auto) (0.0-7.0) % Baso % (Auto) (0.0-1.5) % Neut # (Auto) (1.4-5.7) K/uL Lymph # (Auto) (0.6-2.4) K/uL [place] # (Auto) (0.0-0.8) K/uL Eos # (Auto) (0.0-0.7) K/uL Baso # (Auto) (0.0-0.1) K/uL Nucleated RBC % /100WBC Nucleated RBCs # K/uL INR 1.24 Sodium 142 (136-145) mmol/L Potassium 3.2 L (3.5-5.1) mmol/L Chloride 110 H (98-107) mmol/L Carbon Dioxide 23.9 (21.0-32.0) mmol/L BUN 5 L (7.0-18.0) mg/dL Creatinine 0.5 L (0.6-1.0) mg/dL Est Cr Clr Drug Dosing 112.88 mL/min Estimated GFR (MDRD) > 60.0 ml/min Glucose 71 L (74-106) mg/dL Calcium 7.6 L (8.5-10.1) mg/dL Magnesium 1.6 L (1.8-2.4) mg/dL Total Bilirubin 1.2 H (0.2-1.0) mg/dL AST 74 H (15-37) IU/L ALT 15 (14-63) IU/L Alkaline Phosphatase 214 H (46-116) U/L Ammonia (19-54) ug/dL Total Protein 5.7 L (6.4-8.2) g/dL Albumin 1.8 L (3.4-5.0) g/dL Globulin 3.9 (2.6-4.0) g/dL Albumin/Globulin Ratio 0.5 L (0.9-1.6) Vitamin B12 (193-986) pg/mL Folate (8.60-58.90) ng/mL Urine Color Urine Appearance Urine pH (5.0-8.0) Ur Specific Harrison (1.001-1.035) Urine Protein (NEGATIVE) mg/dL Urine Glucose (UA) (NEGATIVE) mg/dL Urine Ketones (NEGATIVE) mg/dL Urine Occult Blood (NEGATIVE) Urine Nitrite (NEGATIVE) Urine Bilirubin (NEGATIVE) Urine Urobilinogen (<2.0) EU/dL Ur Leukocyte Esterase (NEGATIVE) Urine RBC (0-2/HPF) Urine WBC (0-5/HPF) Ur Epithelial Cells (NONE-FEW) Urine Bacteria (NEGATIVE) Urine Mucus (NONE-MOD) Urine HCG, Qual (NEGATIVE) Urine Opiates Screen (NEGATIVE) Ur Oxycodone Screen (NEGATIVE) Urine Methadone Screen (NEGATIVE) Acetaminophen < 2.0 ug/mL Ur Barbiturates Screen (NEGATIVE) Ur Phencyclidine Scrn (NEGATIVE) Ur Amphetamine Screen (NEGATIVE) U Methamphetamines Scrn (NEGATIVE) U Benzodiazepines Scrn (NEGATIVE) U Cocaine Metab Screen (NEGATIVE) U Marijuana (THC) Screen (NEGATIVE) Ethyl Alcohol mg/dL 07/01/19 07/01/19 07/01/19 Range/Units 08:39 10:08 10:08 WBC (4.0-11.0) K/uL RBC (4.30-5.90) M/uL Hgb (12.0-16.0) g/dL Hct (36.0-46.0) % MCV (80.0-98.0) fL MCH (27.0-32.0) pg MCHC (31.0-37.0) g/dL RDW Std Deviation (28.0-62.0) fl RDW Coeff of Mayito (11.0-15.0) % Plt Count (150-400) K/uL MPV (7.40-12.00) fL Neut % (Auto) (48.0-80.0) % Lymph % (Auto) (16.0-40.0) % [place] % (Auto) (0.0-15.0) % Eos % (Auto) (0.0-7.0) % Baso % (Auto) (0.0-1.5) % Neut # (Auto) (1.4-5.7) K/uL Lymph # (Auto) (0.6-2.4) K/uL [place] # (Auto) (0.0-0.8) K/uL Eos # (Auto) (0.0-0.7) K/uL Baso # (Auto) (0.0-0.1) K/uL Nucleated RBC % /100WBC Nucleated RBCs # K/uL INR Sodium (136-145) mmol/L Potassium 3.2 L (3.5-5.1) mmol/L Chloride (98-107) mmol/L Carbon Dioxide (21.0-32.0) mmol/L BUN (7.0-18.0) mg/dL Creatinine (0.6-1.0) mg/dL Est Cr Clr Drug Dosing mL/min Estimated GFR (MDRD) ml/min Glucose (74-106) mg/dL Calcium (8.5-10.1) mg/dL Magnesium (1.8-2.4) mg/dL Total Bilirubin (0.2-1.0) mg/dL AST (15-37) IU/L ALT (14-63) IU/L Alkaline Phosphatase (46-116) U/L Ammonia (19-54) ug/dL Total Protein (6.4-8.2) g/dL Albumin (3.4-5.0) g/dL Globulin (2.6-4.0) g/dL Albumin/Globulin Ratio (0.9-1.6) Vitamin B12 773 (193-986) pg/mL Folate 27.50 (8.60-58.90) ng/mL Urine Color Urine Appearance Urine pH (5.0-8.0) Ur Specific [place] (1.001-1.035) Urine Protein (NEGATIVE) mg/dL Urine Glucose (UA) (NEGATIVE) mg/dL Urine Ketones (NEGATIVE) mg/dL Urine Occult Blood (NEGATIVE) Urine Nitrite (NEGATIVE) Urine Bilirubin (NEGATIVE) Urine Urobilinogen (<2.0) EU/dL Ur Leukocyte Esterase (NEGATIVE) Urine RBC (0-2/HPF) Urine WBC (0-5/HPF) Ur Epithelial Cells (NONE-FEW) Urine Bacteria (NEGATIVE) Urine Mucus (NONE-MOD) Urine HCG, Qual (NEGATIVE) Urine Opiates Screen NEGATIVE (NEGATIVE) Ur Oxycodone Screen NEGATIVE (NEGATIVE) Urine Methadone Screen NEGATIVE (NEGATIVE) Acetaminophen ug/mL Ur Barbiturates Screen NEGATIVE (NEGATIVE) Ur Phencyclidine Scrn NEGATIVE (NEGATIVE) Ur Amphetamine Screen NEGATIVE (NEGATIVE) U Methamphetamines Scrn NEGATIVE (NEGATIVE) U Benzodiazepines Scrn NEGATIVE (NEGATIVE) U Cocaine Metab Screen NEGATIVE (NEGATIVE) U Marijuana (THC) Screen POSITIVE (NEGATIVE) Ethyl Alcohol 48 mg/dL 07/01/19 07/01/19 07/02/19 Range/Units 12:08 15:11 06:00 WBC 3.89 L (4.0-11.0) K/uL RBC 3.37 L (4.30-5.90) M/uL Hgb 9.5 L (12.0-16.0) g/dL Hct 29.9 L (36.0-46.0) % MCV 88.7 (80.0-98.0) fL MCH 28.2 (27.0-32.0) pg MCHC 31.8 (31.0-37.0) g/dL RDW Std Deviation 55.9 (28.0-62.0) fl RDW Coeff of Mayito 17 H (11.0-15.0) % Plt Count 132 L (150-400) K/uL MPV 9.50 (7.40-12.00) fL Neut % (Auto) 43.5 L (48.0-80.0) % Lymph % (Auto) 39.1 (16.0-40.0) % [place] % (Auto) 11.3 (0.0-15.0) % Eos % (Auto) 5.1 (0.0-7.0) % Baso % (Auto) 1.0 (0.0-1.5) % Neut # (Auto) 1.7 (1.4-5.7) K/uL Lymph # (Auto) 1.5 (0.6-2.4) K/uL [place] # (Auto) 0.4 (0.0-0.8) K/uL Eos # (Auto) 0.2 (0.0-0.7) K/uL Baso # (Auto) 0.0 (0.0-0.1) K/uL Nucleated RBC % 0.0 /100WBC Nucleated RBCs # 0 K/uL INR Sodium 138 (136-145) mmol/L Potassium 3.8 (3.5-5.1) mmol/L Chloride 106 (98-107) mmol/L Carbon Dioxide 24.1 (21.0-32.0) mmol/L BUN 5 L (7.0-18.0) mg/dL Creatinine 0.5 L (0.6-1.0) mg/dL Est Cr Clr Drug Dosing 112.88 mL/min Estimated GFR (MDRD) > 60.0 ml/min Glucose 83 (74-106) mg/dL Calcium 8.0 L (8.5-10.1) mg/dL Magnesium 1.5 L (1.8-2.4) mg/dL Total Bilirubin (0.2-1.0) mg/dL AST (15-37) IU/L ALT (14-63) IU/L Alkaline Phosphatase (46-116) U/L Ammonia 96 H (19-54) ug/dL Total Protein (6.4-8.2) g/dL Albumin (3.4-5.0) g/dL Globulin (2.6-4.0) g/dL Albumin/Globulin Ratio (0.9-1.6) Vitamin B12 (193-986) pg/mL Folate (8.60-58.90) ng/mL Urine Color Urine Appearance Urine pH (5.0-8.0) Ur Specific [place] (1.001-1.035) Urine Protein (NEGATIVE) mg/dL Urine Glucose (UA) (NEGATIVE) mg/dL Urine Ketones (NEGATIVE) mg/dL Urine Occult Blood (NEGATIVE) Urine Nitrite (NEGATIVE) Urine Bilirubin (NEGATIVE) Urine Urobilinogen (<2.0) EU/dL Ur Leukocyte Esterase (NEGATIVE) Urine RBC (0-2/HPF) Urine WBC (0-5/HPF) Ur Epithelial Cells (NONE-FEW) Urine Bacteria (NEGATIVE) Urine Mucus (NONE-MOD) Urine HCG, Qual (NEGATIVE) Urine Opiates Screen (NEGATIVE) Ur Oxycodone Screen (NEGATIVE) Urine Methadone Screen (NEGATIVE) Acetaminophen ug/mL Ur Barbiturates Screen (NEGATIVE) Ur Phencyclidine Scrn (NEGATIVE) Ur Amphetamine Screen (NEGATIVE) U Methamphetamines Scrn (NEGATIVE) U Benzodiazepines Scrn (NEGATIVE) U Cocaine Metab Screen (NEGATIVE) U Marijuana (THC) Screen (NEGATIVE) Ethyl Alcohol mg/dL 07/02/19 Range/Units 06:00 WBC (4.0-11.0) K/uL RBC (4.30-5.90) M/uL Hgb (12.0-16.0) g/dL Hct (36.0-46.0) % MCV (80.0-98.0) fL MCH (27.0-32.0) pg MCHC (31.0-37.0) g/dL RDW Std Deviation (28.0-62.0) fl RDW Coeff of Mayito (11.0-15.0) % Plt Count (150-400) K/uL MPV (7.40-12.00) fL Neut % (Auto) (48.0-80.0) % Lymph % (Auto) (16.0-40.0) % [place] % (Auto) (0.0-15.0) % Eos % (Auto) (0.0-7.0) % Baso % (Auto) (0.0-1.5) % Neut # (Auto) (1.4-5.7) K/uL Lymph # (Auto) (0.6-2.4) K/uL [place] # (Auto) (0.0-0.8) K/uL Eos # (Auto) (0.0-0.7) K/uL Baso # (Auto) (0.0-0.1) K/uL Nucleated RBC % /100WBC Nucleated RBCs # K/uL INR Sodium 138 (136-145) mmol/L Potassium 3.5 (3.5-5.1) mmol/L Chloride 103 (98-107) mmol/L Carbon Dioxide 24.6 (21.0-32.0) mmol/L BUN 7 (7.0-18.0) mg/dL Creatinine 0.6 (0.6-1.0) mg/dL Est Cr Clr Drug Dosing 94.06 mL/min Estimated GFR (MDRD) > 60.0 ml/min Glucose 76 (74-106) mg/dL Calcium 8.6 (8.5-10.1) mg/dL Magnesium 2.2 (1.8-2.4) mg/dL Total Bilirubin 1.9 H (0.2-1.0) mg/dL AST 70 H (15-37) IU/L ALT 18 (14-63) IU/L Alkaline Phosphatase 267 H (46-116) U/L Ammonia (19-54) ug/dL Total Protein 6.7 (6.4-8.2) g/dL Albumin 2.1 L (3.4-5.0) g/dL Globulin 4.6 H (2.6-4.0) g/dL Albumin/Globulin Ratio 0.5 L (0.9-1.6) Vitamin B12 (193-986) pg/mL Folate (8.60-58.90) ng/mL Urine Color Urine Appearance Urine pH (5.0-8.0) Ur Specific [place] (1.001-1.035) Urine Protein (NEGATIVE) mg/dL Urine Glucose (UA) (NEGATIVE) mg/dL Urine Ketones (NEGATIVE) mg/dL Urine Occult Blood (NEGATIVE) Urine Nitrite (NEGATIVE) Urine Bilirubin (NEGATIVE) Urine Urobilinogen (<2.0) EU/dL Ur Leukocyte Esterase (NEGATIVE) Urine RBC (0-2/HPF) Urine WBC (0-5/HPF) Ur Epithelial Cells (NONE-FEW) Urine Bacteria (NEGATIVE) Urine Mucus (NONE-MOD) Urine HCG, Qual (NEGATIVE) Urine Opiates Screen (NEGATIVE) Ur Oxycodone Screen (NEGATIVE) Urine Methadone Screen (NEGATIVE) Acetaminophen ug/mL Ur Barbiturates Screen (NEGATIVE) Ur Phencyclidine Scrn (NEGATIVE) Ur Amphetamine Screen (NEGATIVE) U Methamphetamines Scrn (NEGATIVE) U Benzodiazepines Scrn (NEGATIVE) U Cocaine Metab Screen (NEGATIVE) U Marijuana (THC) Screen (NEGATIVE) Ethyl Alcohol mg/dL Med Orders - Current: Current Medications Acetaminophen (Tylenol Extra Strength) 500 mg PO Q6H PRN PRN Reason: Pain Last Admin: 07/01/19 13:36 Dose: 500 mg Folic Acid (Folic Acid) 1 mg PO BEDTIME [facility] Last Admin: 07/01/19 20:42 Dose: 1 mg Furosemide (Lasix) 40 mg PO DAILY [facility] Last Admin: 07/01/19 18:19 Dose: 40 mg Sodium Chloride (Normal Saline) 250 mls @ 999 mls/hr IV STAT [facility] Ketorolac Tromethamine (Toradol) 15 mg IVPUSH Q6H PRN PRN Reason: Pain Last Admin: 07/02/19 05:21 Dose: 15 mg Lactulose (Chronulac) 10 gm PO DAILY [facility] Last Admin: 07/01/19 18:20 Dose: 10 gm Lorazepam (Ativan) 1 mg IVPUSH Q2H PRN; Protocol PRN Reason: Agitation Lorazepam (Ativan) 1 mg PO Q2H PRN; Protocol PRN Reason: Agitation Nicotine (Habitrol) 14 mg TRDERM DAILY [facility] Last Admin: 07/01/19 09:35 Dose: 14 mg Omeprazole (Omeprazole) 20 mg PO ACBREAKFAST [facility] Last Admin: 07/02/19 06:37 Dose: 20 mg Ondansetron HCl (Zofran Odt) 4 mg PO Q4H PRN PRN Reason: nausea, able to take PO Ondansetron HCl (Zofran) 4 mg IVPUSH Q4H PRN PRN Reason: Nausea Spironolactone (Aldactone) 12.5 mg PO BID [facility] Thiamine HCl (Vitamin B-1) 100 mg PO BEDTIME [facility] Last Admin: 07/01/19 20:43 Dose: 100 mg Topiramate (Topamax) 25 mg PO BID CHRISTIE Last Admin: 07/01/19 20:43 Dose: 25 mg Discontinued Medications Diphenhydramine HCl (Benadryl) 50 mg IVPUSH ONETIME ONE Stop: 07/01/19 02:06 Last Admin: 07/01/19 02:23 Dose: 50 mg Furosemide (Lasix) 20 mg PO BIDDIURETIC CHRISTIE Haloperidol Lactate (Haldol) 5 mg IM ONETIME ONE Stop: 07/01/19 02:06 Last Admin: 07/01/19 03:37 Dose: Not Given Hyoscyamine (Hyomax-Sl) 0.125 mg SL Q4H PRN PRN Reason: Pain Sodium Chloride (Normal Saline) 1,000 mls @ 125 mls/hr IV STAT [facility] Last Admin: 06/30/19 21:54 Dose: 125 mls/hr Multivitamins/Minerals 10 ml/Thiamine HCl 100 mg/ Folic Acid 1 mg/ Sodium Chloride 1,011.2 mls @ 999 mls/hr IV DAILY ONE Stop: 07/01/19 03:00 Last Admin: 07/01/19 01:36 Dose: 999 mls/hr Sodium Chloride (Normal Saline) 1,000 mls @ 100 mls/hr IV ASDIRECTED [facility] Multivitamins/Minerals 10 ml/Thiamine HCl 100 mg/ Folic Acid 1 mg/ Sodium Chloride 1,011.2 mls @ 999 mls/hr IV Q24H CHRISTIE Sodium Chloride (Normal Saline) 1,000 mls @ 150 mls/hr IV ASDIRECTED [facility] Last Admin: 07/01/19 07:03 Dose: 150 mls/hr Sodium Chloride (Normal Saline) 1,000 mls @ 75 mls/hr IV STAT ONE Stop: 07/01/19 23:47 Last Admin: 07/01/19 10:37 Dose: Not Given Magnesium Sulfate 2 gm/ Premix 50 mls @ 25 mls/hr IV ONETIME ONE Stop: 07/01/19 15:01 Last Admin: 07/01/19 13:28 Dose: 25 mls/hr Lactulose (Chronulac) 10 gm PO DAILY PRN PRN Reason: constipation Lorazepam (Ativan) 2 mg IVPUSH ONETIME ONE Stop: 07/01/19 02:05 Last Admin: 07/01/19 02:23 Dose: 2 mg Magnesium Oxide (Magnesium Oxide) 800 mg PO ONETIME ONE Stop: 07/01/19 09:52 Last Admin: 07/01/19 10:28 Dose: 800 mg Non-Formulary Medication (Esomeprazole Magnesium [Esomeprazole Magnesium]) 40 mg PO DAILY [facility] Potassium Chloride (Klor-Con M20) 40 meq PO ONETIME ONE Stop: 07/01/19 09:10 Last Admin: 07/01/19 09:35 Dose: 40 meq Spironolactone (Aldactone) 12.5 mg PO BID CHRISTIE Spironolactone (Aldactone) 12.5 mg PO ONETIME ONE Stop: 07/01/19 18:16 Last Admin: 07/01/19 18:20 Dose: 12.5 mg - Exam General: Alert, Oriented, Cooperative, No Acute Distress Lungs: Clear to Auscultation, Normal Respiratory Effort Cardiovascular: Tachycardia GI/Abdominal Exam: Normal Bowel Sounds, Soft, Non-Tender, No Distention Extremities: Normal Inspection, No Pedal Edema Peripheral Pulses: 2+: Posterior Tibial (L), Posterior Tibial (R) Psy/Mental Status: Alert, Other (Flat affect) - Problem List & Annotations (1) Suicide ideation SNOMED Code(s): 9284231 Code(s): R45.851 - SUICIDAL IDEATIONS Status: Acute Current Visit: Yes (2) Alcohol intoxication SNOMED Code(s): 56316540 Code(s): F10.929 - ALCOHOL USE, UNSPECIFIED WITH INTOXICATION, UNSPECIFIED Status: Chronic Priority: High Current Visit: Yes Qualifiers: Complication of substance-induced condition: uncomplicated Qualified Code(s ): F10.920 - Alcohol use, unspecified with intoxication, uncomplicated (3) Alcoholic liver disease SNOMED Code(s): 12932930 Code(s): K70.9 - ALCOHOLIC LIVER DISEASE, UNSPECIFIED Status: Acute Current Visit: No - Problem List Review Problem List Initiated/Reviewed/Updated: Yes - My Orders Last 24 Hours: My Active Orders 07/01/19 09:07 Communication Order [RC] STAT 07/01/19 10:12 Ketorolac [Toradol] 15 mg IVPUSH Q6H PRN 07/01/19 10:13 Acetaminophen [Tylenol Extra Strength] 500 mg PO Q6H PRN 07/01/19 13:15 Sodium Chloride 0.9% [Normal Saline] 250 ml IV STAT 07/01/19 13:53 Oxygen Therapy [RC] PRN Up ad [place] [RC] ASDIRECTED VTE/DVT Education [RC] PER UNIT ROUTINE Vital Signs [RC] Q4H Ondansetron [Zofran ODT] 4 mg PO Q4H PRN Ondansetron [Zofran] 4 mg IVPUSH Q4H PRN Resuscitation Status Routine 07/01/19 13:54 Antiembolic Devices [RC] PER UNIT ROUTINE Sequential Compression Device [OM.PC] Per Unit Routine 07/01/19 18:00 Furosemide [Lasix] 40 mg PO DAILY Lactulose [Chronulac] 10 gm PO DAILY 07/01/19 18:08 Notify Provider Consults [RC] ASDIRECTED Consult to Physician [CONS] Routine 07/01/19 21:00 Folic Acid 1 mg PO BEDTIME Thiamine [Vitamin B-1] 100 mg PO BEDTIME Topiramate [Topamax] 25 mg PO BID 07/01/19 Lunch Fluid Restriction [DIET] 07/02/19 07:30 Omeprazole 20 mg PO ACBREAKFAST 07/02/19 09:00 Spironolactone [Aldactone] 12.5 mg PO BID - Plan Plan:: Assessment: 1. Suicide attempt. 2. Acute alcohol intoxication. 3. Alcoholic liver cirrhosis with MELD score 11 and Child-Jasso class B. 4. Hypokalemia, resolved. 5. Hypomagnesemia, resolved. 6. PMH of alcoholic liver cirrhosis, HTN, COPD, anxiety and depression. Plan: 1. For suicide attempt, an attempt was made to transfer the patient to [facility] inpatient psychiatry unit yesterday. Psychiatry providers at [facility] felt that patient was stable enough to be evaluated as an outpatient. I did not feel discharge was appropriate without psychiatric evaluation considering patient's clinical picture. Dr. Marie was consulted who will be evaluating patient today via tele-psych. Dr. Marie did recommend 1:1 sitter and starting patient on Topamax 25 mg BID. Patient has remained hemodynamically stable. 2. For alcohol intoxication, will monitor CIWA assessment scores, lorazepam PRN as per CIWA protocol. Patient repeated blood alcohol level yesterday was 48 mg/ dL. 3. For past medical history, patient's home medications have been resumed. <Raphael Suárez - Last Filed: 07/02/19 08:35> - General Info Admission Dx/Problem (Free Text): I have examined the patient independently of medical physics teacher, Dr. Hernan MD. I have discussed the case with him. I have reviewed and agree with the examination and plan as outlined by him. Please see orders. - Patient Data Vitals - Most Recent: Last Vital Signs Temp 36.5 C 07/02/19 08:00 Pulse 90 07/02/19 08:00 Resp 16 07/02/19 08:00 BP 110/72 07/02/19 08:00 Pulse Ox 96 07/02/19 08:00 I&O - Last 24 Hours: Intake & Output 07/01/19 07/02/19 07/02/19 22:59 06:59 14:59 Intake Total 2042 1120 Output Total 1300 2650 Balance 742 -1530 Lab Results Last 24 Hours: Laboratory Results - last 24 hr 06/30/19 06/30/19 07/01/19 Range/Units 21:53 21:53 07:48 WBC (4.0-11.0) K/uL RBC (4.30-5.90) M/uL Hgb (12.0-16.0) g/dL Hct (36.0-46.0) % MCV (80.0-98.0) fL MCH (27.0-32.0) pg MCHC (31.0-37.0) g/dL RDW Std Deviation (28.0-62.0) fl RDW Coeff of Mayito (11.0-15.0) % Plt Count (150-400) K/uL MPV (7.40-12.00) fL Neut % (Auto) (48.0-80.0) % Lymph % (Auto) (16.0-40.0) % [place] % (Auto) (0.0-15.0) % Eos % (Auto) (0.0-7.0) % Baso % (Auto) (0.0-1.5) % Neut # (Auto) (1.4-5.7) K/uL Lymph # (Auto) (0.6-2.4) K/uL [place] # (Auto) (0.0-0.8) K/uL Eos # (Auto) (0.0-0.7) K/uL Baso # (Auto) (0.0-0.1) K/uL Nucleated RBC % /100WBC Nucleated RBCs # K/uL Sodium (136-145) mmol/L Potassium (3.5-5.1) mmol/L Chloride (98-107) mmol/L Carbon Dioxide (21.0-32.0) mmol/L BUN (7.0-18.0) mg/dL Creatinine (0.6-1.0) mg/dL Est Cr Clr Drug Dosing mL/min Estimated GFR (MDRD) ml/min Glucose (74-106) mg/dL Calcium (8.5-10.1) mg/dL Magnesium 1.6 L (1.8-2.4) mg/dL Total Bilirubin (0.2-1.0) mg/dL AST (15-37) IU/L ALT (14-63) IU/L Alkaline Phosphatase (46-116) U/L Ammonia (19-54) ug/dL Total Protein (6.4-8.2) g/dL Albumin (3.4-5.0) g/dL Globulin (2.6-4.0) g/dL Albumin/Globulin Ratio (0.9-1.6) Vitamin B12 (193-986) pg/mL Folate (8.60-58.90) ng/mL Urine Color YELLOW Urine Appearance CLEAR Urine pH 6.0 (5.0-8.0) Ur Specific [place] 1.020 (1.001-1.035) Urine Protein NEGATIVE (NEGATIVE) mg/dL Urine Glucose (UA) NEGATIVE (NEGATIVE) mg/dL Urine Ketones NEGATIVE (NEGATIVE) mg/dL Urine Occult Blood SMALL H (NEGATIVE) Urine Nitrite NEGATIVE (NEGATIVE) Urine Bilirubin NEGATIVE (NEGATIVE) Urine Urobilinogen 1.0 (<2.0) EU/dL Ur Leukocyte Esterase NEGATIVE (NEGATIVE) Urine RBC 0-2 (0-2/HPF) Urine WBC 0-1 (0-5/HPF) Ur Epithelial Cells OCCASIONAL (NONE-FEW) Urine Bacteria FEW (NEGATIVE) Urine Mucus LIGHT (NONE-MOD) Urine HCG, Qual NEGATIVE (NEGATIVE) Urine Opiates Screen (NEGATIVE) Ur Oxycodone Screen (NEGATIVE) Urine Methadone Screen (NEGATIVE) Ur Barbiturates Screen (NEGATIVE) Ur Phencyclidine Scrn (NEGATIVE) Ur Amphetamine Screen (NEGATIVE) U Methamphetamines Scrn (NEGATIVE) U Benzodiazepines Scrn (NEGATIVE) U Cocaine Metab Screen (NEGATIVE) U Marijuana (THC) Screen (NEGATIVE) Ethyl Alcohol mg/dL 07/01/19 07/01/19 07/01/19 Range/Units 08:39 10:08 10:08 WBC (4.0-11.0) K/uL RBC (4.30-5.90) M/uL Hgb (12.0-16.0) g/dL Hct (36.0-46.0) % MCV (80.0-98.0) fL MCH (27.0-32.0) pg MCHC (31.0-37.0) g/dL RDW Std Deviation (28.0-62.0) fl RDW Coeff of [place] (11.0-15.0) % Plt Count (150-400) K/uL MPV (7.40-12.00) fL Neut % (Auto) (48.0-80.0) % Lymph % (Auto) (16.0-40.0) % [place] % (Auto) (0.0-15.0) % Eos % (Auto) (0.0-7.0) % Baso % (Auto) (0.0-1.5) % Neut # (Auto) (1.4-5.7) K/uL Lymph # (Auto) (0.6-2.4) K/uL [place] # (Auto) (0.0-0.8) K/uL Eos # (Auto) (0.0-0.7) K/uL Baso # (Auto) (0.0-0.1) K/uL Nucleated RBC % /100WBC Nucleated RBCs # K/uL Sodium (136-145) mmol/L Potassium 3.2 L (3.5-5.1) mmol/L Chloride (98-107) mmol/L Carbon Dioxide (21.0-32.0) mmol/L BUN (7.0-18.0) mg/dL Creatinine (0.6-1.0) mg/dL Est Cr Clr Drug Dosing mL/min Estimated GFR (MDRD) ml/min Glucose (74-106) mg/dL Calcium (8.5-10.1) mg/dL Magnesium (1.8-2.4) mg/dL Total Bilirubin (0.2-1.0) mg/dL AST (15-37) IU/L ALT (14-63) IU/L Alkaline Phosphatase (46-116) U/L Ammonia (19-54) ug/dL Total Protein (6.4-8.2) g/dL Albumin (3.4-5.0) g/dL Globulin (2.6-4.0) g/dL Albumin/Globulin Ratio (0.9-1.6) Vitamin B12 773 (193-986) pg/mL Folate 27.50 (8.60-58.90) ng/mL Urine Color Urine Appearance Urine pH (5.0-8.0) Ur Specific [place] (1.001-1.035) Urine Protein (NEGATIVE) mg/dL Urine Glucose (UA) (NEGATIVE) mg/dL Urine Ketones (NEGATIVE) mg/dL Urine Occult Blood (NEGATIVE) Urine Nitrite (NEGATIVE) Urine Bilirubin (NEGATIVE) Urine Urobilinogen (<2.0) EU/dL Ur Leukocyte Esterase (NEGATIVE) Urine RBC (0-2/HPF) Urine WBC (0-5/HPF) Ur Epithelial Cells (NONE-FEW) Urine Bacteria (NEGATIVE) Urine Mucus (NONE-MOD) Urine HCG, Qual (NEGATIVE) Urine Opiates Screen NEGATIVE (NEGATIVE) Ur Oxycodone Screen NEGATIVE (NEGATIVE) Urine Methadone Screen NEGATIVE (NEGATIVE) Ur Barbiturates Screen NEGATIVE (NEGATIVE) Ur Phencyclidine Scrn NEGATIVE (NEGATIVE) Ur Amphetamine Screen NEGATIVE (NEGATIVE) U Methamphetamines Scrn NEGATIVE (NEGATIVE) U Benzodiazepines Scrn NEGATIVE (NEGATIVE) U Cocaine Metab Screen NEGATIVE (NEGATIVE) U Marijuana (THC) Screen POSITIVE (NEGATIVE) Ethyl Alcohol 48 mg/dL 07/01/19 07/01/19 07/02/19 Range/Units 12:08 15:11 06:00 WBC 3.89 L (4.0-11.0) K/uL RBC 3.37 L (4.30-5.90) M/uL Hgb 9.5 L (12.0-16.0) g/dL Hct 29.9 L (36.0-46.0) % MCV 88.7 (80.0-98.0) fL MCH 28.2 (27.0-32.0) pg MCHC 31.8 (31.0-37.0) g/dL RDW Std Deviation 55.9 (28.0-62.0) fl RDW Coeff of May[place] 17 H (11.0-15.0) % Plt Count 132 L (150-400) K/uL MPV 9.50 (7.40-12.00) fL Neut % (Auto) 43.5 L (48.0-80.0) % Lymph % (Auto) 39.1 (16.0-40.0) % [place] % (Auto) 11.3 (0.0-15.0) % Eos % (Auto) 5.1 (0.0-7.0) % Baso % (Auto) 1.0 (0.0-1.5) % Neut # (Auto) 1.7 (1.4-5.7) K/uL Lymph # (Auto) 1.5 (0.6-2.4) K/uL [place] # (Auto) 0.4 (0.0-0.8) K/uL Eos # (Auto) 0.2 (0.0-0.7) K/uL Baso # (Auto) 0.0 (0.0-0.1) K/uL Nucleated RBC % 0.0 /100WBC Nucleated RBCs # 0 K/uL Sodium 138 (136-145) mmol/L Potassium 3.8 (3.5-5.1) mmol/L Chloride 106 (98-107) mmol/L Carbon Dioxide 24.1 (21.0-32.0) mmol/L BUN 5 L (7.0-18.0) mg/dL Creatinine 0.5 L (0.6-1.0) mg/dL Est Cr Clr Drug Dosing 112.88 mL/min Estimated GFR (MDRD) > 60.0 ml/min Glucose 83 (74-106) mg/dL Calcium 8.0 L (8.5-10.1) mg/dL Magnesium 1.5 L (1.8-2.4) mg/dL Total Bilirubin (0.2-1.0) mg/dL AST (15-37) IU/L ALT (14-63) IU/L Alkaline Phosphatase (46-116) U/L Ammonia 96 H (19-54) ug/dL Total Protein (6.4-8.2) g/dL Albumin (3.4-5.0) g/dL Globulin (2.6-4.0) g/dL Albumin/Globulin Ratio (0.9-1.6) Vitamin B12 (193-986) pg/mL Folate (8.60-58.90) ng/mL Urine Color Urine Appearance Urine pH (5.0-8.0) Ur Specific [place] (1.001-1.035) Urine Protein (NEGATIVE) mg/dL Urine Glucose (UA) (NEGATIVE) mg/dL Urine Ketones (NEGATIVE) mg/dL Urine Occult Blood (NEGATIVE) Urine Nitrite (NEGATIVE) Urine Bilirubin (NEGATIVE) Urine Urobilinogen (<2.0) EU/dL Ur Leukocyte Esterase (NEGATIVE) Urine RBC (0-2/HPF) Urine WBC (0-5/HPF) Ur Epithelial Cells (NONE-FEW) Urine Bacteria (NEGATIVE) Urine Mucus (NONE-MOD) Urine HCG, Qual (NEGATIVE) Urine Opiates Screen (NEGATIVE) Ur Oxycodone Screen (NEGATIVE) Urine Methadone Screen (NEGATIVE) Ur Barbiturates Screen (NEGATIVE) Ur Phencyclidine Scrn (NEGATIVE) Ur Amphetamine Screen (NEGATIVE) U Methamphetamines Scrn (NEGATIVE) U Benzodiazepines Scrn (NEGATIVE) U Cocaine Metab Screen (NEGATIVE) U Marijuana (THC) Screen (NEGATIVE) Ethyl Alcohol mg/dL 07/02/19 Range/Units 06:00 WBC (4.0-11.0) K/uL RBC (4.30-5.90) M/uL Hgb (12.0-16.0) g/dL Hct (36.0-46.0) % MCV (80.0-98.0) fL MCH (27.0-32.0) pg MCHC (31.0-37.0) g/dL RDW Std Deviation (28.0-62.0) fl RDW Coeff of [place] (11.0-15.0) % Plt Count (150-400) K/uL MPV (7.40-12.00) fL Neut % (Auto) (48.0-80.0) % Lymph % (Auto) (16.0-40.0) % [place] % (Auto) (0.0-15.0) % Eos % (Auto) (0.0-7.0) % Baso % (Auto) (0.0-1.5) % Neut # (Auto) (1.4-5.7) K/uL Lymph # (Auto) (0.6-2.4) K/uL [place] # (Auto) (0.0-0.8) K/uL Eos # (Auto) (0.0-0.7) K/uL Baso # (Auto) (0.0-0.1) K/uL Nucleated RBC % /100WBC Nucleated RBCs # K/uL Sodium 138 (136-145) mmol/L Potassium 3.5 (3.5-5.1) mmol/L Chloride 103 (98-107) mmol/L Carbon Dioxide 24.6 (21.0-32.0) mmol/L BUN 7 (7.0-18.0) mg/dL Creatinine 0.6 (0.6-1.0) mg/dL Est Cr Clr Drug Dosing 94.06 mL/min Estimated GFR (MDRD) > 60.0 ml/min Glucose 76 (74-106) mg/dL Calcium 8.6 (8.5-10.1) mg/dL Magnesium 2.2 (1.8-2.4) mg/dL Total Bilirubin 1.9 H (0.2-1.0) mg/dL AST 70 H (15-37) IU/L ALT 18 (14-63) IU/L Alkaline Phosphatase 267 H (46-116) U/L Ammonia (19-54) ug/dL Total Protein 6.7 (6.4-8.2) g/dL Albumin 2.1 L (3.4-5.0) g/dL Globulin 4.6 H (2.6-4.0) g/dL Albumin/Globulin Ratio 0.5 L (0.9-1.6) Vitamin B12 (193-986) pg/mL Folate (8.60-58.90) ng/mL Urine Color Urine Appearance Urine pH (5.0-8.0) Ur Specific [place] (1.001-1.035) Urine Protein (NEGATIVE) mg/dL Urine Glucose (UA) (NEGATIVE) mg/dL Urine Ketones (NEGATIVE) mg/dL Urine Occult Blood (NEGATIVE) Urine Nitrite (NEGATIVE) Urine Bilirubin (NEGATIVE) Urine Urobilinogen (<2.0) EU/dL Ur Leukocyte Esterase (NEGATIVE) Urine RBC (0-2/HPF) Urine WBC (0-5/HPF) Ur Epithelial Cells (NONE-FEW) Urine Bacteria (NEGATIVE) Urine Mucus (NONE-MOD) Urine HCG, Qual (NEGATIVE) Urine Opiates Screen (NEGATIVE) Ur Oxycodone Screen (NEGATIVE) Urine Methadone Screen (NEGATIVE) Ur Barbiturates Screen (NEGATIVE) Ur Phencyclidine Scrn (NEGATIVE) Ur Amphetamine Screen (NEGATIVE) U Methamphetamines Scrn (NEGATIVE) U Benzodiazepines Scrn (NEGATIVE) U Cocaine Metab Screen (NEGATIVE) U Marijuana (THC) Screen (NEGATIVE) Ethyl Alcohol mg/dL Med Orders - Current: Current Medications Acetaminophen (Tylenol Extra Strength) 500 mg PO Q6H PRN PRN Reason: Pain Last Admin: 07/02/19 08:28 Dose: 500 mg Folic Acid (Folic Acid) 1 mg PO BEDTIME [facility] Last Admin: 07/01/19 20:42 Dose: 1 mg Furosemide (Lasix) 40 mg PO DAILY [facility] Last Admin: 07/02/19 08:28 Dose: 40 mg Ketorolac Tromethamine (Toradol) 15 mg IVPUSH Q6H PRN PRN Reason: Pain Last Admin: 07/02/19 05:21 Dose: 15 mg Lactulose (Chronulac) 10 gm PO DAILY [facility] Last Admin: 07/02/19 08:26 Dose: 10 gm Lorazepam (Ativan) 1 mg IVPUSH Q2H PRN; Protocol PRN Reason: Agitation Lorazepam (Ativan) 1 mg PO Q2H PRN; Protocol PRN Reason: Agitation Nicotine (Habitrol) 14 mg TRDERM DAILY [facility] Last Admin: 07/02/19 08:29 Dose: 14 mg Omeprazole (Omeprazole) 20 mg PO ACBREAKFAST [facility] Last Admin: 07/02/19 06:37 Dose: 20 mg Ondansetron HCl (Zofran Odt) 4 mg PO Q4H PRN PRN Reason: nausea, able to take PO Ondansetron HCl (Zofran) 4 mg IVPUSH Q4H PRN PRN Reason: Nausea Spironolactone (Aldactone) 12.5 mg PO BID [facility] Last Admin: 07/02/19 08:26 Dose: 12.5 mg Thiamine HCl (Vitamin B-1) 100 mg PO BEDTIME [facility] Last Admin: 07/01/19 20:43 Dose: 100 mg Topiramate (Topamax) 25 mg PO BID [facility] Last Admin: 07/02/19 08:27 Dose: 25 mg Discontinued Medications Diphenhydramine HCl (Benadryl) 50 mg IVPUSH ONETIME ONE Stop: 07/01/19 02:06 Last Admin: 07/01/19 02:23 Dose: 50 mg Furosemide (Lasix) 20 mg PO BIDDIURETIC [facility] Haloperidol Lactate (Haldol) 5 mg IM ONETIME ONE Stop: 07/01/19 02:06 Last Admin: 07/01/19 03:37 Dose: Not Given Hyoscyamine (Hyomax-Sl) 0.125 mg SL Q4H PRN PRN Reason: Pain Sodium Chloride (Normal Saline) 1,000 mls @ 125 mls/hr IV STAT [facility] Last Admin: 06/30/19 21:54 Dose: 125 mls/hr Multivitamins/Minerals 10 ml/Thiamine HCl 100 mg/ Folic Acid 1 mg/ Sodium Chloride 1,011.2 mls @ 999 mls/hr IV DAILY ONE Stop: 07/01/19 03:00 Last Admin: 07/01/19 01:36 Dose: 999 mls/hr Sodium Chloride (Normal Saline) 1,000 mls @ 100 mls/hr IV ASDIRECTED [facility] Multivitamins/Minerals 10 ml/Thiamine HCl 100 mg/ Folic Acid 1 mg/ Sodium Chloride 1,011.2 mls @ 999 mls/hr IV Q24H [facility] Sodium Chloride (Normal Saline) 1,000 mls @ 150 mls/hr IV ASDIRECTED [facility] Last Admin: 07/01/19 07:03 Dose: 150 mls/hr Sodium Chloride (Normal Saline) 1,000 mls @ 75 mls/hr IV STAT ONE Stop: 07/01/19 23:47 Last Admin: 07/01/19 10:37 Dose: Not Given Magnesium Sulfate 2 gm/ Premix 50 mls @ 25 mls/hr IV ONETIME ONE Stop: 07/01/19 15:01 Last Admin: 07/01/19 13:28 Dose: 25 mls/hr Sodium Chloride (Normal Saline) 250 mls @ 999 mls/hr IV STAT [facility] Lactulose (Chronulac) 10 gm PO DAILY PRN PRN Reason: constipation Lorazepam (Ativan) 2 mg IVPUSH ONETIME ONE Stop: 07/01/19 02:05 Last Admin: 07/01/19 02:23 Dose: 2 mg Magnesium Oxide (Magnesium Oxide) 800 mg PO ONETIME ONE Stop: 07/01/19 09:52 Last Admin: 07/01/19 10:28 Dose: 800 mg Non-Formulary Medication (Esomeprazole Magnesium [Esomeprazole Magnesium]) 40 mg PO DAILY [facility] Potassium Chloride (Klor-Con M20) 40 meq PO ONETIME ONE Stop: 07/01/19 09:10 Last Admin: 07/01/19 09:35 Dose: 40 meq Spironolactone (Aldactone) 12.5 mg PO BID [facility] Spironolactone (Aldactone) 12.5 mg PO ONETIME ONE Stop: 07/01/19 18:16 Last Admin: 07/01/19 18:20 Dose: 12.5 mg - My Orders Last 24 Hours: My Active Orders 07/01/19 09:00 Nicotine [Habitrol] 14 mg TRDERM DAILY
[2019-07-02] MEDS ORDERED: Omeprazole 20 MG Cap.CR PO SCH (07:30)
[2019-07-02] MEDS: Lactulose Soln 10 GM/15 ML 15 ML UD Cup PO SCH (08:26)
[2019-07-02] MEDS: Topiramate 50 MG Tab PO SCH (08:27)
[2019-07-02] MEDS: Acetaminophen 500 MG Tab PO PRN (08:28)
[2019-07-02] MEDS: Furosemide 40 MG Tab PO SCH (08:28)
[2019-07-02] MEDS: Nicotine 14 MG/24 Hr Patch TRDERM SCH (08:29)
[2019-07-02] MEDS ORDERED: Spironolactone 25 MG Tab PO SCH (09:00)
[2019-07-02] MEDS ORDERED: Sertraline 50 MG Tab PO SCH (12:45)
[2019-07-02] MEDS ORDERED: LORazepam 2 MG/ML SDV IVPUSH ONE (13:08)
[2019-07-02 13:12] VITALS: BP 113/92
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
[2019-07-02] MEDS ORDERED: LORazepam 2 MG/ML SDV IVPUSH PRN (13:53)
--- NOTE | 2019-07-02 18:11 | CONS ---
DATE OF CONSULTATION: 07/02/2019 DATE OF : 1985 PRIMARY CARE PHYSICIAN: None PCP Site where the services are provided, [facility] in [place], [place]. Site where the services are provided from, our offices in [facility]. Length of service for this 60-minute inpatient telemedicine event is 60 minutes. IDENTIFICATION: The patient is a 34-year-old female, who is admitted to the inpatient Med/Surg Unit at [facility] in [facility]. She is seen for psychiatric consultation per the request of staff attending Dr. Suárez and chief resident, Dr. Mcleod. CHIEF COMPLAINT: "I have a problem drinking. I just really overwhelmed with everything, I went and took a bunch of pills." HISTORY OF PRESENT ILLNESS: Patient is a 34-year-old female, who is admitted to the inpatient Med/Surg Unit on July 01, 2019, status post suicide attempt by OD in the face of heavy alcohol intoxication. The patient had a BAL on admission of 313 and staff has reported that patient has been struggling with worsening depression for over a period of about 2 weeks and this information was received from the patient's family. Evidently, the patient had a fight with her fiance prior to drinking and overdose, and she had been trying to stay sober but then relapsed. On interview, the patient's fiance and mother are present, and both the fiance and the mother are emphasizing the patient's drinking is really out of control at this point in time and the mom is stating "she needs help" not only for drinking but for mental health issues because patient is struggling with depression, low self-esteem, and increased anxiety. The patient states "I regret for what I did" but is expressing some resistance to going to inpatient psychiatry or treatment because "I want to see my daughter's third school" later this week. Patient's family is again emphasizing that patient needs to get help and fiance is also emphasizing that she needs psychiatric as well as chemical dependency assistance. Per report, the patient is stating that she is not suicidal at this point in time, denying that she is homicidal. She also states "I just don't feel safe, I am scared" about if she is discharged whether she will be able to stay safe or sober. The family do have guns at home, but fiance states that they can be put under lock and nelson. Patient is denying that she is psychotic, delusional, or paranoid, and she endorses symptoms of depression and anxiety. MEDICATIONS ON PRESENTATION: None. ALLERGIES: 1. Augmentin. 2. Amoxicillin. 3. Latex. PAST MEDICAL HISTORY: 1. Patient has a history of alcoholic cirrhosis. 2. GERD. 3. COPD. REVIEW OF SYSTEMS: Aside from GI and Pulmonary, all other major organ systems are negative at this point time for acute difficulties, complications. FAMILY PSYCHIATRIC AND CD HISTORY: Patient reports father has a history of alcoholism. PAST PSYCHIATRY AND CD HISTORY: Patient denies any previous psychiatric hospitalizations or chemical dependency treatments. She states her longest sobriety was for about 6 months back in 2013. She states she has not gone to in the past. The patient reports one suicide attempt back in 2013 while intoxicated. She was evaluated at the hospital but then discharged. Denies any self-injurious behavior history or eating disorder history. PAST PSYCHIATRIC MEDICATION HISTORY: Includes sertraline which did help with the patient's mood and this is back in 2013. PAST PSYCHIATRIC DIAGNOSIS: Major depressive disorder. Primary outpatient MD is loni Fagan in [place], [place]. SOCIAL HISTORY: Patient was born and raised in [place], [place]. 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 Her highest level of education is GED. She is currently unemployed. She has been x1 and for the past 5 years and has been in a current relationship for 5 years. She has 3 children, 2 from the marriage; 13 and 11 years of age, and a 5-year-old from another relationship. Her fiance works in the [employer] field currently. She states all 3 children are with her fiance's parents. Her youngest child is with her mom. She denies any prior service or any current legal difficulties. She is Gnosticist in terms of her harry formation. She states she enjoys spending time with her kids, swimming, and reading. MENTAL STATUS EXAM: The patient is a 34-year-old, white female, in no apparent distress. Speech is of regular rate and rhythm. Patient is cognitively oriented x3. Psychomotor activities within normal limits. There is no abnormal motor movements or tics observed. Gait and station are not observed. The patient is lying in bed during the inpatient consult. Mood is depressed and anxious. Affect is consistent with stated mood, tearful but cooperative overall for the purposes of the inpatient consult. There is no behavioral or stated evidence of acute suicidal or homicidal ideation or acute psychotic, delusional, or paranoid symptoms. Thought processes are significant for racing thoughts, ruminations; however, there are no acute manic symptoms or loose associations evident. Judgment and insight, however, do appear impaired due to severity of her mental health issues and her addiction issues in the form of alcohol dependence. Motivation for help is fair to poor. VITAL SIGNS: 125/85, 110, 20, and 98.6 degrees. IMPRESSION: Coventry I. 1. Major depressive disorder, F32.3. 2. Alcohol dependence, F10.20. 3. Anxiety disorder, not otherwise stated, F41.9. Coventry II: None. Coventry III: 1. History of alcohol cirrhosis. 2. Gastroesophageal reflux disease. 3. Chronic obstructive pulmonary disease. Coventry IV: Severe. Coventry V: 55 to 60. PLAN: 1. Sobriety. 2. Begin trial of Zoloft 50 mg q.a.m. to help with symptoms of depression. 3. I recommend that when the patient is medically stabilized that she be transferred over to Inpatient Psychiatry for further psychiatric stabilization and safety, and when she is psychiatrically stabilized that she is transferred to chemical dependency treatment for treatment of her alcohol dependence. 4. We will continue to follow up the patient on as needed basis while she remains on the inpatient Med/Surg Unit at [place], [place]. 5. We will follow up with the patient sooner if there are any complications in the interim. 6. If the patient does try to leave A, we would place a hold on her for the purposes of transferring her to inpatient psych once she is medically stabilized. 7. Crisis plan is in place. MICHAELA / WILLIAM /[id number]
== END 2019-07-02 14:45 ==
LOC: MW.ED 21:20 → MW.MS 23:08
PROVIDERS: ADMIT Internal Medicine; ATTEND Internal Medicine
DX: T65.92XA Toxic effect of unspecified substance, intentional self-harm, initial encounter (principal); R11.2 Nausea with vomiting, unspecified; R10.11 Right upper quadrant pain; M79.672 Pain in left foot; R20.0 Anesthesia of skin; F10.129 Alcohol abuse with intoxication, unspecified; F32.9 Major depressive disorder, single episode, unspecified; F41.9 Anxiety disorder, unspecified; R45.851 Suicidal ideations; K70.9 Alcoholic liver disease, unspecified; I10 Essential (primary) hypertension; J44.9 Chronic obstructive pulmonary disease, unspecified; F17.210 Nicotine dependence, cigarettes, uncomplicated; E87.6 Hypokalemia; E83.42 Hypomagnesemia; Y90.8 Blood alcohol level of 240 mg/100 ml or more; Z79.899 Other long term (current) drug therapy; Z79.891 Long term (current) use of opiate analgesic; Z88.0 Allergy status to penicillin; Z91.040 Latex allergy status; Z88.8 Allergy status to other drugs, medicaments and biological substances
CPT/HCPCS: 36415; 80048; 80053; 80305; 81001; 81025; 82140; 82607; 82746; 83735; 84132; 84443; 85025; 85610; 93005; 96361; 96365; 96366; 96375; 96376; 99285; A9270; G0378; G0480; J1200; J1885; J2060; J3411; J3475; J7040; 96360; 99283

== ENCOUNTER 2022-08-25 15:21 | Emergency (ER) | payer MEDICAID, OTHER, SELFPAY ==
[2022-08-25 16:23] VITALS: BP 143/104; PULSE 102
== END 2022-08-25 17:20 ==
LOC: MW.ED 15:21
DX: Z02.89 Encounter for other administrative examinations (principal); Z88.0 Allergy status to penicillin; Z91.040 Latex allergy status; Z88.8 Allergy status to other drugs, medicaments and biological substances
CPT/HCPCS: 99282; 99283

== ENCOUNTER 2023-01-01 13:54 | Emergency (ER) | payer SELFPAY ==
[2023-01-01 14:21] VITALS: BP 135/100; PULSE 109
== END 2023-01-01 14:21 ==
LOC: MW.ED 13:54
DX: R45.851 Suicidal ideations (principal); I10 Essential (primary) hypertension; J44.9 Chronic obstructive pulmonary disease, unspecified; Z88.0 Allergy status to penicillin; Z91.040 Latex allergy status; Z79.899 Other long term (current) drug therapy
CPT/HCPCS: 99283; 99284

== ENCOUNTER 2023-01-01 15:04 | Emergency (ER) | payer SELFPAY ==
[2023-01-01 15:49] VITALS: BP 150/76; PULSE 86
== END 2023-01-01 15:53 | disposition left against medical advice (07) ==
LOC: MW.ED 15:04
DX: Z53.21 Procedure and treatment not carried out due to patient leaving prior to being seen by health care provider (principal)

== ENCOUNTER 2023-01-04 02:32 | Emergency (ER) | payer SELFPAY ==
[2023-01-04] MEDS ORDERED: Nitrofurantoin Monohydrate/Macrocrystalline 100 MG Cap PO ONE (03:37)
[2023-01-04 03:38] LABS: ACETAMINOPHEN <2.0 ug/mL; BLOOD UREA NITROGEN,BUN 7 mg/dL (7.0-18.0); CARBON DIOXIDE,CO2 29.5 mmol/L (21.0-32.0); CHLORIDE,CL 102 mmol/L (98-107); GLUCOSE RANDOM 93 mg/dL (74-106); POTASSIUM,K 4.2 mmol/L (3.5-5.1); SODIUM,NA 137 mmol/L (136-145)
[2023-01-04 03:39] LABS: ESTIMATED GFR 119 mL/min (>60)
[2023-01-04 06:16] VITALS: BP 126/81; PULSE 72
== END 2023-01-04 06:15 ==
LOC: MW.ED 02:32
DX: R45.851 Suicidal ideations (principal); I10 Essential (primary) hypertension; J44.9 Chronic obstructive pulmonary disease, unspecified; Z88.0 Allergy status to penicillin; Z91.040 Latex allergy status; Z79.899 Other long term (current) drug therapy; Z20.822 Contact with and (suspected) exposure to COVID-19
CPT/HCPCS: 36415; 80053; 80143; 80179; 80305; 80307; 81001; 84443; 84703; 85025; 85610; 87086; 87088; 87186; 87635; 93005; 99285; A9270; U0002

== ENCOUNTER 2023-02-19 00:23 | Emergency (ER) | payer SELFPAY ==
[2023-02-19 02:08] VITALS: BP 139/96; PULSE 109
== END 2023-02-19 02:05 ==
LOC: MW.ED 00:23
DX: Z02.89 Encounter for other administrative examinations (principal); J44.9 Chronic obstructive pulmonary disease, unspecified; I10 Essential (primary) hypertension; Z88.0 Allergy status to penicillin; Z91.040 Latex allergy status
CPT/HCPCS: 93005; 93010; 99283

== ENCOUNTER 2025-06-19 12:18 | Emergency (ER) | payer SELFPAY | END 2025-06-19 13:01 | disposition left against medical advice (07) | LOC: MW.ED 12:18 | DX: Z53.21 Procedure and treatment not carried out due to patient leaving prior to being seen by health care provider (principal) ==